=== PATIENT | female | born 1940 | race Caucasian/White ===

== ENCOUNTER 2016-05-26 19:45 | Observation (INO) ==
--- NOTE | 2016-05-26 20:05 | Emergency Department Note ---
Disposition Clinical Impression: Syncope and collapse Urinary tract infection Qualifiers: Urinary tract infection type: acute cystitis Hematuria presence: with hematuria Qualified Code(s): N30.01 - Acute cystitis with hematuria Disposition: Admitted As Inpatient Forms: ED Satisfaction Letter Syncope HPI - General Chief Complaint: ED Syncope Stated Complaint: Syncope Time Seen by Provider: 05/26/16 19:50 Source: EMS Limitations: no limitations Nursing Notes Reviewed: Yes Vital Signs Reviewed: Yes - History of Present Illness HPI Narrative: patient is a 76 year old female who had a syncopal episode sitting and watching a basketball game. she felt dizzy and weak before she fainted, shes complaining of post neck pain but she was between 2 family members and sustained no trauma. Pt Subjective Complaint: loss of consciousness, felt faint, collapsed Onset (ago): minute(s) (30) Number of episodes: 1 Duration: minutes(s) (5) Witnessed: yes - by bystander Context: at rest (sitting at a basketball game.) Injuries Sustained Associated with Event: none Current Symptoms: lightheaded, headache History: none Treatments prior to arrival: none - Related Data Allergies Allergy/AdvReac Type Severity Reaction Status Date / Time No Known Allergies Allergy Verified 05/26/16 21:22 All systems ED: reviewed and negative except as stated. Constitutional: Denies: fever, chills, weakness Cardiovascular: Denies: chest pain, palpitations, dyspnea on exertion Past Medical History - Past Medical History Source: patient, old records reviewed, obtained from family, nursing notes reviewed Medical history: Reports: diabetes, GERD, hypertension Psychiatric history: Reports: no psych history - Social History Smoking Status: Never smoker Smokeless Tobacco Status: No Alcohol use: Reports: none Drug use: Reports: none Physical Exam - General Limitations: no limitations General appearance: lethargic - Head Head exam: atraumatic, normocephalic, normal inspection - Eye Eye exam: Present: normal appearance, PERRL, EOMI - Expanded Eye Exam Pupils: Left: reactive - ENT ENT exam: normal exam, normal oropharynx, mucous membranes moist - Expanded ENT Exam External ear exam: Present: normal external inspection Mouth exam: Present: normal external inspection Teeth exam: Present: normal inspection Throat exam: Present: normal inspection - Neck Neck exam: Present: normal inspection, full ROM, trachea midline - Chest Chest inspection: Present: normal inspection, symmetric chest wall rise - Respiratory Respiratory exam: Present: normal lung sounds bilaterally - Cardiovascular Cardiovascular exam: Present: regular rate, normal rhythm, normal heart sounds - Abdominal Exam Abdominal exam: Present: soft, Non-Tender. Absent: tenderness, distention, guarding, rebound, rigidity - Extremities Exam Extremities exam: Present: normal inspection, full ROM. Absent: tenderness, pedal edema - Expanded Upper Extremity Exam Shoulder exam: Present: normal inspection, full ROM Arm exam: Present: normal inspection, full ROM Elbow exam: Present: normal inspection, full ROM Forearm/Wrist exam: Present: normal inspection, full ROM Hand exam: Present: normal inspection, full ROM Vascular exam: Normal: capillary refill, radial pulse - Expanded Lower Extremity Exam Hip/Pelvis exam: Present: normal inspection, full ROM Upper leg exam: Present: normal inspection, full ROM Knee exam: Present: normal inspection, full ROM Lower leg exam: Present: normal inspection, full ROM Ankle exam: Present: normal inspection, full ROM Foot/toe exam: Present: normal inspection, full ROM Neurovascular/Tendon exam: Absent: motor deficit, sensory deficit, tendon deficit - Back Exam Back exam: Present: normal inspection, full ROM. Absent: tenderness - Neurological Exam Neurological exam: Present: alert, oriented X3 - Expanded Neurological Exam Patient oriented to: Present: person, place, time Coma Scale Eye Opening: Spontaneous Coma Scale Motor Response: Obeys Commands Coma Scale Verbal Response: Oriented Coma Scale Total: 15 - Psychiatric Psychiatric exam: Present: normal affect, normal mood - Skin Skin exam: Present: warm, dry, intact, normal color Course Vital Signs O2 Sat by Pulse Oximetry 96 05/26/16 19:45 Temperature 97.2 F L 05/26/16 19:46 Pulse Rate 80 05/26/16 22:22 Respiratory Rate 16 05/26/16 22:22 Blood Pressure 149/84 05/26/16 22:22 O2 Sat by Pulse Oximetry 95 05/26/16 22:22 Oxygen Delivery Oxygen Delivery Nasal Cannula Syncope - Differential Diagnosis Likely: vasovagal syncope, complete atrioventricular block, intracerebral hemorrhage, pulmonary embolism, dehydration/metabolic disorder, trauma secondary to event - Medical Records Medical records reviewed: Yes I reviewed the patient's medical records. - Lab Data Lab results reviewed: Yes I reviewed the patient's lab results. Result diagrams: 05/26/16 19:55 05/26/16 19:55 Lab Results 05/26/16 05/26/16 05/26/16 Range/Units 19:48 19:55 19:55 WBC 8.8 (4.3-11.1) K/mcL RBC 4.44 (3.82-4.97) M/mcL Hgb 13.5 (11.5-15.4) g/dL Hct 39.5 (35.3-44.9) % MCV 89.0 (83.0-100.0) fL MCH 30.4 (28.0-33.3) pg MCHC 34.2 (31.6-35.5) g/dL RDW 12.3 (11.5-14.5) % Plt Count 195 (140-400) K/mcL MPV 10.2 (9.4-12.4) fL Immature Gran % 0.5 (0-4) % Seg Neutrophils % 68.5 % Lymphocytes % 21.4 % Monocytes % 8.6 % Eosinophils % 0.7 % Basophils % 0.3 % Neutrophils # 6.0 (1.6-8.9) K/mcL Lymphocytes # 1.9 (0.6-4.6) K/mcL Monocytes # 0.8 (0.0-1.3) K/mcL Eosinophils # 0.1 (0.0-0.6) K/mcL Basophils # 0.0 (0.0-0.2) K/mcL PT 11.8 (9.4-12.1) Seconds INR 1.1 APTT 29.7 (26.0-36.0) Seconds Sodium (136-145) mEq/L Potassium (3.5-4.5) mEq/L Chloride (98-109) mEq/L Carbon Dioxide (19-29) mEq/L BUN (7-20) mg/dL Creatinine (0.57-1.11) mg/dL Est GFR ( Amer) (> 60) Est GFR (Non-Af Amer) (> 60) BUN/Creatinine Ratio (6-26) Glucose (70-99) mg/dL POC Glucose 308 H (58-89) Calculated Osmolality (280-300) Calcium (8.6-10.8) mg/dL Troponin I (0-0.03) ng/mL Urine Color (Yellow) Urine Clarity (Clear) Urine pH (5.0-8.0) pH Units Ur Specific [place] (1.010-1.025) Urine Protein (Neg-Trace) mg/dL Urine Glucose (UA) (Normal) mg/dL Urine Ketones (Negative) mg/dL Urine Blood (Negative) Urine Nitrite (Negative) Urine Bilirubin (Negative) Urine Urobilinogen (Normal) mg/dL Ur Leukocyte Esterase (Negative) Urine Microscopic RBC (0-3) per hpf Urine Microscopic WBC (0-3) per hpf Ur Squamous Epith Cells (None-Few) per lpf Urine Bacteria (None-Few) per hpf Hyaline Casts (None-Few) per lpf Ur Culture Indicated? (NO) Urine Opiates Screen (Reqltm=890) ng/mL Ur Barbiturates Screen (Qoljca=627) ng/mL Ur Phencyclidine Scrn (Cutoff=25) ng/mL Ur Amphetamines Screen (Wmcdvx=7038) ng/mL U Benzodiazepines Scrn (Qwxkxp=154) ng/mL Urine Cocaine Screen (Cutoff= 300) ng/mL U Marijuana (THC) Screen (Cutoff = 50) ng/mL 05/26/16 05/26/16 05/26/16 Range/Units 19:55 19:55 20:20 WBC (4.3-11.1) K/mcL RBC (3.82-4.97) M/mcL Hgb (11.5-15.4) g/dL Hct (35.3-44.9) % MCV (83.0-100.0) fL MCH (28.0-33.3) pg MCHC (31.6-35.5) g/dL RDW (11.5-14.5) % Plt Count (140-400) K/mcL MPV (9.4-12.4) fL Immature Gran % (0-4) % Seg Neutrophils % % Lymphocytes % % Monocytes % % Eosinophils % % Basophils % % Neutrophils # (1.6-8.9) K/mcL Lymphocytes # (0.6-4.6) K/mcL Monocytes # (0.0-1.3) K/mcL Eosinophils # (0.0-0.6) K/mcL Basophils # (0.0-0.2) K/mcL PT (9.4-12.1) Seconds INR APTT (26.0-36.0) Seconds Sodium 133 L (136-145) mEq/L Potassium 4.8 H (3.5-4.5) mEq/L Chloride 98 (98-109) mEq/L Carbon Dioxide 20 (19-29) mEq/L BUN 24 H (7-20) mg/dL Creatinine 1.23 H (0.57-1.11) mg/dL Est GFR ( Amer) 52 L (> 60) Est GFR (Non-Af Amer) 43 L (> 60) BUN/Creatinine Ratio 20 (6-26) Glucose 348 H (70-99) mg/dL POC Glucose (58-89) Calculated Osmolality 294 (280-300) Calcium 10.1 (8.6-10.8) mg/dL Troponin I 0.00 (0-0.03) ng/mL Urine Color Yellow (Yellow) Urine Clarity Cloudy A (Clear) Urine pH 6.0 (5.0-8.0) pH Units Ur Specific [place] 1.028 H (1.010-1.025) Urine Protein 30 H (Neg-Trace) mg/dL Urine Glucose (UA) >=1000 H (Normal) mg/dL Urine Ketones Trace H (Negative) mg/dL Urine Blood Negative (Negative) Urine Nitrite Negative (Negative) Urine Bilirubin Negative (Negative) Urine Urobilinogen Normal (Normal) mg/dL Ur Leukocyte Esterase Large H (Negative) Urine Microscopic RBC 0-3 (0-3) per hpf Urine Microscopic WBC TNTC H (0-3) per hpf Ur Squamous Epith Cells Many H (None-Few) per lpf Urine Bacteria Moderate H (None-Few) per hpf Hyaline Casts Few (None-Few) per lpf Ur Culture Indicated? YES A (NO) Urine Opiates Screen (Bufshe=972) ng/mL Ur Barbiturates Screen (Ehnjmr=052) ng/mL Ur Phencyclidine Scrn (Cutoff=25) ng/mL Ur Amphetamines Screen (Ycwytl=5175) ng/mL U Benzodiazepines Scrn (Saintt=210) ng/mL Urine Cocaine Screen (Cutoff= 300) ng/mL U Marijuana (THC) Screen (Cutoff = 50) ng/mL 05/26/16 Range/Units 20:20 WBC (4.3-11.1) K/mcL RBC (3.82-4.97) M/mcL Hgb (11.5-15.4) g/dL Hct (35.3-44.9) % MCV (83.0-100.0) fL MCH (28.0-33.3) pg MCHC (31.6-35.5) g/dL RDW (11.5-14.5) % Plt Count (140-400) K/mcL MPV (9.4-12.4) fL Immature Gran % (0-4) % Seg Neutrophils % % Lymphocytes % % Monocytes % % Eosinophils % % Basophils % % Neutrophils # (1.6-8.9) K/mcL Lymphocytes # (0.6-4.6) K/mcL Monocytes # (0.0-1.3) K/mcL Eosinophils # (0.0-0.6) K/mcL Basophils # (0.0-0.2) K/mcL PT (9.4-12.1) Seconds INR APTT (26.0-36.0) Seconds Sodium (136-145) mEq/L Potassium (3.5-4.5) mEq/L Chloride (98-109) mEq/L Carbon Dioxide (19-29) mEq/L BUN (7-20) mg/dL Creatinine (0.57-1.11) mg/dL Est GFR ( Amer) (> 60) Est GFR (Non-Af Amer) (> 60) BUN/Creatinine Ratio (6-26) Glucose (70-99) mg/dL POC Glucose (58-89) Calculated Osmolality (280-300) Calcium (8.6-10.8) mg/dL Troponin I (0-0.03) ng/mL Urine Color (Yellow) Urine Clarity (Clear) Urine pH (5.0-8.0) pH Units Ur Specific [place] (1.010-1.025) Urine Protein (Neg-Trace) mg/dL Urine Glucose (UA) (Normal) mg/dL Urine Ketones (Negative) mg/dL Urine Blood (Negative) Urine Nitrite (Negative) Urine Bilirubin (Negative) Urine Urobilinogen (Normal) mg/dL Ur Leukocyte Esterase (Negative) Urine Microscopic RBC (0-3) per hpf Urine Microscopic WBC (0-3) per hpf Ur Squamous Epith Cells (None-Few) per lpf Urine Bacteria (None-Few) per hpf Hyaline Casts (None-Few) per lpf Ur Culture Indicated? (NO) Urine Opiates Screen Negative (Cezdjp=556) ng/mL Ur Barbiturates Screen Negative (Bmkeaz=297) ng/mL Ur Phencyclidine Scrn Negative (Cutoff=25) ng/mL Ur Amphetamines Screen Negative (Wcmcwr=9394) ng/mL U Benzodiazepines Scrn Negative (Akslph=365) ng/mL Urine Cocaine Screen Negative (Cutoff= 300) ng/mL U Marijuana (THC) Screen Negative (Cutoff = 50) ng/mL - Radiology Data Radiology results reviewed: Yes I reviewed the patient's radiology results. - EKG Data EKG attestation: Yes I reviewed and interpreted this EKG. EKG shows normal: sinus rhythm Rate: normal (85) Rhythm: NSR [place]/QRS: normal Interpretation: nonspecific ST-T wave changes
[2016-05-26 20:06] LABS: Basophils % 0.3 %; Eosinophils # 0.1 K/mcL (0.0-0.6); Eosinophils % 0.7 %; Hematocrit 39.5 % (35.3-44.9); Hemoglobin 13.5 g/dL (11.5-15.4); Immature Granulocytes % 0.5 % (0-4); Lymphocytes # 1.9 K/mcL (0.6-4.6); Lymphocytes % 21.4 %; Mean Corpuscular HGB Conc 34.2 g/dL (31.6-35.5); Mean Corpuscular Hemoglobin 30.4 pg (28.0-33.3); Mean Platelet Volume 10.2 fL (9.4-12.4); Monocytes # 0.8 K/mcL (0.0-1.3); Monocytes % 8.6 %; Platelet Count 195 K/mcL (140-400); Red Blood Count 4.44 M/mcL (3.82-4.97); Red Cell Distribution Width 12.3 % (11.5-14.5); Segmented Neutrophils % 68.5 %
[2016-05-26 20:11] LABS: INR 1.1; Prothrombin Time 11.8 Seconds (9.4-12.1)
[2016-05-26 20:14] LABS: Activated Partial Thrombo Time 29.7 Seconds (26.0-36.0)
[2016-05-26 20:22] LABS: Calcium 10.1 mg/dL (8.6-10.8); Potassium 4.8 mEq/L (3.5-4.5)
[2016-05-26 20:42] LABS: Bilirubin,Urine Negative (Negative); Blood,Urine Negative (Negative); Clarity,Urine Cloudy (Clear); Color,Urine Yellow (Yellow); Glucose,Urine (UA) >=1000 mg/dL (Normal); Ketones,Urine Trace mg/dL (Negative); Leukocyte Esterase,Urine Large (Negative); Nitrite,Urine Negative (Negative); Protein,Urine 30 mg/dL (Neg-Trace); Specific Gravity,Urine 1.028 (1.010-1.025); Urobilinogen,Urine Normal (Normal)
[2016-05-26 20:45] LABS: Amphetamine Screen,Urine Negative ng/mL (Cutoff=1000); Bacteria,Urine Moderate per hpf (None-Few); Barbiturate Screen,Urine Negative ng/mL (Cutoff=200); Benzodiazepines Screen,Urine Negative ng/mL (Cutoff=200); Cannabinoid Screen,Urine Negative ng/mL (Cutoff = 50); Cocaine Screen,Urine Negative ng/mL (Cutoff= 300); Hyaline Casts,Urine Few per lpf (None-Few); Opiate Screen,Urine Negative ng/mL (Cutoff=300); Phencyclidine Screen,Urine Negative ng/mL (Cutoff=25); RBC,Urine 0-3 per hpf (0-3); Squamous Epithelial Cell,Urine Many per lpf (None-Few); WBC,Urine TNTC per hpf (0-3)
[2016-05-26] MEDS ORDERED: *HR* Morphine 2 MG/ML SYRINGE IV ONE (21:45)
[2016-05-26] MEDS ORDERED: Ondansetron 4 MG/2 ML VIAL IV ONE (21:45)
[2016-05-26] MEDS ORDERED: Levofloxacin 750 MG/150 ML 750 MG/150 ML BAG IVPB ONE (21:54)
[2016-05-26] MEDS ORDERED: Acetaminophen 325 MG TABLET PO PRN (23:27)
[2016-05-26] MEDS ORDERED: Naloxone 0.4 MG/ML INJ IVP PRN (23:27)
[2016-05-26] MEDS ORDERED: Dextrose Gel 15 GM PO PRN ×2 (23:30)
[2016-05-26] MEDS ORDERED: D5% in Water 1,000 ML IV PRN (23:30)
[2016-05-26] MEDS ORDERED: *HR* Dextrose 50 % in Water (Syg) 50 ML SYRINGE IVP PRN (23:30)
[2016-05-26] MEDS ORDERED: 0.9 % Sodium Chloride 1,000 ML IVC SCH (23:30)
--- NOTE | 2016-05-26 23:32 | Internal Med History&Physical ---
Date of Encounter: 05/27/16 Time of Encounter: 23:32 Assessment and Plan (1) Syncope and collapse Current visit: Yes Status: Acute Patient with witnessed syncopal episode this evening, was unresponsive for several minutes and confused when she came to. CT head: negative for acute abnormality. Troponin negative at 0.0. EKG with NSR and non-specific ST changes. 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 Continuous instrument calibrator Echocardiogram in the morning orthostatic vital signs. (2) Urinary tract infection Current visit: Yes Status: Acute Patient denies dysuria. UA shows concern for UTI. She was given IV Levaquin in the ED. Await culture results. Qualifiers: Urinary tract infection type: acute cystitis Hematuria presence: with hematuria Qualified Code(s): N30.01 - Acute cystitis with hematuria (3) DVT prophylaxis Current visit: Yes Status: Acute Ambulate with assistance anti-embolic stockings heparin 5,000u SQ BID Internal Medicine - H&P: HPI Chief complaint: syncope Admitted From: Emergency Dept Plans for Post Hospital Care: Home History of present illness: Ms. Simpson is a 76 year old female with history of hypertension, type 2 diabetes , GERD was brought to the ER by the squad after a witnessed syncopal event. She was at a high school basketball game and reports she developed dizzy and nauseous and told her daughter she did not feel well. Her daughter reports she fell and turned very and had her eyes rolled back in her head and slumped over. He did in the bleachers and fell on the person sitting next to her did not hit her head. Daughter reports that several people came over to help and they could not arouse her for several minutes. Someone checked her blood sugar and it was in the 300s. When she did awake, her speech was slurred and she was confused, stating it was 1969. After the incident she reported she had a headache at the back of her head, her neck hurt, and her head felt "heavy". She denies any episodes of dizziness, lightheadedness, prior to the episode this evening. She denies any chest pain, palpitations, recent fever, chills, sweats, body aches. Eyes any dysuria. Evaluation in the emergency department showed negative troponin 0.0, GGT was normal sinus rhythm with nonspecific ST changes. Her 348. Mild acute kidney injury with creatinine of 1.23. UA concerning for infection. CT of the head showed no acute abnormality. CTA of the head and neck showed moderate to severe irregular stenosis of the cavernous and supraclinoid right internal carotid artery secondary to calcified atherosclerotic plaque, moderate calcified atherosclerotic plaque at the carotid bifurcations causing 30% stenosis at the origin of the right and 50% stenosis in the region of the left internal carotid arteries, moderate focal stenosis at the origin of the left vertebral artery. On exam, she is alert and oriented 3, in no acute distress. Heart has regular rate and rhythm, lungs are clear to auscultation bilaterally. No neurological deficits. Past Med Surg Social Fam HX - Past Medical History Medical history: diabetes, GERD, hypertension Psychiatric history: no psych history - Past Surgical History Surgical History: hysterectomy - Social History Smoking Status: Never smoker Smokeless Tobacco Status: No Alcohol use: none Drug use: none - Family History Father Living Status: Age at : 53 Cause of : ME Mother Living Status: Cause of : Cancer Internal Medicine - H&P: Meds Allergies No Known Allergies Allergy (Verified 05/26/16 21:22) All Systems PM: A 10-system review of systems was performed and is negative for pertinent findings except as documented above in the HPI. - Constitutional Constitutional: no chills, no fever(s), no night sweats - EENT Eyes: no change in vision, no discharge, no pain, no photophobia Nose, mouth and throat: no dysphagia, no nasal discharge, no neck pain, no sore throat - Cardiovascular Cardiovascular ROS IM: syncope, no chest pain, no diaphoresis, no dyspnea, no lightheadedness, no palpitations - Respiratory Respiratory: no cough, no dyspnea, no wheezing, no excessive phlegm production - Gastrointestinal Gastrointestinal: no abdominal pain, no diarrhea, no hematemesis, no hematochezia, no melena, no nausea, no vomiting - Genitourinary Genitourinary: no change in urinary stream, no dysuria, no flank pain, no hematuria - Musculoskeletal Musculoskeletal ROS IM: no numbness, no tingling - Integumentary Integumentary IM: no rash, no unusual bruising - Neurological Neurological ROS: headache(s), no confusion, no convulsions, no focal weakness, no numbness, no tingling, no tremor(s) - Hematologic/Lymphatic Hematologic/Lymphatic: no easy bruising - Constitutional Vitals: Temp Pulse Resp BP Pulse Ox 97.2 F L 82 18 127/93 95 05/26/16 19:46 05/26/16 23:21 05/26/16 23:21 05/26/16 23:21 05/26/16 23:21 General appearance: Present: A&O X 3, no acute distress - Head Head exam: Present: atraumatic, normocephalic - Eye Eye exam: Present: PERRL, conjuntiva pink, sclera anicteric Pupils: Present: PERRL - Neck Neck exam general surgery: Present: supple, trachea midline. Absent: lymphadenopathy - Respiratory Respiratory exam: Present: CTAB. Absent: accessory muscle use, rales, rhonchi, wheezes - Cardiovascular Cardiovascular exam: Present: RRR, +S1, +S2. Absent: diastolic murmur, gallop, rubs, systolic murmur - GI/Abdominal GI/Abdominal exam: Present: normal bowel sounds, soft, no peritoneal signs. Absent: distended, tenderness - Extremities Exam Extremities exam: Present: warm, radial pulses palpable and symetrical. Absent : calf tenderness, cyanotic, pedal edema - Neurological Exam Neurological exam: Present: CN II-XII intact, oriented X3, no focal deficits. Absent: pronater drift, facial droop, speech deficit - Skin Skin exam: Present: dry, intact Internal Med - H&P Results - Labs CBC & Chem 7: 05/26/16 19:55 05/26/16 19:55 Labs: All Lab Results (24 Hours) 05/26/16 05/26/16 05/26/16 Range/Units 19:48 19:55 19:55 WBC 8.8 (4.3-11.1) K/mcL RBC 4.44 (3.82-4.97) M/mcL Hgb 13.5 (11.5-15.4) g/dL Hct 39.5 (35.3-44.9) % MCV 89.0 (83.0-100.0) fL MCH 30.4 (28.0-33.3) pg MCHC 34.2 (31.6-35.5) g/dL RDW 12.3 (11.5-14.5) % Plt Count 195 (140-400) K/mcL MPV 10.2 (9.4-12.4) fL Immature Gran % 0.5 (0-4) % Seg Neutrophils % 68.5 % Lymphocytes % 21.4 % Monocytes % 8.6 % Eosinophils % 0.7 % Basophils % 0.3 % Neutrophils # 6.0 (1.6-8.9) K/mcL Lymphocytes # 1.9 (0.6-4.6) K/mcL Monocytes # 0.8 (0.0-1.3) K/mcL Eosinophils # 0.1 (0.0-0.6) K/mcL Basophils # 0.0 (0.0-0.2) K/mcL PT 11.8 (9.4-12.1) Seconds INR 1.1 APTT 29.7 (26.0-36.0) Seconds Sodium (136-145) mEq/L Potassium (3.5-4.5) mEq/L Chloride (98-109) mEq/L Carbon Dioxide (19-29) mEq/L BUN (7-20) mg/dL Creatinine (0.57-1.11) mg/dL Est GFR ( Amer) (> 60) Est GFR (Non-Af Amer) (> 60) BUN/Creatinine Ratio (6-26) Glucose (70-99) mg/dL POC Glucose 308 H (58-89) Calculated Osmolality (280-300) Calcium (8.6-10.8) mg/dL Troponin I (0-0.03) ng/mL Urine Color (Yellow) Urine Clarity (Clear) Urine pH (5.0-8.0) pH Units Ur Specific [place] (1.010-1.025) Urine Protein (Neg-Trace) mg/dL Urine Glucose (UA) (Normal) mg/dL Urine Ketones (Negative) mg/dL Urine Blood (Negative) Urine Nitrite (Negative) Urine Bilirubin (Negative) Urine Urobilinogen (Normal) mg/dL Ur Leukocyte Esterase (Negative) Urine Microscopic RBC (0-3) per hpf Urine Microscopic WBC (0-3) per hpf Ur Squamous Epith Cells (None-Few) per lpf Urine Bacteria (None-Few) per hpf Hyaline Casts (None-Few) per lpf Ur Culture Indicated? (NO) Urine Opiates Screen (Ftoouh=330) ng/mL Ur Barbiturates Screen (Gysdtt=104) ng/mL Ur Phencyclidine Scrn (Cutoff=25) ng/mL Ur Amphetamines Screen (Zcxpsb=5494) ng/mL U Benzodiazepines Scrn (Cphcjg=615) ng/mL Urine Cocaine Screen (Cutoff= 300) ng/mL U Marijuana (THC) Screen (Cutoff = 50) ng/mL 05/26/16 05/26/16 05/26/16 Range/Units 19:55 19:55 20:20 WBC (4.3-11.1) K/mcL RBC (3.82-4.97) M/mcL Hgb (11.5-15.4) g/dL Hct (35.3-44.9) % MCV (83.0-100.0) fL MCH (28.0-33.3) pg MCHC (31.6-35.5) g/dL RDW (11.5-14.5) % Plt Count (140-400) K/mcL MPV (9.4-12.4) fL Immature Gran % (0-4) % Seg Neutrophils % % Lymphocytes % % Monocytes % % Eosinophils % % Basophils % % Neutrophils # (1.6-8.9) K/mcL Lymphocytes # (0.6-4.6) K/mcL Monocytes # (0.0-1.3) K/mcL Eosinophils # (0.0-0.6) K/mcL Basophils # (0.0-0.2) K/mcL PT (9.4-12.1) Seconds INR APTT (26.0-36.0) Seconds Sodium 133 L (136-145) mEq/L Potassium 4.8 H (3.5-4.5) mEq/L Chloride 98 (98-109) mEq/L Carbon Dioxide 20 (19-29) mEq/L BUN 24 H (7-20) mg/dL Creatinine 1.23 H (0.57-1.11) mg/dL Est GFR ( Amer) 52 L (> 60) Est GFR (Non-Af Amer) 43 L (> 60) BUN/Creatinine Ratio 20 (6-26) Glucose 348 H (70-99) mg/dL POC Glucose (58-89) Calculated Osmolality 294 (280-300) Calcium 10.1 (8.6-10.8) mg/dL Troponin I 0.00 (0-0.03) ng/mL Urine Color Yellow (Yellow) Urine Clarity Cloudy A (Clear) Urine pH 6.0 (5.0-8.0) pH Units Ur Specific [place] 1.028 H (1.010-1.025) Urine Protein 30 H (Neg-Trace) mg/dL Urine Glucose (UA) >=1000 H (Normal) mg/dL Urine Ketones Trace H (Negative) mg/dL Urine Blood Negative (Negative) Urine Nitrite Negative (Negative) Urine Bilirubin Negative (Negative) Urine Urobilinogen Normal (Normal) mg/dL Ur Leukocyte Esterase Large H (Negative) Urine Microscopic RBC 0-3 (0-3) per hpf Urine Microscopic WBC TNTC H (0-3) per hpf Ur Squamous Epith Cells Many H (None-Few) per lpf Urine Bacteria Moderate H (None-Few) per hpf Hyaline Casts Few (None-Few) per lpf Ur Culture Indicated? YES A (NO) Urine Opiates Screen (Wuhtqy=697) ng/mL Ur Barbiturates Screen (Wjqhsz=888) ng/mL Ur Phencyclidine Scrn (Cutoff=25) ng/mL Ur Amphetamines Screen (Mxpghu=4809) ng/mL U Benzodiazepines Scrn (Sirhdf=974) ng/mL Urine Cocaine Screen (Cutoff= 300) ng/mL U Marijuana (THC) Screen (Cutoff = 50) ng/mL 05/26/16 Range/Units 20:20 WBC (4.3-11.1) K/mcL RBC (3.82-4.97) M/mcL Hgb (11.5-15.4) g/dL Hct (35.3-44.9) % MCV (83.0-100.0) fL MCH (28.0-33.3) pg MCHC (31.6-35.5) g/dL RDW (11.5-14.5) % Plt Count (140-400) K/mcL MPV (9.4-12.4) fL Immature Gran % (0-4) % Seg Neutrophils % % Lymphocytes % % Monocytes % % Eosinophils % % Basophils % % Neutrophils # (1.6-8.9) K/mcL Lymphocytes # (0.6-4.6) K/mcL Monocytes # (0.0-1.3) K/mcL Eosinophils # (0.0-0.6) K/mcL Basophils # (0.0-0.2) K/mcL PT (9.4-12.1) Seconds INR APTT (26.0-36.0) Seconds Sodium (136-145) mEq/L Potassium (3.5-4.5) mEq/L Chloride (98-109) mEq/L Carbon Dioxide (19-29) mEq/L BUN (7-20) mg/dL Creatinine (0.57-1.11) mg/dL Est GFR ( Amer) (> 60) Est GFR (Non-Af Amer) (> 60) BUN/Creatinine Ratio (6-26) Glucose (70-99) mg/dL POC Glucose (58-89) Calculated Osmolality (280-300) Calcium (8.6-10.8) mg/dL Troponin I (0-0.03) ng/mL Urine Color (Yellow) Urine Clarity (Clear) Urine pH (5.0-8.0) pH Units Ur Specific [place] (1.010-1.025) Urine Protein (Neg-Trace) mg/dL Urine Glucose (UA) (Normal) mg/dL Urine Ketones (Negative) mg/dL Urine Blood (Negative) Urine Nitrite (Negative) Urine Bilirubin (Negative) Urine Urobilinogen (Normal) mg/dL Ur Leukocyte Esterase (Negative) Urine Microscopic RBC (0-3) per hpf Urine Microscopic WBC (0-3) per hpf Ur Squamous Epith Cells (None-Few) per lpf Urine Bacteria (None-Few) per hpf Hyaline Casts (None-Few) per lpf Ur Culture Indicated? (NO) Urine Opiates Screen Negative (Isdzet=446) ng/mL Ur Barbiturates Screen Negative (Tjntak=163) ng/mL Ur Phencyclidine Scrn Negative (Cutoff=25) ng/mL Ur Amphetamines Screen Negative (Njycax=0894) ng/mL U Benzodiazepines Scrn Negative (Rmkpka=350) ng/mL Urine Cocaine Screen Negative (Cutoff= 300) ng/mL U Marijuana (THC) Screen Negative (Cutoff = 50) ng/mL
[2016-05-27 00:17] LABS: Hemoglobin A1C 10.4 %
[2016-05-27] MEDS: *HR* Heparin 5,000 UNIT/ML VIAL SQ SCH ×3 (01:23→21:46)
[2016-05-27] MEDS: Insulin LISPRO 300 UNITS/3 ML VIAL SQ SCH ×5 (01:24→21:46)
[2016-05-27 05:07] LABS: Basophils % 0.3 %; Eosinophils # 0.1 K/mcL (0.0-0.6); Eosinophils % 0.8 %; Hematocrit 37.1 % (35.3-44.9); Hemoglobin 12.7 g/dL (11.5-15.4); Immature Granulocytes % 0.3 % (0-4); Lymphocytes % 27.6 %; Mean Corpuscular HGB Conc 34.2 g/dL (31.6-35.5); Mean Corpuscular Hemoglobin 30.1 pg (28.0-33.3); Mean Corpuscular Volume 87.9 fL (83.0-100.0); Mean Platelet Volume 10.3 fL (9.4-12.4); Monocytes # 0.8 K/mcL (0.0-1.3); Monocytes % 10.7 %; Neutrophils # 4.3 K/mcL (1.6-8.9); Platelet Count 195 K/mcL (140-400); Red Blood Count 4.22 M/mcL (3.82-4.97); Red Cell Distribution Width 12.3 % (11.5-14.5); Segmented Neutrophils % 60.3 %
[2016-05-27 05:19] LABS: BUN/Creatinine Ratio 22 (6-26); Blood Urea Nitrogen 21 mg/dL (7-20); Calcium 9.3 mg/dL (8.6-10.8); Carbon Dioxide 19 mEq/L (19-29); Chloride 99 mEq/L (98-109); Glucose 183 mg/dL (70-99); Osmolality,Calculated 286 (280-300); Sodium 134 mEq/L (136-145); eGFR For African Americans > 60 (> 60); eGFR For Non-African Americans 57 (> 60)
[2016-05-27 05:21] LABS: Potassium 3.6 mEq/L (3.5-4.5)
[2016-05-27] MEDS: levoFLOXacin 500 MG TABLET PO SCH (08:08)
--- NOTE | 2016-05-27 10:20 | Internal Med Progress Note ---
<Ganesh Lanza - Last Filed: 05/27/16 15:08> Date of Encounter: 05/27/16 Time of Encounter: 10:17 - Assessment and plan (1) Syncope and collapse Current Visit: Yes Status: Acute Assessment and plan: Patient presented to the hospital after an acute syncopal episode that was followed by a few minutes of confusion when she came to. Upon arrival she received a CT of the head which was negative for any acute abnormalities, her original troponins were 0.0 she has no chest pain, EKG was normal sinus rhythm with no ST changes. She is currently normal sinus rhythm and on telemetry. CT of the head and neck were performed showed moderate to severe irregular stenosis of the cavernous and supraclinoid right internal carotid artery secondary to calcified atherosclerotic plaque, and moderate calcified atherosclerotic plaque at the carotid bifurcations causing 30% stenosis at origin of the right and 50% stenosis at the origin of the left internal carotid arteries. There was also diffuse cerebral stenosis the anterior middle and posterior vessels. Patient states that she takes an aspirin a day 81 mg. Plan: - Neurology consult and for further recommendations - Considering adding Plavix. - Echocardiogram complete results pending. - Patient continue on telemetry. (2) Cerebral vascular disease Current Visit: Yes Status: Acute Assessment and plan: CT of the head and neck demonstrate diffuse cerebrovascular disease which may be contributing to her syncopal events. Medications have been reviewed and simvastatin was discontinued and she was started on atorvastatin 40 mg. Patient takes an aspirin a day, will discuss further anticoagulation with neurology. (3) Type 2 diabetes mellitus Current Visit: Yes Status: Acute Assessment and plan: Known type II diabetic with current glucose at 183. Yesterday's glucose was elevated at 348, last A1c performed yesterday was 10.4 demonstrating uncontrolled diabetes. Urinalysis was significant for goes greater than 1000 and protein of 30. Patient demonstrates diffuse vascular disease. Uncontrolled diabetes likely contributing to her diffuse vascular and microvascular disease. Plan: -Continue current inpatient sliding scale insulin and before meals at bedtime glucose checks. Qualifiers: Qualified Code(s): E11.9 - Type 2 diabetes mellitus without complications (4) Urinary tract infection Current Visit: Yes Status: Acute Assessment and plan: Urinalysis collected on 05/26/2016 demonstrated dirty urine that may demonstrate urinary tract infection but is also demonstrating many squamous cells. 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 Plan: - Continue Levaquin 500 by mouth daily. Qualifiers: Urinary tract infection type: acute cystitis Hematuria presence: with hematuria Qualified Code(s): N30.01 - Acute cystitis with hematuria (5) DVT prophylaxis Current Visit: Yes Status: Acute Assessment and plan: Heparin 5000 units subcutaneous every 12 hours. - Subjective Interval history: 76-year-old female has been seen and evaluated patient bedside this morning. She is alert awake and interactive she says that she did not sleep well overnight if she slept at all and feels very tired today. She overall feels pretty good and denies any syncopal episodes, headaches, lightheadedness, change in vision or blurry vision, palpitations, chest pain or chest pressure, abdominal pain, nausea, vomiting diarrhea or constipation or swelling in her extremities today. Her family is at bedside and they are very concerned about her condition. They are requesting what may be the cause of her syncopal event. I discussed the findings on her CT of the neck and head. After our discussion I answered all questions that were asked. - Constitutional Vitals: Temp Pulse Resp BP Pulse Ox 98.2 F 77 18 145/82 96 05/27/16 07:00 05/27/16 07:00 05/27/16 07:00 05/27/16 07:00 05/27/16 07:00 General appearance: Present: A&O X 3, pleasant, no acute distress - Head Head exam: Present: atraumatic, normocephalic - Eye Eye exam: Present: PERRL, conjuntiva pink, sclera anicteric Pupils: Present: PERRL - Neck Neck exam general surgery: Present: supple, trachea midline. Absent: lymphadenopathy - Respiratory Respiratory exam: Present: CTAB. Absent: accessory muscle use, rales, rhonchi, wheezes - Cardiovascular Cardiovascular exam: Present: RRR, +S1, +S2. Absent: diastolic murmur, gallop, rubs, systolic murmur - GI/Abdominal GI/Abdominal exam: Present: normal bowel sounds, soft, no peritoneal signs. Absent: distended, tenderness - Extremities Exam Extremities exam: Present: warm, radial pulses palpable and symetrical. Absent : calf tenderness, cyanotic, pedal edema - Neurological Exam Neurological exam: Present: alert, CN II-XII intact, oriented X3, no focal deficits. Absent: pronater drift, facial droop, speech deficit - Psychiatric Psychiatric exam: Present: normal affect, normal mood - Skin Skin exam: Present: dry, intact Internal Medicine: Result - Labs CBC & Chem 7: 05/27/16 03:38 05/27/16 03:38 Labs: Short CBC 05/27/16 Range/Units 03:38 WBC 7.2 (4.3-11.1) K/mcL Hgb 12.7 (11.5-15.4) g/dL Hct 37.1 (35.3-44.9) % Plt Count 195 (140-400) K/mcL Neutrophils # 4.3 (1.6-8.9) K/mcL BMP 05/27/16 03:38 Sodium 134 L Potassium 3.6 D Chloride 99 Carbon Dioxide 19 BUN 21 H Creatinine 0.96 Glucose 183 H Calcium 9.3 Cardiac Enzymes 05/27/16 Range/Units 03:38 Troponin I 0.00 (0-0.03) ng/mL - ABG Interpretation ABG results: PT/INR, D-dimer PT 11.8 Seconds (9.4-12.1) 05/26/16 19:55 Consult Discharge Plan - Plan Referrals: Alisha Bustillo MD [Primary Care Provider] - <Wilder Acharya - Last Filed: 05/27/16 18:19> Date of Encounter: 05/27/16 - Assessment and plan (1) Syncope and collapse Current Visit: Yes Status: Acute (2) Urinary tract infection Current Visit: Yes Status: Acute Qualifiers: Urinary tract infection type: acute cystitis Hematuria presence: with hematuria Qualified Code(s): N30.01 - Acute cystitis with hematuria (3) Cerebral vascular disease Current Visit: Yes Status: Acute (4) Type 2 diabetes mellitus Current Visit: Yes Status: Acute Qualifiers: Diabetes mellitus complication status: with circulatory complication Diabetes mellitus complication detail: with other circulatory complications Diabetes mellitus termite exterminator helper insulin use: without jail use Qualified Code( s): E11.59 - Type 2 diabetes mellitus with other circulatory complications - Constitutional Vitals: Temp Pulse Resp BP Pulse Ox 98.2 F 88 16 156/91 97 05/27/16 11:00 05/27/16 15:00 05/27/16 15:00 05/27/16 15:00 05/27/16 15:00 Internal Medicine: Result - Labs CBC & Chem 7: 05/27/16 03:38 05/27/16 03:38 Labs: Short CBC 05/27/16 Range/Units 03:38 WBC 7.2 (4.3-11.1) K/mcL Hgb 12.7 (11.5-15.4) g/dL Hct 37.1 (35.3-44.9) % Plt Count 195 (140-400) K/mcL Neutrophils # 4.3 (1.6-8.9) K/mcL BMP 05/27/16 03:38 Sodium 134 L Potassium 3.6 D Chloride 99 Carbon Dioxide 19 BUN 21 H Creatinine 0.96 Glucose 183 H Calcium 9.3 Cardiac Enzymes 05/27/16 Range/Units 03:38 Troponin I 0.00 (0-0.03) ng/mL - ABG Interpretation ABG results: PT/INR, D-dimer PT 11.8 Seconds (9.4-12.1) 05/26/16 19:55 - Attending Attestation I examined this patient and my medical decision-making was reviewed with the Resident Physician on 05/27/16. I agree with the documented findings, disposition and treatment plan as described except to the extent set forth below. Ms. Simpson is currently admitted for sycopal episode and UTI. She is moderate to high risk due to the potential of worsening neurologic symptoms and infection. Ms. Simpson is very tired today but she did not sleep well last night due to being admitted. She has no CP or SOB. No GI symptoms Exam Alert. Heart reg Lungs no wheeze I/P 1. Syncope 2. UTI 3. Cerebral vascular disease - neurology evaluation 4. Diabetes Further diagnoses and plan as above.
[2016-05-27] MEDS: Aspirin 81 MG TAB.CHEW PO SCH (16:07)
[2016-05-27 16:41] LABS: Thyroid Stimulating Hormone 1.073 mcIU/mL (0.350-4.840)
--- NOTE | 2016-05-27 16:49 | ECHO - Doppler Report ---
Echo with Saline Contrast Name: Tania Simpson Date of Study: 05/27/2016 Date: 1940 Ht: 61.0 in Medical Record#: [id number] Age: 76 Wt: 161.0 lb Gender: Female BSA: 1.72 Order #: [id number] Location: [facility] Room #: [id number] Reading Physician: Tyree Franklin MD, [facility] Pier Master Assistant: Carolee Mai Ordering Physician: Anastacia De Souza CNP Primary Physician: Alisha Bustillo MD Indications: Syncope Impressions: Normal left ventricular size and systolic function, LVEF 65%. Mild concentric left ventricular hypertrophy. Mild left ventricular diastolic dysfunction. Normal right ventricular size and function. No evidence of intracardiac shunting with agitated saline contrast. No significant valvular dysfunction. No evidence of pulmonary hypertension. Left Ventricular Wall Motion: Rest Echo Findings All wall segments showed normal motion. Findings: Study Quality * Suboptimal echo windows. ECG Findings * Normal sinus rhythm. Left Ventricle * Normal left ventricular size and systolic function, LVEF 65%. * Mild concentric left ventricular hypertrophy. * Mild left ventricular diastolic dysfunction. Right Ventricle * Normal right ventricular size and function. Left Atrium * Normal left atrial size. Right Atrium * Normal right atrial size. Interatrial Septum * Lipomatous interatrial septum. * No evidence of intracardiac shunting with agitated saline contrast. Aorta * Normally sized aortic root. Pericardium * There is no pericardial effusion present. IVC * The IVC is not dilated. Aortic Valve * Aortic valve not well visualized. * No aortic stenosis. * No aortic regurgitation. Mitral Valve * Mild mitral annular calcification * No mitral stenosis. * Trace mitral regurgitation. Tricuspid Valve * Tricuspid valve not well visualized. * No tricuspid stenosis. * Trace tricuspid regurgitation. * No evidence of pulmonary hypertension. Pulmonic Valve * Pulmonic valve not well visualized. * No pulmonic stenosis. * Trace pulmonic regurgitation. History Hypertension Diabetes Family History of CAD Contrast: Agitated saline 20 ml. Measurements: BP: 141/ 74 2D Normal Values RVIDd: 2.80 cm IVSd: 1.20 cm 0.6 - 1.0 cm LVIDd: 3.70 cm 3.7 - 5.6 cm LVPWd: 1.20 cm 0.6 - 1.1 cm LVIDs: 2.30 cm 1.5 - 3.6 cm AO: 3.00 cm < 4.0 cm LA volume: 49 Mitral Valve Peak E:.55 m/sec Peak A:.95 m/sec E/A Ratio:0.6 Tricuspid Valve TV Regurg Peak Grad: 29.00mmHg TV Regurg Peak [place]: 2.70m/sec Updated by Tyree Franklin MD, [facility] on 05/27/2016 4:42:10 PM electronically signed on 05/27/2016 4:43:18 PM with status of Final Wall Motion [place]: 1=Normal, 2=Hypokinesis, 3=Akinesis, 4=Dyskinesis, 5=Aneurysmal, 6=Hyperkinetic, X=Not Visualized (Blank)=Missing
--- NOTE | 2016-05-27 18:29 | Neurology - Consult Note ---
Date of Encounter: 05/27/16 Time of Encounter: 15:25 Assessment and Plan (1) Syncope and collapse Current Visit: Yes Status: Acute Patient's symptoms of passing out were likely related to hypoperfusion perhaps combination of slight dehydration along with people intracranial atherosclerotic is that she had she has a multiple vessels involvement at the moment do not think that she does candidate for any surgical intervention perhaps best is 2 the medical management with antiplatelet therapy suggested Plavix 75 mg daily along with the statin. Also encouraged to increase her fluid intake have to be careful with prolonged standing sitting or any quick changes in the head movement. The description does not sound like a typical seizure at this time and do not think that she will require an EEG as likely not going to helpful in the management process. At the same time there is no evidence of any stroke on her clinical neurological examination. As she did not have any focal residue of neurological deficit Do need to exclude any cardiovascular causes of syncope particularly to make sure that she does not have any underlying arrhythmias that may be causing or contributing in her symptoms. At the same time do need to check any underlying metabolic abnormalities particularly to check for any underlying infection like a UTI that sometime could present in an very unusual sensation in this elderly age group, On the other hand he should check for any other metabolic dysfunction like vitamin B12 folate and TSH abnormality as well as any other acute metabolic disturbance that may be a contributing factor. She will be following up with her primary care physician. As far as her intracranial and intracarotid stenosis is concerned she could get a repeat to studies in the 6 month what year is a follow-up Discussed in detail with patient's family as well as with the primary team (2) Intracranial atherosclerosis Current Visit: Yes Status: Acute DT angiogram shows evidence of multiple intracranial stenosis with moderate to severe irregular stenosis of the cavernous and supraclinoid right internal carotid artery secondary to calcified atherosclerotic plaque, moderate calcified atherosclerotic plaque at the carotid bifurcations causing 30% stenosis at the origin of the right and 50% stenosis in the region of the left internal carotid arteries, moderate focal stenosis at the origin of the left vertebral artery. At this time I do not think that she be a candidate for any surgical intervention or perhaps for any stent placement though she could be evaluated later on as an outpatient by vascular neurology at a tertiary care center if her symptoms persist or she continued to have more episode of dizziness and lightheadedness are any syncopal episodes (3) Carotid stenosis, bilateral Current Visit: Yes Status: Acute 30% on the right and 50% of the left radicular stenosis reported History of Present Illness HPI: Ms. Simpson is a 76 year old female with history of hypertension, type 2 diabetes , GERD was brought to the ER by the squad after a witnessed syncopal event. She was at a high school basketball game and reports she developed dizzy and nauseous and told her daughter she did not feel well. Her daughter reports she fell with her eyes rolled back in her head and slumped over. No jerking or shaking was reported blood sugar and it was in the 300s. When she did awake, her speech was slurred and she was confused, she denies any history of seizure or dizziness, lighteadedness, prior to the episode.. She denies any chest pain, palpitations , recent fever, chills, sweats, body aches. Evaluation in the emergency department showed negative troponin 0.0, GGT was normal sinus rhythm with nonspecific ST changes. CT of the head showed no acute abnormality. she denies any focal motor weakness auto that any sensory symptomsl, Past Med Surg Social Fam HX - Past Medical History Medical history: diabetes, GERD, hypertension Psychiatric history: no psych history - Past Surgical History Surgical History: hysterectomy - Social History Smoking Status: Never smoker Smokeless Tobacco Status: No Alcohol use: none Drug use: none - Family History Father Name: Aureliano Sumner Living Status: Age at : 53 Cause of : CT Mother Name: Yojana Sumner Living Status: Age at : 60 Cause of : Cancer Medications and Allergies Calcium Carbonate/Vitamin D3 [Calcium 500 + Vit D Caplet] 1 each PO DAILY [History] Gabapentin [Neurontin] 400 mg PO TID 05/27/16 [History] Lisinopril/Hydrochlorothiazide [Lisinopril-Hctz 20-25 mg Tab] 1 tab PO DAILY [History] Loratadine [Claritin] 10 mg PO DAILY 05/27/16 [History] Lovastatin 40 mg PO DAILY 05/27/16 [History] Metformin [Glucophage] 1,000 mg PO BIDWM 05/27/16 [History] Ranitidine HCl [Zantac] 150 mg PO BID 05/27/16 [History] Sitagliptin Phosphate [Januvia] 50 mg PO DAILY 05/27/16 [History] Allergies No Known Allergies Allergy (Verified 05/26/16 21:22) All Systems: A 10-system review of systems was performed and is negative for pertinent findings except as documented above in the HPI.baseline patient is quite active and quite ambulatory Physical Examination - Vital Signs Vital Signs: Initial Vital Signs Pulse Ox 96 05/26/16 19:45 - Constitutional General appearance: comfortable - Neurologic Detailed motor examination: full strength in all major muscle groups Motor examination - right side: 5/5: deltoids, biceps, triceps, wrist flexion, wrist extension, air conditioning installer, hip flexors, tibialis Anterior, quadriceps, toe extension (EHL), plantarflexion Motor examination - left side: 5/5: deltoids, biceps, triceps, wrist flexion, wrist extension, hip flexors, air conditioning installer, quadriceps, tibialis Anterior, toe extension (EHL), plantarflexion Mental Status Examination: awake, alert, oriented to person, oriented to place, oriented to time, follows commands appropriately, answers questions appropriately, no agnosia, no aphasia, no aproxia Cranial nerve examination: PERRL, EOMI, visual crenshaw intact, corneal reflexes brisk symmetrically, sensory to face intact, mastication intact, no facial asymmetry is present, no dysarthria, hearing is intact symmetrically, soft palate elevates bilaterally upon phonation, gag reflex intact, flexes SCM and trapezius muscles symmetrically with full power, tongue protrudes midline, no atrophy or facial fasiculations present Cerebellar examination: no dysmetria, performs finger to nose and heel to ratliff symmetrically without ataxia, no gait ataxia, no truncal ataxia, no difficulty with rapid alternating movements Results - Laboratory Findings CBC and BMP: 05/27/16 03:38 05/27/16 03:38 Abnormal lab findings: Abnormal lab results Sodium 134 mEq/L (136-145) L 05/27/16 03:38 BUN 21 mg/dL (7-20) H 05/27/16 03:38 Est GFR (Non-Af Amer) 57 (> 60) L 05/27/16 03:38 Glucose 183 mg/dL (70-99) H 05/27/16 03:38 POC Glucose 308 (58-89) H 05/26/16 19:48 Hemoglobin A1c 10.4 % (-5.6) H 05/26/16 19:58 Urine Clarity Cloudy (Clear) A 05/26/16 20:20 Ur Specific [place] 1.028 (1.010-1.025) H 05/26/16 20:20 Urine Protein 30 mg/dL (Neg-Trace) H 05/26/16 20:20 Urine Glucose (UA) >=1000 mg/dL (Normal) H 05/26/16 20:20 Urine Ketones Trace mg/dL (Negative) H 05/26/16 20:20 Ur Leukocyte Esterase Large (Negative) H 05/26/16 20:20 Urine Microscopic WBC TNTC per hpf (0-3) H 05/26/16 20:20 Ur Squamous Epith Cells Many per lpf (None-Few) H 05/26/16 20:20 Urine Bacteria Moderate per hpf (None-Few) H 05/26/16 20:20 Ur Culture Indicated? YES (NO) A 05/26/16 20:20 - Diagnostic Findings Additional findings: CTA of the head and neck showed moderate to severe irregular stenosis of the cavernous and supraclinoid right internal carotid artery secondary to calcified atherosclerotic plaque, moderate calcified atherosclerotic plaque at the carotid bifurcations causing 30% stenosis at the origin of the right and 50% stenosis in the region of the left internal carotid arteries, moderate focal stenosis at the origin of the left vertebral artery. Consult Discharge Plan - Plan Referrals: Alisha Bustillo MD [Primary Care Provider] -
[2016-05-28] MEDS: *HR* Heparin 5,000 UNIT/ML VIAL SQ SCH ×2 (06:24→17:37)
[2016-05-28] MEDS: levoFLOXacin 500 MG TABLET PO SCH (08:50)
[2016-05-28] MEDS: Aspirin 81 MG TAB.CHEW PO SCH (08:50)
[2016-05-28] MEDS: Insulin LISPRO 300 UNITS/3 ML VIAL SQ SCH ×4 (08:52→22:18)
--- NOTE | 2016-05-28 13:14 | Cardiology Consult Note ---
Date of Encounter: 05/28/16 Time of Encounter: 13:09 Assessment and Plan (1) Syncope and collapse Current Visit: Yes Status: Acute Witnessed syncopal episode. Cardiology consulted to r/o cardiogenic cause. Echocardiogram shows normal LV function with EF 65%. There was mild left ventricle hypertrophy. Mild diastolic dysfunction. No significant valvular disease. And no intracardiac shunting. Telemetry review shows no concerning arrythmias to account for syncope. NSR-ST. Avg HR 88 bpm. Troponins negative. EKG shows SR with no acute ST changes. CT head: negative for acute abnormality. CTA of the head and neck showed moderate to severe stenosis of the cavernous and supraclinoid right internal carotid artery secondary to calcified atherosclerotic plaque, and moderate calcified atherosclerotic plaque at the carotid bifurcations causing 30% stenosis at origin of the right and 50% stenosis at the origin of the left internal carotid arteries. And moderate stenosis of the left vetebral artery. Seen by neurology and medical management recommended. Blood sugar 300 at time of event. Agree, possible syncopal event from mild hypovolemia, mild PERRY on presentation. Cardiac testing negative so far. I discussed stress test to rule out ischemia. She agrees to proceed. Continue to monitor telemetry. Discussion w patient/family: The assessment and plan as outlined above was discussed with the patient and/or family members who expressed understanding and agreement. All questions were answered. Thank you for involving us in the care of your patient. Please call with any questions. History of Present Illness Consult date: 05/28/16 Requesting physician: Ganesh Lanza Consult reason: Syncope Chief complaint: syncopal event History of present illness: Ms. Simpson is a 76 year old female with a history of hypertension, diabetes type II, and hyperlipidemia who experienced a syncopal event while walking out of a high school basketball game. She told her daughter she was feeling ill prior to the event. She fell over and became unconscious for several minutes. She was caught by bystanders before she hit the floor. After becoming more alert she continued to have confusion for several minutes. Her blood sugar was checked and found to be 300. She denies chest pain or shortness of breath prior to the event. She denies dizziness or palpitations. She did complain of nausea. She was evaluated by neurology. She is thought to possibly have syncope secondary to hypovolemia in the setting of intracranial athrosclerosis. She is also found to have mild to moderate cerebral vascular disease and was placed on medical management. She denies a previous history of CAD. Past Med Surg Social Fam HX - Past Medical History Medical history: diabetes, GERD, hyperlipidemia, hypertension Psychiatric history: no psych history - Past Surgical History Surgical History: hysterectomy - Social History Smoking Status: Never smoker Smokeless Tobacco Status: No Alcohol use: none Drug use: none - Family History Father Name: Aureliano Sumner Living Status: Age at : 53 Cause of : MD Mother Name: Yojana Sumner Living Status: Age at : 60 Cause of : Cancer Medications and Allergies Calcium Carbonate/Vitamin D3 [Calcium 500 + Vit D Caplet] 1 each PO DAILY [History] Gabapentin [Neurontin] 400 mg PO TID 05/27/16 [History] Lisinopril/Hydrochlorothiazide [Lisinopril-Hctz 20-25 mg Tab] 1 tab PO DAILY [History] Loratadine [Claritin] 10 mg PO DAILY 05/27/16 [History] Lovastatin 40 mg PO DAILY 05/27/16 [History] Metformin [Glucophage] 1,000 mg PO BIDWM 05/27/16 [History] Ranitidine HCl [Zantac] 150 mg PO BID 05/27/16 [History] Sitagliptin Phosphate [Januvia] 50 mg PO DAILY 05/27/16 [History] Allergies No Known Allergies Allergy (Verified 05/26/16 21:22) All Systems Review: A 10-system review of systems was performed and is negative for pertinent findings except as documented above in the HPI. Physical Examination Vital Signs Temp Pulse Resp BP Pulse Ox 05/28/16 09:00 94 L 05/28/16 07:00 98.4 F 83 15 157/86 93 L 05/28/16 04:46 98.2 F 85 16 153/95 98 05/27/16 23:36 98.5 F 81 16 118/80 96 05/27/16 20:29 98.9 F 93 18 146/81 94 L 05/27/16 20:05 98.9 F 93 18 146/81 05/27/16 15:00 88 16 156/91 97 Intake and Output 05/27/16 05/28/16 05/28/16 23:59 07:59 15:59 Intake Total 120 / 120 Balance 120 / 120 Intake: Oral 120 / 120 Other: Meal Breakfast Percent of Meal Consumed 20% Stool Size Moderate Stool Consistency formed Stool Characteristics Normal for Patient Stool Color Brown # Voids 1 # Bowel Movements 1 Blood Glucose* 270 221 220 General: Conversant, No Apparent Distress HEENT: Atraumatic, Normocephaly, Mucus Membranes Moist Neck: No JVD, Normal carotid pulses Cardiac: Reg Rate and Rhythm, Normal S1 and S2, No Murmur Lungs: Normal Breath Sounds, No Wheeze, Rales, Rhonchi Neuro: Alert and responsive, No focal deficits noted Abdomen: Soft, Non-Tender Skin: No rashes noted on visualized skin Musculoskeletal: No Chest Wall Tenderness Extremities: No Clubbing, No Cyanosis, No Edema, Normal Pulses Results 05/27/16 03:38 05/27/16 03:38 Lab Results 05/27/16 03:38 Sodium 134 L Potassium 3.6 D Chloride 99 Carbon Dioxide 19 BUN 21 H Creatinine 0.96 Glucose 183 H Calcium 9.3 TSH 1.073 - Imaging and Cardiology Echo: report reviewed - EKG Interpretation EKG results cardiology: other (Telemetry review shows NSR-ST. AVg HR was 88 bpm. Maximum HR was 130 bpm at 0530 am lasting for a few minutes. No VT. No bradycardia seen.) Consult Discharge Plan - Plan Referrals: Alisha Bustillo MD [Primary Care Provider] -
--- NOTE | 2016-05-28 14:26 | Internal Med Progress Note ---
<Ganesh Lanza - Last Filed: 05/28/16 14:34> Date of Encounter: 05/28/16 Time of Encounter: 10:00 - Assessment and plan (1) Syncope and collapse Current Visit: Yes Status: Acute Assessment and plan: Patient presented to the hospital after an acute syncopal episode that was followed by a few minutes of confusion when she came to. Upon arrival she received a CT of the head which was negative for any acute abnormalities, her original troponins were 0.0 she has no chest pain, EKG was normal sinus rhythm with no ST changes. She is currently normal sinus rhythm and on telemetry. CT of the head and neck were performed showed moderate to severe irregular stenosis of the cavernous and supraclinoid right internal carotid artery secondary to calcified atherosclerotic plaque, and moderate calcified atherosclerotic plaque at the carotid bifurcations causing 30% stenosis at origin of the right and 50% stenosis at the origin of the left internal carotid arteries. There was also diffuse cerebral stenosis the anterior middle and posterior vessels. Patient states that she takes an aspirin a day 81 mg. 05/28/2016: No new events. Neurology evaluation the patient last evening and recommendations were implemented. Cardiology consulted Echocardiogram shows normal LV function with EF 65%. There was mild left ventricle hypertrophy. Mild diastolic dysfunction. No significant valvular disease. And no intracardiac shunting. Plan: - Start Plavix after 2 days to discontinue aspirin - Patient continue on telemetry. - Cardiology evaluated the patient today recommended stress test tomorrow. (2) Cerebral vascular disease Current Visit: Yes Status: Acute Assessment and plan: CT of the head and neck demonstrate diffuse cerebrovascular disease which may be contributing to her syncopal events. Medications have been reviewed and simvastatin was discontinued and she was started on atorvastatin 40 mg. started Plavix. We will hold aspirin starting May 29. (3) Type 2 diabetes mellitus Current Visit: Yes Status: Acute Assessment and plan: Known type II diabetic, last A1c performed yesterday was 10.4 demonstrating uncontrolled diabetes. Urinalysis was significant for glucose greater than 1000 and protein of 30. Patient demonstrates diffuse vascular disease. Uncontrolled diabetes likely contributing to her diffuse vascular and microvascular disease. Plan: -Continue current inpatient sliding scale insulin and before meals at bedtime glucose checks. Qualifiers: Diabetes mellitus complication status: with circulatory complication Diabetes mellitus complication detail: with other circulatory complications Diabetes mellitus fpc insulin use: without fpc use Qualified Code( s): E11.59 - Type 2 diabetes mellitus with other circulatory complications (4) Urinary tract infection Current Visit: Yes Status: Acute Assessment and plan: Urinalysis collected on 05/26/2016 demonstrated dirty urine that may demonstrate urinary tract infection but is also demonstrating many squamous cells. 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 Plan: - Continue Levaquin 500 by mouth daily. Qualifiers: Urinary tract infection type: acute cystitis Hematuria presence: with hematuria Qualified Code(s): N30.01 - Acute cystitis with hematuria (5) DVT prophylaxis Current Visit: Yes Status: Acute Assessment and plan: Heparin 5000 units subcutaneous every 12 hours. - Subjective Interval history: 76-year-old female has been seen and evaluated patient bedside this morning. She is alert awake and interactive, she is feeling well today, denies any headaches, change in vision, blurry vision, double vision, sore throat, chest pain, palpitations, shortness of breath,, abdominal pain, nausea, vomiting , diarrhea constipation, swelling or alert summaries. She has no complaints at this time. I discussed findings on echo, aging studies of neck and had and neurology's recommendations. Family wishes to discuss findings with cardiology. - Constitutional Vitals: Temp Pulse Resp BP Pulse Ox 98.4 F 83 15 157/86 94 L 05/28/16 07:00 05/28/16 07:00 05/28/16 07:00 05/28/16 07:00 05/28/16 09:00 General appearance: Present: A&O X 3, pleasant, no acute distress - Head Head exam: Present: atraumatic, normocephalic - Eye Eye exam: Present: PERRL, conjuntiva pink, sclera anicteric Pupils: Present: PERRL - Neck Neck exam general surgery: Present: supple, trachea midline. Absent: lymphadenopathy - Respiratory Respiratory exam: Present: CTAB. Absent: accessory muscle use, rales, rhonchi, wheezes - Cardiovascular Cardiovascular exam: Present: RRR, +S1, +S2. Absent: diastolic murmur, gallop, rubs, systolic murmur - Extremities Exam Extremities exam: Present: warm, radial pulses palpable and symetrical. Absent : calf tenderness, cyanotic, pedal edema - Neurological Exam Neurological exam: Present: alert, oriented X3, no focal deficits. Absent: pronater drift, facial droop, speech deficit - Skin Skin exam: Present: dry, intact Internal Medicine: Result - Labs CBC & Chem 7: 05/27/16 03:38 05/27/16 03:38 Labs: BMP 05/27/16 03:38 Sodium 134 L Potassium 3.6 D Chloride 99 Carbon Dioxide 19 BUN 21 H Creatinine 0.96 Glucose 183 H Calcium 9.3 - ABG Interpretation ABG results: PT/INR, D-dimer PT 11.8 Seconds (9.4-12.1) 05/26/16 19:55 - VTE Documentation of Mechanical Device: Graduated compression elastic hosiery Consult Discharge Plan - Plan Referrals: Alisha Bustillo MD [Primary Care Provider] - <Wilder Acharya - Last Filed: 05/28/16 18:19> Date of Encounter: 05/28/16 - Assessment and plan (1) Syncope and collapse Current Visit: Yes Status: Acute (2) Urinary tract infection Current Visit: Yes Status: Acute Qualifiers: Urinary tract infection type: acute cystitis Hematuria presence: with hematuria Qualified Code(s): N30.01 - Acute cystitis with hematuria (3) Intracranial atherosclerosis Current Visit: Yes Status: Acute (4) Type 2 diabetes mellitus Current Visit: Yes Status: Acute Qualifiers: Diabetes mellitus complication status: with circulatory complication Diabetes mellitus complication detail: with other circulatory complications Diabetes mellitus tank terminal gauger insulin use: without tank terminal gauger use Qualified Code( s): E11.59 - Type 2 diabetes mellitus with other circulatory complications - Constitutional Vitals: Temp Pulse Resp BP Pulse Ox 97.8 F 98 15 126/73 96 05/28/16 15:00 05/28/16 15:00 05/28/16 15:00 05/28/16 15:00 05/28/16 15:00 Internal Medicine: Result - Labs CBC & Chem 7: 05/27/16 03:38 05/27/16 03:38 - ABG Interpretation ABG results: PT/INR, D-dimer PT 11.8 Seconds (9.4-12.1) 05/26/16 19:55 - Attending Attestation I examined this patient and my medical decision-making was reviewed with the Resident Physician on 05/28/16. I agree with the documented findings, disposition and treatment plan as described except to the extent set forth below. Ms. Simpson is currently in observation due to syncope. She has significant small vessel cerebrovascular disease. Ms. Simpson feels well. She is wanting to go home soon. No further symptoms when up and about in room. Exam Alert. Comfortable Heart reg Lungs clear I/P 1. Syncope - on Plavix now 2. Card eval - stress test tomorrow. 3. UTI on abx. 4. Diabetes Further diagnoses and plan as above.
--- NOTE | 2016-05-28 22:50 | Electrocardiograph Report ---
[facility] Test Date: 2016-05-26 Pat Name: IVONNE WINN Department: 105 Room: 2NE32 Gender: F [employer] Workers: ALAN : 1940 Requested By: Wilder Acharya Order Number: [id number] Reading MD: Tyree Franklin MD Measurements Intervals [place] Rate: 85 P: 56 AR: 157 QRS: 14 QRSD: 84 T: 71 QT: 373 QTc: 416 Interpretive Statements SINUS RHYTHM NONSPECIFIC T-WAVE ABNORMALITY Electronically Signed On 05-28-16 22:49:23 EST by Tyree Franklin MD
[2016-05-29 05:44] LABS: Basophils % 0.2 %; Eosinophils % 0.4 %; Hematocrit 39.2 % (35.3-44.9); Immature Granulocytes % 0.2 % (0-4); Lymphocytes # 2.8 K/mcL (0.6-4.6); Lymphocytes % 30.7 %; Mean Corpuscular HGB Conc 35.7 g/dL (31.6-35.5); Mean Corpuscular Hemoglobin 30.9 pg (28.0-33.3); Mean Corpuscular Volume 86.5 fL (83.0-100.0); Mean Platelet Volume 10.3 fL (9.4-12.4); Monocytes # 0.7 K/mcL (0.0-1.3); Monocytes % 7.5 %; Neutrophils # 5.5 K/mcL (1.6-8.9); Platelet Count 213 K/mcL (140-400); Red Blood Count 4.53 M/mcL (3.82-4.97); Red Cell Distribution Width 12.4 % (11.5-14.5)
[2016-05-29 05:58] LABS: Alanine Aminotransferase 16 Units/L (0-55); Albumin 3.4 g/dL (3.5-5.0); Albumin/Globulin Ratio 0.9 (1.1-2.2); Alkaline Phosphatase 83 Units/L (38-126); BUN/Creatinine Ratio 27 (6-26); Bilirubin,Total 0.7 mg/dL (0.2-1.2); Blood Urea Nitrogen 26 mg/dL (7-20); Calcium 9.5 mg/dL (8.6-10.8); Carbon Dioxide 18 mEq/L (19-29); Chloride 102 mEq/L (98-109); Glucose 205 mg/dL (70-99); Osmolality,Calculated 291 (280-300); Potassium 3.9 mEq/L (3.5-4.5); Sodium 135 mEq/L (136-145); Total Protein 7.4 g/dL (6.0-8.3); eGFR For African Americans > 60 (> 60); eGFR For Non-African Americans 56 (> 60)
[2016-05-29 06:00] LABS: Aspartate Amino Transferase 22 Units/L (5-34)
[2016-05-29] MEDS ORDERED: Regadenoson 0.4 MG/5 ML SYRINGE IVP ONE (07:50)
--- NOTE | 2016-05-29 08:33 | Cardiology Progress Note ---
Date of Encounter: 05/29/16 Time of Encounter: 08:30 Assessment and Plan (1) Syncope and collapse Current Visit: Yes Status: Acute Witnessed syncopal episode. Cardiology consulted to r/o cardiogenic cause. Echocardiogram shows normal LV function with EF 65%. There was mild left ventricle hypertrophy. Mild diastolic dysfunction. No significant valvular disease. And no intracardiac shunting. Telemetry review shows no concerning arrythmias to account for syncope. NSR-ST. Avg HR 88 bpm. Troponins negative. EKG shows SR with no acute ST changes. CT head: negative for acute abnormality. CTA of the head and neck showed moderate to severe stenosis of the cavernous and supraclinoid right internal carotid artery secondary to calcified atherosclerotic plaque, and moderate calcified atherosclerotic plaque at the carotid bifurcations causing 30% stenosis at origin of the right and 50% stenosis at the origin of the left internal carotid arteries, and moderate stenosis of the left vetebral artery. Seen by neurology and medical management recommended. Blood sugar 300 at time of event. Agree, possible syncopal event from mild hypovolemia, mild PERRY on presentation. Cardiac testing negative so far. Pt developed hypotension during stress test. Recommend continued IV fluid and orthostatic b/p. Recieved 750 cc during stress test. D/c HCTZ. Stress test results pending. Discussion w patient/family: The assessment and plan as outlined above was discussed with the patient and/or family members who expressed understanding and agreement. All questions were answered. Thank you for involving us in the care of your patient. Please call with any questions. Subjective Principal diagnosis: syncope Interval history: Pt seen and examined in stress lab. B/p dropped 4 min after lexiscan to 70/ doppler. Pt denied symptoms but appeared ill looking. She was given aminophylline to reverse lexiscan and IV fluid. Pt denies dizziness or light headedness. Objective Vital Signs, Last 4 Hours Temp Pulse Resp BP Pulse Ox 05/29/16 07:09 98.2 F 87 16 138/74 97 General: Conversant, No Apparent Distress, Other (ill appearing, pale) HEENT: Atraumatic, Normocephaly, Mucus Membranes Moist Neck: No JVD, Normal carotid pulses Cardiac: Reg Rate and Rhythm, Normal S1 and S2, No Murmur Lungs: Normal Breath Sounds, No Wheeze, Rales, Rhonchi Neuro: Alert and responsive, No focal deficits noted Abdomen: Soft, Non-Tender Skin: No rashes noted on visualized skin Musculoskeletal: No Chest Wall Tenderness Extremities: No Clubbing, No Cyanosis, No Edema, Normal Pulses Results 05/29/16 05:22 05/29/16 05:22 Lab Results 05/29/16 05/29/16 05:22 05:22 WBC 9.1 Hgb 14.0 Hct 39.2 Plt Count 213 Sodium 135 L Potassium 3.9 Chloride 102 Carbon Dioxide 18 L BUN 26 H Creatinine 0.97 Glucose 205 H Calcium 9.5 Total Bilirubin 0.7 AST 22 ALT 16 Alkaline Phosphatase 83 - Imaging and Cardiology Echo: report reviewed - EKG Interpretation EKG results cardiology: personally reviewed (NSR with no ST changes.) - VTE Documentation of Mechanical Device: Graduated compression elastic hosiery Consult Discharge Plan - Plan Referrals: Alisha Bustillo MD [Primary Care Provider] -
[2016-05-29] MEDS: *HR* Heparin 5,000 UNIT/ML VIAL SQ SCH (09:48)
[2016-05-29] MEDS: Insulin LISPRO 300 UNITS/3 ML VIAL SQ SCH ×3 (09:49→17:22)
[2016-05-29] MEDS: levoFLOXacin 500 MG TABLET PO SCH (09:51)
[2016-05-29] MEDS: Aspirin 81 MG TAB.CHEW PO SCH (09:52)
--- NOTE | 2016-05-29 10:48 | Nuclear Medicine Stress Report ---
Regadenoson Nuclear Stress Name: Tania Simpson Date of Study: 05/29/2016 Date: 1940 Ht: 61.0 in Medical Record#: [id number] Age: 76 Wt: 148.0 lb Gender: Female Order #: [id number] Location: [facility] Room: [facility] Supervising Provider: Tracy Espino CNP Reading Physician: Miriam Perez DO Ordering Physician: Wilder Acharya DO Primary Care Physician: Alisha Bustillo MD Stress Technologist: Ginny Torers FIREARMS SPECIALIST, CCT Putty Mixer And Applier: Gilberto Mir Indications: Syncope Impression: Perfusion imaging was negative for ischemia or infarct. Pharmacologic ECG was negative for ischemia at the level of heart rate achieved. Hypotensive response to pharmacologic infusion. Beginning BP 144/80 decreased to 60/palp requiring IVF and reversal agent. Gated EF = >70%. Recommend clinical correlation. History: Hypertension Diabetes Hypercholesteremia Stress Test Summary: Stress Test Type: Pharmacologic Regadenoson 0.4mg/5ml given IV Baseline Information: Initial Heart Rate: 100 Blood Pressure: 144/80 Stress Information: Test Terminated Due to (primary): As per protocol Maximum Blood Pressure: 120/62 Maximum Heart Rate: 122 Percent Maximum Heart Rate Achieved: 84 Double Product: [id number] METS Reached: 1 Symptoms: No chest symptoms, HYPOTENSIVE Nuclear Summary: SPECT myocardial perfusion imaging using Tc99m Sestamibi given intravenously was performed at rest and following cardiac stress testing. The resting images were obtained following initial dose of 11.6 mCi. Following stress an additional dose of 32.3 mCi was given at peak exercise or 30 seconds post regadenoson infusion. Medication Given: Time Medication Dose Units Route Findings: Stress Note * Resting ECG demonstrated normal sinus rhythm with nonspecific ST abnormalities. * Pharmacologic stress ECG is negative for ischemia at level of heart rate achieved. * No arrhythmias were noted during stress. * Patient had no chest pain during stress. Hemodynamic responses * The patient demonstrated a hypotensive blood pressure response. Study Quality * Study quality was fair. Gated EF > 70% * Gated EF > 70%. Left Ventricle * The left ventricle is not dilated. TID * No evidence of transient ischemic dilatation. Lung Uptake * There is no evidence of increase lung uptake. NORMALS * Normal wall motion. * Normal segmental perfusion in stress. * Normal Segmental Perfusion in rest. Updated by Miriam Perez on 05/29/2016 10:42:20 AM electronically signed on 05/29/2016 10:44:12 AM with status of Final
--- NOTE | 2016-05-29 13:04 | Discharge Summary ---
<Eliezer Jiménez - Last Filed: 05/29/16 14:13> Date of Encounter: 05/29/16 Time of Encounter: 12:00 - Discharge Diagnosis (1) Intracranial atherosclerosis Status: Acute Comments: -CTA head showed intracranial atherosclerosis due to calcification of the small arteries -Neurology consulted and she does not need surgery at this time. -Follow-up scan recommended in 6-12months -Plavix 75mg daily and a statin. (2) Syncope and collapse Status: Acute Comments: -Most likely caused by hypoperfusion and perhaps a combination of slight dehydration along with interracial atherosclerosis. -Does not resemble a seizure. -ECHO and stress test normal. (3) Urinary tract infection Status: Acute Comments: -Currently treated with 3 days of Levaquin. -Will discharge home with Nitrofuritonin for 7days. Qualifiers: Urinary tract infection type: acute cystitis Hematuria presence: without hematuria Qualified Code(s): N30.00 - Acute cystitis without hematuria - Discharge Medications Prescriptions: Clopidogrel [Plavix] 75 mg PO DAILY #30 tablet Home Medications: Calcium Carbonate/Vitamin D3 [Calcium 500 + Vit D Caplet] 1 each PO DAILY [History] Gabapentin [Neurontin] 400 mg PO TID 05/27/16 [History] Lisinopril/Hydrochlorothiazide [Lisinopril-Hctz 20-25 mg Tab] 1 tab PO DAILY [History] Loratadine [Claritin] 10 mg PO DAILY 05/27/16 [History] Lovastatin 40 mg PO DAILY 05/27/16 [History] Metformin [Glucophage] 1,000 mg PO BIDWM 05/27/16 [History] Ranitidine HCl [Zantac] 150 mg PO BID 05/27/16 [History] Sitagliptin Phosphate [Januvia] 50 mg PO DAILY 05/27/16 [History] Aspirin 81 mg PO DAILY tab.chew 05/29/16 [Rx] Clopidogrel [Plavix] 75 mg PO DAILY #30 tablet 05/29/16 [Rx] Allergies/Adverse Reactions: Allergies No Known Allergies Allergy (Verified 05/26/16 21:22) Procedures/tests Complete & Pending: Procedures Performed prior 72 hours Category Date Time Status NM izabela perf SPECT multi [NM] Routine Exams 05/29/16 05:45 Taken ECG 12 lead ECG [ECG] Routine Y 05/26/16 19:48 Completed EV echocardiogram Routine Y 05/27/16 23:55 Completed SP pharm nuclear stress Routine Y 05/29/16 07:50 Completed Date of admission: 05/26/16 23:13 Primary care physician: Alisha Bustillo Consults: 05/27/16 14:21 Consult to Neurology [CONS] Routine Consulting Provider: [facility] Reason for Consult: Diffuse cerebral vascular stenosis Call Completed: Yes 05/28/16 09:01 Consult to Physical Therapy [CONS] Stat Comment: For DISCHARGE today. 05/28/16 13:06 Consult to Cardiac Rehabilitation-Phase1 [CONS] Routine Comment: Reason for Consult: NSTEMI Call Completed: No 05/28/16 14:21 Consult to Cardiology [CONS] Routine Comment: Consulting Provider: Cardiology Alison Reason for Consult: syncope. Already called Call Completed: Yes Discharging clinician: Eliezer Jiménez Anticipated date of discharge: 05/29/16 - Patient Status Disposition: Home, Self-Care Condition: Good Functional capacity at discharge: uses cane/walker Overall status at discharge: patient is progressing back to baseline - Discharge Instructions Instructions: Clopidogrel (By mouth), Syncope (DC), Epilepsy (DC), Non- epileptic Seizures (DC) Follow Up With: Alisha Bustillo MD [Primary Care Provider] - (Recent syncope event. CTA revealed calcifications within the small arteries of the brain. Patient started on Plavix per neurology. No surgical intervention. No EEG done. Cardiology workup negative. ) Bennett Jerez MD [Partnered Physician] - (Follow-up in 6-12 months for imaging, CTA. ) Additional Instructions: Please call Dr. Montero's office about setting up a followup visit in 6m-12 months for repeat imaging. If you have a similar episoide, go to the ED immediately and call the neurolgy office to set up an earlier appointment. -Per neurology, start Plavix at 75 mg once a day. Have a close follow-up with your primary care doctor in the next 3-4 days. - Diet and Activity Activity: increase activity as tolerated Diet: advance to your usual diet Interval History: Patient states that she is feeling okay today. Tired and drowsy following her stress test. She is ambulatory. Denies any chest pain, shortness of breath, headache, blurry vision, urinary complaints. She has no questions or concerns at this time. Desires to go home. Hospital course: Ms. Simpson is a 76 year old female with history of hypertension, type 2 diabetes , GERD was brought to the ER by squad after a witnessed syncopal event. Daughter reports a several people came over to help and they could not arouse her for several minutes. Blood sugars in the 300s. She woke up confused and was speech slurred. In the emergency department she had a negative troponin, EKG showed normal sinus rhythm with nonspecific ST changes. CT showed no acute abnormality. CT of the head and neck showed moderate to severe irregular stenosis of the cavernous and supraclinoid right internal carotid artery secondary to calcified atherosclerotic plaque, moderate calcified atherosclerotic plaque at the carotid bifurcations causing 30 percent stenosis at the origin and right and 50% stenosis in the region of the left internal carotid arteries. Neurology evaluation feels like patient would be best managed conservatively with plavix and a followup imaging in 6-12months. No need for EEG at this time. Cardiology consult also feels a patient with breast managed conservatively, echo within normal limits, stress test negative. At this time there is no clear reason for the patient's syncopal episode. Likely due to hypovolemia. Patient feels comfortable going home. Many family members present in the room - Time Spent with Patient Total time spent providing and/or coordinating discharge services: Greater than 30 minutes - Constitutional Vitals: Temp Pulse Resp BP Pulse Ox 97.7 F 95 16 138/78 96 05/29/16 11:36 05/29/16 11:36 05/29/16 11:36 05/29/16 11:36 05/29/16 11:36 General appearance: Present: A&O X 3, pleasant, no acute distress - Head Head exam: Present: atraumatic, normocephalic - Eye Eye exam: Present: EOMI, PERRL, conjuntiva pink, sclera anicteric. Absent: nystagmus, periorbital swelling Pupils: Present: PERRL - Respiratory Respiratory exam: Present: CTAB. Absent: accessory muscle use, rales, rhonchi, wheezes - Cardiovascular Cardiovascular exam: Present: RRR, +S1, +S2. Absent: diastolic murmur, gallop, rubs, systolic murmur - GI/Abdominal GI/Abdominal exam: Present: soft, no peritoneal signs. Absent: distended, tenderness - Neurological Exam Neurological exam: Present: alert, altered - Psychiatric Psychiatric exam: Present: normal affect, normal mood - VTE Documentation of Mechanical Device: Intermittent pneumatic compression device <Wilder Acharya - Last Filed: 05/29/16 18:08> Date of Encounter: 05/29/16 - Discharge Diagnosis (1) Syncope and collapse Priority: Primary Status: Acute (2) Intracranial atherosclerosis Priority: Primary Status: Acute (3) Urinary tract infection Priority: Secondary Status: Acute Qualifiers: Urinary tract infection type: acute cystitis Hematuria presence: without hematuria Qualified Code(s): N30.00 - Acute cystitis without hematuria (4) Type 2 diabetes mellitus Priority: Secondary Status: Acute Qualifiers: Diabetes mellitus complication status: with circulatory complication Diabetes mellitus complication detail: with other circulatory complications Diabetes mellitus penitentiary insulin use: without penitentiary use Qualified Code( s): E11.59 - Type 2 diabetes mellitus with other circulatory complications Procedures/tests Complete & Pending: Procedures Performed prior 72 hours Category Date Time Status NM izabela perf SPECT multi [NM] Routine Exams 05/29/16 05:45 Taken ECG 12 lead ECG [ECG] Routine Y 05/26/16 19:48 Completed EV echocardiogram Routine Y 05/27/16 23:55 Completed SP pharm nuclear stress Routine Y 05/29/16 07:50 Completed Date of admission: 05/26/16 23:13 Primary care physician: Alisha Bustillo Consults: 05/27/16 14:21 Consult to Neurology [CONS] Routine Consulting Provider: [facility] Reason for Consult: Diffuse cerebral vascular stenosis Call Completed: Yes 05/28/16 09:01 Consult to Physical Therapy [CONS] Stat Comment: For DISCHARGE today. 05/28/16 13:06 Consult to Cardiac Rehabilitation-Phase1 [CONS] Routine Comment: Reason for Consult: NSTEMI Call Completed: No 05/28/16 14:21 Consult to Cardiology [CONS] Routine Comment: Consulting Provider: Tiara Rosas Reason for Consult: syncope. Already called Call Completed: Yes Hospital course: Ms. Simpson is a 76 year old female - Time Spent with Patient Total time spent providing and/or coordinating discharge services: - Constitutional Vitals: Temp Pulse Resp BP Pulse Ox 98.1 F 95 16 134/74 98 05/29/16 15:41 05/29/16 15:41 05/29/16 15:41 05/29/16 15:41 05/29/16 15:41 - Attending Attestation I examined this patient and my medical decision-making was reviewed with the Resident Physician on 05/29/16. I agree with the documented findings, disposition and treatment plan as described except to the extent set forth below. Ms. Simpson had stress test this AM and had hypotension. Received fluids with improvement. Had fatigue after but was able to walk in hallways. No CP or SOB now. Orthostatic negative. Exam Alert. Comfortable Heart reg No wheeze Plan D/C home with outpatient follow up.
[2016-05-29 15:46] VITALS: BP 134/74
== END 2016-05-29 18:40 | disposition home or self-care (01) ==
LOC: EMEROO 19:45 → 2NENU 19:45
PROVIDERS: ADMIT Family Medicine; ATTEND Internal Medicine

== ENCOUNTER 2017-05-19 13:43 | Observation (INO) ==
[2017-05-19] MEDS ORDERED: 0.9 % Sodium Chloride 1,000 ML ONE (15:39)
[2017-05-19] MEDS ORDERED: Ondansetron 4 MG/2 ML VIAL IVP ONE (16:15)
[2017-05-19] MEDS ORDERED: Ibuprofen 600 MG TABLET PO ONE (16:15)
[2017-05-19] MEDS ORDERED: 0.9 % Sodium Chloride 1,000 ML IVC ONE ×2 (16:15→19:04)
[2017-05-19 16:42] LABS: Basophils % 0.3 %; Hematocrit 29.8 % (35.3-44.9); Hemoglobin 10.4 g/dL (11.5-15.4); Immature Granulocytes % 2.5 % (0-4); Lymphocytes # 1.3 K/mcL (0.6-4.6); Lymphocytes % 9.3 %; Mean Corpuscular HGB Conc 34.9 g/dL (31.6-35.5); Mean Corpuscular Hemoglobin 30.3 pg (28.0-33.3); Mean Corpuscular Volume 86.9 fL (83.0-100.0); Mean Platelet Volume 8.6 fL (9.4-12.4); Monocytes # 0.7 K/mcL (0.0-1.3); Monocytes % 5.3 %; Neutrophils # 11.3 K/mcL (1.6-8.9); Platelet Count 397 K/mcL (140-400); Red Blood Count 3.43 M/mcL (3.82-4.97); Red Cell Distribution Width 12.3 % (11.5-14.5); Segmented Neutrophils % 82.6 %
[2017-05-19 16:56] LABS: Albumin 3.4 g/dL (3.5-5.7); Albumin/Globulin Ratio 1.2 (1.1-2.2); Bilirubin,Total 0.4 mg/dL (0.3-1.0); Calcium 8.5 mg/dL (8.6-10.3); Globulin 2.8 g/dL (2.4-3.5); Potassium 4.1 mEq/L (3.5-5.1); Total Protein 6.2 g/dL (6.4-8.9)
[2017-05-19 17:12] LABS: Thyroid Stimulating Hormone 1.141 mcIU/mL (0.340-5.600)
[2017-05-19 18:22] LABS: Bilirubin,Urine Negative (Negative); Blood,Urine Negative (Negative); Clarity,Urine Cloudy (Clear); Color,Urine Yellow (Yellow); Glucose,Urine (UA) Normal (Normal); Ketones,Urine Trace mg/dL (Negative); Leukocyte Esterase,Urine Moderate (Negative); Nitrite,Urine Negative (Negative); PH,Urine 5.5 pH Units (5.0-8.0); Protein,Urine Negative (Neg-Trace); Specific Gravity,Urine 1.019 (1.010-1.025); Urobilinogen,Urine Normal (Normal)
[2017-05-19 18:24] LABS: Bacteria,Urine None Seen per hpf (None-Few); Hyaline Casts,Urine None Seen per lpf (None-Few); Squamous Epithelial Cell,Urine Many per lpf (None-Few)
--- NOTE | 2017-05-19 18:30 | Emergency Department Note ---
Disposition Clinical Impression: Hyponatremia, Anemia, Weakness, Acute renal insufficiency Disposition: Admitted As Inpatient Condition: Good Referrals: Ganesh Pina MD [Primary Care Provider] - Time of Disposition: 18:30 General Adult HPI - General Chief complaint: ED Upper Respiratory Infection Stated complaint: WEAKNESS/DEHYDRATION Time Seen by Provider: 05/19/17 15:28 Source: patient Limitations: no limitations Nursing Notes Reviewed: Yes Vital Signs Reviewed: Yes - History of Present Illness HPI Narrative: 77-year-old female presents to the emergency department with concerns of increasing weakness, fatigue, nausea, vomiting, diarrhea. Patient was seen by her PCP about one week ago, diagnosed with "likely influenza" and was counseled to return home and continue symptomatic care. Family states the patient has become increasingly weak and fatigued that she has been unable to tolerate by mouth intake at home. They also state that she has had multiple episodes of liquid brown stool. No history of GI bleeding in the past. Patient denies hematochezia, melena, hematemesis. Denies chest pain, shortness of breath, abdominal pain. Denies dysuria or hematuria. No rashes noted by palpation or on exam. Pain Scale: 4 - Related Data Home Medications Medication Instructions Recorded Confirmed Calcium Carbonate/Vitamin D3 1 each PO DAILY 05/27/16 01/23/17 [Calcium 500 + Vit D Caplet] Gabapentin [Neurontin] 400 mg PO TID 05/27/16 01/23/17 Lisinopril/Hydrochlorothiazide 1 tab PO DAILY 05/27/16 01/23/17 [Lisinopril-Hctz 20-25 mg Tab] Loratadine [Claritin] 10 mg PO DAILY 05/27/16 01/23/17 Lovastatin 40 mg PO DAILY 05/27/16 01/23/17 Ranitidine HCl [Zantac] 150 mg PO BID 05/27/16 01/23/17 Sitagliptin Phosphate [Januvia] 50 mg PO DAILY 05/27/16 01/23/17 metFORMIN [Glucophage] 1,000 mg PO BIDWM 05/27/16 01/23/17 Previous Rx's Medication Instructions Recorded Aspirin 81 mg PO DAILY tab.chew 05/29/16 Clopidogrel [Plavix] 75 mg PO DAILY #30 tablet 05/29/16 HYDROcodone/Acet 5/325 mg [Marshall 1 tab PO Q6H PRN #16 tab 01/23/17 5-325 mg] Meloxicam 7.5 mg PO DAILY #10 tablet 01/23/17 Allergies Allergy/AdvReac Type Severity Reaction Status Date / Time No Known Allergies Allergy Verified 05/19/17 14:00 All systems ED: reviewed and negative except as stated. Review of Systems: As Per HPI Constitutional: Reports: fever, chills, weakness Cardiovascular: Reports: dyspnea on exertion. Denies: chest pain, palpitations , syncope, paroxysmal nocturnal dyspnea Respiratory: Denies: cough, dyspnea, wheezes, hemoptysis Gastrointestinal: Reports: nausea, vomiting, diarrhea. Denies: abdominal pain Past Medical History - Past Medical History Attestation: Yes The following information was validated with the patient. Source: patient Medical history: Reports: coronary artery disease, diabetes, GERD, hyperlipidemia, hypertension, peripheral artery disease Surgical history: Reports: hysterectomy Psychiatric history: Reports: no psych history - Social History Smoking Status: Never smoker Smokeless Tobacco Status: No Alcohol use: Reports: none Drug use: Reports: none Physical Exam General: Alert and in no acute distress Skin: Warm, dry, intact Head: Normocephalic and atraumatic Neck: Supple, trachea midline and no tenderness Cardiovascular: Tachycardia, normal perfusion Respiratory: CTAB, no wheezing, cough, or respiratory distress Musculoskeletal: Normal strength, no tenderness, swelling or deformity GI: Soft, nontender, nondistended. Bowel sounds present Neuro: A&O to person, place, time and situation. No focal deficits noted on exam - General Limitations: no limitations General appearance: alert, in no apparent distress Course Vital Signs Temperature 97.5 F L 05/19/17 13:55 Pulse Rate 102 05/19/17 13:55 Respiratory Rate 20 05/19/17 13:55 Blood Pressure 102/60 05/19/17 13:55 O2 Sat by Pulse Oximetry 95 05/19/17 13:55 Temperature 97.5 F L 05/19/17 13:55 Pulse Rate 76 05/19/17 15:28 Respiratory Rate 18 05/19/17 15:28 Blood Pressure 132/75 05/19/17 15:28 O2 Sat by Pulse Oximetry 96 05/19/17 15:28 Oxygen Delivery Oxygen Delivery Room Air Medical Decision Making - MDM Narrative Medical decision making narrative: Patient has mildly elevated leukocytosis. She is not also mildly anemic however testing of stool did not reveal called blood. Patient is hyponatremic on laboratory evaluation she is also mildly in acute renal insufficiency. Patient will be admitted to the hospital for further care and evaluation. She was given a liter of fluid in the emergency department with improvement of overall symptoms. Patient feels comfortable with this plan. - Medical Records Medical records reviewed: Yes I reviewed the patient's medical records. - Lab Data Lab results reviewed: Yes I reviewed the patient's lab results. Result diagrams: 05/19/17 16:29 05/19/17 16:29 Lab Results 05/19/17 05/19/17 05/19/17 Range/Units 16:29 16:29 16:29 WBC 13.7 H (4.3-11.1) K/mcL RBC 3.43 L (3.82-4.97) M/mcL Hgb 10.4 L (11.5-15.4) g/dL Hct 29.8 L (35.3-44.9) % MCV 86.9 (83.0-100.0) fL MCH 30.3 (28.0-33.3) pg MCHC 34.9 (31.6-35.5) g/dL RDW 12.3 (11.5-14.5) % Plt Count 397 (140-400) K/mcL MPV 8.6 L (9.4-12.4) fL Immature Gran % 2.5 (0-4) % Seg Neutrophils % 82.6 % Lymphocytes % 9.3 % Monocytes % 5.3 % Eosinophils % 0.0 % Basophils % 0.3 % Neutrophils # 11.3 H (1.6-8.9) K/mcL Lymphocytes # 1.3 (0.6-4.6) K/mcL Monocytes # 0.7 (0.0-1.3) K/mcL Eosinophils # 0.0 (0.0-0.6) K/mcL Basophils # 0.0 (0.0-0.2) K/mcL Sodium 124 L (136-145) mEq/L Potassium 4.1 (3.5-5.1) mEq/L Chloride 90 L (98-107) mEq/L Carbon Dioxide 22 L (23-29) mEq/L BUN 25 H (8-23) mg/dL Creatinine 1.60 H (0.60-1.20) mg/dL Est GFR ( Amer) 38 L (> 60) Est GFR (Non-Af Amer) 31 L (> 60) BUN/Creatinine Ratio 16 (6-26) Glucose 125 H (70-105) mg/dL Calculated Osmolality 264 L (280-300) Lactic Acid 1.3 (0.5-2.2) mmol/L Calcium 8.5 L (8.6-10.3) mg/dL Total Bilirubin 0.4 (0.3-1.0) mg/dL AST 11 L (13-39) Units/L ALT 8 (7-52) Units/L Alkaline Phosphatase 49 (34-104) Units/L Creatine Kinase 48 (30-223) Units/L Troponin I (< 0.04) ng/mL Serum Total Protein 6.2 L (6.4-8.9) g/dL Albumin 3.4 L (3.5-5.7) g/dL Globulin 2.8 (2.4-3.5) g/dL Albumin/Globulin Ratio 1.2 (1.1-2.2) TSH 1.141 (0.340-5.600) mcIU/mL Stool Occult Blood (Negative) 05/19/17 05/19/17 Range/Units 16:29 17:45 WBC (4.3-11.1) K/mcL RBC (3.82-4.97) M/mcL Hgb (11.5-15.4) g/dL Hct (35.3-44.9) % MCV (83.0-100.0) fL MCH (28.0-33.3) pg MCHC (31.6-35.5) g/dL RDW (11.5-14.5) % Plt Count (140-400) K/mcL MPV (9.4-12.4) fL Immature Gran % (0-4) % Seg Neutrophils % % Lymphocytes % % Monocytes % % Eosinophils % % Basophils % % Neutrophils # (1.6-8.9) K/mcL Lymphocytes # (0.6-4.6) K/mcL Monocytes # (0.0-1.3) K/mcL Eosinophils # (0.0-0.6) K/mcL Basophils # (0.0-0.2) K/mcL Sodium (136-145) mEq/L Potassium (3.5-5.1) mEq/L Chloride (98-107) mEq/L Carbon Dioxide (23-29) mEq/L BUN (8-23) mg/dL Creatinine (0.60-1.20) mg/dL Est GFR ( Amer) (> 60) Est GFR (Non-Af Amer) (> 60) BUN/Creatinine Ratio (6-26) Glucose (70-105) mg/dL Calculated Osmolality (280-300) Lactic Acid (0.5-2.2) mmol/L Calcium (8.6-10.3) mg/dL Total Bilirubin (0.3-1.0) mg/dL AST (13-39) Units/L ALT (7-52) Units/L Alkaline Phosphatase (34-104) Units/L Creatine Kinase (30-223) Units/L Troponin I < 0.03 (< 0.04) ng/mL Serum Total Protein (6.4-8.9) g/dL Albumin (3.5-5.7) g/dL Globulin (2.4-3.5) g/dL Albumin/Globulin Ratio (1.1-2.2) TSH (0.340-5.600) mcIU/mL Stool Occult Blood Negative (Negative) - Radiology Data Radiology results reviewed: Yes I reviewed the patient's radiology results.
[2017-05-19] MEDS ORDERED: Acetaminophen 325 MG TABLET PO PRN (23:35)
[2017-05-19] MEDS ORDERED: Naloxone 0.4 MG/ML INJ IVP PRN (23:35)
[2017-05-19] MEDS ORDERED: Ondansetron 4 MG/2 ML VIAL IVP PRN (23:35)
[2017-05-19] MEDS ORDERED: Albuterol 2.5 MG/3 ML NEBULIZER IH PRN (23:35)
[2017-05-19] MEDS ORDERED: *HR* Dextrose 50 % in Water (Syg) 50 ML SYRINGE IVP PRN (23:43)
[2017-05-19] MEDS ORDERED: D5% in Water 1,000 ML IVC PRN (23:43)
[2017-05-19] MEDS ORDERED: Dextrose Gel 15 GM/37.5 ML TUBE PO PRN ×2 (23:43)
--- NOTE | 2017-05-20 00:05 | Internal Med History&Physical ---
Date of Encounter: 05/19/17 Time of Encounter: 23:20 Assessment and Plan (1) Pneumonia Current visit: Yes Status: Acute 1. Despite negative CXR, history and exam suspicious for pneumonia. 2. Will order blood cultures, sputum cultures, Influenza PCR. 3. Will treat with Rocephin and Zithromax IV. 4. Oxygen and aerosols PRN. Qualifiers: Pneumonia type: due to unspecified organism Laterality: right Lung location: lower lobe of lung Qualified Code(s): J18.1 - Lobar pneumonia, unspecified organism (2) Acute kidney failure Current visit: Yes Status: Acute 1. Will hold BP meds/diuretics. 2. Hydrate with IVF and oral fluids. 3. Monitor renal function and consult nephrology as needed. Qualifiers: Acute renal failure type: unspecified Qualified Code(s): N17.9 - Acute kidney failure, unspecified (3) Type 2 diabetes mellitus Current visit: No Status: Chronic 1. Will hold oral home meds. 2. Will order low dose SSI and adjust dosing as needed. Qualifiers: Diabetes mellitus complication status: with circulatory complication Diabetes mellitus complication detail: with other circulatory complications Diabetes mellitus jail insulin use: without ferry terminal supervisor use Qualified Code( s): E11.59 - Type 2 diabetes mellitus with other circulatory complications (4) Hyponatremia Current visit: Yes Status: Acute 1. Hold diuretics and monitor sodium closely. 2. Patient looks dehydrated and will hydrate with normal saline. (5) DVT prophylaxis Current visit: Yes Status: Acute 1. Heparin SQ. Internal Medicine - H&P: HPI Chief complaint: cough, fever, weakness Admitted From: Emergency Dept Plans for Post Hospital Care: Home History of present illness: Ms. Simpson is a 77 year old female who presents to the ER tonight with complaints of subjective fevers, chills, productive cough, shortness of breath, and weakness. Symptoms started about 5-6 days ago. Initially, she had some vomiting, diarrhea, myalgias, body aches, and headaches. She was diagnosed clinically by her PCP as having a flulike illness. She was placed on oral antibiotics the other day for suspected pneumonia secondary to flulike illness. However, despite that, her symptoms progressed and she came to the ER for evaluation. She was found to have evidence of hyponatremia, dehydration, and acute kidney injury likely secondary to her diuretic therapy and poor fluid intake. She was subsequently admitted to the hospitalist service. Upon my assessment of the patient, she appears acutely ill but nontoxic. She appears dehydrated and weak. She looks as though she just had "the flu". She states that her chest is congested and she's coughing up productive sputum the last couple days. Appetite is diminished and fluid intake has been poor. Her fevers have decreased in frequency and severity. She has no further vomiting or diarrhea. She has not been formally tested for influenza, but her symptoms suggest influenza. Her chest x-ray in the ER was negative. Past Med Surg Social Fam HX - Past Medical History Attestation: Yes The following information was validated with the patient. Source: patient, old records reviewed, obtained from family Medical history: coronary artery disease, diabetes, GERD, hyperlipidemia, hypertension, peripheral artery disease Psychiatric history: no psych history - Past Surgical History Surgical History: hysterectomy - Social History Smoking Status: Never smoker Smokeless Tobacco Status: No Alcohol use: none Drug use: none Current living situation: Home, With Family Activity Level: Independent ambulation Recent Out of Country Travel Within the Last 8 Weeks: No - Family History Father Living Status: Mother Living Status: Internal Medicine - H&P: Meds Calcium Carbonate/Vitamin D3 [Calcium 500 + Vit D Caplet] 1 each PO DAILY [History] Gabapentin [Neurontin] 400 mg PO TID 05/27/16 [History] Lisinopril/Hydrochlorothiazide [Lisinopril-Hctz 20-25 mg Tab] 1 tab PO DAILY [History] Loratadine [Claritin] 10 mg PO DAILY 05/27/16 [History] Lovastatin 40 mg PO DAILY 05/27/16 [History] Ranitidine HCl [Zantac] 150 mg PO BID 05/27/16 [History] Sitagliptin Phosphate [Januvia] 50 mg PO DAILY 05/27/16 [History] metFORMIN [Glucophage] 1,000 mg PO BIDWM 05/27/16 [History] Aspirin 81 mg PO DAILY tab.chew 05/29/16 [Rx] Clopidogrel [Plavix] 75 mg PO DAILY #30 tablet 05/29/16 [Rx] HYDROcodone/Acet 5/325 mg [[place] 5-325 mg] 1 tab PO Q6H PRN #16 tab 01/23/17 [Rx ] Meloxicam 7.5 mg PO DAILY #10 tablet 01/23/17 [Rx] 3 Allergy/AdvReac Type Severity Reaction Status Date / Time No Known Allergies Allergy Verified 05/19/17 14:00 - Constitutional Constitutional: fever(s), no chills, no night sweats - EENT Eyes: no blurry vision, no change in vision Ears: no ear pain, no tinnitus Nose, mouth and throat: no nasal congestion, no sinus pressure, no sore throat - Cardiovascular Cardiovascular ROS IM: dyspnea, no chest pain, no lightheadedness, no palpitations, no syncope - Respiratory Respiratory: cough, dyspnea, chest congestion, excessive phlegm production, change in phlegm color, no hemoptysis - Gastrointestinal Gastrointestinal: no abdominal pain, no diarrhea, no nausea, no vomiting Additional comments: decreased oral intake - Genitourinary Genitourinary: no dysuria, no flank pain, no hematuria - Musculoskeletal Musculoskeletal ROS IM: muscle weakness, no arthralgias, no muscle cramps, no myalgias - Integumentary Integumentary IM: no rash, no jaundice - Neurological Neurological ROS: weakness, no disequilibrium, no dizziness, no focal weakness, no frequent falls - Psychiatric Psychiatric: no anxiety, no depression - Endocrine Endocrine IM: no polydipsia, no polyuria - Hematologic/Lymphatic Hematologic/Lymphatic: no easy bruising, no lymphadenopathy - Allergic/Immunologic Allergic/Immunologic: wheezing, no GI upset with certain foods - Constitutional Vitals: Temp Pulse Resp BP Pulse Ox 97.7 F 94 18 120/76 95 05/19/17 21:17 05/19/17 21:17 05/19/17 21:17 05/19/17 21:17 05/19/17 21:17 General appearance: Present: cooperative, A&O X 3, pleasant, answers questions appropriately Exam: looks ill but non-toxic, clinically dehydrated - Head Head exam: Present: atraumatic, normal inspection - Eye Eye exam: Present: EOMI, PERRL. Absent: scleral icterus Pupils: Present: normal accommodation - ENT ENT exam: Present: mucous membranes dry, normal exam Additional comments: small viral type ulcer on her palate - Neck Neck exam general surgery: Present: full ROM, supple. Absent: lymphadenopathy, tenderness, nuchal rigidity - Respiratory Respiratory exam: Present: rales (right base with egophony), rhonchi. Absent: accessory muscle use, chest wall tenderness, CTAB, respiratory distress, wheezes - Cardiovascular Cardiovascular exam: Present: distant heart sounds, RRR, +S1, +S2. Absent: diastolic murmur, JVD, systolic murmur - GI/Abdominal GI/Abdominal exam: Present: normal bowel sounds, soft. Absent: guarding, hepatomegaly, mass, rebound, splenomegaly, tenderness - Extremities Exam Extremities exam: Present: full ROM, normal capillary refill, warm, radial pulses palpable and symmetrical. Absent: calf tenderness, pedal edema - Back Exam Back exam: Absent: CVA tenderness (L), CVA tenderness (R) - Neurological Exam Neurological exam: Present: alert, CN II-XII intact, oriented X3, no focal deficits Additional comments: generalized weakness throughout but no focal weakness - Psychiatric Psychiatric exam: Present: normal affect, normal mood - Skin Skin exam: Present: dry, warm. Absent: rash Internal Med - H&P Results - Labs CBC & Chem 7: 05/19/17 16:29 05/19/17 16:29 - Diagnostic Studies Chest x-ray Status: image reviewed by me (negative)
[2017-05-20] MEDS: cefTRIAXone 1,000 MG in Water for inj. (sterile) 10 ML IVP SCH ×2 (00:31→10:07)
[2017-05-20] MEDS: Azithromycin 500 MG in D5% in Water 250 ML IVPB SCH (00:35)
[2017-05-20 00:40] LABS: Calcium 8.4 mg/dL (8.6-10.3); Potassium 3.7 mEq/L (3.5-5.1)
[2017-05-20] MEDS: 0.9 % Sodium Chloride 1,000 ML IVC SCH ×2 (00:44→10:08)
[2017-05-20 03:11] LABS: Adenovirus Not Detected (Not Detect); Bordetella Pertussis Not Detected (Not Detect); Chlamydophila pneumoniae Not Detected (Not Detect); Coronavirus 229E Not Detected (Not Detect); Coronavirus HKU1 Not Detected (Not Detect); Coronavirus NL63 Not Detected (Not Detect); Coronavirus OC43 ***DETECTED*** (Not Detect); Human Metapneumovirus Not Detected (Not Detect); Human Rhinovirus/Enterovirus Not Detected (Not Detect); Influenza A Subtype 2009 H1 Not Detected (Not Detect); Influenza A Untypeable Not Detected (Not Detect); Influenza B Not Detected (Not Detect); Mycoplasma pneumoniae Not Detected (Not Detect); Parainfluenza Virus 1 Not Detected (Not Detect); Parainfluenza Virus 2 Not Detected (Not Detect); Parainfluenza Virus 3 Not Detected (Not Detect); Parainfluenza Virus 4 Not Detected (Not Detect); Respiratory Syncytial Virus Not Detected (Not Detect)
[2017-05-20] MEDS: Ipratropium/Albuterol Neb 3 ML IH SCH ×4 (04:35→21:43)
[2017-05-20 05:49] LABS: Basophils # 0.1 K/mcL (0.0-0.2); Basophils % 0.6 %; Eosinophils # 0.1 K/mcL (0.0-0.6); Eosinophils % 0.3 %; Hematocrit 30.8 % (35.3-44.9); Hemoglobin 11.2 g/dL (11.5-15.4); Immature Granulocytes % 4.8 % (0-4); Lymphocytes # 3.4 K/mcL (0.6-4.6); Lymphocytes % 20.9 %; Mean Corpuscular HGB Conc 36.4 g/dL (31.6-35.5); Mean Corpuscular Hemoglobin 31.5 pg (28.0-33.3); Mean Corpuscular Volume 86.5 fL (83.0-100.0); Mean Platelet Volume 9.3 fL (9.4-12.4); Monocytes # 1.4 K/mcL (0.0-1.3); Monocytes % 8.8 %; Neutrophils # 10.4 K/mcL (1.6-8.9); Nucleated Red Blood Cells 0.4 /100 WBC (0); Platelet Count 391 K/mcL (140-400); Red Blood Count 3.56 M/mcL (3.82-4.97); Red Cell Distribution Width 12.6 % (11.5-14.5); Segmented Neutrophils % 64.6 %
[2017-05-20] MEDS: *HR* Heparin 5,000 UNIT/ML VIAL SQ SCH ×2 (06:12→17:34)
[2017-05-20 06:13] LABS: Platelet Estimate Normal (Normal)
[2017-05-20 07:54] LABS: Albumin 3.2 g/dL (3.5-5.7); Albumin/Globulin Ratio 1.2 (1.1-2.2); Bilirubin,Total 0.3 mg/dL (0.3-1.0); Calcium 8.1 mg/dL (8.6-10.3); Globulin 2.7 g/dL (2.4-3.5); Magnesium 1.1 mg/dL (1.6-2.6); Potassium 3.6 mEq/L (3.5-5.1); Total Protein 5.9 g/dL (6.4-8.9)
[2017-05-20] MEDS: Insulin LISPRO 300 UNITS/3 ML VIAL SQ SCH ×3 (08:17→17:34)
[2017-05-20] MEDS: Aspirin 81 MG TAB.CHEW PO SCH (10:07)
--- NOTE | 2017-05-20 15:25 | Internal Med Progress Note ---
<Maira Maguire - Last Filed: 05/20/17 17:44> Date of Encounter: 05/20/17 Time of Encounter: 15:21 - Assessment and plan (3) Hyponatremia Current Visit: Yes Status: Acute Assessment and plan: Hyponatremia was likely secondary to dehydration and decreased oral intake sodium 127 improving continue IVF encourage oral intake and diet recheck BMP (4) Acute kidney failure Current Visit: Yes Status: Acute Assessment and plan: PERRY most likely secondary to dehydration and decreased oral intake creatinine 1.19 improved continue IVF avoid nephrotoxic agents monitor renal function Qualifiers: Acute renal failure type: unspecified Qualified Code(s): N17.9 - Acute kidney failure, unspecified (5) Type 2 diabetes mellitus Current Visit: No Status: Chronic Assessment and plan: History of diabetes. According home meds glucose 113 monitor glucose may add low-dose sliding scale insulin Qualifiers: Diabetes mellitus complication status: with circulatory complication Diabetes mellitus complication detail: with other circulatory complications Diabetes mellitus mcfp insulin use: without long term care social worker use Qualified Code( s): E11.59 - Type 2 diabetes mellitus with other circulatory complications (7) DVT prophylaxis Current Visit: Yes Status: Acute Assessment and plan: Heparin sq (8) Pneumonia Current Visit: Yes Status: Acute Assessment and plan: Coronavirus positive. 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 She is alongside multiple family members. She admits to fever, chills, nausea, diarrhea. - Constitutional Vitals: Temp Pulse Resp BP Pulse Ox 97.6 F 118 19 127/77 94 05/20/17 11:28 05/20/17 11:28 05/20/17 11:28 05/20/17 11:28 05/20/17 11:28 General appearance: Present: cooperative, A&O X 3, pleasant, answers questions appropriately Exam: Gen.: Vitals noted. No acute distress. AAOx3 HEENT: ruptured blister on roof of mouth, Normocephalic, atraumatic Neck: Supple. No adenopathy. Cardiac: RRR, no murmur, +S1/S2 Pulmonary: CTA bilaterally, no wheezes, rales or rhonchi, equal chest expansion Abdomen: soft, nontender, Bowel sounds noted, no guarding Back: Nontender throughout. Extremities: no BLE edema, nontender calf, no cyanosis or clubbing Neuro: A&Ox3, moves all extremities, no focal deficits Psych: Appropriate mood and behavior Internal Medicine: Result - Labs CBC & Chem 7: 05/20/17 05:39 05/20/17 06:52 Labs: Short CBC 05/20/17 Range/Units 05:39 WBC 16.1 H (4.3-11.1) K/mcL Hgb 11.2 L (11.5-15.4) g/dL Hct 30.8 L (35.3-44.9) % Plt Count 391 (140-400) K/mcL Neutrophils # 10.4 H (1.6-8.9) K/mcL BMP 05/20/17 05/20/17 00:03 06:52 Sodium 126 L 127 L Potassium 3.7 3.6 Chloride 94 L 96 L Carbon Dioxide 21 L 19 L BUN 22 17 Creatinine 1.40 H 1.19 Glucose 95 113 H Calcium 8.4 L 8.1 L Liver Function 05/20/17 Range/Units 06:52 Total Bilirubin 0.3 (0.3-1.0) mg/dL AST 16 (13-39) Units/L ALT 8 (7-52) Units/L Alkaline Phosphatase 43 (34-104) Units/L Albumin 3.2 L (3.5-5.7) g/dL Consult Discharge Plan - Plan Referrals: Ganesh Pina MD [Primary Care Provider] - <Dayton Meadows - Last Filed: 05/21/17 23:15> Date of Encounter: 05/20/17 - Constitutional Vitals: Temp Pulse Resp BP Pulse Ox 98.1 F 98 18 132/79 97 05/21/17 20:19 05/21/17 20:19 05/21/17 20:19 05/21/17 20:19 05/21/17 20:19 Internal Medicine: Result - Labs CBC & Chem 7: 05/21/17 05:55 05/21/17 05:55 Labs: Short CBC 05/21/17 Range/Units 05:55 WBC 10.2 (4.3-11.1) K/mcL Hgb 9.7 L D (11.5-15.4) g/dL Hct 28.2 L (35.3-44.9) % Plt Count 364 (140-400) K/mcL Neutrophils # 7.5 (1.6-8.9) K/mcL BMP 05/21/17 05:55 Sodium 130 L Potassium 3.2 L Chloride 98 Carbon Dioxide 22 L BUN 11 Creatinine 0.90 Glucose 213 H Calcium 8.0 L - Attending Attestation I conducted a face to face diagnostic evaluation of this patient and my medical decision-making was reviewed with the Resident Physician. I agree with the documented findings, disposition and treatment plan as described except to the extent set forth below: Lungs sounds are diminished bilaterally, no audible wheezes, fine crackles. Plan continue with IV antibiotics and supportive care for coronavirus URI. Dayton Meadows MD
[2017-05-20] MEDS ORDERED: Chloraseptic Spray 177 ML BOTTLE MM PRN (19:26)
[2017-05-20] MEDS: Gabapentin 400 MG CAPSULE PO SCH (20:35)
[2017-05-20] MEDS: Famotidine 20 MG TABLET PO SCH (20:35)
[2017-05-20] MEDS ORDERED: Famotidine 20 MG TABLET PO SCH (21:00)
[2017-05-21] MEDS: Ipratropium/Albuterol Neb 3 ML IH SCH ×4 (03:20→22:38)
[2017-05-21] MEDS: Azithromycin 500 MG in D5% in Water 250 ML IVPB SCH (04:24)
[2017-05-21] MEDS: *HR* Heparin 5,000 UNIT/ML VIAL SQ SCH ×2 (04:25→17:07)
[2017-05-21 06:24] LABS: Basophils % 0.4 %; Eosinophils % 0.2 %; Hematocrit 28.2 % (35.3-44.9); Hemoglobin 9.7 g/dL (11.5-15.4); Immature Granulocytes % 1.3 % (0-4); Lymphocytes # 1.7 K/mcL (0.6-4.6); Lymphocytes % 16.3 %; Mean Corpuscular HGB Conc 34.4 g/dL (31.6-35.5); Mean Corpuscular Hemoglobin 29.8 pg (28.0-33.3); Mean Corpuscular Volume 86.8 fL (83.0-100.0); Mean Platelet Volume 8.8 fL (9.4-12.4); Monocytes # 0.9 K/mcL (0.0-1.3); Monocytes % 8.9 %; Neutrophils # 7.5 K/mcL (1.6-8.9); Platelet Count 364 K/mcL (140-400); Red Blood Count 3.25 M/mcL (3.82-4.97); Red Cell Distribution Width 12.8 % (11.5-14.5); Segmented Neutrophils % 72.9 %
[2017-05-21 06:50] LABS: BUN/Creatinine Ratio 12 (6-26); Blood Urea Nitrogen 11 mg/dL (8-23); Carbon Dioxide 22 mEq/L (23-29); Chloride 98 mEq/L (98-107); Glucose 213 mg/dL (70-105); Magnesium 1.4 mg/dL (1.6-2.6); Osmolality,Calculated 276 (280-300); Potassium 3.2 mEq/L (3.5-5.1); Sodium 130 mEq/L (136-145); eGFR For African Americans > 60 (> 60); eGFR For Non-African Americans > 60 (> 60)
[2017-05-21] MEDS: Aspirin 81 MG TAB.CHEW PO SCH (08:32)
[2017-05-21] MEDS: Gabapentin 400 MG CAPSULE PO SCH ×3 (08:32→21:33)
[2017-05-21] MEDS: Insulin LISPRO 300 UNITS/3 ML VIAL SQ SCH ×4 (08:33→21:33)
[2017-05-21] MEDS: cefTRIAXone 1,000 MG in Water for inj. (sterile) 10 ML IVP SCH (08:33)
[2017-05-21] MEDS: Famotidine 20 MG TABLET PO SCH ×2 (08:33→21:32)
--- NOTE | 2017-05-21 10:27 | Internal Med Progress Note ---
<Maira Maguire - Last Filed: 05/21/17 13:44> Date of Encounter: 05/21/17 Time of Encounter: 10:26 - Assessment and plan (1) Coronavirus infection Current Visit: Yes Status: Acute Assessment and plan: Patient tested positive for Coronavirus She demonstrated gastroenteritis like symptoms with nausea, vomiting, diarrhea, fever, chills, weakness. She reported that with the flu like symptoms she had decreased oral intake with food in drinks which then made her progressively weaker and subsequently her admission. She appeared dry and dehydrated on admission with electrolyte imbalances. She had an elevated WBC with most likely source CT head showing acute and chronic bilateral paranasal sinus disease. She reports today she feels much better than yesterday, and the weakness has improved but still present, she had her family would like her to stay one more day. She is now tolerating eating food and drinking fluids. CXR no acute cardiopulmonary process urinalysis normal Electrolytes improving NA 130, K 3.2, Mg 1.4 Discharge most likely tomorrow Replace electrolytes as needed Encourage eating and/or hydration PT/OT ordered due to weakness (2) Acute sinus infection Current Visit: Yes Status: Acute Assessment and plan: Acute on chronic sinus infection demonstrated by head CT head CT acute and chronic bilateral paranasal sinus disease Coronavirus positive blood culture demonstrate no growth afebrile WBC WNL improved IV azithromycin day 2 Stop Rocephin day 2 Qualifiers: Recurrence: not specified as recurrent Qualified Code(s): J01.90 - Acute sinusitis, unspecified (3) Hyponatremia Current Visit: Yes Status: Acute Assessment and plan: Hyponatremia was likely secondary to dehydration and decreased oral intake sodium 130 improving encourage oral intake and diet recheck BMP (4) Acute kidney failure Current Visit: Yes Status: Acute Assessment and plan: PERRY most likely secondary to dehydration and decreased oral intake creatinine 0.9 improved Encourage oral hydration avoid nephrotoxic agents monitor renal function Qualifiers: Acute renal failure type: unspecified Qualified Code(s): N17.9 - Acute kidney failure, unspecified (5) Type 2 diabetes mellitus Current Visit: No Status: Chronic Assessment and plan: History of diabetes. glucose 213 monitor glucose medium-dose sliding scale insulin AM and low dose in PM Qualifiers: Diabetes mellitus complication status: with circulatory complication Diabetes mellitus complication detail: with other circulatory complications Diabetes mellitus mcfp insulin use: without mcfp use Qualified Code( s): E11.59 - Type 2 diabetes mellitus with other circulatory complications (6) Hypomagnesemia Current Visit: Yes Status: Acute Assessment and plan: Magnesium improving 1.4 at admission magnesium was 1.1 check magnesium in morning replace as needed (7) DVT prophylaxis Current Visit: Yes Status: Acute Assessment and plan: Heparin sq - Subjective Interval history: She is alert and oriented x3. She is alongside multiple family members. She admits to loose bowel movement. She denied fever, chills, nausea, vomiting. She reports improved meant and her weakness but she is still weak family would prefer for her to stay one more day day. - Constitutional Vitals: Temp Pulse Resp BP Pulse Ox 98.4 F 90 15 115/71 94 05/21/17 07:50 05/21/17 07:50 05/21/17 07:50 05/21/17 07:50 05/21/17 08:47 General appearance: Present: cooperative, A&O X 3, pleasant, answers questions appropriately Exam: Gen.: Vitals noted. No acute distress. AAOx3 HEENT: oropharynx clear, Normocephalic, atraumatic Neck: Supple. No adenopathy. Cardiac: RRR, no murmur, +S1/S2 Pulmonary: CTA bilaterally, no wheezes, rales or rhonchi, equal chest expansion Abdomen: soft, nontender, Bowel sounds noted, no guardingint swelling noted Extremities: no BLE edema, nontender calf, no cyanosis or clubbing Neuro: A&Ox3, moves all extremities, no focal deficits Psych: Appropriate mood and behavior Internal Medicine: Result - Labs CBC & Chem 7: 05/21/17 05:55 05/21/17 05:55 Labs: Short CBC 05/21/17 Range/Units 05:55 WBC 10.2 (4.3-11.1) K/mcL Hgb 9.7 L D (11.5-15.4) g/dL Hct 28.2 L (35.3-44.9) % Plt Count 364 (140-400) K/mcL Neutrophils # 7.5 (1.6-8.9) K/mcL BMP 05/21/17 05:55 Sodium 130 L Potassium 3.2 L Chloride 98 Carbon Dioxide 22 L BUN 11 Creatinine 0.90 Glucose 213 H Calcium 8.0 L Consult Discharge Plan - Plan Referrals: Ganesh Pina MD [Primary Care Provider] - <Dayton Meadows - Last Filed: 05/21/17 22:37> Date of Encounter: 05/21/17 - Constitutional Vitals: Temp Pulse Resp BP Pulse Ox 98.1 F 98 18 132/79 97 05/21/17 20:19 05/21/17 20:19 05/21/17 20:19 05/21/17 20:19 05/21/17 20:19 Internal Medicine: Result - Labs CBC & Chem 7: 05/21/17 05:55 05/21/17 05:55 Labs: Short CBC 05/21/17 Range/Units 05:55 WBC 10.2 (4.3-11.1) K/mcL Hgb 9.7 L D (11.5-15.4) g/dL Hct 28.2 L (35.3-44.9) % Plt Count 364 (140-400) K/mcL Neutrophils # 7.5 (1.6-8.9) K/mcL BMP 05/21/17 05:55 Sodium 130 L Potassium 3.2 L Chloride 98 Carbon Dioxide 22 L BUN 11 Creatinine 0.90 Glucose 213 H Calcium 8.0 L - Attending Attestation I conducted a face to face diagnostic evaluation of this patient and my medical decision-making was reviewed with the Resident Physician. I agree with the documented findings, disposition and treatment plan as described except to the extent set forth below: Lung sounds are clear, diminished. Heart is regular. Plan: Continue supportive care for coronavirus URI. IV antibiotics for possible bacterial pneumonia and sinusitis. Dayton Meadows MD
[2017-05-21] MEDS ORDERED: Insulin LISPRO 300 UNITS/3 ML VIAL SQ SCH (21:00)
[2017-05-22] MEDS: Azithromycin 500 MG in D5% in Water 250 ML IVPB SCH (00:29)
[2017-05-22] MEDS: Ipratropium/Albuterol Neb 3 ML IH SCH ×4 (04:49→22:49)
[2017-05-22] MEDS: *HR* Heparin 5,000 UNIT/ML VIAL SQ SCH ×2 (05:25→16:24)
[2017-05-22 08:05] LABS: Basophils % 0.4 %; Eosinophils # 0.1 K/mcL (0.0-0.6); Eosinophils % 0.6 %; Hematocrit 27.9 % (35.3-44.9); Hemoglobin 9.7 g/dL (11.5-15.4); Lymphocytes # 2.3 K/mcL (0.6-4.6); Lymphocytes % 21.1 %; Mean Corpuscular HGB Conc 34.8 g/dL (31.6-35.5); Mean Corpuscular Hemoglobin 30.7 pg (28.0-33.3); Mean Corpuscular Volume 88.3 fL (83.0-100.0); Mean Platelet Volume 9.1 fL (9.4-12.4); Monocytes # 1.1 K/mcL (0.0-1.3); Monocytes % 10.4 %; Neutrophils # 7.1 K/mcL (1.6-8.9); Platelet Count 340 K/mcL (140-400); Red Blood Count 3.16 M/mcL (3.82-4.97); Red Cell Distribution Width 12.9 % (11.5-14.5); Segmented Neutrophils % 66.5 %
[2017-05-22] MEDS: Gabapentin 400 MG CAPSULE PO SCH ×3 (08:14→19:47)
[2017-05-22] MEDS: Insulin LISPRO 300 UNITS/3 ML VIAL SQ SCH ×4 (08:15→21:30)
[2017-05-22] MEDS: Aspirin 81 MG TAB.CHEW PO SCH (08:15)
[2017-05-22] MEDS: Famotidine 20 MG TABLET PO SCH ×2 (08:15→19:47)
[2017-05-22 09:18] LABS: BUN/Creatinine Ratio 20 (6-26); Blood Urea Nitrogen 14 mg/dL (8-23); Calcium 8.1 mg/dL (8.6-10.3); Carbon Dioxide 22 mEq/L (23-29); Chloride 101 mEq/L (98-107); Glucose 154 mg/dL (70-105); Magnesium 1.4 mg/dL (1.6-2.6); Osmolality,Calculated 274 (280-300); Potassium 4.2 mEq/L (3.5-5.1); Sodium 130 mEq/L (136-145); eGFR For African Americans > 60 (> 60); eGFR For Non-African Americans > 60 (> 60)
[2017-05-22] MEDS ORDERED: Magnesium Oxide 400 MG TABLET PO ONE (11:04)
[2017-05-22] MEDS ORDERED: Artificial Tears SOLN 15 ML BOTTLE BOTH EYES PRN (13:19)
[2017-05-22] MEDS ORDERED: Loperamide 1 MG/5 ML UDC PO PRN (13:21)
--- NOTE | 2017-05-22 13:59 | Internal Med Progress Note ---
<Maira Maguire - Last Filed: 05/22/17 13:57> Date of Encounter: 05/22/17 Time of Encounter: 10:15 - Assessment and plan (1) Coronavirus infection Current Visit: Yes Status: Acute Assessment and plan: Patient tested positive for Coronavirus She demonstrated gastroenteritis like symptoms with nausea, vomiting, diarrhea, fever, chills, weakness for 2 weeks. She reported that with the flu like symptoms she had decreased oral intake with food in drinks which then made her progressively weaker and subsequently her admission. She appeared dry and dehydrated on admission with electrolyte imbalances. She had an elevated WBC with most likely source CT head showing acute and chronic bilateral paranasal sinus disease. She reports today she feels much better than yesterday, and the weakness has improved but still present, she had her family would like her to stay one more day. She is now tolerating eating food and drinking fluids. She still has watery diarrhea. CXR no acute cardiopulmonary process urinalysis normal Electrolytes improving NA 130, K 4.2, Mg 1.4 Discharge tomorrow, family was concerned today would be too soon for discharge Imodium ordered Replace electrolytes as needed Encourage eating and/or hydration PT/OT ordered due to weakness home health and PT/OT for discharge planning (2) Acute sinus infection Current Visit: Yes Status: Acute Assessment and plan: Acute on chronic sinus infection demonstrated by head CT head CT acute and chronic bilateral paranasal sinus disease Coronavirus positive blood culture demonstrate no growth afebrile WBC WNL improved IV azithromycin day 3 Qualifiers: Recurrence: not specified as recurrent Qualified Code(s): J01.90 - Acute sinusitis, unspecified (3) Hyponatremia Current Visit: Yes Status: Acute Assessment and plan: Hyponatremia was likely secondary to dehydration and decreased oral intake sodium 130 improving encourage oral intake and diet recheck BMP (4) Acute kidney failure Current Visit: Yes Status: Acute Assessment and plan: PERRY most likely secondary to dehydration and decreased oral intake creatinine 0.7 improved Encourage oral hydration avoid nephrotoxic agents monitor renal function Qualifiers: Acute renal failure type: unspecified Qualified Code(s): N17.9 - Acute kidney failure, unspecified (5) Type 2 diabetes mellitus Current Visit: No Status: Chronic Assessment and plan: History of diabetes. glucose 154 monitor glucose medium-dose sliding scale insulin AM and low dose in PM Qualifiers: Diabetes mellitus complication status: with circulatory complication Diabetes mellitus complication detail: with other circulatory complications Diabetes mellitus halfway insulin use: without halfway use Qualified Code( s): E11.59 - Type 2 diabetes mellitus with other circulatory complications (6) DVT prophylaxis Current Visit: Yes Status: Acute Assessment and plan: Heparin sq (7) Hypomagnesemia Current Visit: Yes Status: Acute Assessment and plan: Magnesium improving 1.4 at admission magnesium was 1.1 check magnesium in morning replace as needed (8) Eye irritation Current Visit: Yes Status: Acute Assessment and plan: This is most likely dry eye irritation. She reports bilateral lateral corner of eyes causing irritation and discomfort since yesterday. She denies eye pain, decreased vision, burning sensation, gritty sensation. On physical exam she has intact ocular movement, normal conjunctiva, no. Orbital erythema, no discharge. Order saline eyedrops - Subjective Interval history: She is alert and oriented x3. She is alongside multiple family members. She admits to loose bowel movements still. She denied fever, chills, nausea, vomiting. She reports improvement weakness but she is still weak family would prefer for her to stay one more day day. She is to work with PT/OT today. - Constitutional Vitals: Temp Pulse Resp BP Pulse Ox 98.1 F 94 16 119/72 93 05/22/17 11:08 05/22/17 11:08 05/22/17 11:09 05/22/17 11:08 05/22/17 11:09 General appearance: Present: cooperative, A&O X 3, pleasant, answers questions appropriately Exam: Gen.: Vitals noted. No acute distress. AAOx3 HEENT: oropharynx clear, Normocephalic, atraumatic, normal conjunctival no erythema periorbital Neck: Supple. No adenopathy. Cardiac: RRR, no murmur, +S1/S2 Pulmonary: CTA bilaterally, no wheezes, rales or rhonchi, equal chest expansion Abdomen: soft, nontender, Bowel sounds noted, no guarding MSK: ROM intact, no joint swelling noted Extremities: no BLE edema, nontender calf, no cyanosis or clubbing Neuro: A&Ox3, moves all extremities Psych: Appropriate mood and behavior Internal Medicine: Result - Labs CBC & Chem 7: 05/22/17 06:33 05/22/17 06:33 Labs: Short CBC 05/22/17 Range/Units 06:33 WBC 10.7 (4.3-11.1) K/mcL Hgb 9.7 L (11.5-15.4) g/dL Hct 27.9 L (35.3-44.9) % Plt Count 340 (140-400) K/mcL Neutrophils # 7.1 (1.6-8.9) K/mcL [facility] [place] 05/22/17 06:33 Sodium 130 L Potassium 4.2 Chloride 101 Carbon Dioxide 22 L BUN 14 Creatinine 0.70 Glucose 154 H Calcium 8.1 L Consult Discharge Plan - Plan Referrals: Ganesh Pina MD [Primary Care Provider] - <Oscar Zimmerman R - Last Filed: 05/22/17 14:22> Date of Encounter: 05/22/17 - Constitutional Vitals: Temp Pulse Resp BP Pulse Ox 98.1 F 94 16 119/72 93 05/22/17 11:08 05/22/17 11:08 05/22/17 11:09 05/22/17 11:08 05/22/17 11:09 Internal Medicine: Result - Labs CBC & Chem 7: 05/22/17 06:33 05/22/17 06:33 Labs: Short CBC 05/22/17 Range/Units 06:33 WBC 10.7 (4.3-11.1) K/mcL Hgb 9.7 L (11.5-15.4) g/dL Hct 27.9 L (35.3-44.9) % Plt Count 340 (140-400) K/mcL Neutrophils # 7.1 (1.6-8.9) K/mcL [facility] [place] 05/22/17 06:33 Sodium 130 L Potassium 4.2 Chloride 101 Carbon Dioxide 22 L BUN 14 Creatinine 0.70 Glucose 154 H Calcium 8.1 L - Attending Attestation I personally interviewed and examined this patient. I reviewed all labs and studies. I agree with the findings, assessment and plan of Dr. Maguire. Patient is to weigh self from her infection and we will start Imodium now. We will also stop azithromycin as I do not believe she has acute sinusitis. She will remain in hospital 1 more day to ensure her diarrhea resolves, Tarsha continues to improve. I discussed the case with the patient and family at the bedside.
[2017-05-22] MEDS ORDERED: Azithromycin 250 MG TABLET PO SCH (22:00)
[2017-05-23] MEDS: Ipratropium/Albuterol Neb 3 ML IH SCH ×2 (03:36→10:33)
[2017-05-23 05:23] LABS: BUN/Creatinine Ratio 29 (6-26); Blood Urea Nitrogen 20 mg/dL (8-23); Calcium 8.4 mg/dL (8.6-10.3); Carbon Dioxide 21 mEq/L (23-29); Chloride 100 mEq/L (98-107); Glucose 182 mg/dL (70-105); Magnesium 1.2 mg/dL (1.6-2.6); Osmolality,Calculated 275 (280-300); Potassium 4.9 mEq/L (3.5-5.1); Sodium 129 mEq/L (136-145); eGFR For African Americans > 60 (> 60); eGFR For Non-African Americans > 60 (> 60)
[2017-05-23] MEDS: *HR* Heparin 5,000 UNIT/ML VIAL SQ SCH (06:23)
--- NOTE | 2017-05-23 07:52 | Electrocardiograph Report ---
[address] [place] [address] Test Date: 2017-05-19 Pat Name: Tania Simpson Department: 102 Room: 2A55 Gender: F Bench Mechanic: Carolyn : 1940 Requested By: Bernard Cristina Order Number: [id number] Reading MD: Miguel Nelson MD Measurements Intervals [place] Rate: 97 P: 52 VA: 173 QRS: -7 QRSD: 83 T: 43 QT: 374 QTc: 429 Interpretive Statements SINUS RHYTHM INFERIOR MYOCARDIAL INFARCTION, PROBABLY OLD Electronically Signed On 05-23-2017 5:46:36 EST by Miguel Nelson MD
--- NOTE | 2017-05-23 07:52 | Electrocardiograph Report ---
[place] [address] Test Date: 2017-05-19 Pat Name: Tania Simpson Department: 104 Room: 2A55 Gender: Line Assembler Aircraft: AM : 1940 Requested By: Bernard Cristina Order Number: [id number] Reading MD: Miguel Nelson MD Measurements Intervals [place] Rate: 102 P: 54 ME: 161 QRS: -14 QRSD: 89 T: 27 QT: 372 QTc: 430 Interpretive Statements SINUS TACHYCARDIA INFERIOR MYOCARDIAL INFARCTION, PROBABLY OLD BASELINE ARTIFACT Electronically Signed On 05-23-2017 5:44:25 EST by Miguel Nelson MD
[2017-05-23] MEDS: Famotidine 20 MG TABLET PO SCH (08:22)
[2017-05-23] MEDS: Gabapentin 400 MG CAPSULE PO SCH (08:22)
[2017-05-23] MEDS: Aspirin 81 MG TAB.CHEW PO SCH (08:22)
[2017-05-23] MEDS: Insulin LISPRO 300 UNITS/3 ML VIAL SQ SCH ×2 (08:22→12:19)
--- NOTE | 2017-05-23 08:55 | Discharge Summary ---
<Maira Maguire - Last Filed: 05/23/17 10:46> Date of Encounter: 05/23/17 Time of Encounter: 08:35 - Discharge Diagnosis (1) Coronavirus infection Priority: Primary Status: Acute (2) Acute sinus infection Priority: Secondary Status: Acute Qualifiers: Recurrence: not specified as recurrent (3) Hyponatremia Priority: Secondary Status: Acute (4) Acute kidney failure Priority: Secondary Status: Acute Qualifiers: Acute renal failure type: unspecified Qualified Code(s): N17.9 - Acute kidney failure, unspecified (5) Type 2 diabetes mellitus Priority: Secondary Status: Chronic Qualifiers: Diabetes mellitus complication status: with circulatory complication Diabetes mellitus complication detail: with other circulatory complications Diabetes mellitus usp insulin use: without tile erector use Qualified Code( s): E11.59 - Type 2 diabetes mellitus with other circulatory complications (6) DVT prophylaxis Priority: Secondary Status: Acute (7) Hypomagnesemia Priority: Secondary Status: Acute (8) Eye irritation Priority: Secondary Status: Acute - Discharge Medications Prescriptions: GuaiFENesin/Dextromethorphan [Cough & Chest Congest Dm Liq] 5 ml PO Q4-6H PRN # 177 ml PRN Reason: Cough Loperamide [Imodium] 2 mg PO QID PRN #4 udc PRN Reason: Diarrhea Home Medications: Calcium Carbonate/Vitamin D3 [Calcium 500 + Vit D Caplet] 1 each PO DAILY [History] Gabapentin [Neurontin] 400 mg PO TID 05/27/16 [History] Lisinopril/Hydrochlorothiazide [Lisinopril-Hctz 20-25 mg Tab] 1 tab PO DAILY [History] Loratadine [Claritin] 10 mg PO DAILY 05/27/16 [History] Lovastatin 40 mg PO DAILY 05/27/16 [History] Ranitidine HCl [Zantac] 150 mg PO BID 05/27/16 [History] Sitagliptin Phosphate [Januvia] 100 mg PO DAILY 05/27/16 [History] metFORMIN [Glucophage] 1,000 mg PO BIDWM 05/27/16 [History] Aspirin 81 mg PO DAILY tab.chew 05/29/16 [Rx] Clopidogrel [Plavix] 75 mg PO DAILY #30 tablet 05/29/16 [Rx] GuaiFENesin/Dextromethorphan [Cough & Chest Congest Dm Liq] 5 ml PO Q4-6H PRN # 177 ml 05/23/17 [Rx] Loperamide [Imodium] 2 mg PO QID PRN #4 udc 05/23/17 [Rx] Allergies/Adverse Reactions: 3 Allergy/AdvReac Type Severity Reaction Status Date / Time No Known Allergies Allergy Verified 05/19/17 14:00 Date of admission: 05/19/17 19:56 Primary care physician: Ganesh Pina MD Consults: 05/21/17 10:08 Consult to Occupational Therapy [CONS] Routine Comment: Evaluate, develop and implement POC Reason for Consult: weakness Consult to Physical Therapy [CONS] Routine Comment: Evaluate, develop and implement POC Reason for Consult: weakness 05/22/17 10:23 Consult to Manufacturing Team Leader [CONS] Routine Reason for SW Consult: may need home health prior to discharge Discharging clinician: Oscar Zimmerman Anticipated date of discharge: 05/23/17 - Patient Status Disposition: Home, Self-Care Condition: Good Functional capacity at discharge: uses cane/walker Overall status at discharge: patient is progressing back to baseline - Discharge Instructions Instructions: Loperamide (By mouth), Dextromethorphan/Guaifenesin/ Phenylephrine (By mouth) Follow Up With: Ganesh Pina MD [Primary Care Provider] - 05/29/17 9:00 am (Please follow up as schedule...) Additional Instructions: Follow-up with your PCP in one week or 2 return the hospital she develop fever, chills worsening diarrhea or abdominal pain, or weakness. Have a follow-up lab check of BMP in a few days. - Diet and Activity Activity: ambulate only with your walker Diet: advance to your usual diet Hospital course: Ms. Simpson is a 77 year old female - Time Spent with Patient Total time spent providing and/or coordinating discharge services: Greater than 30 minutes - Constitutional Vitals: Temp Pulse Resp BP Pulse Ox 97.6 F 94 16 148/81 98 05/23/17 07:29 05/23/17 07:29 05/23/17 07:29 05/23/17 07:29 05/23/17 07:29 General appearance: Present: cooperative, A&O X 3, pleasant, answers questions appropriately Exam: Gen.: Vitals noted. No acute distress. AAOx3 HEENT: oropharynx clear, Normocephalic, atraumatic Neck: Supple. No adenopathy. Cardiac: RRR, no murmur, +S1/S2 Pulmonary: CTA bilaterally, no wheezes, rales or rhonchi, equal chest expansion Abdomen: soft, nontender, Bowel sounds noted, no guarding Extremities: no BLE edema, nontender calf, no cyanosis or clubbing Neuro: A&Ox3, moves all extremities, no focal deficits Psych: Appropriate mood and behavior <Oscar Zimmerman - Last Filed: 05/23/17 13:07> Date of Encounter: 05/23/17 Date of admission: 05/19/17 19:56 Primary care physician: Ganesh Pina MD Consults: 05/21/17 10:08 Consult to Occupational Therapy [CONS] Routine Comment: Evaluate, develop and implement POC Reason for Consult: weakness Consult to Physical Therapy [CONS] Routine Comment: Evaluate, develop and implement POC Reason for Consult: weakness 05/22/17 10:23 Consult to Manufacturing Team Leader [CONS] Routine Reason for SW Consult: may need home health prior to discharge Hospital course: Ms. Simpson is a 77 year old female - Time Spent with Patient Total time spent providing and/or coordinating discharge services: - Constitutional Vitals: Temp Pulse Resp BP Pulse Ox 98.0 F 101 16 104/64 95 05/23/17 11:00 05/23/17 11:00 05/23/17 11:00 05/23/17 11:00 05/23/17 11:00 - Attending Attestation I personally interviewed and examined this patient. I agree with the findings, assessment and plan of Dr. Maguire, internal medicine resident. Patient is improved. Diarrhea is resolving slowly. We will encourage good oral intake. Close follow-up. Plan as outlined per discharge summary, my input is reflected in this summary. Patient will need home physical therapy. She is quite weak and deconditioned. 33 min spent on dc/coord of care.
[2017-05-23 12:16] VITALS: BP 104/64
== END 2017-05-23 14:07 | disposition home or self-care (01) ==
LOC: EMEROO 13:43 → 2ANU 13:43 → SUATTDRO 23:36
PROVIDERS: ADMIT Hospitalist; ATTEND Internal Medicine

== ENCOUNTER 2017-05-31 02:49 | Observation (INO) ==
[2017-05-31] MEDS ORDERED: 0.9 % Sodium Chloride 1,000 ML IVC ONE (02:58)
--- NOTE | 2017-05-31 03:01 | Emergency Department Note ---
Disposition Clinical Impression: Hyponatremia Episode of syncope Qualifiers: Syncope type: unspecified Qualified Code(s): R55 - Syncope and collapse Disposition: Admitted As Inpatient Condition: Good Syncope HPI - General Chief Complaint: ED Syncope Stated Complaint: syncope Time Seen by Provider: 05/31/17 02:54 Source: patient Mode of arrival: EMS Limitations: no limitations Nursing Notes Reviewed: Yes Vital Signs Reviewed: Yes - History of Present Illness HPI Narrative: 77-year-old female history of hypertension, diabetes, prior syncopal episodes who presents to the ER via EMS due to syncopal episode. EMS reports at the time of their arrival the patient was alert and answering questions appropriately. No decompensation during her transit. Patient is unsure what happened previously reports she was in her usual state of health. She denies any chest pain or shortness of breath. She has a pain in the back of her head and neck. She currently feels back to normal with the exception of photophobia. Patient given 4 mg of Zofran prior to arrival due to nausea. No other complaints. Pt Subjective Complaint: loss of consciousness Onset (ago): unknown Prodromal Symptoms: none Witnessed: yes - by other Injuries Sustained Associated with Event: neck, head Current Symptoms: headache History: previous syncopal episode Treatments prior to arrival: medication Associated trauma secondary to event: No - Related Data Home Medications Medication Instructions Recorded Confirmed Calcium Carbonate/Vitamin D3 1 each PO DAILY 05/27/16 05/20/17 [Calcium 500 + Vit D Caplet] Gabapentin [Neurontin] 400 mg PO TID 05/27/16 05/20/17 Lisinopril/Hydrochlorothiazide 1 tab PO DAILY 05/27/16 05/20/17 [Lisinopril-Hctz 20-25 mg Tab] Loratadine [Claritin] 10 mg PO DAILY 05/27/16 05/20/17 Lovastatin 40 mg PO DAILY 05/27/16 05/20/17 Ranitidine HCl [Zantac] 150 mg PO BID 05/27/16 05/20/17 Sitagliptin Phosphate [Januvia] 100 mg PO DAILY 05/27/16 05/20/17 metFORMIN [Glucophage] 1,000 mg PO BIDWM 05/27/16 05/20/17 Previous Rx's Medication Instructions Recorded Aspirin 81 mg PO DAILY tab.chew 05/29/16 Clopidogrel [Plavix] 75 mg PO DAILY #30 tablet 05/29/16 GuaiFENesin/Dextromethorphan 5 ml PO Q4-6H PRN #177 ml 05/23/17 [Cough & Chest Congest Dm Liq] Loperamide [Imodium] 2 mg PO QID PRN #4 udc 05/23/17 Allergies Allergy/AdvReac Type Severity Reaction Status Date / Time No Known Allergies Allergy Verified 05/19/17 14:00 All systems ED: reviewed and negative except as stated. Cardiovascular: Denies: chest pain Respiratory: Denies: dyspnea Gastrointestinal: Reports: nausea. Denies: abdominal pain, vomiting Musculoskeletal: Reports: neck pain Neurological: Reports: headache. Denies: numbness, paresthesias Past Medical History - Past Medical History Attestation: Yes The following information was validated with the patient. Source: patient Medical history: Reports: coronary artery disease, diabetes, GERD, hyperlipidemia, hypertension, peripheral artery disease Surgical history: Reports: hysterectomy Psychiatric history: Reports: no psych history - Social History Smoking Status: Never smoker Smokeless Tobacco Status: No Alcohol use: Reports: none Drug use: Reports: none Physical Exam - General Limitations: no limitations General appearance: alert, in no apparent distress - Head Head exam: atraumatic, normocephalic - Eye Eye exam: Present: normal appearance, PERRL, EOMI - ENT ENT exam: normal exam - Neck Neck exam: Present: normal inspection, full ROM - Chest Chest inspection: Present: normal inspection, symmetric chest wall rise - Respiratory Respiratory exam: Present: normal lung sounds bilaterally - Cardiovascular Cardiovascular exam: Present: regular rate, normal rhythm, normal heart sounds - Abdominal Exam Abdominal exam: Present: soft, Non-Tender. Absent: tenderness - Extremities Exam Extremities exam: Present: normal inspection, full ROM - Expanded Upper Extremity Exam Shoulder exam: Present: normal inspection, full ROM Arm exam: Present: normal inspection, full ROM Elbow exam: Present: normal inspection, full ROM Forearm/Wrist exam: Present: normal inspection, full ROM Hand exam: Present: normal inspection, full ROM - Expanded Lower Extremity Exam Hip/Pelvis exam: Present: normal inspection, full ROM Upper leg exam: Present: normal inspection, full ROM Knee exam: Present: normal inspection, full ROM Lower leg exam: Present: normal inspection, full ROM Ankle exam: Present: normal inspection, full ROM Foot/toe exam: Present: normal inspection, full ROM Neurovascular/Tendon exam: Absent: motor deficit, sensory deficit - Neurological Exam Neurological exam: Present: alert, CN II-XII intact. Absent: motor sensory deficit - Expanded Neurological Exam Speech: Present: fluid speech Cranial nerves: EOM function (II, III, IV, ): Normal, facial sensation (V): Normal, spinal accessory function (XI): Normal, tongue deviation (XII): Normal Motor strength - LUE: 5/5 Motor strength - RUE: 5/5 Motor strength - LLE: 5/5 Motor strength - RLE: 5/5 Sensory exam upper extremity: light touch: Normal Sensory exam lower extremity: light touch: Normal Coma Scale Eye Opening: Spontaneous Coma Scale Motor Response: Obeys Commands Coma Scale Verbal Response: Oriented Coma Scale Total: 15 - Skin Skin exam: Present: warm, dry Course Course Narrative: Patient seen and examined. Vital signs reviewed. We will get an EKG, chest x- ray as well as imaging of the head and cervical spine. We will also get labs including troponin. I reviewed her prior admission which was roughly 1 year ago where she had cardiology and neurology consultation with a normal echo. CTA of the head and neck showed atherosclerosis but she was not deemed necessary for surgical intervention at that time. - Reevaluation(s) Reevaluation #1: Discussed results of labs with the patient and family. She is noted to be hyponatremic at 120. We will place her on seizure precautions. She is also receiving 1 L bolus here. We will start reserved symptoms do not overcorrect. I do not believe she needs 3% at this time. We will admit to the hospitalist for further management. Vital Signs Temperature 97.6 F 05/31/17 02:50 Pulse Rate 81 05/31/17 02:50 Respiratory Rate 12 05/31/17 02:50 Blood Pressure 154/78 05/31/17 02:50 O2 Sat by Pulse Oximetry 95 05/31/17 02:50 Temperature 97.6 F 05/31/17 02:50 Pulse Rate 81 05/31/17 04:59 Respiratory Rate 14 05/31/17 04:59 Blood Pressure 144/75 05/31/17 04:59 O2 Sat by Pulse Oximetry 99 05/31/17 04:59 Oxygen Delivery Oxygen Delivery Nasal Cannula Syncope - [facility] Narrative Medical decision making narrative: 77-year-old female history of hypertension and diabetes who presents to the ER due to a syncopal episode. Family reports she was unresponsive at home prior to arrival. She was just laying on the bed. No seizure-like activity noted. She has a history of syncopal episodes evaluated last year around this time with neurologic and cardiology consultations. No recurrence of syncopal episodes. She was alert here with a GCS of 15 upon arrival. No focal deficits. CT of the head and cervical spine without acute abnormality. She was then complaining of some abdominal pain with a normal abdominal CT. She is noted to be hyponatremic at 120. Previously in the hospital she was 124 at her worst. I reviewed her medications and do not see a medication-induced reason for her hyponatremia. Patient has been given 1 L of normal saline here. She will be admitted to the hospitalist service for hyponatremia, syncopal episode. - Lab Data Lab results reviewed: Yes I reviewed the patient's lab results. Result diagrams: 05/31/17 03:10 05/31/17 03:10 Lab Results 05/31/17 05/31/17 05/31/17 Range/Units 03:10 03:10 03:10 WBC 10.9 (4.3-11.1) K/mcL RBC 3.68 L (3.82-4.97) M/mcL Hgb 11.2 L (11.5-15.4) g/dL Hct 31.6 L (35.3-44.9) % MCV 85.9 (83.0-100.0) fL MCH 30.4 (28.0-33.3) pg MCHC 35.4 (31.6-35.5) g/dL RDW 12.4 (11.5-14.5) % Plt Count 303 (140-400) K/mcL MPV 8.9 L (9.4-12.4) fL Immature Gran % 0.9 (0-4) % Seg Neutrophils % 80.3 % Lymphocytes % 11.8 % Monocytes % 6.2 % Eosinophils % 0.4 % Basophils % 0.4 % Neutrophils # 8.7 (1.6-8.9) K/mcL Lymphocytes # 1.3 (0.6-4.6) K/mcL Monocytes # 0.7 (0.0-1.3) K/mcL Eosinophils # 0.0 (0.0-0.6) K/mcL Basophils # 0.0 (0.0-0.2) K/mcL PT (9.4-12.1) Seconds INR Sodium 120 L* (136-145) mEq/L Potassium 4.0 (3.5-5.1) mEq/L Chloride 85 L (98-107) mEq/L Carbon Dioxide 23 (23-29) mEq/L BUN 13 (8-23) mg/dL Creatinine 0.90 (0.60-1.20) mg/dL Est GFR ( Amer) > 60 (> 60) Est GFR (Non-Af Amer) > 60 (> 60) BUN/Creatinine Ratio 14 (6-26) Glucose 181 H (70-105) mg/dL Calculated Osmolality 255 L (280-300) Calcium 9.2 (8.6-10.3) mg/dL Total Bilirubin 0.7 (0.3-1.0) mg/dL Direct Bilirubin 0.2 (0.0-0.2) mg/dL Indirect Bilirubin 0.5 (0.0-1.2) mg/dL AST 12 L (13-39) Units/L ALT 10 (7-52) Units/L Alkaline Phosphatase 57 (34-104) Units/L Troponin I < 0.03 (< 0.04) ng/mL Serum Total Protein 7.0 (6.4-8.9) g/dL Albumin 3.9 (3.5-5.7) g/dL Globulin 3.1 (2.4-3.5) g/dL Albumin/Globulin Ratio 1.3 (1.1-2.2) Urine Color (Yellow) Urine Clarity (Clear) Urine pH (5.0-8.0) pH Units Ur Specific [place] (1.010-1.025) Urine Protein (Neg-Trace) mg/dL Urine Glucose (UA) (Normal) mg/dL Urine Ketones (Negative) mg/dL Urine Blood (Negative) Urine Nitrite (Negative) Urine Bilirubin (Negative) Urine Urobilinogen (Normal) mg/dL Ur Leukocyte Esterase (Negative) Ur Culture Indicated? (NO) Urine Sodium mEq/L 05/31/17 05/31/17 05/31/17 Range/Units 03:10 04:03 04:03 WBC (4.3-11.1) K/mcL RBC (3.82-4.97) M/mcL Hgb (11.5-15.4) g/dL Hct (35.3-44.9) % MCV (83.0-100.0) fL MCH (28.0-33.3) pg MCHC (31.6-35.5) g/dL RDW (11.5-14.5) % Plt Count (140-400) K/mcL MPV (9.4-12.4) fL Immature Gran % (0-4) % Seg Neutrophils % % Lymphocytes % % Monocytes % % Eosinophils % % Basophils % % Neutrophils # (1.6-8.9) K/mcL Lymphocytes # (0.6-4.6) K/mcL Monocytes # (0.0-1.3) K/mcL Eosinophils # (0.0-0.6) K/mcL Basophils # (0.0-0.2) K/mcL PT 12.5 H (9.4-12.1) Seconds INR 1.2 Sodium (136-145) mEq/L Potassium (3.5-5.1) mEq/L Chloride (98-107) mEq/L Carbon Dioxide (23-29) mEq/L BUN (8-23) mg/dL Creatinine (0.60-1.20) mg/dL Est GFR ( Amer) (> 60) Est GFR (Non-Af Amer) (> 60) BUN/Creatinine Ratio (6-26) Glucose (70-105) mg/dL Calculated Osmolality (280-300) Calcium (8.6-10.3) mg/dL Total Bilirubin (0.3-1.0) mg/dL Direct Bilirubin (0.0-0.2) mg/dL Indirect Bilirubin (0.0-1.2) mg/dL AST (13-39) Units/L ALT (7-52) Units/L Alkaline Phosphatase (34-104) Units/L Troponin I (< 0.04) ng/mL Serum Total Protein (6.4-8.9) g/dL Albumin (3.5-5.7) g/dL Globulin (2.4-3.5) g/dL Albumin/Globulin Ratio (1.1-2.2) Urine Color Yellow (Yellow) Urine Clarity Clear (Clear) Urine pH 6.5 (5.0-8.0) pH Units Ur Specific [place] 1.012 (1.010-1.025) Urine Protein Negative (Neg-Trace) mg/dL Urine Glucose (UA) Normal (Normal) mg/dL Urine Ketones Trace H (Negative) mg/dL Urine Blood Negative (Negative) Urine Nitrite Negative (Negative) Urine Bilirubin Negative (Negative) Urine Urobilinogen Normal (Normal) mg/dL Ur Leukocyte Esterase Negative (Negative) Ur Culture Indicated? NO (NO) Urine Sodium 97.2 mEq/L - Radiology Data Radiology results reviewed: Yes I reviewed the patient's radiology results. Cervical Spine CT 05/31/17 02:58 IMPRESSION: Multilevel degenerative changes in the cervical spine, most pronounced at C5-C6. No acute osseous abnormality. D/ / Shruti Galan MD / Shruti Galan MD Interpreting Provider: Shruti Galan MD Chest X-Ray 05/31/17 02:58 IMPRESSION: Minimal blunting of the left lateral costophrenic angle may be related to a trace amount of pleural fluid or thickening. D/ / Shruti Galan MD / Shruti Galan MD Interpreting Provider: Shruti Galan MD Head CT 05/31/17 02:58 IMPRESSION: No acute intracranial abnormality. Improving paranasal sinus disease. D/ / Shruti Galan MD / Shruti Galan MD Interpreting Provider: Shruti Galan MD Abdomen/Pelvis CT 05/31/17 03:12 IMPRESSION: 1. No acute findings identified. No evidence of obstructive uropathy. 2. Colonic diverticulosis D/ / Edison Ramesh MD / Edison Ramesh MD Interpreting Provider: Edison Ramesh MD - EKG Data EKG attestation: Yes I reviewed and interpreted this EKG. EKG results narrative: EKG demonstrates sinus rhythm with a rate of 70 bpm. Normal axis. Normal intervals. Normal R-wave progression. Nonspecific ST-T wave changes in the inferior leads. No gross ST elevations or depressions. No acute ischemic findings. No significant changes from previous EKG dated 05/19/17. Jeff - Jeff Situation: Demographics, MOA Background: Presenting Complaint, Relevant PMH, Meds, & Allergies Assessment: Course and respsone to treatment, Exam Concerns, Patient/Family Expectation, Pertinant Lab Results Recommendation: Barrier(s) to disposition, Recommendation based on pending studies, treatments, or consults S.B.Tera Report Given to: Dr. Abhijit Aguilar Repor Time: 04:48 (reports mIVF NS 75ml/hr) Attestation Statement - Attestation Attestation: I, Michael Flanagan MD, personally evaluated this patient and discussed their management with the resident physician. I reviewed the resident's note and agree with the documented findings, medical decision making, and plan of care. 77-year-old female presents to the emergency department by ambulance with a complaint of a syncopal episode at home. She has a prior history of syncope about a year ago. Family reports that she passed out tonight on her bed. No fall or injury. On arrival here the patient is alert and answers questions appropriately and follows commands. She denies any chest pain or shortness of breath. No headache. No fever. On examination patient is a well-developed well-nourished well-appearing elderly female in no acute distress. She is alert and oriented. No cyanosis or diaphoresis. Breath sounds are decreased bilaterally with no rales or wheezes noted. Heart regular. Abdomen soft and nontender with normal bowel sounds. No gross focal motor or sensory deficits. Labs reviewed. Sodium 120. CT of the head, neck, abdomen and pelvis showed no acute abnormalities. No acute infiltrate on chest x-ray. EKG shows a normal sinus rhythm with a heart rate of 78. No acute ischemic changes. The hospitalist, Dr. Lacey, was consulted and accepted admission of the patient.
[2017-05-31 03:26] LABS: Basophils % 0.4 %; Eosinophils % 0.4 %; Hematocrit 31.6 % (35.3-44.9); Hemoglobin 11.2 g/dL (11.5-15.4); Immature Granulocytes % 0.9 % (0-4); Lymphocytes # 1.3 K/mcL (0.6-4.6); Lymphocytes % 11.8 %; Mean Corpuscular HGB Conc 35.4 g/dL (31.6-35.5); Mean Corpuscular Hemoglobin 30.4 pg (28.0-33.3); Mean Corpuscular Volume 85.9 fL (83.0-100.0); Mean Platelet Volume 8.9 fL (9.4-12.4); Monocytes # 0.7 K/mcL (0.0-1.3); Monocytes % 6.2 %; Neutrophils # 8.7 K/mcL (1.6-8.9); Platelet Count 303 K/mcL (140-400); Red Blood Count 3.68 M/mcL (3.82-4.97); Red Cell Distribution Width 12.4 % (11.5-14.5); Segmented Neutrophils % 80.3 %
[2017-05-31 03:32] LABS: INR 1.2; Prothrombin Time 12.5 Seconds (9.4-12.1)
[2017-05-31 03:51] LABS: Alanine Aminotransferase 10 Units/L (7-52); Albumin 3.9 g/dL (3.5-5.7); Albumin/Globulin Ratio 1.3 (1.1-2.2); Alkaline Phosphatase 57 Units/L (34-104); Aspartate Amino Transferase 12 Units/L (13-39); BUN/Creatinine Ratio 14 (6-26); Bilirubin,Direct 0.2 mg/dL (0.0-0.2); Bilirubin,Indirect 0.5 mg/dL (0.0-1.2); Bilirubin,Total 0.7 mg/dL (0.3-1.0); Blood Urea Nitrogen 13 mg/dL (8-23); Calcium 9.2 mg/dL (8.6-10.3); Carbon Dioxide 23 mEq/L (23-29); Chloride 85 mEq/L (98-107); Globulin 3.1 g/dL (2.4-3.5); Glucose 181 mg/dL (70-105); Osmolality,Calculated 255 (280-300); Sodium 120 mEq/L (136-145); eGFR For African Americans > 60 (> 60); eGFR For Non-African Americans > 60 (> 60)
[2017-05-31 04:12] LABS: Bilirubin,Urine Negative (Negative); Blood,Urine Negative (Negative); Clarity,Urine Clear (Clear); Color,Urine Yellow (Yellow); Glucose,Urine (UA) Normal (Normal); Ketones,Urine Trace mg/dL (Negative); Leukocyte Esterase,Urine Negative (Negative); Nitrite,Urine Negative (Negative); PH,Urine 6.5 pH Units (5.0-8.0); Protein,Urine Negative (Neg-Trace); Specific Gravity,Urine 1.012 (1.010-1.025); Urobilinogen,Urine Normal (Normal)
[2017-05-31] MEDS ORDERED: 0.9 % Sodium Chloride 1,000 ML IVC SCH (05:00)
[2017-05-31] MEDS ORDERED: *HR* Dextrose 50 % in Water (Syg) 50 ML SYRINGE IVP PRN (06:03)
[2017-05-31] MEDS ORDERED: Acetaminophen 325 MG TABLET PO PRN (06:03)
[2017-05-31] MEDS ORDERED: D5% in Water 1,000 ML IVC PRN (06:03)
[2017-05-31] MEDS ORDERED: Naloxone 0.4 MG/ML INJ IVP PRN (06:03)
[2017-05-31] MEDS ORDERED: Dextrose Gel 15 GM/37.5 ML TUBE PO PRN ×2 (06:03)
[2017-05-31] MEDS: *HR* Heparin 5,000 UNIT/ML VIAL SQ SCH ×2 (06:16→18:53)
--- NOTE | 2017-05-31 06:18 | Internal Med History&Physical ---
Date of Encounter: 05/31/17 Time of Encounter: 06:12 Assessment and Plan (1) Syncope Current visit: Yes Status: Acute 1. Will cycle troponins and EKG's. 2. Will place on telemetry. 3. Will order ECHO and Carotid Dopplers. 4. Further work-up as necessary. 5. Monitor glucose for hypoglycemia. Qualifiers: Syncope type: unspecified Qualified Code(s): R55 - Syncope and collapse (2) Hyponatremia Current visit: Yes Status: Acute 1. I suspect this is due to medication (HCTZ). 2. Hold HCTZ. 3. Recheck sodium level within the hour. 4. Stop Lisiniopril/HCT. 5. Consult nephrology if necessary. (3) Type 2 diabetes mellitus Current visit: No Status: Chronic 1. Stop home oral diabetic meds. 2. Monitor glucose for hypoglycemia and use SSI as needed and adjust dosing as necessary. Qualifiers: Diabetes mellitus complication status: with circulatory complication Diabetes mellitus complication detail: with other circulatory complications Diabetes mellitus fpc insulin use: without fpc use Qualified Code( s): E11.59 - Type 2 diabetes mellitus with other circulatory complications (4) DVT prophylaxis Current visit: No Status: Acute 1. Heparin SQ. Internal Medicine - H&P: HPI Chief complaint: syncope Admitted From: Emergency Dept Plans for Post Hospital Care: Home History of present illness: Ms. 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 She was at home resting in her chair when she stood up, became quite lightheaded, and sustained a syncopal event. Her son was present and witnessed the event. She states she was unconscious for roughly 2 minutes. Her son called EMS, and they arrived at the home shortly thereafter ER. There were no reports of hypoglycemia that I could gather, but patient cannot confirm whether she was hypoglycemic or not. She denies any chest pain or pressure. She denies shortness of breath. She feels back to baseline now. There was no reported seizure activity. Workup in the ER revealed patient to have hyponatremia. Remaining workup, including imaging, was negative. She was subsequently admitted to hospitalist service. Upon my assessment of the patient, she denies any complaints or concerns at the present time. She has had recurrent hyponatremia recently. She denies any alcohol intake, excessive fluid intake, or any known malignancy. She has been on hydrochlorothiazide, however, and I suspect her hyponatremia is likely related to this medication. She denies any prior cardiac history or dysrhythmia. She denies any history of carotid stenosis. She states she has been on hydrochlorothiazide for quite some time, but she cannot recall how long exactly. She denies any prior episodes or problems with hypoglycemia. Past Med Surg Social Fam HX - Past Medical History Attestation: Yes The following information was validated with the patient. Source: patient, old records reviewed Medical history: coronary artery disease, diabetes, GERD, hyperlipidemia, hypertension, peripheral artery disease Psychiatric history: no psych history - Past Surgical History Surgical History: cataract, hysterectomy - Social History Smoking Status: Never smoker Smokeless Tobacco Status: No Alcohol use: none Drug use: none Current living situation: Home, With Family Activity Level: Independent ambulation - Family History Father Living Status: Mother Living Status: Hx Family Endocrine Disorder: Yes (Diabetes) Internal Medicine - H&P: Meds Calcium Carbonate/Vitamin D3 [Calcium 500 + Vit D Caplet] 1 each PO DAILY [History] Gabapentin [Neurontin] 400 mg PO TID 05/27/16 [History] Lisinopril/Hydrochlorothiazide [Lisinopril-Hctz 20-25 mg Tab] 1 tab PO DAILY [History] Loratadine [Claritin] 10 mg PO DAILY 05/27/16 [History] Lovastatin 40 mg PO DAILY 05/27/16 [History] Ranitidine HCl [Zantac] 150 mg PO BID 05/27/16 [History] Sitagliptin Phosphate [Januvia] 100 mg PO DAILY 05/27/16 [History] metFORMIN [Glucophage] 1,000 mg PO BIDWM 05/27/16 [History] Aspirin 81 mg PO DAILY tab.chew 05/29/16 [Rx] Clopidogrel [Plavix] 75 mg PO DAILY #30 tablet 05/29/16 [Rx] GuaiFENesin/Dextromethorphan [Cough & Chest Congest Dm Liq] 5 ml PO Q4-6H PRN # 177 ml 05/23/17 [Rx] Loperamide [Imodium] 2 mg PO QID PRN #4 udc 05/23/17 [Rx] 3 Allergy/AdvReac Type Severity Reaction Status Date / Time No Known Allergies Allergy Verified 05/19/17 14:00 - Constitutional Constitutional: no chills, no fever(s), no night sweats - EENT Eyes: no blurry vision, no change in vision Ears: no ear pain, no tinnitus Nose, mouth and throat: no nasal congestion, no sinus pressure, no sore throat - Cardiovascular Cardiovascular ROS IM: lightheadedness, syncope, no chest pain, no diaphoresis, no dyspnea, no dyspnea on exertion, no palpitations - Respiratory Respiratory: no cough, no dyspnea, no hemoptysis, no excessive phlegm production , no change in phlegm color - Gastrointestinal Gastrointestinal: no abdominal pain, no diarrhea, no hematemesis, no hematochezia, no melena, no nausea, no vomiting - Genitourinary Genitourinary: no dysuria, no flank pain, no hematuria - Musculoskeletal Musculoskeletal ROS IM: no arthralgias, no back pain - Integumentary Integumentary IM: no rash, no jaundice - Neurological Neurological ROS: dizziness, no focal weakness, no frequent falls, no headache(s ) - Psychiatric Psychiatric: no anxiety, no depression - Endocrine Endocrine IM: no polydipsia, no polyphagia, no polyuria - Allergic/Immunologic Allergic/Immunologic: no uticaria, no wheezing, no GI upset with certain foods - Constitutional Vitals: Temp Pulse Resp BP Pulse Ox 97.9 F 80 14 146/82 98 05/31/17 05:42 05/31/17 05:42 05/31/17 05:42 05/31/17 05:42 05/31/17 05:42 General appearance: Present: cooperative, A&O X 3, pleasant, no acute distress, answers questions appropriately - Head Head exam: Present: atraumatic, normal inspection - Eye Eye exam: Present: EOMI, normal appearance, PERRL. Absent: scleral icterus Pupils: Present: normal accommodation - ENT ENT exam: Present: mucous membranes moist, normal exam - Neck Neck exam general surgery: Present: full ROM, supple. Absent: tenderness, nuchal rigidity - Expanded Neck Exam Neck exam: Absent: carotid bruit - Respiratory Respiratory exam: Present: CTAB. Absent: rales, respiratory distress, rhonchi, wheezes - Cardiovascular Cardiovascular exam: Present: RRR, +S1, +S2. Absent: diastolic murmur, systolic murmur - GI/Abdominal GI/Abdominal exam: Present: normal bowel sounds, soft. Absent: hepatomegaly, mass, splenomegaly - Extremities Exam Extremities exam: Present: full ROM, normal capillary refill, warm, radial pulses palpable and symmetrical. Absent: calf tenderness, joint swelling, pedal edema - Back Exam Back exam: Absent: CVA tenderness (L), CVA tenderness (R) - Neurological Exam Neurological exam: Present: alert, CN II-XII intact, oriented X3, no focal deficits, strengths equal and symetr throughout - Psychiatric Psychiatric exam: Present: normal affect, normal mood - Skin Skin exam: Present: dry, warm Internal Med - H&P Results - Labs CBC & Chem 7: 05/31/17 03:10 05/31/17 03:10 - EKG Data -: EKG Interpreted by Myself - EKG Data Prior EKG available for review: yes When compared to previous EKG: there is no significant change EKG comments: 05/31/17 06:24 NSR; no acute changes - Diagnostic Studies Chest x-ray Status: image reviewed by me (negative)
[2017-05-31 08:19] LABS: Alanine Aminotransferase 8 Units/L (7-52); Albumin 3.4 g/dL (3.5-5.7); Albumin/Globulin Ratio 1.3 (1.1-2.2); Alkaline Phosphatase 50 Units/L (34-104); Aspartate Amino Transferase 11 Units/L (13-39); BUN/Creatinine Ratio 16 (6-26); Bilirubin,Total 0.5 mg/dL (0.3-1.0); Blood Urea Nitrogen 12 mg/dL (8-23); Calcium 8.3 mg/dL (8.6-10.3); Carbon Dioxide 20 mEq/L (23-29); Chloride 93 mEq/L (98-107); Globulin 2.7 g/dL (2.4-3.5); Glucose 159 mg/dL (70-105); Magnesium 1.1 mg/dL (1.6-2.6); Osmolality,Calculated 261 (280-300); Potassium 4.2 mEq/L (3.5-5.1); Sodium 124 mEq/L (136-145); Total Protein 6.1 g/dL (6.4-8.9); eGFR For African Americans > 60 (> 60); eGFR For Non-African Americans > 60 (> 60)
[2017-05-31] MEDS: Aspirin 81 MG TAB.CHEW PO SCH (08:33)
[2017-05-31] MEDS: Insulin LISPRO 300 UNITS/3 ML VIAL SQ SCH ×3 (08:34→18:50)
--- NOTE | 2017-05-31 11:00 | Internal Med Progress Note ---
Date of Encounter: 05/31/17 Time of Encounter: 10:20 - Assessment and plan (1) Hyponatremia Current Visit: Yes Status: Acute Assessment and plan: Pt was at home with son last night when she had a witnessed syncopal episode. Loss consciousness for approximately 2 minutes. Most likely secondary to hyponatremia from poor by mouth intake reported by daughter, as well as hydrochlorothiazide. Hydrochlorothiazide has been stopped. Sodium has increased to 124 today, continue to monitor. The fluid has been increased to 85 mL per hour. Continue IV fluid hydration Continue to monitor labs. Seizure precautions in place (2) Syncope Current Visit: Yes Status: Acute Assessment and plan: Witnessed syncopal episode at home last night. Loss of consciousness approximately [address] is negative for acute, there is improving paranasal sinus disease. Chest x-ray shows minimal blunting of left lateral costophrenic angle, potentially related to pleural fluid or thickening. Echo and carotid Dopplers are ordered and pending. Last echocardiogram April, showed preserved EF and mild LV DD and no significant valvular dysfunction. Patient also hyponatremic, could be contributory to syncope. Echo and carotids pending Continue telemetry Continue to monitor labs. Orthostatic vital signs ordered and pending Qualifiers: Syncope type: unspecified Qualified Code(s): R55 - Syncope and collapse (3) Type 2 diabetes mellitus Current Visit: Yes Status: Chronic Assessment and plan: Sliding scale insulin, Accu-Cheks before meals and at bedtime, diabetic diet. A1c 7.4% in December,. We will reorder for morning. Qualifiers: Diabetes mellitus complication status: with circulatory complication Diabetes mellitus complication detail: with other circulatory complications Diabetes mellitus long term acute care registered nurse insulin use: without long term acute care registered nurse use Qualified Code( s): E11.59 - Type 2 diabetes mellitus with other circulatory complications (4) DVT prophylaxis Current Visit: Yes Status: Acute Assessment and plan: Heparin SQ BID. - Time Spent With Patient less than 15 minutes - Subjective Interval history: Pt was seen and assessed at bedside at 1020a.m. Daughter is at bedside and all questions were answered. Pt is intermittently confused and has difficulty finding words. She states that she lives with her son who is her primary caregiver. She denies headache, n/v, abdominal pain, dizziness, chest pain or shortness of breath. Daughter states that pt had diarrhea in the last few days, but is unclear on the amount, duration, or frequency. - Constitutional Vitals: Temp Pulse Resp BP Pulse Ox 97.9 F 80 14 146/82 98 05/31/17 05:42 05/31/17 05:42 05/31/17 05:42 05/31/17 05:42 05/31/17 05:42 General appearance: Present: cooperative, A&O X 3, pleasant, no acute distress, answers questions appropriately - Head Head exam: Present: atraumatic, normal inspection, normocephalic - Eye Eye exam: Present: normal appearance, conjuntiva pink, sclera anicteric - Neck Neck exam general surgery: Present: supple, trachea midline. Absent: lymphadenopathy, tenderness - Respiratory Respiratory exam: Present: CTAB. Absent: accessory muscle use, decreased breath sounds, rales, respiratory distress, rhonchi, wheezes - Cardiovascular Cardiovascular exam: Present: RRR, +S1, +S2. Absent: diastolic murmur, gallop, rubs, systolic murmur - GI/Abdominal GI/Abdominal exam: Present: normal bowel sounds, soft, no peritoneal signs. Absent: distended, hepatomegaly, tenderness - Extremities Exam Extremities exam: Present: normal capillary refill, normal inspection, warm, radial pulses palpable and symmetrical. Absent: calf tenderness, cyanotic, pedal edema - Neurological Exam Neurological exam: Present: alert, oriented X3, no focal deficits. Absent: facial droop, speech deficit - Skin Skin exam: Present: dry, intact, normal color, warm. Absent: rash Internal Medicine: Result - Labs CBC & Chem 7: 05/31/17 03:10 05/31/17 06:43 Labs: BMP 05/31/17 06:43 Sodium 124 L Potassium 4.2 Chloride 93 L Carbon Dioxide 20 L BUN 12 Creatinine 0.77 Glucose 159 H Calcium 8.3 L Cardiac Enzymes 05/31/17 Range/Units 06:43 Troponin I < 0.03 (< 0.04) ng/mL Liver Function 05/31/17 Range/Units 06:43 Total Bilirubin 0.5 (0.3-1.0) mg/dL AST 11 L (13-39) Units/L ALT 8 (7-52) Units/L Alkaline Phosphatase 50 (34-104) Units/L Albumin 3.4 L (3.5-5.7) g/dL - ABG Interpretation ABG results: PT/INR, D-dimer PT 12.5 Seconds (9.4-12.1) H 05/31/17 03:10 Consult Discharge Plan - Plan Referrals: Ganesh Pina MD [Primary Care Provider] -
[2017-05-31] MEDS: Famotidine 20 MG TABLET PO SCH (14:36)
[2017-05-31] MEDS: 0.9 % Sodium Chloride 1,000 ML IVC SCH (14:36)
[2017-06-01] MEDS: Famotidine 20 MG TABLET PO SCH (06:36)
[2017-06-01] MEDS: *HR* Heparin 5,000 UNIT/ML VIAL SQ SCH ×2 (06:36→18:23)
[2017-06-01 07:35] LABS: BUN/Creatinine Ratio 13 (6-26); Blood Urea Nitrogen 11 mg/dL (8-23); Calcium 8.4 mg/dL (8.6-10.3); Carbon Dioxide 26 mEq/L (23-29); Chloride 96 mEq/L (98-107); Glucose 223 mg/dL (70-105); Osmolality,Calculated 274 (280-300); Sodium 129 mEq/L (136-145); eGFR For African Americans > 60 (> 60); eGFR For Non-African Americans > 60 (> 60)
[2017-06-01 07:58] LABS: Basophils % 0.3 %; Eosinophils # 0.1 K/mcL (0.0-0.6); Eosinophils % 0.9 %; Hematocrit 30.6 % (35.3-44.9); Hemoglobin 10.4 g/dL (11.5-15.4); Immature Granulocytes % 0.5 % (0-4); Lymphocytes # 1.5 K/mcL (0.6-4.6); Mean Corpuscular Volume 88.2 fL (83.0-100.0); Mean Platelet Volume 9.3 fL (9.4-12.4); Monocytes # 0.5 K/mcL (0.0-1.3); Monocytes % 6.7 %; Neutrophils # 5.3 K/mcL (1.6-8.9); Platelet Count 311 K/mcL (140-400); Red Blood Count 3.47 M/mcL (3.82-4.97); Red Cell Distribution Width 12.9 % (11.5-14.5); Segmented Neutrophils % 71.6 %
[2017-06-01] MEDS: 0.9 % Sodium Chloride 1,000 ML IVC SCH ×2 (08:33→08:34)
[2017-06-01] MEDS: Aspirin 81 MG TAB.CHEW PO SCH (08:34)
[2017-06-01] MEDS: Insulin LISPRO 300 UNITS/3 ML VIAL SQ SCH ×3 (08:35→18:23)
[2017-06-01] MEDS: Loratadine 10 MG TABLET PO SCH (08:35)
--- NOTE | 2017-06-01 13:25 | Electrocardiograph Report ---
[place] [id number] Test Date: 2017-05-31 Pat Name: Tania Simpson Department: 104 Room: 3A Gender: F Supply Chain Logistics Manager: EVELYN : 1940 Requested By: Jim Tom Order Number: [id number] Reading MD: Bernard Hart Measurements Intervals [place] Rate: 78 P: 59 MI: 173 QRS: 1 QRSD: 90 T: 45 QT: 394 QTc: 427 Interpretive Statements SINUS RHYTHM NONSPECIFIC T-WAVE ABNORMALITY Electronically Signed On 06-01-2017 13:23:46 EST by Bernard Hart
[2017-06-01] MEDS: MOM Conc 10 ML UD.LIQ PO SCH (15:06)
--- NOTE | 2017-06-01 16:04 | Internal Med Progress Note ---
Date of Encounter: 06/01/17 Time of Encounter: 14:50 - Assessment and plan (1) Hyponatremia Current Visit: Yes Status: Acute Assessment and plan: Pt was at home with son last night when she had a witnessed syncopal episode. Loss consciousness for approximately 2 minutes. Most likely secondary to hyponatremia from poor by mouth intake reported by daughter, as well as hydrochlorothiazide. Hydrochlorothiazide has been stopped. Sodium has increased to 129 today, continue to monitor. IV fluid has been stopped and 1.2 L per day fluid restriction has been started. 1.2 L fluid restriction daily Continue to monitor labs. Seizure precautions in place (2) Syncope Current Visit: Yes Status: Acute Assessment and plan: Witnessed syncopal episode at home last night. Loss of consciousness approximately [address] is negative for acute, there is improving paranasal sinus disease. Chest x-ray shows minimal blunting of left lateral costophrenic angle, potentially related to pleural fluid or thickening. Echo completed and reveals LVEF 60-65% with mild LV DD and no significant valvular dysfunction. Bilateral carotids are within normal limits. Patient also hyponatremic, could be contributory to syncope. Continue telemetry Continue to monitor labs. Orthostatic vital signs ordered and still pending Qualifiers: Syncope type: unspecified Qualified Code(s): R55 - Syncope and collapse (3) Type 2 diabetes mellitus Current Visit: Yes Status: Chronic Assessment and plan: Sliding scale insulin, Accu-Cheks before meals and at bedtime, diabetic diet. A1c 7.4% in December,. Qualifiers: Diabetes mellitus complication status: with circulatory complication Diabetes mellitus complication detail: with other circulatory complications Diabetes mellitus keno terminal operator insulin use: without keno terminal operator use Qualified Code( s): E11.59 - Type 2 diabetes mellitus with other circulatory complications (4) DVT prophylaxis Current Visit: Yes Status: Acute Assessment and plan: Heparin SQ BID. - Time Spent With Patient less than 15 minutes - Subjective Interval history: Pt was seen and assessed at bedside at 1450a.m. Daughter is at bedside and all questions were answered. Pt is significantly better than yesterday. She answers questions appropriately, looks better, and states that she feels better. She denies headache, n/v, abdominal pain, dizziness, chest pain or shortness of breath. NO diarrhea or fluid losses. - Constitutional Vitals: Temp Pulse Resp BP Pulse Ox 98.2 F 90 15 127/76 98 06/01/17 12:01 06/01/17 12:01 06/01/17 12:01 06/01/17 12:01 06/01/17 12:01 General appearance: Present: cooperative, A&O X 3, pleasant, no acute distress, answers questions appropriately - Head Head exam: Present: atraumatic, normal inspection, normocephalic - Eye Eye exam: Present: normal appearance, conjuntiva pink, sclera anicteric - Neck Neck exam general surgery: Present: supple, trachea midline. Absent: lymphadenopathy - Respiratory Respiratory exam: Present: CTAB. Absent: accessory muscle use, rales, rhonchi, wheezes - Cardiovascular Cardiovascular exam: Present: RRR, +S1, +S2. Absent: diastolic murmur, gallop, rubs, systolic murmur - GI/Abdominal GI/Abdominal exam: Present: normal bowel sounds, soft, no peritoneal signs. Absent: distended, hepatomegaly, tenderness - Extremities Exam Extremities exam: Present: normal capillary refill, normal inspection, warm, radial pulses palpable and symmetrical. Absent: calf tenderness, cyanotic, pedal edema - Neurological Exam Neurological exam: Present: alert, oriented X3, no focal deficits. Absent: facial droop, speech deficit - Skin Skin exam: Present: dry, intact, normal color, warm. Absent: rash Internal Medicine: Result - Labs CBC & Chem 7: 06/01/17 06:57 06/01/17 06:57 Labs: Short CBC 06/01/17 Range/Units 06:57 WBC 7.5 (4.3-11.1) K/mcL Hgb 10.4 L (11.5-15.4) g/dL Hct 30.6 L (35.3-44.9) % Plt Count 311 (140-400) K/mcL Neutrophils # 5.3 (1.6-8.9) K/mcL BMP 06/01/17 06:57 Sodium 129 L Potassium 4.0 Chloride 96 L Carbon Dioxide 26 BUN 11 Creatinine 0.83 Glucose 223 H Calcium 8.4 L Cardiac Enzymes 05/31/17 Range/Units 18:01 Troponin I < 0.03 (< 0.04) ng/mL - ABG Interpretation ABG results: PT/INR, D-dimer PT 12.5 Seconds (9.4-12.1) H 05/31/17 03:10 - Impressions Impressions Echocardiogram 05/31/17 06:03 Impressions: LVEF 60-65%. Normal LV chamber size, wall thickness and function. Mild left ventricular diastolic dysfunction. Normal right ventricular structure and function. No evidence of pulmonary hypertension. No significant valvular dysfunction. Left Ventricular Wall Motion: Rest Echo Findings All wall segments showed normal motion. Findings: Study Quality * Technically adequate exam. ECG Findings * Normal sinus rhythm. Left Ventricle * LVEF 60-65%. * Normal LV chamber size, wall thickness and function. * Mild left ventricular diastolic dysfunction. Right Ventricle * Normal right ventricular structure and function. Left Atrium * Normal left atrial size. Right Atrium * Normal right atrial size. Interatrial Septum * No evidence of PFO by color Doppler. Aortic Valve * Aortic valve not well visualized. * No aortic regurgitation. * No aortic stenosis. Mitral Valve * Normal mitral valve structure and function. * No mitral stenosis. * Trace mitral regurgitation. Tricuspid Valve * Normal tricuspid valve structure and function. * Trace tricuspid regurgitation. * No evidence of pulmonary hypertension. Pulmonic Valve * Pulmonic valve is not well visualized. * No pulmonic regurgitation. Aorta * Normally sized aortic root. Pericardium * The pericardium appears normal. IVC * Normal IVC dimensions and inspiratory collapse. Pulmonary Artery * Normal visualized portions of the main pulmonary artery. Consult Discharge Plan - Plan Referrals: Ganesh Pina MD [Primary Care Provider] -
[2017-06-02] MEDS: *HR* Heparin 5,000 UNIT/ML VIAL SQ SCH ×2 (05:54→18:10)
[2017-06-02] MEDS: Famotidine 20 MG TABLET PO SCH (05:54)
[2017-06-02 05:59] LABS: Basophils % 0.4 %; Eosinophils # 0.1 K/mcL (0.0-0.6); Eosinophils % 0.6 %; Hematocrit 28.9 % (35.3-44.9); Hemoglobin 10.2 g/dL (11.5-15.4); Immature Granulocytes % 0.5 % (0-4); Lymphocytes # 1.8 K/mcL (0.6-4.6); Lymphocytes % 19.1 %; Mean Corpuscular HGB Conc 35.3 g/dL (31.6-35.5); Mean Corpuscular Hemoglobin 30.5 pg (28.0-33.3); Mean Corpuscular Volume 86.5 fL (83.0-100.0); Monocytes # 0.8 K/mcL (0.0-1.3); Monocytes % 8.2 %; Neutrophils # 6.7 K/mcL (1.6-8.9); Platelet Count 297 K/mcL (140-400); Red Blood Count 3.34 M/mcL (3.82-4.97); Red Cell Distribution Width 12.9 % (11.5-14.5); Segmented Neutrophils % 71.2 %
[2017-06-02 06:07] LABS: Hemoglobin A1C 6.7 %
[2017-06-02 07:50] LABS: BUN/Creatinine Ratio 17 (6-26); Blood Urea Nitrogen 12 mg/dL (8-23); Calcium 9.3 mg/dL (8.6-10.3); Carbon Dioxide 23 mEq/L (23-29); Chloride 99 mEq/L (98-107); Glucose 205 mg/dL (70-105); Osmolality,Calculated 276 (280-300); Potassium 4.3 mEq/L (3.5-5.1); Sodium 130 mEq/L (136-145); eGFR For African Americans > 60 (> 60); eGFR For Non-African Americans > 60 (> 60)
[2017-06-02] MEDS: Aspirin 81 MG TAB.CHEW PO SCH (08:14)
[2017-06-02] MEDS: Loratadine 10 MG TABLET PO SCH (08:14)
[2017-06-02] MEDS: MOM Conc 10 ML UD.LIQ PO SCH (08:15)
[2017-06-02] MEDS: Insulin LISPRO 300 UNITS/3 ML VIAL SQ SCH ×3 (08:15→15:40)
[2017-06-02] MEDS ORDERED: 0.9 % Sodium Chloride 1,000 ML IVC SCH ×2 (15:00)
--- NOTE | 2017-06-02 15:12 | Internal Med Progress Note ---
Date of Encounter: 06/02/17 Time of Encounter: 15:00 - Assessment and plan (1) Hyponatremia Current Visit: Yes Status: Acute Assessment and plan: Most likely secondary to hyponatremia from poor po intake, as well as hydrochlorothiazide. Hydrochlorothiazide has been stopped. Sodium has increased to 130 today, continue to monitor. IV fluid at 80ml/hour and 1 L per day fluid restriction has been started. Will send pt home if sodium increases overnight to 132-133 range 1 L fluid restriction daily Continue to monitor labs. Seizure precautions in place (2) Syncope Current Visit: Yes Status: Acute Assessment and plan: Witnessed syncopal episode at home last night. Loss of consciousness approximately [address] is negative for acute, there is improving paranasal sinus disease. Chest x-ray shows minimal blunting of left lateral costophrenic angle, potentially related to pleural fluid or thickening. Echo completed and reveals LVEF 60-65% with mild LV DD and no significant valvular dysfunction. Bilateral carotids are within normal limits. Patient also hyponatremic, could be contributory to syncope. Continue telemetry Continue to monitor labs. Orthostatic vital signs ordered and still pending again today. Spoke with nurse , will be done today. Qualifiers: Syncope type: unspecified Qualified Code(s): R55 - Syncope and collapse (3) Type 2 diabetes mellitus Current Visit: Yes Status: Chronic Assessment and plan: Sliding scale insulin, Accu-Cheks before meals and at bedtime, diabetic diet. Qualifiers: Diabetes mellitus complication status: with circulatory complication Diabetes mellitus complication detail: with other circulatory complications Diabetes mellitus group home insulin use: without group home use Qualified Code( s): E11.59 - Type 2 diabetes mellitus with other circulatory complications (4) DVT prophylaxis Current Visit: Yes Status: Acute Assessment and plan: Heparin SQ BID. - Time Spent With Patient less than 15 minutes - Subjective Interval history: Pt was seen and assessed at bedside at 1500 . Multiple family members at bedside and all questions were answered. Pt is significantly better than yesterday. She answers questions appropriately, looks better, and states that she feels better. She denies headache, n/v, abdominal pain, dizziness, chest pain or shortness of breath. NO diarrhea or fluid losses. Pt will stay another night to continue to monitor sodium and attempt to increase. - Constitutional Vitals: Temp Pulse Resp BP Pulse Ox 98.2 F 89 16 154/85 99 02/03/18 07:41 06/02/17 07:41 06/02/17 07:41 06/02/17 07:41 06/02/17 07:41 General appearance: Present: cooperative, A&O X 3, pleasant, no acute distress, answers questions appropriately - Head Head exam: Present: atraumatic, normal inspection, normocephalic - Eye Eye exam: Present: conjuntiva pink, sclera anicteric - Neck Neck exam general surgery: Present: supple, trachea midline. Absent: lymphadenopathy, tenderness - Respiratory Respiratory exam: Present: CTAB. Absent: accessory muscle use, chest wall tenderness, rales, rhonchi, wheezes - Cardiovascular Cardiovascular exam: Present: RRR, +S1, +S2. Absent: diastolic murmur, gallop, rubs, systolic murmur - GI/Abdominal GI/Abdominal exam: Present: soft, no peritoneal signs. Absent: distended, hepatomegaly, tenderness - Extremities Exam Extremities exam: Present: normal capillary refill, normal inspection, warm, radial pulses palpable and symmetrical. Absent: calf tenderness, cyanotic, pedal edema, tenderness - Neurological Exam Neurological exam: Present: alert, oriented X3, no focal deficits. Absent: facial droop, speech deficit - Skin Skin exam: Present: dry, intact, normal color, warm. Absent: rash Internal Medicine: Result - Labs CBC & Chem 7: 06/02/17 05:41 06/02/17 07:08 Labs: Short CBC 06/02/17 Range/Units 05:41 WBC 9.4 (4.3-11.1) K/mcL Hgb 10.2 L (11.5-15.4) g/dL Hct 28.9 L (35.3-44.9) % Plt Count 297 (140-400) K/mcL Neutrophils # 6.7 (1.6-8.9) K/mcL BMP 06/01/17 06/02/17 15:04 07:08 Sodium 129 L 130 L Potassium 4.3 Chloride 99 Carbon Dioxide 23 BUN 12 Creatinine 0.71 Glucose 205 H Calcium 9.3 - ABG Interpretation ABG results: PT/INR, D-dimer PT 12.5 Seconds (9.4-12.1) H 05/31/17 03:10 Consult Discharge Plan - Plan Referrals: Ganesh Pina MD [Primary Care Provider] -
[2017-06-02] MEDS ORDERED: Ondansetron 4 MG/2 ML VIAL IVP PRN (20:47)
[2017-06-03] MEDS: Famotidine 20 MG TABLET PO SCH (05:27)
[2017-06-03] MEDS: *HR* Heparin 5,000 UNIT/ML VIAL SQ SCH (05:28)
[2017-06-03 06:28] VITALS: BP 154/87
[2017-06-03 06:32] LABS: BUN/Creatinine Ratio 16 (6-26); Blood Urea Nitrogen 11 mg/dL (8-23); Calcium 9.2 mg/dL (8.6-10.3); Carbon Dioxide 24 mEq/L (23-29); Chloride 101 mEq/L (98-107); Glucose 168 mg/dL (70-105); Osmolality,Calculated 279 (280-300); Potassium 4.3 mEq/L (3.5-5.1); Sodium 133 mEq/L (136-145); eGFR For African Americans > 60 (> 60); eGFR For Non-African Americans > 60 (> 60)
[2017-06-03] MEDS: Insulin LISPRO 300 UNITS/3 ML VIAL SQ SCH (08:12)
[2017-06-03] MEDS: MOM Conc 10 ML UD.LIQ PO SCH (08:13)
[2017-06-03] MEDS: Aspirin 81 MG TAB.CHEW PO SCH (08:14)
[2017-06-03] MEDS: Loratadine 10 MG TABLET PO SCH (08:14)
--- NOTE | 2017-06-03 09:21 | Discharge Summary ---
Date of Encounter: 06/03/17 Time of Encounter: 09:10 - Discharge Diagnosis (1) Hyponatremia Priority: Primary Status: Acute Comments: Most likely secondary to hyponatremia from poor po intake, as well as hydrochlorothiazide. Hydrochlorothiazide has been stopped. I have restarted Lipitor 10mg po as she was on combination Lisinopril/HCTZ Sodium has increased to 133 today Discussed with patient and close follow-up with primary care after discharge to monitor sodium, as well as blood pressure. (2) Syncope Priority: Secondary Status: Resolved Comments: Witnessed syncopal episode at night prior to admission. Loss of consciousness approximately [address] is negative for acute, there is improving paranasal sinus disease. Chest x-ray shows minimal blunting of left lateral costophrenic angle, potentially related to pleural fluid or thickening. Echo completed and reveals LVEF 60-65% with mild LV DD and no significant valvular dysfunction. Bilateral carotids are within normal limits. Orthostatic vital signs were negative Patient also hyponatremic, could be contributory to syncope. Hyponatremia resolved. 133 today. Patient eating and drinking well, and encouraged continued adequate fluid intake daily. Blood pressure medications changed as above. Qualifiers: Syncope type: unspecified Qualified Code(s): R55 - Syncope and collapse (3) Type 2 diabetes mellitus Priority: Secondary Status: Chronic Comments: Continue home medications and Accu-Cheks per usual home schedule. A1c is 6.7 this visit. Qualifiers: Diabetes mellitus complication status: with circulatory complication Diabetes mellitus complication detail: with other circulatory complications Diabetes mellitus exterminator helper termite insulin use: without fpc use Qualified Code( s): E11.59 - Type 2 diabetes mellitus with other circulatory complications (4) DVT prophylaxis Priority: Secondary Status: Acute Comments: Heparin subcutaneous every 12 hours. - Discharge Medications Prescriptions: Lisinopril [Zestril] 10 mg PO DAILY #30 tablet Home Medications: Calcium Carbonate/Vitamin D3 [Calcium 500 + Vit D Caplet] 1 each PO DAILY [History] Gabapentin [Neurontin] 400 mg PO TID 05/27/16 [History] Loratadine [Claritin] 10 mg PO DAILY 05/27/16 [History] Lovastatin 40 mg PO DAILY 05/27/16 [History] Ranitidine HCl [Zantac] 150 mg PO BID 05/27/16 [History] Sitagliptin Phosphate [Januvia] 100 mg PO DAILY 05/27/16 [History] metFORMIN [Glucophage] 1,000 mg PO BIDWM 05/27/16 [History] Aspirin 81 mg PO DAILY tab.chew 05/29/16 [Rx] Clopidogrel [Plavix] 75 mg PO DAILY #30 tablet 05/29/16 [Rx] GuaiFENesin/Dextromethorphan [Cough & Chest Congest Dm Liq] 5 ml PO Q4-6H PRN # 177 ml 05/23/17 [Rx] Loperamide [Imodium] 2 mg PO QID PRN #4 udc 05/23/17 [Rx] Lisinopril [Zestril] 10 mg PO DAILY #30 tablet 06/03/17 [Rx] Allergies/Adverse Reactions: 3 Allergy/AdvReac Type Severity Reaction Status Date / Time No Known Allergies Allergy Verified 05/19/17 14:00 Procedures/tests Complete & Pending: Procedures Performed prior 72 hours Category Date Time Status ECG 12 lead ECG [ECG] AM 0600 Y 06/01/17 06:00 Ordered Date of admission: 05/31/17 04:57 Primary care physician: Ganesh Pina MD Consults: 06/01/17 14:07 Consult to Occupational Therapy [CONS] Routine Comment: Evaluate, develop and implement POC Reason for Consult: Weakness Consult to Physical Therapy [CONS] Routine Comment: Evaluate, develop and implement POC Reason for Consult: Weakness Discharging clinician: Delmi Staton Anticipated date of discharge: 06/03/17 - Patient Status Disposition: Home, Self-Care Condition: Good Functional capacity at discharge: independent ambulation Overall status at discharge: patient is progressing back to baseline - Discharge Instructions Instructions: Hyponatremia (DC) Follow Up With: Ganesh Pina MD [Primary Care Provider] - Additional Instructions: Follow-up with primary care provider within the next week for follow-up visit. Closely monitor blood pressure, record values, take to primary care visit for evaluation and adjustment of medications as needed. Return to your normal diet and activities as tolerated. Start lisinopril prescription tomorrow, set aside your old lisinopril/HCTZ prescription, do not take but save in case she need for later. Return to the emergency department if your symptoms return or worsen. - Diet and Activity Activity: increase activity as tolerated Diet: advance to your usual diet, diabetic diet Hospital course: Ms. Calvin is a 77 year old female with past medical history of peripheral vascular disease, carotid stenosis bilaterally, type 2 diabetes. Patient presented to the emergency department after witnessed syncopal episode at home. Patient was found to have urinary tract infection as well as hyponatremia. Patient reported poor oral intake recently, this, coupled with urinary tract infection and dehydration from poor intake and continued use of diuretic was most likely cause of the syncopal episode. Sodium corrected to 133 today, patient will need close monitoring. I have stopped her hydrochlorothiazide temporarily and have restarted her on lisinopril 10 mg by mouth daily. She will need to follow-up with primary care for continued evaluation of electrolytes and need for medication adjustments as needed. Patient's echocardiogram was unremarkable with an LVEF of 6065%, mild LV DD, no significant valvular dysfunction. Despite diagnosis of carotid stenosis and patient's list and history, this visit bilateral carotid system was essentially normal by Doppler. Patient will not be going to her home after discharge, she will be staying with her daughter. 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 I declined and requested they receive refills from primary care. They verbalized understanding. Patient's vital signs as well as other labs are stable and within normal limits. Patient is appropriate for discharge. - Time Spent with Patient Total time spent providing and/or coordinating discharge services: Less than 30 minutes - Constitutional Vitals: Temp Pulse Resp BP Pulse Ox 98.4 F 77 16 154/87 98 06/03/17 06:28 06/03/17 06:28 06/03/17 06:28 06/03/17 06:28 06/03/17 06:28 General appearance: Present: cooperative, A&O X 3, pleasant, no acute distress, answers questions appropriately - Head Head exam: Present: atraumatic, normal inspection, normocephalic - Eye Eye exam: Present: normal appearance, conjuntiva pink, sclera anicteric - Neck Neck exam general surgery: Present: supple, trachea midline. Absent: lymphadenopathy, tenderness - Respiratory Respiratory exam: Present: CTAB. Absent: accessory muscle use, rales, respiratory distress, rhonchi, wheezes - Cardiovascular Cardiovascular exam: Present: RRR, +S1, +S2. Absent: diastolic murmur, gallop, rubs, systolic murmur - GI/Abdominal GI/Abdominal exam: Present: normal bowel sounds, soft, no peritoneal signs. Absent: distended, hepatomegaly, tenderness - Extremities Exam Extremities exam: Present: normal capillary refill, normal inspection, warm, radial pulses palpable and symmetrical. Absent: calf tenderness, cyanotic, pedal edema, tenderness - Neurological Exam Neurological exam: Present: alert, oriented X3, no focal deficits. Absent: pronater drift, facial droop, speech deficit - Skin Skin exam: Present: dry, intact, normal color, warm. Absent: rash
== END 2017-06-03 11:25 | disposition home or self-care (01) ==
LOC: EMEROO 02:49 → 3ANU 02:49 → SUATTDRO 04:57 → 3ANU 05:16
PROVIDERS: ADMIT Pediatrics; ATTEND Pediatrics

== ENCOUNTER 2017-06-20 18:02 | Observation (INO) ==
[2017-06-20 19:13] LABS: Bilirubin,Urine Negative (Negative); Blood,Urine Negative (Negative); Clarity,Urine Clear (Clear); Color,Urine Yellow (Yellow); Glucose,Urine (UA) Normal (Normal); Ketones,Urine 15 mg/dL (Negative); Leukocyte Esterase,Urine Negative (Negative); Nitrite,Urine Negative (Negative); Protein,Urine Trace mg/dL (Neg-Trace); Specific Gravity,Urine 1.017 (1.010-1.025); Urobilinogen,Urine Normal (Normal)
[2017-06-20 19:14] LABS: Bacteria,Urine None Seen per hpf (None-Few); Hyaline Casts,Urine None Seen per lpf (None-Few); RBC,Urine 0-3 per hpf (0-3); Squamous Epithelial Cell,Urine Moderate per lpf (None-Few); WBC,Urine 0-3 per hpf (0-3)
--- NOTE | 2017-06-20 19:34 | Emergency Department Note ---
Disposition Clinical Impression: TIA (transient ischemic attack) Qualifiers: Transient cerebral ischemia type: unspecified Qualified Code(s): G45.9 - Transient cerebral ischemic attack, unspecified Disposition: Admitted As Inpatient Condition: Good Altered Mental Status HPI - General Chief Complaint: ED General Medical Stated Complaint: High BP/confusion/low sodium Time Seen by Provider: 06/20/17 19:18 Source: patient, family Mode of arrival: private vehicle Limitations: no limitations Nursing Notes Reviewed: Yes Vital Signs Reviewed: Yes - History of Present Illness HPI Narrative: 77-year-old female history of hypertension, prior syncopal episodes, recent hyponatremia of unknown etiology who presents to the ER with family due to concerns for altered mental status and hypertension. Patient states she has felt weak for the last 2 days. She has been nauseated without any vomiting diarrhea or abdominal pain. Family states today at home for roughly 2 hours she was confused and was unable to say anyone's names or where she was. They deny any slurring speech or difficulty with ambulation. States she was dizzy during that time. Symptoms improved prior to arrival. She was noted to be hypertensive of roughly 210/100. They report a recent admission roughly 3 weeks ago where the patient was noted to have hyponatremia. States they stopped her hydrochlorothiazide. No head injury. No recent injuries. No other complaints. MD complaint: altered mental status Onset (ago): hour(s) Timing confirmed by: family member Pain Severity: none Associated symptoms: Reports: cough (Chronic), nausea/vomiting, shortness of breath. Denies: chest pain, fever, headaches - Related Data Home Medications Medication Instructions Recorded Confirmed Calcium Carbonate/Vitamin D3 1 each PO DAILY 05/27/16 06/20/17 [Calcium 500 + Vit D Caplet] Gabapentin [Neurontin] 400 mg PO TID 05/27/16 06/20/17 Loratadine [Claritin] 10 mg PO DAILY 05/27/16 06/20/17 Lovastatin 40 mg PO HS 05/27/16 06/20/17 Ranitidine HCl [Zantac] 150 mg PO BID 05/27/16 06/20/17 Sitagliptin Phosphate [Januvia] 100 mg PO DAILY 05/27/16 06/20/17 metFORMIN [Glucophage] 1,000 mg PO BIDWM 05/27/16 06/20/17 Previous Rx's Medication Instructions Recorded Aspirin 81 mg PO DAILY tab.chew 05/29/16 Clopidogrel [Plavix] 75 mg PO DAILY #30 tablet 05/29/16 Lisinopril [Zestril] 10 mg PO DAILY #30 tablet 06/03/17 Allergies Allergy/AdvReac Type Severity Reaction Status Date / Time No Known Allergies Allergy Verified 05/19/17 14:00 All systems ED: reviewed and negative except as stated. Constitutional: Denies: fever Cardiovascular: Denies: chest pain Respiratory: Reports: dyspnea Gastrointestinal: Reports: nausea. Denies: abdominal pain, vomiting, diarrhea Neurological: Denies: headache, numbness, paresthesias Past Medical History - Past Medical History Attestation: Yes The following information was validated with the patient. Source: patient Medical history: Reports: coronary artery disease, diabetes, GERD, hyperlipidemia, hypertension, peripheral artery disease Surgical history: Reports: cataract, hysterectomy Psychiatric history: Reports: no psych history - Social History Smoking Status: Never smoker Smokeless Tobacco Status: No Alcohol use: Reports: none Drug use: Reports: none Physical Exam - General Limitations: no limitations General appearance: alert, in no apparent distress - Head Head exam: atraumatic, normocephalic, normal inspection - Eye Eye exam: Present: normal appearance, PERRL, EOMI - ENT ENT exam: normal exam - Neck Neck exam: Present: normal inspection, full ROM - Chest Chest inspection: Present: normal inspection, symmetric chest wall rise - Respiratory Respiratory exam: Present: normal lung sounds bilaterally - Cardiovascular Cardiovascular exam: Present: regular rate, normal rhythm, normal heart sounds - Abdominal Exam Abdominal exam: Present: soft, Non-Tender. Absent: tenderness, distention, rigidity - Extremities Exam Extremities exam: Present: normal inspection, full ROM - Expanded Upper Extremity Exam Shoulder exam: Present: normal inspection, full ROM Arm exam: Present: normal inspection, full ROM Elbow exam: Present: normal inspection, full ROM Forearm/Wrist exam: Present: normal inspection, full ROM Hand exam: Present: normal inspection, full ROM - Expanded Lower Extremity Exam Hip/Pelvis exam: Present: normal inspection, full ROM Upper leg exam: Present: normal inspection, full ROM Knee exam: Present: normal inspection, full ROM Lower leg exam: Present: normal inspection, full ROM Ankle exam: Present: normal inspection, full ROM Foot/toe exam: Present: normal inspection, full ROM Neurovascular/Tendon exam: Absent: motor deficit, sensory deficit - Neurological Exam Neurological exam: Present: alert, oriented X3, CN II-XII intact. Absent: motor sensory deficit - Expanded Neurological Exam Patient oriented to: Present: person, place, time Speech: Present: fluid speech Cranial nerves: EOM function (II, III, IV, ): Normal, facial sensation (V): Normal, spinal accessory function (XI): Normal, tongue deviation (XII): Normal Cerebellar function: finger to nose: Normal Motor strength - LUE: 5/5 Motor strength - RUE: 5/5 Motor strength - LLE: 5/5 Motor strength - RLE: 5/5 Sensory exam upper extremity: light touch: Normal Sensory exam lower extremity: light touch: Normal Coma Scale Eye Opening: Spontaneous Coma Scale Motor Response: Obeys Commands Coma Scale Verbal Response: Oriented Coma Scale Total: 15 - Skin Skin exam: Present: warm, dry Course Course Narrative: Patient seen and examined. She is alert and oriented 3 here. Nonfocal neurologic exam. Hypertension is improved. We will get a CT scan of the head as well as EKG labs urinalysis. Review of recent admission with normal carotid Doppler and echo. She will require admission for neuro checks as well as TIA/ CVA evaluation. - Reevaluation(s) Reevaluation #1: Labs imaging were reviewed. Discussed with patient and family. Agreeable with admission. Vital Signs Temperature 98.8 F 06/20/17 18:37 Pulse Rate 107 06/20/17 18:37 Respiratory Rate 18 06/20/17 18:37 Blood Pressure 175/94 06/20/17 18:37 O2 Sat by Pulse Oximetry 97 06/20/17 18:37 Temperature 98.8 F 06/20/17 18:42 Pulse Rate 107 06/20/17 18:42 Respiratory Rate 18 06/20/17 18:42 Blood Pressure 175/94 06/20/17 18:42 O2 Sat by Pulse Oximetry 97 06/20/17 18:42 Oxygen Delivery Oxygen Delivery Room Air Altered Mental Status - MDM Narrative Medical decision making narrative: 77-year-old female presents to the ER due to transient altered mental status earlier today. Had not been feeling well for couple of days. Here patient is alert and oriented 3. Appears back to baseline. No focal deficits. CT scan of the head unremarkable. EKG labs urinalysis reviewed. Her hypertension improved prior to arrival. Suspect TIA versus accelerated hypertension. Patient admitted to the hospitalist service. - Medical Records Medical records reviewed: Yes I reviewed the patient's medical records. - Lab Data Lab results reviewed: Yes I reviewed the patient's lab results. Result diagrams: 06/20/17 19:40 06/20/17 19:40 Lab Results 06/20/17 06/20/17 06/20/17 Range/Units 18:59 19:40 19:40 WBC 14.1 H (4.3-11.1) K/mcL RBC 3.89 (3.82-4.97) M/mcL Hgb 12.0 (11.5-15.4) g/dL Hct 34.9 L (35.3-44.9) % MCV 89.7 (83.0-100.0) fL MCH 30.8 (28.0-33.3) pg MCHC 34.4 (31.6-35.5) g/dL RDW 13.5 (11.5-14.5) % Plt Count 278 (140-400) K/mcL MPV 9.0 L (9.4-12.4) fL Immature Gran % 0.8 (0-4) % Seg Neutrophils % 77.0 % Lymphocytes % 16.3 % Monocytes % 5.2 % Eosinophils % 0.3 % Basophils % 0.4 % Neutrophils # 10.9 H (1.6-8.9) K/mcL Lymphocytes # 2.3 (0.6-4.6) K/mcL Monocytes # 0.7 (0.0-1.3) K/mcL Eosinophils # 0.0 (0.0-0.6) K/mcL Basophils # 0.1 (0.0-0.2) K/mcL Sodium 132 L (136-145) mEq/L Potassium 4.2 (3.5-5.1) mEq/L Chloride 99 (98-107) mEq/L Carbon Dioxide 21 L (23-29) mEq/L BUN 18 (8-23) mg/dL Creatinine 0.83 (0.60-1.20) mg/dL Est GFR ( Amer) > 60 (> 60) Est GFR (Non-Af Amer) > 60 (> 60) BUN/Creatinine Ratio 22 (6-26) Glucose 160 H (70-105) mg/dL Calculated Osmolality 279 L (280-300) Calcium 9.6 (8.6-10.3) mg/dL Troponin I (< 0.04) ng/mL Urine Color Yellow (Yellow) Urine Clarity Clear (Clear) Urine pH 6.0 (5.0-8.0) pH Units Ur Specific [place] 1.017 (1.010-1.025) Urine Protein Trace (Neg-Trace) mg/dL Urine Glucose (UA) Normal (Normal) mg/dL Urine Ketones 15 H (Negative) mg/dL Urine Blood Negative (Negative) Urine Nitrite Negative (Negative) Urine Bilirubin Negative (Negative) Urine Urobilinogen Normal (Normal) mg/dL Ur Leukocyte Esterase Negative (Negative) Urine Microscopic RBC 0-3 (0-3) per hpf Urine Microscopic WBC 0-3 (0-3) per hpf Ur Squamous Epith Cells Moderate H (None-Few) per lpf Urine Bacteria None Seen (None-Few) per hpf Hyaline Casts None Seen (None-Few) per lpf Ur Culture Indicated? NO (NO) 06/20/17 Range/Units 19:40 WBC (4.3-11.1) K/mcL RBC (3.82-4.97) M/mcL Hgb (11.5-15.4) g/dL Hct (35.3-44.9) % MCV (83.0-100.0) fL MCH (28.0-33.3) pg MCHC (31.6-35.5) g/dL RDW (11.5-14.5) % Plt Count (140-400) K/mcL MPV (9.4-12.4) fL Immature Gran % (0-4) % Seg Neutrophils % % Lymphocytes % % Monocytes % % Eosinophils % % Basophils % % Neutrophils # (1.6-8.9) K/mcL Lymphocytes # (0.6-4.6) K/mcL Monocytes # (0.0-1.3) K/mcL Eosinophils # (0.0-0.6) K/mcL Basophils # (0.0-0.2) K/mcL Sodium (136-145) mEq/L Potassium (3.5-5.1) mEq/L Chloride (98-107) mEq/L Carbon Dioxide (23-29) mEq/L BUN (8-23) mg/dL Creatinine (0.60-1.20) mg/dL Est GFR ( Amer) (> 60) Est GFR (Non-Af Amer) (> 60) BUN/Creatinine Ratio (6-26) Glucose (70-105) mg/dL Calculated Osmolality (280-300) Calcium (8.6-10.3) mg/dL Troponin I < 0.03 (< 0.04) ng/mL Urine Color (Yellow) Urine Clarity (Clear) Urine pH (5.0-8.0) pH Units Ur Specific [place] (1.010-1.025) Urine Protein (Neg-Trace) mg/dL Urine Glucose (UA) (Normal) mg/dL Urine Ketones (Negative) mg/dL Urine Blood (Negative) Urine Nitrite (Negative) Urine Bilirubin (Negative) Urine Urobilinogen (Normal) mg/dL Ur Leukocyte Esterase (Negative) Urine Microscopic RBC (0-3) per hpf Urine Microscopic WBC (0-3) per hpf Ur Squamous Epith Cells (None-Few) per lpf Urine Bacteria (None-Few) per hpf Hyaline Casts (None-Few) per lpf Ur Culture Indicated? (NO) - Radiology Data Radiology results reviewed: Yes I reviewed the patient's radiology results. Chest X-Ray 06/20/17 18:43 IMPRESSION: No acute process. D/ / Emiliano Morrow MD / Emiliano Morrow MD Interpreting Provider: Emiliano Morrow MD Head CT 06/20/17 19:28 IMPRESSION: No acute intracranial abnormality. D/ / Marck Hurley MD / Marck Hurley MD Interpreting Provider: Marck Hurley MD - EKG Data EKG attestation: Yes I reviewed and interpreted this EKG. EKG results narrative: EKG demonstrates sinus tachycardia with rate 103. Normal axis. Normal intervals. Normal R-wave progression. No gross ST elevations or depressions. No acute ischemic findings. S.B.A.R. - S.B.A.R. Situation: Demographics, MOA Background: Presenting Complaint, Relevant PMH, Meds, & Allergies Assessment: Course and respsone to treatment, Exam Concerns, Patient/Family Expectation, Pertinant Lab Results Recommendation: Barrier(s) to disposition, Recommendation based on pending studies, treatments, or consults Jeff Report Given to: Dr. Shaw Aguilar Repor Time: 22:12 Attestation Statement - Attestation Attestation: I examined this patient and my medical decision-making was reviewed with the Resident Physician, Dr. Tom. I agree with the documented findings, disposition and treatment plan as described except to the extent set forth below. Patient is a 77-year-old elderly white female who is brought to us by EMS today for reported altered mental status. Patient concerned about elevated blood pressure and confusion. Daughter is at bedside she reports a two-hour period of transient confusion and difficulty speaking and thinking of what day prior to arrival to the ED today. Symptoms had resolved on arrival to the ER in patient with a normal neuro exam with no focal neurologic deficits clear speech in no other complaints at this time. Patient had mild elevation in blood pressure and reported significantly higher blood pressure readings at home prior to arrival. Patient was hospitalized recently for hyponatremia and had some changes in her medications prior to discharge home. Patient denies any chest pain pressure or heaviness, no shortness of breath, no diaphoresis, no lightheadedness or syncope. No dizziness or room spinning sensation. I agree with the patient's physical exam findings as documented. Patient's in no acute distress on arrival. His EKG shows a sinus tachycardia without acute changes. Patient's chest x-ray and CT head without contrast was within normal limits. Patient's lab evaluation overall is unremarkable with no significant hyponatremia today on lab evaluation. Patient does have some mild ketones in the urine. Patient's symptoms prior to arrival to the ED are concerning for possible TIA, patient will be admitted for further evaluation and management. Case was discussed with the hospitalist who accepted the patient for admission.
[2017-06-20 19:52] LABS: Basophils # 0.1 K/mcL (0.0-0.2); Basophils % 0.4 %; Eosinophils % 0.3 %; Hematocrit 34.9 % (35.3-44.9); Immature Granulocytes % 0.8 % (0-4); Lymphocytes # 2.3 K/mcL (0.6-4.6); Lymphocytes % 16.3 %; Mean Corpuscular HGB Conc 34.4 g/dL (31.6-35.5); Mean Corpuscular Hemoglobin 30.8 pg (28.0-33.3); Mean Corpuscular Volume 89.7 fL (83.0-100.0); Monocytes # 0.7 K/mcL (0.0-1.3); Monocytes % 5.2 %; Neutrophils # 10.9 K/mcL (1.6-8.9); Platelet Count 278 K/mcL (140-400); Red Blood Count 3.89 M/mcL (3.82-4.97); Red Cell Distribution Width 13.5 % (11.5-14.5)
[2017-06-20] MEDS ORDERED: 0.9 % Sodium Chloride 1,000 ML IVC ONE (19:55)
[2017-06-20 20:04] LABS: BUN/Creatinine Ratio 22 (6-26); Blood Urea Nitrogen 18 mg/dL (8-23); Calcium 9.6 mg/dL (8.6-10.3); Carbon Dioxide 21 mEq/L (23-29); Chloride 99 mEq/L (98-107); Glucose 160 mg/dL (70-105); Osmolality,Calculated 279 (280-300); Potassium 4.2 mEq/L (3.5-5.1); Sodium 132 mEq/L (136-145); eGFR For African Americans > 60 (> 60); eGFR For Non-African Americans > 60 (> 60)
[2017-06-20] MEDS ORDERED: *HR* Dextrose 50 % in Water (Syg) 50 ML SYRINGE IVP PRN (22:29)
[2017-06-20] MEDS ORDERED: D5% in Water 1,000 ML IVC PRN (22:29)
[2017-06-20] MEDS ORDERED: Dextrose Gel 15 GM/37.5 ML TUBE PO PRN ×2 (22:29)
--- NOTE | 2017-06-20 22:35 | Internal Med History&Physical ---
Date of Encounter: 06/20/17 Time of Encounter: 22:33 Assessment and Plan (1) Encephalopathy acute Current visit: Yes Status: Acute possible hypertensive encephalopathy vs TIA vs CVA. Also on Gabapentin. Hold that for now. Has mild hyponatremia at 132 but unlikely to be cause of encephalopathy. Sodium was 124 on 05/19/2017. Admit to hospitalist. Check MRI brain in am. check TSH and B12. Neuro checks. work on BP. continue to monitor (2) Hypertensive urgency Current visit: Yes Status: Acute BP is improving. Recently taken off HCTZ due to hyponatremia. Will resume Lisinopril. May need up titrating or adding another agent depending on BP reads while hospitalized. Added hydralazine IV PRN for now. (3) Leukocytosis Current visit: Yes Status: Acute No clear source of an infection. She is also tachycardic around 105. Only thing I can go by is a cough for a few weeks. Will treat for bronchitis with 5 days of azithromycin. Qualifiers: Leukocytosis type: unspecified Qualified Code(s): D72.829 - Elevated white blood cell count, unspecified (4) History of TIA (transient ischemic attack) Current visit: Yes Status: Acute Resume ASA/Plavix/statin. (5) Type 2 diabetes mellitus Current visit: No Status: Chronic SSI. AccuCheks. diabetic diet. Qualifiers: Diabetes mellitus complication status: without complication Diabetes mellitus group home insulin use: without predatory animal exterminator use Qualified Code(s): E11.9 - Type 2 diabetes mellitus without complications (6) DVT prophylaxis Current visit: No Status: Acute heparin SQ Internal Medicine - H&P: HPI Chief complaint: confusion Admitted From: Home Plans for Post Hospital Care: Home History of present illness: Ms. Simpson is a 77 year old female with PMH of HTN, DM, PVD, TIA's in the past who presented through the ED with family due to altered mental status and elevated BP. Reportedly her BP was 210/10 on arrival but came down 170s/90s. Not sure if any intervention was done for that. Family brought her in as she was noted confused and unable to say names of people she knew or tell where she was. No sensory complaints but they reported weakness for the last 2 days. No facial drooping or aphasia reported. Also feels nauseated with a cough that is productive of whitish sputum. Cough has been there for a few weeks. Denies fever, chills, blurred vision, headache, vomiting, chest pain, shortness breath , abdominal pain, or urinary symptoms. The patient was recently in the hospital for syncopal episode and workup was mostly unremarkable including a TTE , carotid ultrasounds, stress test. In the emergency department she had a CT head which was unremarkable. Laboratory workup showed a white count of 14.1. There has been no reported fever. Chest x-ray and urinalysis were unremarkable. Rest of laboratory workup showed a sodium of 132 with normal kidney function. Glucose was 160. The patient has been admitted for altered mental status. Past Med Surg Social Fam HX - Past Medical History Medical history: coronary artery disease, diabetes, GERD, hyperlipidemia, hypertension, peripheral artery disease Psychiatric history: no psych history - Past Surgical History Surgical History: cataract, hysterectomy - Social History Smoking Status: Never smoker Smokeless Tobacco Status: No Alcohol use: none Drug use: none - Family History Father Living Status: Mother Living Status: Hx Family Endocrine Disorder: Yes (Diabetes) Internal Medicine - H&P: Meds Calcium Carbonate/Vitamin D3 [Calcium 500 + Vit D Caplet] 1 each PO DAILY [History] Gabapentin [Neurontin] 400 mg PO TID 05/27/16 [History] Loratadine [Claritin] 10 mg PO DAILY 05/27/16 [History] Lovastatin 40 mg PO HS 05/27/16 [History] Ranitidine HCl [Zantac] 150 mg PO BID 05/27/16 [History] Sitagliptin Phosphate [Januvia] 100 mg PO DAILY 05/27/16 [History] metFORMIN [Glucophage] 1,000 mg PO BIDWM 05/27/16 [History] Aspirin 81 mg PO DAILY tab.chew 05/29/16 [Rx] Clopidogrel [Plavix] 75 mg PO DAILY #30 tablet 05/29/16 [Rx] Lisinopril [Zestril] 10 mg PO DAILY #30 tablet 06/03/17 [Rx] 3 Allergy/AdvReac Type Severity Reaction Status Date / Time No Known Allergies Allergy Verified 05/19/17 14:00 All Systems PM: A 10-system review of systems was performed and is negative for pertinent findings except as documented above in the HPI. Review of systems: All systems reviewed are negative except for as mentioned above - Constitutional Vitals: Temp Pulse Resp BP Pulse Ox 98.8 F 107 18 175/94 97 06/20/17 18:42 06/20/17 18:42 06/20/17 18:42 06/20/17 18:42 06/20/17 18:42 Exam: GEN: NAD. A/O x2. Unable to tell me year or date but tells me name and location HEENT: AT, NC, No cyanosis, oral mucosa is moist, No JVD Lymphatics: No lymphadenoapthy Eyes: Extrocular muscles intact, anicteric CVS:RRR. S1, S2, No m/r/g RESP: CTAB ABD: Soft, NT, ND, +BS EXT: No edema, No rashes, 2+ DP NEURO: Nonfocal, CN II-XII intact, No focal motor or sensory deficits Psych: Cooperative, Not anxious or depressed Internal Med - H&P Results - Labs CBC & Chem 7: 06/20/17 19:40 06/20/17 19:40
[2017-06-21] MEDS: Azithromycin 250 MG TABLET PO SCH ×2 (00:24→23:08)
[2017-06-21 05:21] LABS: Basophils % 0.4 %; Eosinophils # 0.1 K/mcL (0.0-0.6); Eosinophils % 0.8 %; Hematocrit 33.4 % (35.3-44.9); Hemoglobin 11.3 g/dL (11.5-15.4); Immature Granulocytes % 0.4 % (0-4); Lymphocytes # 2.4 K/mcL (0.6-4.6); Lymphocytes % 20.9 %; Mean Corpuscular HGB Conc 33.8 g/dL (31.6-35.5); Mean Corpuscular Hemoglobin 30.1 pg (28.0-33.3); Mean Corpuscular Volume 88.8 fL (83.0-100.0); Monocytes % 9.1 %; Neutrophils # 7.7 K/mcL (1.6-8.9); Platelet Count 272 K/mcL (140-400); Red Blood Count 3.76 M/mcL (3.82-4.97); Red Cell Distribution Width 13.6 % (11.5-14.5); Segmented Neutrophils % 68.4 %
[2017-06-21 05:46] LABS: BUN/Creatinine Ratio 24 (6-26); Blood Urea Nitrogen 16 mg/dL (8-23); Calcium 9.3 mg/dL (8.6-10.3); Carbon Dioxide 23 mEq/L (23-29); Chloride 101 mEq/L (98-107); Glucose 171 mg/dL (70-105); Magnesium 1.4 mg/dL (1.6-2.6); Osmolality,Calculated 283 (280-300); Potassium 4.1 mEq/L (3.5-5.1); Sodium 134 mEq/L (136-145); eGFR For African Americans > 60 (> 60); eGFR For Non-African Americans > 60 (> 60)
[2017-06-21] MEDS: *HR* Heparin 5,000 UNIT/ML VIAL SQ SCH ×3 (05:49→21:04)
[2017-06-21 05:51] LABS: Thyroid Stimulating Hormone 2.113 mcIU/mL (0.340-5.600)
[2017-06-21] MEDS: Famotidine 20 MG TABLET PO SCH ×2 (09:04→18:07)
[2017-06-21] MEDS: Aspirin 81 MG TAB.CHEW PO SCH (09:04)
[2017-06-21] MEDS: Loratadine 10 MG TABLET PO SCH (09:04)
[2017-06-21] MEDS: Insulin LISPRO 300 UNITS/3 ML VIAL SQ SCH ×3 (09:05→18:06)
[2017-06-21] MEDS: Patient Taking Own Medication 1 EACH PO SCH (09:27)
[2017-06-21] MEDS: amLODIPine 5 MG TABLET PO SCH (09:31)
--- NOTE | 2017-06-21 10:09 | Internal Med Progress Note ---
Date of Encounter: 06/21/17 Time of Encounter: 09:10 - Assessment and plan (1) Encephalopathy acute Current Visit: Yes Status: Resolved Assessment and plan: resolved Secondary to HTN Urgency Brain MRI and Head CT unremarkable NO neuro deficits on exam (2) Hypertensive urgency Current Visit: Yes Status: Acute Assessment and plan: continue home dose of lisinopril 10 Added NOrvasc 10, increase prn (3) Leukocytosis Current Visit: Yes Status: Acute Assessment and plan: Possibly due to stress reaction CXR is unremarkable Chest is CTAB Continue Azithromycin for Bronchitis Qualifiers: Leukocytosis type: unspecified Qualified Code(s): D72.829 - Elevated white blood cell count, unspecified (4) Type 2 diabetes mellitus Current Visit: Yes Status: Chronic Assessment and plan: continue sliding scale insulin Qualifiers: Diabetes mellitus complication status: without complication Diabetes mellitus terminal press operator insulin use: without terminal press operator use Qualified Code(s): E11.9 - Type 2 diabetes mellitus without complications - Subjective Interval history: seen and examined at the bedside with family complained of abdominal bloating after having drank 5 cartons of milk last night She has no new complains Blood pressure is being controlled - Constitutional Vitals: Temp Pulse Resp BP Pulse Ox 97.6 F 98 18 176/92 98 06/21/17 06:52 06/21/17 06:52 06/21/17 06:52 06/21/17 06:52 06/21/17 09:33 General appearance: Present: A&O X 3, no acute distress - Head Head exam: Present: atraumatic, normocephalic - Eye Eye exam: Present: PERRL, conjuntiva pink, sclera anicteric Pupils: Present: PERRL - Neck Neck exam general surgery: Present: supple, trachea midline. Absent: lymphadenopathy - Respiratory Respiratory exam: Present: CTAB. Absent: accessory muscle use, rales, rhonchi, wheezes - Cardiovascular Cardiovascular exam: Present: RRR, +S1, +S2. Absent: diastolic murmur, gallop, rubs, systolic murmur - GI/Abdominal GI/Abdominal exam: Present: normal bowel sounds, soft, no peritoneal signs. Absent: distended, tenderness - Extremities Exam Extremities exam: Present: warm, radial pulses palpable and symmetrical. Absent : calf tenderness, cyanotic, pedal edema - Neurological Exam Neurological exam: Present: alert, CN II-XII intact, oriented X3, no focal deficits. Absent: pronater drift, facial droop, speech deficit - Skin Skin exam: Present: dry, intact Internal Medicine: Result - Labs CBC & Chem 7: 06/21/17 05:06 06/21/17 05:06 Labs: Short CBC 06/21/17 Range/Units 05:06 WBC 11.2 H (4.3-11.1) K/mcL Hgb 11.3 L (11.5-15.4) g/dL Hct 33.4 L (35.3-44.9) % Plt Count 272 (140-400) K/mcL Neutrophils # 7.7 (1.6-8.9) K/mcL BMP 06/21/17 05:06 Sodium 134 L Potassium 4.1 Chloride 101 Carbon Dioxide 23 BUN 16 Creatinine 0.68 Glucose 171 H Calcium 9.3 Consult Discharge Plan - Plan Referrals: Ganesh Pina MD [Primary Care Provider] - 06/29/17 1:30 pm
--- NOTE | 2017-06-21 15:23 | Electrocardiograph Report ---
[address] [place] [address] Test Date: 2017-06-20 Pat Name: Tania Simpson Department: 104 Room: 3B Gender: F [employer]: : 1940 Requested By: Suyapa See Order Number: [id number] Reading MD: Miriam Perez Measurements Intervals [place] Rate: 103 P: 60 CO: 155 QRS: 14 QRSD: 75 T: 68 QT: 343 QTc: 403 Interpretive Statements SINUS TACHYCARDIA ABNORMAL RHYTHM ECG Electronically Signed On 06-21-2017 15:21:32 EST by Miriam Perez
[2017-06-21] MEDS ORDERED: Insulin LISPRO 300 UNITS/3 ML VIAL SQ SCH (21:00)
[2017-06-22] MEDS: *HR* Heparin 5,000 UNIT/ML VIAL SQ SCH (05:28)
[2017-06-22 07:46] VITALS: BP 114/67
[2017-06-22] MEDS: amLODIPine 5 MG TABLET PO SCH (09:53)
[2017-06-22] MEDS: Loratadine 10 MG TABLET PO SCH (09:53)
[2017-06-22] MEDS: Aspirin 81 MG TAB.CHEW PO SCH (09:53)
[2017-06-22] MEDS: Insulin LISPRO 300 UNITS/3 ML VIAL SQ SCH (09:53)
[2017-06-22] MEDS: Famotidine 20 MG TABLET PO SCH (09:53)
[2017-06-22] MEDS: Patient Taking Own Medication 1 EACH PO SCH (09:54)
--- NOTE | 2017-06-22 11:05 | Discharge Summary ---
- NOTES TO OUTPATIENT PROVIDER Notes to Outpatient Provider: Added Norvasc to her home regimen of anti- hypertensives Date of Encounter: 06/22/17 Time of Encounter: 09:00 - Discharge Diagnosis (1) Encephalopathy acute Priority: Primary Status: Resolved (2) Hypertensive urgency Priority: Primary Status: Resolved (3) Leukocytosis Priority: Primary Status: Resolved Qualifiers: Leukocytosis type: unspecified Qualified Code(s): D72.829 - Elevated white blood cell count, unspecified (4) Type 2 diabetes mellitus Priority: Secondary Status: Chronic Qualifiers: Diabetes mellitus complication status: without complication Diabetes mellitus custodial insulin use: without intermodal owner operator truck driver use Qualified Code(s): E11.9 - Type 2 diabetes mellitus without complications Hospital course: Ms. Simpson is a 77 year old female Admitted to observation for acute encephalopathy, HTN Urgency, Bronchitis She has returned to her baseline mental status at time of review 06/21. Head CT and Brain MRi shows chronic changes, leukocytosis resolved, no pneumonia or infiltrates on CXR Patient's blood pressure was controlled by adding Norvasc She has since been clinically stable and is seen at bedside with daughter this morning, no new complains Stable to be discharged home on Norvasc and Azithromycin for 3 more days Educated on plan, verbalized understanding Discharge discussed with: patient, family, nurse - Time Spent with Patient Total time spent providing and/or coordinating discharge services: Less than 30 minutes - Discharge Medications Prescriptions: Amlodipine Besylate 10 mg PO DAILY #30 tablet Azithromycin [Zithromax] 500 mg PO Q24H #3 tablet Home Medications: Calcium Carbonate/Vitamin D3 [Calcium 500 + Vit D Caplet] 1 each PO DAILY [History] Gabapentin [Neurontin] 400 mg PO TID 05/27/16 [History] Loratadine [Claritin] 10 mg PO DAILY 05/27/16 [History] Lovastatin 40 mg PO HS 05/27/16 [History] Ranitidine HCl [Zantac] 150 mg PO BID 05/27/16 [History] Sitagliptin Phosphate [Januvia] 100 mg PO DAILY 05/27/16 [History] metFORMIN [Glucophage] 1,000 mg PO BIDWM 05/27/16 [History] Aspirin 81 mg PO DAILY tab.chew 05/29/16 [Rx] Clopidogrel [Plavix] 75 mg PO DAILY #30 tablet 05/29/16 [Rx] Lisinopril [Zestril] 10 mg PO DAILY #30 tablet 06/03/17 [Rx] Amlodipine Besylate 10 mg PO DAILY #30 tablet 06/22/17 [Rx] Azithromycin [Zithromax] 500 mg PO Q24H #3 tablet 06/22/17 [Rx] Allergies/Adverse Reactions: 3 Allergy/AdvReac Type Severity Reaction Status Date / Time barium sulfate Allergy See Verified 06/21/17 01:44 Comments Date of admission: 06/20/17 22:19 Primary care physician: Ganesh Pina MD Discharging clinician: Francisco Alfaro Anticipated date of discharge: 06/22/17 - Constitutional Vitals: Temp Pulse Resp BP Pulse Ox 98.1 F 116 17 114/67 97 06/22/17 07:44 06/22/17 07:44 06/22/17 07:44 06/22/17 07:44 06/22/17 07:44 General appearance: Present: A&O X 3, no acute distress, answers questions appropriately - Head Head exam: Present: atraumatic, normocephalic - Eye Eye exam: Present: PERRL, conjuntiva pink, sclera anicteric Pupils: Present: PERRL - Neck Neck exam general surgery: Present: supple, trachea midline. Absent: lymphadenopathy - Respiratory Respiratory exam: Present: CTAB. Absent: accessory muscle use, rales, rhonchi, wheezes - Cardiovascular Cardiovascular exam: Present: RRR, +S1, +S2. Absent: diastolic murmur, gallop, rubs, systolic murmur - GI/Abdominal GI/Abdominal exam: Present: normal bowel sounds, soft, no peritoneal signs. Absent: distended, tenderness - Extremities Exam Extremities exam: Present: warm, radial pulses palpable and symmetrical. Absent : calf tenderness, cyanotic, pedal edema - Neurological Exam Neurological exam: Present: CN II-XII intact, oriented X3, no focal deficits. Absent: pronater drift, facial droop, speech deficit - Patient Status Disposition: Home, Self-Care Condition: Good Functional capacity at discharge: independent ambulation Overall status at discharge: patient is back to baseline - Discharge Instructions Instructions: Azithromycin (By mouth), Amlodipine (By mouth), Hypertensive Crisis (DC) Follow Up With: Ganesh Pina MD [Primary Care Provider] - 06/29/17 1:30 pm - Diet and Activity Activity: resume usual activities as tolerated Diet: low fat, low cholesterol, low salt diet
== END 2017-06-22 13:45 | disposition home or self-care (01) ==
LOC: EMEROO 18:02 → 3BNU 18:02 → SUATTDRO 22:19 → 3BNU 22:40
PROVIDERS: ADMIT Pediatrics; ATTEND Internal Medicine

== ENCOUNTER 2018-06-18 17:16 | Observation (INO) ==
--- NOTE | 2018-06-18 17:20 | Emergency Department Note ---
Disposition Clinical Impression: Weakness, HTN (hypertension), Type 2 diabetes mellitus, Cerebral vascular disease, Atrial fibrillation, On anticoagulant therapy, Atrial fibrillation with RVR, Recent urinary tract infection, Morbid obesity, Abdominal pain Disposition: Admitted As Inpatient Referrals: Ganesh Pina MD [Primary Care Provider] - General Adult HPI - General Stated complaint: general weakness Time Seen by Provider: 06/18/18 17:20 - History of Present Illness HPI Narrative: 78-year-old female comes in with family members regarding concerns for weakness. The patient has been diagnosed with influenza and stay in the hospital, they state she was found to be in atrial fibrillation and was placed on blood thinning medications. She had an outpatient escort car driver placed per the cable way operator. The patient sees Dr. Hart. The family was concerned because the patient seemed to be weaker than usual today so they called their primary care physician who reported they should come to the emergency department and have the patient admitted. They are concerned for potential sepsis or UTI. There is no history of fall or injury no fever. The patient denies chest pain or shortness of breath no history of coughing coughing up blood or syncope. He is no history of skin rash or acute back pain. The patient describes diffuse abdominal pain. She had had some anticoagulant injections in the abdomen area which resulted bruising. There is no history of vomiting. She has had some nonbloody diarrhea. No recent antibiotic therapy. No urinary symptoms described. The patient has been chronically confused. She went to rehabilitation today and was only able to exercise for 3 minutes before becoming too tired. The family cites progressive weakness, concerns for infection, and brought the patient to the emergency Department for further evaluation. On questioning there is no history of facial drooping unilateral arm or leg weaknes s or numbness or strokelike symptoms. - Related Data Home Medications Medication Instructions Recorded Confirmed Calcium Carbonate/Vitamin D3 1 tab PO DAILY 05/27/16 06/06/18 [Calcium 500 + Vit D Caplet] Gabapentin [Neurontin] 400 mg PO TID 05/27/16 06/06/18 Loratadine [Claritin] 10 mg PO DAILY 05/27/16 06/06/18 Lovastatin 40 mg PO HS 05/27/16 06/06/18 metFORMIN [Glucophage] 1,000 mg PO BIDWM 05/27/16 06/06/18 Amlodipine Besylate 10 mg PO DAILY 06/06/18 06/06/18 Cyanocobalamin (Vitamin B-12) 1,000 mcg PO DAILY 06/06/18 06/06/18 [Vitamin B12] Glimepiride [Amaryl] 1 mg PO DAILY 06/06/18 06/06/18 Metoprolol XL (24 HR) Succ [Toprol 25 mg PO DAILY 06/06/18 06/06/18 Xl] raNITIdine HCl [Zantac] 150 mg PO BID 06/06/18 06/06/18 Previous Rx's Medication Instructions Recorded Aspirin 81 mg PO DAILY tab.chew 05/29/16 Clopidogrel [Plavix] 75 mg PO DAILY #30 tablet 05/29/16 Lisinopril [Zestril] 10 mg PO DAILY #30 tablet 06/03/17 Albuterol Neb [AccuNeb] 1.25 mg IH Q4H 30 Days #3 inhsol 06/08/18 Ipratropium/Albuterol Neb [Duoneb] 3 ml IH [id number] 30 Days #3 inhsol 06/08/18 Allergies Allergy/AdvReac Type Severity Reaction Status Date / Time barium sulfate Allergy See Verified 06/21/17 01:44 Comments All systems ED: reviewed and negative except as stated. Past Medical History - Past Medical History Medical history: Reports: coronary artery disease, diabetes, GERD, hyperlipidemia, hypertension, peripheral artery disease Surgical history: Reports: cataract, hysterectomy Psychiatric history: Reports: no psych history - Social History Smoking Status: Never smoker Smokeless Tobacco Status: No Alcohol use: Reports: none Drug use: Reports: none Physical Exam - General General appearance: alert, in no apparent distress - Head Head exam: atraumatic - Eye Eye exam: Present: normal appearance, PERRL, EOMI - ENT ENT exam: normal exam, normal oropharynx, mucous membranes moist, TM's normal bilaterally, normal external ear exam - Neck Neck exam: Present: normal inspection, full ROM, trachea midline - Chest Chest inspection: Present: symmetric chest wall rise. Absent: tenderness - Respiratory Respiratory exam: Present: normal lung sounds bilaterally. Absent: respiratory distress, prolonged expiratory phase - Cardiovascular Cardiovascular exam: Present: normal rhythm, tachycardia - Abdominal Exam Abdominal exam: Present: soft, tenderness, normal bowel sounds, other (The patient has some bruising on the abdomen reportedly from prior heparin injections.). Absent: distention, guarding, rebound, rigidity, Johnson's sign, tenderness at McBurney's Point Abdominal tenderness: Present: diffuse, mild - Extremities Exam Extremities exam: Present: normal inspection, normal capillary refill. Absent: pedal edema, joint swelling, calf tenderness - Expanded Lower Extremity Exam Neurovascular/Tendon exam: Present: normal capillary refill. Absent: sensory deficit, extremity cold to touch, pallor - Back Exam Back exam: Present: normal inspection, full ROM. Absent: tenderness, CVA tenderness (R), CVA tenderness (L), vertebral tenderness - Neurological Exam Neurological exam: Present: alert, oriented X3, CN II-XII intact. Absent: motor sensory deficit - Psychiatric Psychiatric exam: Present: normal affect, normal mood - Skin Skin exam: Present: warm, dry, intact, normal color Course Vital Signs Temperature 97.4 F L 06/18/18 17:27 Pulse Rate 109 06/18/18 17:27 Respiratory Rate 18 06/18/18 17:27 Blood Pressure 123/62 06/18/18 17:27 O2 Sat by Pulse Oximetry 95 06/18/18 17:27 Temperature 97.4 F L 06/18/18 17:27 Pulse Rate 127 06/18/18 18:28 Respiratory Rate 14 06/18/18 18:28 Blood Pressure 98/62 06/18/18 18:28 O2 Sat by Pulse Oximetry 95 06/18/18 18:28 Oxygen Delivery Oxygen Delivery Nasal Cannula Medical Decision Making - MDM Narrative Medical decision making narrative: The patient was brought in by family members for concern regarding weakness. They cite that the patient has atrial fibrillation and is recently been placed on anticoagulant medication and has a escort car driver. The patient usually is more active and alert, they report the patient was only able to do rehabilitation for about 3 minutes today and it became too tired to continue with exercise. There is no history of fall or seizure slurred speech or facial drooping unilateral arm or leg weakness or numbness or strokelike symptoms. There is no history of acute headache neck stiffness rash or fever. They note that the patient had a recent urinary tract infection or concern that she may be getting septic again. They called their primary care physician who they state sent into the ED and recommended admission to the hospital. The patient has had no vomiting but did have a few episodes of nonbloody diarrhea prior but her stools now become soft and more normalized. There is no history of bleeding of any sort. The patient's urinalysis today shows no major abnormalities apart from some ketones. Her heart rate did go up to 127 in the ED, her blood pressure did drop to an extent to the 98 range systolic. She was given an IV fluid bolus. Initial EKG showed sinus tachycardia, monitor shows what appears to be atrial fibrillation, her rate is been varying between the 80s to 110s s tatus post fluid. CT head negative. Chest x-ray no acute disease. I reviewed the patient's prior sputum cultures which showed Haemophilus. She has also had recent influenza. Her CBC shows leukocytosis with significant elevation in white count compared to prior when the patient was in the hospital with UTI and or sepsis. Based on the patient's tachycardia, leukocytosis, and SIRS with potential sepsis, she was given a dose of Levaquin IV. The patient describes diffuse abdominal pain on clinical exam she has some bruising from where she had had Lovenox injections. She does not have evidence of new trauma, I do not detect peritonitis. I discussed the case with the family they are highly recalcitrant to potential outpatient management, they report they do not feel the patient is capable of going home. Based on the patient's elderly status, recurrent tachycardia, leukocytosis with recent UTI and sepsis and what appears to be intermittently rate uncontrolled atrial fibrillation, with an element of weakness and confusion, I thought it would be appropriate to admit the patient to the hospital. I discussed the case with Dr. Denny, hospitalist on-call who has acccepted the patient to his care. As a precaution a CT scan of the head and pelvis has been ordered and will be reviewed by the hospitalist when data is available. The patient is currently stable pending admission. - Lab Data Lab results reviewed: Yes I reviewed the patient's lab results. Result diagrams: 06/18/18 18:06 06/18/18 18:06 Lab Results 06/18/18 06/18/18 06/18/18 Range/Units 18:06 18:06 18:06 WBC 19.2 H (4.3-11.1) K/mcL RBC 4.11 (3.82-4.97) M/mcL Hgb 12.6 (11.5-15.4) g/dL Hct 36.6 (35.3-44.9) % MCV 89.1 (83.0-100.0) fL MCH 30.7 (28.0-33.3) pg MCHC 34.4 (31.6-35.5) g/dL RDW 12.9 (11.5-14.5) % Plt Count 248 (140-400) K/mcL MPV 9.8 (9.4-12.4) fL Immature Gran % 0.6 (0-4) % Seg Neutrophils % 78.3 % Lymphocytes % 13.3 % Monocytes % 7.4 % Eosinophils % 0.3 % Basophils % 0.1 % Neutrophils # 15.0 H (1.6-8.9) K/mcL Lymphocytes # 2.6 (0.6-4.6) K/mcL Monocytes # 1.4 H (0.0-1.3) K/mcL Eosinophils # 0.1 (0.0-0.6) K/mcL Basophils # 0.0 (0.0-0.2) K/mcL Sodium 133 L (136-145) mEq/L Potassium 4.5 (3.5-5.1) mEq/L Chloride 100 (98-107) mEq/L Carbon Dioxide 23 (23-29) mEq/L BUN 31 H (8-23) mg/dL Creatinine 0.99 (0.60-1.20) mg/dL Est GFR ( Amer) > 60 (> 60) Est GFR (Non-Af Amer) 55 L (> 60) BUN/Creatinine Ratio 31 H (6-26) Glucose 176 H (70-105) mg/dL Calculated Osmolality 287 (280-300) Lactic Acid 1.5 (0.5-2.2) mmol/L Calcium 10.2 (8.6-10.3) mg/dL Total Bilirubin 0.8 (0.3-1.0) mg/dL AST 11 L (13-39) Units/L ALT 19 (7-52) Units/L Alkaline Phosphatase 44 (34-104) Units/L Troponin I < 0.03 (< 0.04) ng/mL Serum Total Protein 6.3 L (6.4-8.9) g/dL Albumin 3.4 L (3.5-5.7) g/dL Globulin 2.9 (2.4-3.5) g/dL Albumin/Globulin Ratio 1.2 (1.1-2.2) Lipase 16 (11-82) Units/L Urine Color (Yellow) Urine Clarity (Clear) Urine pH (5.0-8.0) pH Units Ur Specific [place] (1.010-1.025) Urine Protein (Neg-Trace) mg/dL Urine Glucose (UA) (Normal) mg/dL Urine Ketones (Negative) mg/dL Urine Blood (Negative) Urine Nitrite (Negative) Urine Bilirubin (Negative) Urine Urobilinogen (Normal) mg/dL Ur Leukocyte Esterase (Negative) Ur Culture Indicated? (NO) 06/18/18 Range/Units 18:39 WBC (4.3-11.1) K/mcL RBC (3.82-4.97) M/mcL Hgb (11.5-15.4) g/dL Hct (35.3-44.9) % MCV (83.0-100.0) fL MCH (28.0-33.3) pg MCHC (31.6-35.5) g/dL RDW (11.5-14.5) % Plt Count (140-400) K/mcL MPV (9.4-12.4) fL Immature Gran % (0-4) % Seg Neutrophils % % Lymphocytes % % Monocytes % % Eosinophils % % Basophils % % Neutrophils # (1.6-8.9) K/mcL Lymphocytes # (0.6-4.6) K/mcL Monocytes # (0.0-1.3) K/mcL Eosinophils # (0.0-0.6) K/mcL Basophils # (0.0-0.2) K/mcL Sodium (136-145) mEq/L Potassium (3.5-5.1) mEq/L Chloride (98-107) mEq/L Carbon Dioxide (23-29) mEq/L BUN (8-23) mg/dL Creatinine (0.60-1.20) mg/dL Est GFR ( Amer) (> 60) Est GFR (Non-Af Amer) (> 60) BUN/Creatinine Ratio (6-26) Glucose (70-105) mg/dL Calculated Osmolality (280-300) Lactic Acid (0.5-2.2) mmol/L Calcium (8.6-10.3) mg/dL Total Bilirubin (0.3-1.0) mg/dL AST (13-39) Units/L ALT (7-52) Units/L Alkaline Phosphatase (34-104) Units/L Troponin I (< 0.04) ng/mL Serum Total Protein (6.4-8.9) g/dL Albumin (3.5-5.7) g/dL Globulin (2.4-3.5) g/dL Albumin/Globulin Ratio (1.1-2.2) Lipase (11-82) Units/L Urine Color Yellow (Yellow) Urine Clarity Clear (Clear) Urine pH 5.5 (5.0-8.0) pH Units Ur Specific [place] 1.024 (1.010-1.025) Urine Protein Negative (Neg-Trace) mg/dL Urine Glucose (UA) 250 H (Normal) mg/dL Urine Ketones Trace H (Negative) mg/dL Urine Blood Negative (Negative) Urine Nitrite Negative (Negative) Urine Bilirubin Negative (Negative) Urine Urobilinogen Normal (Normal) mg/dL Ur Leukocyte Esterase Negative (Negative) Ur Culture Indicated? NO (NO) - Radiology Data Radiology results reviewed: Yes I reviewed the patient's radiology results.
[2018-06-18] MEDS ORDERED: 0.9 % Sodium Chloride 1,000 ML IVC ONE (17:51)
[2018-06-18 18:27] LABS: Basophils % 0.1 %; Eosinophils # 0.1 K/mcL (0.0-0.6); Eosinophils % 0.3 %; Hematocrit 36.6 % (35.3-44.9); Hemoglobin 12.6 g/dL (11.5-15.4); Immature Granulocytes % 0.6 % (0-4); Lymphocytes # 2.6 K/mcL (0.6-4.6); Lymphocytes % 13.3 %; Mean Corpuscular HGB Conc 34.4 g/dL (31.6-35.5); Mean Corpuscular Hemoglobin 30.7 pg (28.0-33.3); Mean Corpuscular Volume 89.1 fL (83.0-100.0); Mean Platelet Volume 9.8 fL (9.4-12.4); Monocytes # 1.4 K/mcL (0.0-1.3); Monocytes % 7.4 %; Platelet Count 248 K/mcL (140-400); Red Blood Count 4.11 M/mcL (3.82-4.97); Red Cell Distribution Width 12.9 % (11.5-14.5); Segmented Neutrophils % 78.3 %
[2018-06-18 18:42] LABS: Alanine Aminotransferase 19 Units/L (7-52); Albumin 3.4 g/dL (3.5-5.7); Albumin/Globulin Ratio 1.2 (1.1-2.2); Alkaline Phosphatase 44 Units/L (34-104); Aspartate Amino Transferase 11 Units/L (13-39); BUN/Creatinine Ratio 31 (6-26); Bilirubin,Total 0.8 mg/dL (0.3-1.0); Blood Urea Nitrogen 31 mg/dL (8-23); Calcium 10.2 mg/dL (8.6-10.3); Carbon Dioxide 23 mEq/L (23-29); Chloride 100 mEq/L (98-107); Globulin 2.9 g/dL (2.4-3.5); Glucose 176 mg/dL (70-105); Lipase 16 Units/L (11-82); Osmolality,Calculated 287 (280-300); Potassium 4.5 mEq/L (3.5-5.1); Sodium 133 mEq/L (136-145); Total Protein 6.3 g/dL (6.4-8.9); eGFR For Non-African Americans 55 (> 60)
[2018-06-18 18:43] LABS: Troponin I < 0.03 ng/mL (< 0.04)
[2018-06-18 18:56] LABS: Bilirubin,Urine Negative (Negative); Blood,Urine Negative (Negative); Clarity,Urine Clear (Clear); Color,Urine Yellow (Yellow); Glucose,Urine (UA) 250 mg/dL (Normal); Ketones,Urine Trace mg/dL (Negative); Leukocyte Esterase,Urine Negative (Negative); Nitrite,Urine Negative (Negative); PH,Urine 5.5 pH Units (5.0-8.0); Protein,Urine Negative (Neg-Trace); Specific Gravity,Urine 1.024 (1.010-1.025); Urobilinogen,Urine Normal (Normal)
[2018-06-18] MEDS ORDERED: Levofloxacin 750 MG/150 ML 750 MG/150 ML BAG IVPB ONE (19:51)
[2018-06-18] MEDS ORDERED: Isovue-370 500 ML BOTTLE IVP ONE (20:29)
[2018-06-19] MEDS: Acetaminophen 325 MG TABLET PO PRN ×3 (01:58→15:20)
--- NOTE | 2018-06-19 03:18 | Internal Med History&Physical ---
<Mulugeta Sparks W - Last Filed: 06/19/18 05:00> Date of Encounter: 06/19/18 Time of Encounter: 03:12 Internal Medicine - H&P: HPI Chief complaint: weakness, abd pain History of present illness: Ms. Simpson is a 78 year old female medical history of hypertension, Mey's minus, CVA, atrial fibrillation presents to the ED due to concern of having a UTI. Patient recently had a UTI became very confused. Family stated they had an at-home urine dipstick was positive for urinary tract infection. They called their PCP. The PCP recommended patient be brought by squad to the emergency department. Patient was confused. She is alert and oriented 1 she knew her name could not remember her birthday and not no location and did not know year. History was taken from her son. Patient's son states that over the past several days patient has seemed very weak. She has been getting very tired during physical therapy. She has been napping longer and more than usual. The past she had a similar presentation was found to have a UTI. He had an at-home dipstick which was concerning for UTI. With patient's recent diagnosis of A. fib PCP bilateral was best for patient to come to the ED. Urinalysis here did not show any UTI. no urinary symptoms such as dysuria or increased frequency. Patient was recently hospitalized at of influenza on 06/07/18. Patient's son also states that patient was really more short of breath. She has episodes where she is gasping for air. especially noticed after physical activity. Since states that patient is confused at times. Especially not knowing the year. However she is worse than her baseline. Patient son denies any head trauma. Nela did have one time yesterday when she was trying to sit on her walker and slipped down and fell on her butt. She has had some neck pain and headaches since then. Patient had diarrhea several days ago but has resolved in the past couple days ago. Patient complains of abdominal pain. States it is diffuse. Denies fever, chills, vision changes, vomiting, nausea, numbness, tingling, rash Past Med Surg Social Fam HX - Past Medical History Medical history: coronary artery disease, diabetes, GERD, hyperlipidemia, hypertension, peripheral artery disease Additional medical history: Shingles Psychiatric history: no psych history - Past Surgical History Surgical History: cataract, hysterectomy - Social History Smoking Status: Never smoker Smokeless Tobacco Status: No Alcohol use: none Drug use: none - Family History Father Living Status: Mother Living Status: Hx Family Endocrine Disorder: Yes (Diabetes) Daughter Hx Family Cardiac Disorders: Yes (Brain Aneuysm) Internal Medicine - H&P: Meds Calcium Carbonate/Vitamin D3 [Calcium 500 + Vit D Caplet] 1 tab PO DAILY 05/27/16 [History] Gabapentin [Neurontin] 400 mg PO TID 05/27/16 [History] Loratadine [Claritin] 10 mg PO DAILY 05/27/16 [History] Lovastatin 40 mg PO DAILY 05/27/16 [History] Clopidogrel [Plavix] 75 mg PO DAILY #30 tablet 05/29/16 [Rx] Lisinopril [Zestril] 10 mg PO DAILY #30 tablet 06/03/17 [Rx] Amlodipine Besylate 10 mg PO DAILY 06/06/18 [History] Cyanocobalamin (Vitamin B-12) [Vitamin B12] 1,000 mcg PO DAILY 06/06/18 [History] Glimepiride [Amaryl] 1 mg PO DAILY 06/06/18 [History] Metoprolol XL (24 HR) Succ [Toprol Xl] 25 mg PO DAILY 06/06/18 [History] raNITIdine HCl [Zantac] 150 mg PO BID 06/06/18 [History] Albuterol Neb [AccuNeb] 1.25 mg IH Q4H 30 Days #3 inhsol 06/08/18 [Rx] Apixaban [Eliquis] 5 mg PO BID 06/18/18 [History] Metformin HCl [Glucophage] 1,000 mg PO BID 06/18/18 [History] Allergy/AdvReac Type Severity Reaction Status Date / Time barium sulfate Allergy See Verified 06/18/18 22:58 Comments ROS unobtainable: other (Obtained from son) All Systems PM: A 10-system review of systems was performed and is negative for pertinent findings except as documented above in the HPI. - Constitutional Constitutional: as per HPI - EENT Eyes: as per HPI - Cardiovascular Cardiovascular ROS IM: as per HPI - Respiratory Respiratory: as per HPI - Gastrointestinal Gastrointestinal: as per HPI - Genitourinary Genitourinary: as per HPI - Musculoskeletal Musculoskeletal ROS IM: as per HPI - Integumentary Integumentary IM: as per HPI - Neurological Neurological ROS: as per HPI - Psychiatric Psychiatric: as per HPI - Constitutional Vitals: Temp Pulse Resp BP Pulse Ox 97.3 F L 100 14 113/73 98 06/19/18 00:19 06/19/18 00:19 06/19/18 00:19 06/19/18 00:19 06/19/18 00:19 General appearance: Present: A&O X 1, pleasant Exam: asleep when entering the room, easily arousable - Head Head exam: Present: atraumatic, normocephalic - Eye Eye exam: Present: PERRL, conjuntiva pink, sclera anicteric Pupils: Present: PERRL - Respiratory Respiratory exam: Present: CTAB. Absent: accessory muscle use, rales, rhonchi, wheezes - Cardiovascular Cardiovascular exam: Present: RRR, +S1, +S2. Absent: diastolic murmur, gallop, rubs, systolic murmur - GI/Abdominal GI/Abdominal exam: Present: normal bowel sounds, soft, tenderness (LLQ moderate), no peritoneal signs. Absent: distended - Neurological Exam Neurological exam: Absent: motor sensory deficit, pronater drift, facial droop, speech deficit - Psychiatric Psychiatric exam: Present: normal affect, normal mood - Skin Skin exam: Present: dry, intact Internal Med - H&P Results - Labs CBC & Chem 7: 06/18/18 18:06 06/18/18 18:06 Labs: Short CBC 06/18/18 Range/Units 18:06 WBC 19.2 H (4.3-11.1) K/mcL Hgb 12.6 (11.5-15.4) g/dL Hct 36.6 (35.3-44.9) % Plt Count 248 (140-400) K/mcL Neutrophils # 15.0 H (1.6-8.9) K/mcL BMP 06/18/18 18:06 Sodium 133 L Potassium 4.5 Chloride 100 Carbon Dioxide 23 BUN 31 H Creatinine 0.99 Glucose 176 H Calcium 10.2 Cardiac Enzymes 06/18/18 Range/Units 18:06 Troponin I < 0.03 (< 0.04) ng/mL Liver Function 06/18/18 Range/Units 18:06 Total Bilirubin 0.8 (0.3-1.0) mg/dL AST 11 L (13-39) Units/L ALT 19 (7-52) Units/L Alkaline Phosphatase 44 (34-104) Units/L Albumin 3.4 L (3.5-5.7) g/dL Urine 06/18/18 Range/Units 18:39 Urine Color Yellow (Yellow) Urine Clarity Clear (Clear) Urine pH 5.5 (5.0-8.0) pH Units Ur Specific [place] 1.024 (1.010-1.025) Urine Protein Negative (Neg-Trace) mg/dL Urine Glucose (UA) 250 H (Normal) mg/dL - Impressions ITS Impressions Chest X-Ray 06/18/18 17:51 IMPRESSION: Bibasilar atelectasis. D/ / Trever Faulkner MD / Trever Faulkner MD Interpreting Provider: Trever Faulkner MD Head CT 06/18/18 17:52 IMPRESSION: No acute intracranial abnormality. Mild chronic small vessel ischemic disease. D/ / Conor Atkinson / Conor Atkinson Interpreting Provider: Conor Atkinson - Assessment and plan (1) Diverticulitis large intestine w/o perforation or abscess w/o bleeding Current Visit: Yes Status: Acute Assessment and plan: CT found Focal area of mucosal thickening and inflammatory change is noted involving the distal descending colon, consistent with acute diverticulitis. There is no evidence of abscess or rupture. Short-term follow-up imaging is recommended to exclude underlying colon neoplasm. LLQ abdominal pain Afebrile and stable vital signs, lactic acid wnl, does not meet sepsis criteria at this time elevated white count at 19.1 Plan: IV hydration Bowel rest zosyn and flagyl blood cultures pending (2) Weakness Current Visit: Yes Status: Acute Assessment and plan: Plan as #1 above PT consult for worsening weakness (3) Atrial fibrillation Current Visit: Yes Status: Acute Assessment and plan: Recently diagnosed found to be in a fib in ED current HR 100 on Metoprolol and Clopidogrel and eliquis Plan: continue home medications cardiac tech Qualifiers: Atrial fibrillation type: chronic Qualified Code(s): I48.2 - Chronic atrial fibrillation (4) Type 2 diabetes mellitus Current Visit: Yes Status: Chronic Assessment and plan: Non insulin dependent Consider SSI if unable to control BG Qualifiers: Diabetes mellitus penitentiary insulin use: without penitentiary use Diabetes mellitus complication status: without complication Qualified Code(s): E11.9 - Type 2 diabetes mellitus without complications (5) DVT prophylaxis Current Visit: No Status: Acute Assessment and plan: on eliquis and clopidogrel - Time Spent With Patient Total time spent is greater than 50% in coordination of care (as documented) at patient's floor/unit and/or counseling patient: <Trever Escobar - Last Filed: 06/19/18 07:08> Date of Encounter: 06/19/18 Internal Medicine - H&P: HPI History of present illness: Ms. Simpson is a 78 year old female All Systems PM: A 10-system review of systems was performed and is negative for pertinent findings except as documented above in the HPI. - Constitutional Vitals: Temp Pulse Resp BP Pulse Ox 97.3 F L 93 16 115/73 96 06/19/18 04:35 06/19/18 04:35 06/19/18 04:35 06/19/18 04:35 06/19/18 04:35 Internal Med - H&P Results - Labs CBC & Chem 7: 06/19/18 04:11 06/19/18 04:11 Labs: Short CBC 06/18/18 06/19/18 Range/Units 18:06 04:11 WBC 19.2 H 10.1 (4.3-11.1) K/mcL Hgb 12.6 11.7 (11.5-15.4) g/dL Hct 36.6 34.5 L (35.3-44.9) % Plt Count 248 222 (140-400) K/mcL Neutrophils # 15.0 H 6.7 (1.6-8.9) K/mcL BMP 06/18/18 06/19/18 18:06 04:11 Sodium 133 L 133 L Potassium 4.5 3.9 Chloride 100 102 Carbon Dioxide 23 21 L BUN 31 H 22 Creatinine 0.99 0.86 Glucose 176 H 174 H Calcium 10.2 8.9 Cardiac Enzymes 06/18/18 Range/Units 18:06 Troponin I < 0.03 (< 0.04) ng/mL Liver Function 06/18/18 06/19/18 Range/Units 18:06 04:11 Total Bilirubin 0.8 0.7 (0.3-1.0) mg/dL AST 11 L 9 L (13-39) Units/L ALT 19 15 (7-52) Units/L Alkaline Phosphatase 44 39 (34-104) Units/L Albumin 3.4 L 3.1 L (3.5-5.7) g/dL Urine 06/18/18 Range/Units 18:39 Urine Color Yellow (Yellow) Urine Clarity Clear (Clear) Urine pH 5.5 (5.0-8.0) pH Units Ur Specific [place] 1.024 (1.010-1.025) Urine Protein Negative (Neg-Trace) mg/dL Urine Glucose (UA) 250 H (Normal) mg/dL - Impressions ITS Impressions Chest X-Ray 06/18/18 17:51 IMPRESSION: Bibasilar atelectasis. D/ / Trever Faulkner MD / Trever Faulkner MD Interpreting Provider: Trever Faulkner MD Head CT 06/18/18 17:52 IMPRESSION: No acute intracranial abnormality. Mild chronic small vessel ischemic disease. D/ / Conor Atkinson / Conor Atkinson Interpreting Provider: Conor Atkinson Abdomen/Pelvis CT 06/19/18 20:29 IMPRESSION: Focal area of mucosal thickening and inflammatory change is noted involving the distal descending colon, consistent with acute diverticulitis. There is no evidence of abscess or rupture. Short-term follow-up imaging is recommended to exclude underlying colon neoplasm. D/ / Alem Hillman MD / Alem Hillman MD Interpreting Provider: Alem Hillman MD - Time Spent With Patient Total time spent is greater than 50% in coordination of care (as documented) at patient's floor/unit and/or counseling patient: - Attending Attestation I saw and evaluated the patient. I reviewed the residents note, performed my own physical examination and agree with findings and plan as documented in the residents note. Patient seen and examined on 06/19/18. Patient presented to the emergency room with weakness, found to have diverticulitis. Patient has no previous history of this in the past, but does have family history of diverticulitis. Will start Flagyl and Zosyn. Monitor for worsening signs of infection. We will also consult PT the morning
[2018-06-19] MEDS ORDERED: Naloxone 0.4 MG/ML INJ IVP PRN (03:24)
[2018-06-19] MEDS ORDERED: Albuterol Neb 1.25 MG/3 ML VIAL IH PRN (04:15)
[2018-06-19] MEDS: 0.9 % Sodium Chloride 1,000 ML IVC SCH ×2 (04:44→16:43)
[2018-06-19 05:28] LABS: Basophils % 0.2 %; Eosinophils # 0.1 K/mcL (0.0-0.6); Eosinophils % 0.9 %; Hematocrit 34.5 % (35.3-44.9); Hemoglobin 11.7 g/dL (11.5-15.4); Immature Granulocytes % 0.5 % (0-4); Lymphocytes # 2.2 K/mcL (0.6-4.6); Lymphocytes % 21.7 %; Mean Corpuscular HGB Conc 33.9 g/dL (31.6-35.5); Mean Corpuscular Hemoglobin 30.7 pg (28.0-33.3); Mean Corpuscular Volume 90.6 fL (83.0-100.0); Mean Platelet Volume 10.2 fL (9.4-12.4); Monocytes # 1.1 K/mcL (0.0-1.3); Monocytes % 10.8 %; Neutrophils # 6.7 K/mcL (1.6-8.9); Platelet Count 222 K/mcL (140-400); Red Blood Count 3.81 M/mcL (3.82-4.97); Red Cell Distribution Width 13.2 % (11.5-14.5); Segmented Neutrophils % 65.9 %
[2018-06-19 05:46] LABS: Alanine Aminotransferase 15 Units/L (7-52); Albumin 3.1 g/dL (3.5-5.7); Albumin/Globulin Ratio 1.3 (1.1-2.2); Alkaline Phosphatase 39 Units/L (34-104); Aspartate Amino Transferase 9 Units/L (13-39); BUN/Creatinine Ratio 26 (6-26); Bilirubin,Total 0.7 mg/dL (0.3-1.0); Blood Urea Nitrogen 22 mg/dL (8-23); Calcium 8.9 mg/dL (8.6-10.3); Carbon Dioxide 21 mEq/L (23-29); Chloride 102 mEq/L (98-107); Globulin 2.4 g/dL (2.4-3.5); Glucose 174 mg/dL (70-105); Osmolality,Calculated 284 (280-300); Potassium 3.9 mEq/L (3.5-5.1); Sodium 133 mEq/L (136-145); Total Protein 5.5 g/dL (6.4-8.9); eGFR For Non-African Americans > 60 (> 60)
[2018-06-19] MEDS ORDERED: Piperacillin/Tazobactam 3.375 GM in 0.9 % Sodium Chloride Mini Bag 100 ML IVPB SCH (08:00)
[2018-06-19] MEDS ORDERED: MetroNIDAZOLE 500 MG/100 ML 500 MG/100 ML BAG IVPB SCH (08:00)
[2018-06-19] MEDS ORDERED: amLODIPine 5 MG TABLET PO SCH (09:00)
[2018-06-19] MEDS: MetroNIDAZOLE 500 MG/100 ML 500 MG/100 ML BAG IVPB SCH ×2 (09:11→15:20)
[2018-06-19] MEDS: Famotidine 20 MG TABLET PO SCH ×2 (09:11→20:34)
[2018-06-19] MEDS: Levofloxacin 750 MG/150 ML 750 MG/150 ML BAG IVPB SCH (09:11)
[2018-06-19] MEDS: Metoprolol XL (24 HR) Succ 25 MG TAB.ER.24H PO SCH (09:12)
[2018-06-19] MEDS: Gabapentin 400 MG CAPSULE PO SCH ×3 (09:12→20:34)
[2018-06-19] MEDS: Apixaban 5 MG TABLET PO SCH ×2 (09:12→20:34)
[2018-06-19] MEDS ORDERED: Dextrose Gel 15 GM/37.5 ML TUBE PO PRN ×2 (09:36)
[2018-06-19] MEDS ORDERED: D5% in Water 1,000 ML IVC PRN (09:36)
[2018-06-19] MEDS ORDERED: Dextrose 4 GM Chewable Tablets PO PRN ×2 (09:36)
[2018-06-19] MEDS ORDERED: *HR* Dextrose 50 % in Water (Syg) 50 ML SYRINGE IVP PRN (09:36)
[2018-06-19] MEDS ORDERED: Ondansetron ODT 4 MG TAB.RAPDIS SL PRN (09:40)
[2018-06-19] MEDS: Insulin LISPRO 300 UNITS/3 ML VIAL SQ SCH ×3 (11:09→20:55)
--- NOTE | 2018-06-19 11:17 | Internal Med Progress Note ---
Hospitalist Progress Note - Encounter Date of Encounter: 06/19/18 Time of Encounter: 08:20 - Subjective Interval History: Patient was seen and examined at bedside. Patient's sons are at bedside and state that her confusion is improved. Patient is more awake and alert. She complains of mild left-sided abdominal pain worse with palpation. No nausea or vomiting. She has not had a bowel movement in a couple of days and denies blood loss from her rectum. Denies chills. Denies chest pain or shortness of breath. No acute events overnight. - Exam Vitals: Temp Pulse Resp BP Pulse Ox 97.7 F 91 17 120/74 96 06/19/18 07:21 06/19/18 07:21 06/19/18 07:21 06/19/18 07:21 06/19/18 07:21 Exam: General: awake, no acute distress Head: atraumatic, normocephalic Eyes: normal conjunctiva, EOMI ENT: oral mucosa moist Neck: trachea midline Chest: symmetrical chest expansion Cardiac: Irregular rhythm, normal rate, no murmur Respiratory: Lungs CTA bilaterally, no wheezing Abdomen: soft, mild tenderness left abdomen, no rebound, guarding, or rigidity Extremities: no calf tenderness, no pedal edema, normal capillary refill Neuro: Alert and oriented to person and place. CN II-XII intact Skin: warm, dry, intact - Assessment and Plan (1) Diverticulitis large intestine w/o perforation or abscess w/o bleeding Current Visit: Yes Status: Acute Assessment and Plan: CT abdomen and pelvis with IV contrast shows focal area of mucosal thickening and inflammatory change in the distal descending colon consistent with acute diverticulitis with no abscess or rupture. Radiology recommending short-term follow-up to exclude underlying colon neoplasm. Patient will need colonoscopy in 6 weeks. Leukocytosis resolved. Patient was initially on Levaquin and Flagyl. We will continue with this Continue nothing by mouth and IV fluid hydration. Blood cultures pending. (2) Encephalopathy acute Current Visit: No Status: Resolved Assessment and Plan: Likely secondary to infection. Confusion improved. Patient is alert and oriented to person place and time. CT head without acute intracranial process. (3) Weakness Current Visit: Yes Status: Acute Assessment and Plan: Likely secondary to diverticulitis and recent influenza PT/OT (4) Type 2 diabetes mellitus Current Visit: Yes Status: Chronic Assessment and Plan: Non insulin dependent SSI and hypoglycemia protocol NPO (5) Atrial fibrillation Current Visit: Yes Status: Acute Assessment and Plan: Recently diagnosed AFib, HR 90-100's Continue with Metoprolol and Clopidogrel and eliquis DVT Prophylaxis: On eliquis and plavix - Time Spent with Patient Total time spent is greater than 50% in coordination of care (as documented) at patient's floor/unit and/or counseling patient: Internal Medicine: Result - Labs CBC & Chem 7: 06/19/18 04:11 06/19/18 04:11 Labs: Short CBC 06/18/18 06/19/18 Range/Units 18:06 04:11 WBC 19.2 H 10.1 (4.3-11.1) K/mcL Hgb 12.6 11.7 (11.5-15.4) g/dL Hct 36.6 34.5 L (35.3-44.9) % Plt Count 248 222 (140-400) K/mcL Neutrophils # 15.0 H 6.7 (1.6-8.9) K/mcL BMP 06/18/18 06/19/18 18:06 04:11 Sodium 133 L 133 L Potassium 4.5 3.9 Chloride 100 102 Carbon Dioxide 23 21 L BUN 31 H 22 Creatinine 0.99 0.86 Glucose 176 H 174 H Calcium 10.2 8.9 Cardiac Enzymes 06/18/18 Range/Units 18:06 Troponin I < 0.03 (< 0.04) ng/mL Liver Function 06/18/18 06/19/18 Range/Units 18:06 04:11 Total Bilirubin 0.8 0.7 (0.3-1.0) mg/dL AST 11 L 9 L (13-39) Units/L ALT 19 15 (7-52) Units/L Alkaline Phosphatase 44 39 (34-104) Units/L Albumin 3.4 L 3.1 L (3.5-5.7) g/dL Urine 06/18/18 Range/Units 18:39 Urine Color Yellow (Yellow) Urine Clarity Clear (Clear) Urine pH 5.5 (5.0-8.0) pH Units Ur Specific [place] 1.024 (1.010-1.025) Urine Protein Negative (Neg-Trace) mg/dL Urine Glucose (UA) 250 H (Normal) mg/dL - Impressions Impressions Chest X-Ray 06/18/18 17:51 IMPRESSION: Bibasilar atelectasis. D/ / Trever Faulkner MD / Trever Faulkner MD Interpreting Provider: Trever Faulkner MD Head CT 06/18/18 17:52 IMPRESSION: No acute intracranial abnormality. Mild chronic small vessel ischemic disease. D/ / Conor Atkinson / Conor Atkinson Interpreting Provider: Conor Atkinson Abdomen/Pelvis CT 06/19/18 20:29 IMPRESSION: Focal area of mucosal thickening and inflammatory change is noted involving the distal descending colon, consistent with acute diverticulitis. There is no evidence of abscess or rupture. Short-term follow-up imaging is recommended to exclude underlying colon neoplasm. D/ / 06/19/2018 08:22:54 Alem Hillman MD / bcarter Interpreting Provider: Alem Hillman MD Consult Discharge Plan - Plan Referrals: Ganesh Pina MD [Primary Care Provider] - _ (4) Type 2 diabetes mellitus Qualifiers: Diabetes mellitus fci insulin use: without fci use Diabetes mellitus complication status: without complication Qualified Code(s): E11.9 - Type 2 diabetes mellitus without complications (5) Atrial fibrillation Qualifiers: Atrial fibrillation type: chronic Qualified Code(s): I48.2 - Chronic atrial fibrillation
[2018-06-19] MEDS ORDERED: 0.9 % Sodium Chloride 500 ML IVC ONE (16:30)
[2018-06-20] MEDS: MetroNIDAZOLE 500 MG/100 ML 500 MG/100 ML BAG IVPB SCH ×4 (00:28→23:07)
[2018-06-20 05:49] LABS: Basophils % 0.3 %; Eosinophils # 0.2 K/mcL (0.0-0.6); Eosinophils % 1.7 %; Hematocrit 33.7 % (35.3-44.9); Hemoglobin 11.5 g/dL (11.5-15.4); Immature Granulocytes % 0.5 % (0-4); Lymphocytes # 1.8 K/mcL (0.6-4.6); Lymphocytes % 19.3 %; Mean Corpuscular HGB Conc 34.1 g/dL (31.6-35.5); Mean Corpuscular Hemoglobin 30.7 pg (28.0-33.3); Mean Corpuscular Volume 89.9 fL (83.0-100.0); Monocytes # 1.2 K/mcL (0.0-1.3); Monocytes % 12.9 %; Neutrophils # 6.1 K/mcL (1.6-8.9); Platelet Count 215 K/mcL (140-400); Red Blood Count 3.75 M/mcL (3.82-4.97); Red Cell Distribution Width 13.1 % (11.5-14.5); Segmented Neutrophils % 65.3 %
[2018-06-20 06:05] LABS: BUN/Creatinine Ratio 14 (6-26); Blood Urea Nitrogen 11 mg/dL (8-23); Calcium 8.1 mg/dL (8.6-10.3); Carbon Dioxide 19 mEq/L (23-29); Chloride 107 mEq/L (98-107); Glucose 173 mg/dL (70-105); Osmolality,Calculated 286 (280-300); Potassium 4.3 mEq/L (3.5-5.1); Sodium 136 mEq/L (136-145); eGFR For Non-African Americans > 60 (> 60)
--- NOTE | 2018-06-20 07:26 | Internal Med Progress Note ---
Hospitalist Progress Note - Encounter Date of Encounter: 06/20/18 Time of Encounter: 07:45 - Subjective Interval History: Patient states she is feeling better today than yesterday. Abdominal pain improved. No nausea this morning. No vomiting overnight. She still has not had a bowel movement. No blood per rectum. Denies fevers or chills. She denie s lightheadedness, chest pain, shortness of breath. Yesterday, the patient's blood pressures were 90 systolic. She received 500 mL bolus IV fluids and continued with maintenance fluids. Her lisinopril and Norvasc on hold for now. Blood pressures are improved this morning. We will transition the patient to clear liquid diet. She is also complaining of productive cough and states she has not been receiving her inhalers here. We will give him DuoNeb since needed. - Exam Vitals: Temp Pulse Resp BP Pulse Ox 97.5 F L 84 18 105/64 95 06/20/18 06:49 06/20/18 06:49 06/20/18 06:49 06/20/18 06:49 06/20/18 06:49 Exam: General: awake, no acute distress, laying in bed comfortably Head: atraumatic, normocephalic Eyes: normal conjunctiva, EOMI ENT: oral mucosa moist Neck: trachea midline, supple Chest: symmetrical chest expansion Cardiac: RRR, no murmur Respiratory: Lungs CTA bilaterally, mild L expiratory wheezing and rales that clear with cough Abdomen: soft, nontender, nondistended Extremities: no calf tenderness, no pedal edema, normal capillary refill Neuro: AAOx3. CN II-XII intact Skin: warm, dry, intact - Assessment and Plan (1) Diverticulitis large intestine w/o perforation or abscess w/o bleeding Current Visit: Yes Status: Acute Assessment and Plan: CT abdomen and pelvis with IV contrast shows focal area of mucosal thickening and inflammatory change in the distal descending colon consistent with acute diverticulitis with no abscess or rupture. Radiology recommending short-term follow-up to exclude underlying colon neoplasm. Patient will need followup colonoscopy in 6 weeks. Blood cultures x2 no growth to date Continue levaquin and flagyl IV, day 2 Transition from NPO to clear liquid diet Metamucil added (2) Encephalopathy acute Current Visit: No Status: Resolved Assessment and Plan: Likely secondary to infection. Resolved. CT head without acute intracranial process. (3) Weakness Current Visit: Yes Status: Acute Assessment and Plan: Likely secondary to diverticulitis and recent influenza PT/OT (4) Hypotension Current Visit: Yes Status: Resolved Assessment and Plan: With history of hypertension Likely due to NPO and hypovolemia. Resolved s/p 500cc bolus IVFs. Continue maintenance fluids Norvasc and lisinopril on hold for now (5) Type 2 diabetes mellitus Current Visit: Yes Status: Chronic Assessment and Plan: Non insulin dependent SSI and hypoglycemia protocol Clear liquid diet (6) Atrial fibrillation Current Visit: Yes Status: Acute Assessment and Plan: Recently diagnosed RRR. Continue metoprolol, Plavix and eliquis DVT Prophylaxis: On eliquis and plavix - Time Spent with Patient Total time spent is greater than 50% in coordination of care (as documented) at patient's floor/unit and/or counseling patient: Internal Medicine: Result - Labs CBC & Chem 7: 06/20/18 05:24 06/20/18 05:24 Labs: Short CBC 06/20/18 Range/Units 05:24 WBC 9.4 (4.3-11.1) K/mcL Hgb 11.5 (11.5-15.4) g/dL Hct 33.7 L (35.3-44.9) % Plt Count 215 (140-400) K/mcL Neutrophils # 6.1 (1.6-8.9) K/mcL BMP 06/20/18 05:24 Sodium 136 Potassium 4.3 Chloride 107 Carbon Dioxide 19 L BUN 11 Creatinine 0.77 Glucose 173 H Calcium 8.1 L - Impressions Impressions Abdomen/Pelvis CT 06/19/18 20:29 IMPRESSION: Focal area of mucosal thickening and inflammatory change is noted involving the distal descending colon, consistent with acute diverticulitis. There is no evidence of abscess or rupture. Short-term follow-up imaging is recommended to exclude underlying colon neoplasm. D/ / 06/19/2018 08:22:54 Alem Hillman MD / devi Interpreting Provider: Alem Hillman MD Consult Discharge Plan - Plan Referrals: Ganesh Pina MD [Primary Care Provider] - (5) Type 2 diabetes mellitus Qualifiers: Diabetes mellitus parts counterman insulin use: without parts counterman use Diabetes mellitus complication status: without complication Qualified Code(s): E11.9 - Type 2 diabetes mellitus without complications (6) Atrial fibrillation Qualifiers: Atrial fibrillation type: chronic Qualified Code(s): I48.2 - Chronic atrial fibrillation
[2018-06-20] MEDS ORDERED: Ipratropium/Albuterol Neb 3 ML IH PRN (07:57)
[2018-06-20] MEDS: Insulin LISPRO 300 UNITS/3 ML VIAL SQ SCH ×4 (08:49→23:07)
--- NOTE | 2018-06-20 08:50 | Event Note ---
Date of Encounter: 06/20/18 Time of Encounter: 08:48 Patient was seen and examined. I agree with the progress note as written by the resident physician. The patient abdominal pain is much improved. She remains NPO. She was admitted for altered mental status and was found to have acute diverticulitis without complications. She has been treated conservatively since admission. Pain is well-controlled. Afebrile GEN: NAD CVS: RRR. S1, S2, No m/r/g RESP: CTAB ABD: Soft, minimal tenderness in the left side of the abdomen, ND, +BS EXT: No edema. 2+ DP. No rashes NEURO: Nonfocal Continue IV fluid. Start clear liquid diet. Antiemetics Cipro and Flagyl Pain control Continue breast her home medications Colonoscopy in about 6-8 weeks is recommended Glycemic control On Eliquis for history of A. fib
[2018-06-20] MEDS: Apixaban 5 MG TABLET PO SCH ×2 (10:45→20:14)
[2018-06-20] MEDS: Metoprolol XL (24 HR) Succ 25 MG TAB.ER.24H PO SCH (10:46)
[2018-06-20] MEDS: Levofloxacin 750 MG/150 ML 750 MG/150 ML BAG IVPB SCH (10:46)
[2018-06-20] MEDS: Gabapentin 400 MG CAPSULE PO SCH ×3 (10:46→20:14)
[2018-06-20] MEDS: Famotidine 20 MG TABLET PO SCH ×2 (10:46→20:29)
[2018-06-20] MEDS: 0.9 % Sodium Chloride 1,000 ML IVC SCH (10:49)
[2018-06-20] MEDS: Psyllium 1 PACKET POWD.PACK PO SCH ×2 (15:52→20:14)
[2018-06-20] MEDS: Acetaminophen 325 MG TABLET PO PRN (20:14)
[2018-06-21] MEDS: 0.9 % Sodium Chloride 1,000 ML IVC SCH ×2 (02:26→17:07)
[2018-06-21 07:11] LABS: Basophils % 0.4 %; Eosinophils # 0.1 K/mcL (0.0-0.6); Eosinophils % 1.8 %; Hematocrit 33.1 % (35.3-44.9); Immature Granulocytes % 0.3 % (0-4); Lymphocytes # 1.8 K/mcL (0.6-4.6); Lymphocytes % 23.4 %; Mean Corpuscular HGB Conc 33.2 g/dL (31.6-35.5); Mean Corpuscular Hemoglobin 30.2 pg (28.0-33.3); Mean Corpuscular Volume 90.9 fL (83.0-100.0); Mean Platelet Volume 9.9 fL (9.4-12.4); Monocytes # 1.3 K/mcL (0.0-1.3); Monocytes % 16.5 %; Neutrophils # 4.5 K/mcL (1.6-8.9); Platelet Count 200 K/mcL (140-400); Red Blood Count 3.64 M/mcL (3.82-4.97); Red Cell Distribution Width 13.1 % (11.5-14.5); Segmented Neutrophils % 57.6 %
[2018-06-21 07:30] LABS: BUN/Creatinine Ratio 11 (6-26); Blood Urea Nitrogen 7 mg/dL (8-23); Calcium 7.4 mg/dL (8.6-10.3); Carbon Dioxide 21 mEq/L (23-29); Chloride 109 mEq/L (98-107); Glucose 136 mg/dL (70-105); Osmolality,Calculated 288 (280-300); Potassium 3.5 mEq/L (3.5-5.1); Sodium 139 mEq/L (136-145); eGFR For Non-African Americans > 60 (> 60)
[2018-06-21] MEDS: Famotidine 20 MG TABLET PO SCH ×2 (08:28→20:53)
[2018-06-21] MEDS: Gabapentin 400 MG CAPSULE PO SCH ×3 (08:28→20:53)
[2018-06-21] MEDS: Cyanocobalamin (B-12) 1,000 MCG TABLET PO SCH (08:28)
[2018-06-21] MEDS: Apixaban 5 MG TABLET PO SCH ×2 (08:29→20:54)
[2018-06-21] MEDS: Cholecalciferol (D-3) 1,000 UNIT TABLET PO SCH (08:29)
[2018-06-21] MEDS: Loratadine 10 MG TABLET PO SCH (08:29)
[2018-06-21] MEDS: Metoprolol XL (24 HR) Succ 25 MG TAB.ER.24H PO SCH (08:29)
[2018-06-21] MEDS: MetroNIDAZOLE 500 MG/100 ML 500 MG/100 ML BAG IVPB SCH (08:29)
[2018-06-21] MEDS: Psyllium 1 PACKET POWD.PACK PO SCH ×3 (08:29→20:53)
[2018-06-21] MEDS: Insulin LISPRO 300 UNITS/3 ML VIAL SQ SCH ×4 (08:30→20:55)
[2018-06-21] MEDS ORDERED: Fluconazole 100 MG TABLET PO ONE (09:19)
--- NOTE | 2018-06-21 09:34 | Discharge Summary ---
<Traci Black M - Last Filed: 06/21/18 10:03> - NOTES TO OUTPATIENT PROVIDER Notes to Outpatient Provider: Continue Levaquin x6 days and Flagyl x7 days to finish 10 day course of antibiotics. Follow up with gastroenterology as scheduled and will need followup for colonoscopy in 6 weeks. Will need Repeat CT A/P with IV contrast in 6 weeks to exclude possible underlying colon neoplasm. Advance diet as tolerated. Increase fiber intake and use stool softners as needed. Orders not resulted at time of discharge: Pending orders 06/18/18 21:36 Culture,Blood [BC] Stat Date of Encounter: 06/21/18 Time of Encounter: 09:10 - Discharge Diagnosis (1) Diverticulitis large intestine w/o perforation or abscess w/o bleeding Priority: Primary Status: Acute Assessment and Plan: Continue Levaquin for 6 more days and Flagyl for 7 more days. Follow-up with gastroenterology as scheduled. Needs colonoscopy in 6-8 weeks. Will need possible repeat CT abdomen and pelvis in 6-8 weeks. (2) Weakness Priority: Secondary Status: Resolved Assessment and Plan: Likely secondary to diverticulitis and recent influenza. Resolving (3) Hypotension Priority: Secondary Status: Resolved Assessment and Plan: Likely due to hypovolemia and NPO status. Improved s/p 500cc NS bolus and maintenance fluids. Now normotensive Qualifiers: Hypotension type: unspecified hypotension type Qualified Code(s): I95.9 - Hypotension, unspecified (4) Type 2 diabetes mellitus Priority: Secondary Status: Chronic Assessment and Plan: Stable. Continue home meds Qualifiers: Diabetes mellitus terminal block assembler insulin use: without [facility] use Diabetes mellitus complication status: without complication Qualified Code(s): E11.9 - Type 2 diabetes mellitus without complications (5) Atrial fibrillation Priority: Secondary Status: Chronic Qualifiers: Atrial fibrillation type: unspecified Qualified Code(s): I48.91 - Unspecified atrial fibrillation (6) Encephalopathy acute Priority: Secondary Status: Resolved Assessment and Plan: Confusion on admission. Resolved. Secondary to acute infection Hospital course: Ms. Simpson is a 78 year old female with past medical history including hypertension, CVA, atrial fibrillation on Eliquis, metoprolol. Patient was recently admitted for influenza. She presented to the emergency department with concerns of having a urinary tract infection and confusion. At-home urine dipstick was positive for urinary tract infection. The primary care physician recommended coming to the emergency department for further evaluation. When she presented, the patient was alert and oriented 1 to person however not oriented to time, place, did not know her birthday. In the emergency department, urinalysis did not show urinary tract infection. CT head was obtained which showed no acute intracranial abnormality. The patient did have CT abdomen and pelvis with IV contrast that showed focal area of mucosal thickening and inflammatory changes in the distal descending colon consistent with acute diverticulitis with no abscess or rupture. Radiology is recommending short-term follow-up to exclude underlying colon neoplasm. The patient will need a repeat CT abdomen and pelvis in 6 weeks. The patient was started on Levaquin and Flagyl IV. She has received 4 days of Levaquin and 3 days of Flagyl. She was transitioned from nothing by mouth to clear liquid diet which she has been tolerating. Abdominal pain has improved. No bowel movements with blood or melena. She has been afebrile. She did have an episode of hypotension when she was nothing by mouth likely from hypovolemia. This improved when her blood pressure medications were put on hold, Norvasc and lisinopril. She also received 500 mL IV fluid bolus on top of her maintenance fluids. She is now normotensive and tolerating food by mouth. She receives physical therapy and occupational therapy and her weakness improved. Her acute encephalopathy likely secondary to the acute infection is also resolved. Patient is alert and oriented 3. Her sons also note an improvement. The patient is medically stable for discharge home and will complete a 10 day course of Flagyl and Levaquin. She will receive a gastroenterology appointment and will need a colonoscopy in 6 weeks. She will also need repeat CT abdomen and pelvis in 6 weeks. She will also follow up with her primary care physician. She will be discharged home also with stool softeners. She also does have a diaper rash will be sent home with the desitan and nystatin topical ointments. All questions have been answered and patient and family are agreeable to plan of care. Discharge discussed with: patient, family - Time Spent with Patient Total time spent providing and/or coordinating discharge services: - Discharge Medications Prescriptions: New RX: levoFLOXacin [Levaquin] 750 mg PO DAILY 6 Days #6 tablet RX: metroNIDAZOLE [Flagyl] 500 mg PO TID 7 Days #21 tablet RX: Psyllium [Metamucil Fiber Singles Packet] 1 packet PO TID 7 Days #21 powd.pack Sennosides/Docusate Sodium [Docusate Sodium-Senna Tablet] 1 each PO DAILY #14 tablet RX: Desitin (Zinc Oxide) [Desitin] 56 appl TP BID #1 tube RX: Nystatin POWDER [Nystop] 1 appl TP BID #30 gm Continue RX: Loratadine [Claritin] 10 mg PO DAILY RX: Lovastatin 40 mg PO DAILY RX: Gabapentin [Neurontin] 400 mg PO TID RX: Calcium Carbonate/Vitamin D3 [Calcium 500 + Vit D Caplet] 1 tab PO DAILY RX: Clopidogrel [Plavix] 75 mg PO DAILY #30 tablet RX: Lisinopril [Zestril] 10 mg PO DAILY #30 tablet RX: Amlodipine Besylate 10 mg PO DAILY RX: Cyanocobalamin (Vitamin B-12) [Vitamin B12] 1,000 mcg PO DAILY RX: Glimepiride [Amaryl] 1 mg PO DAILY RX: Metoprolol XL (24 HR) Succ [Toprol Xl] 25 mg PO DAILY RX: raNITIdine HCl [Zantac] 150 mg PO BID RX: Albuterol Neb [AccuNeb] 1.25 mg IH Q4H 30 Days #3 inhsol RX: Apixaban [Eliquis] 5 mg PO BID RX: Metformin HCl [Glucophage] 1,000 mg PO BID Home Medications: RX: Calcium Carbonate/Vitamin D3 [Calcium 500 + Vit D Caplet] 1 tab PO DAILY 05/27/16 [History] RX: Gabapentin [Neurontin] 400 mg PO TID 05/27/16 [History] RX: Loratadine [Claritin] 10 mg PO DAILY 05/27/16 [History] RX: Lovastatin 40 mg PO DAILY 05/27/16 [History] RX: Clopidogrel [Plavix] 75 mg PO DAILY #30 tablet 05/29/16 [Rx] RX: Lisinopril [Zestril] 10 mg PO DAILY #30 tablet 06/03/17 [Rx] RX: Amlodipine Besylate 10 mg PO DAILY 06/06/18 [History] RX: Cyanocobalamin (Vitamin B-12) [Vitamin B12] 1,000 mcg PO DAILY 06/06/18 [History] RX: Glimepiride [Amaryl] 1 mg PO DAILY 06/06/18 [History] RX: Metoprolol XL (24 HR) Succ [Toprol Xl] 25 mg PO DAILY 06/06/18 [History] RX: raNITIdine HCl [Zantac] 150 mg PO BID 06/06/18 [History] RX: Albuterol Neb [AccuNeb] 1.25 mg IH Q4H 30 Days #3 inhsol 06/08/18 [Rx] RX: Apixaban [Eliquis] 5 mg PO BID 06/18/18 [History] RX: Metformin HCl [Glucophage] 1,000 mg PO BID 06/18/18 [History] RX: Desitin (Zinc Oxide) [Desitin] 56 appl TP BID #1 tube 06/21/18 [Rx] RX: Nystatin POWDER [Nystop] 1 appl TP BID #30 gm 06/21/18 [Rx] RX: Psyllium [Metamucil Fiber Singles Packet] 1 packet PO TID 7 Days #21 powd. pack 06/21/18 [Rx] RX: levoFLOXacin [Levaquin] 750 mg PO DAILY 6 Days #6 tablet 06/21/18 [Rx] RX: metroNIDAZOLE [Flagyl] 500 mg PO TID 7 Days #21 tablet 06/21/18 [Rx] Sennosides/Docusate Sodium [Docusate Sodium-Senna Tablet] 1 each PO DAILY #14 tablet 06/21/18 [Rx] Allergies/Adverse Reactions: Allergy/AdvReac Type Severity Reaction Status Date / Time barium sulfate Allergy See Verified 06/18/18 22:58 Comments Date of admission: 06/18/18 23:09 Primary care physician: Ganesh Pina MD Consults: 06/19/18 04:56 Consult to Physical Therapy [CONS] Routine Comment: Evaluate, develop and implement POC Reason for Consult: weakness Does patient have active BEDREST order?: No Is patient medically & hemodynamically stable?: Yes Patient assessed for mobility or mobilized this visit?: No 06/19/18 09:05 Consult to Occupational Therapy [CONS] Routine Comment: Evaluate, develop and implement POC Reason for Consult: eval for poss ecf Does patient have active BEDREST order?: No Is patient medically & hemodynamically stable?: Yes Discharging clinician: Traci M Wika Anticipated date of discharge: 06/21/18 - Constitutional Vitals: Temp Pulse Resp BP Pulse Ox 98.6 F 98 20 114/65 96 06/21/18 07:23 06/21/18 07:23 06/21/18 07:23 06/21/18 07:23 06/21/18 07:23 General appearance: Present: A&O X 3, pleasant, no acute distress Exam: General: awake, no acute distress, sitting in chair Head: atraumatic, normocephalic Eyes: normal conjunctiva, EOMI ENT: oral mucosa moist Neck: trachea midline Chest: symmetrical chest expansion Cardiac: RRR, no murmur Respiratory: Lungs CTA bilaterally, now wheezing Abdomen: soft, nontender, nondistended Extremities: no calf tenderness, no pedal edema, normal capillary refill Neuro: AAOx3. CN II-XII intact Skin: warm, dry, diaper rash - Patient Status Disposition: Home, Self-Care Condition: Good Functional capacity at discharge: uses cane/walker Overall status at discharge: patient is progressing back to baseline - Discharge Instructions Instructions: Metronidazole (By mouth), Levofloxacin (By mouth), Diverticulitis (DC), Urinary Tract Infection in Women (DC), Diverticulitis Diet (DC) Follow Up With: [facility] [Provider Group] (Web Requested ON 06/21/2018. If you do not hear from the office please inform your PCP that the hospitalist recommended an outpt EGD/Colonoscopy) Dyllan Crespo MD [Partnered Physician] - (Please call to follow up in 1 week to have kim catheter removed.) Ganesh Pina MD [Primary Care Provider] - 06/27/18 10:45 am (Please follow up as schedule...) Forms: ED Satisfaction Letter Additional Instructions: Follow up with Gastroenterology and will need colonoscopy in 6-8 weeks. Follow up with Primary care physician next week. May need repeat CT Abdomen and Pelvis for evaluation of your colon in 6 weeks. Take the antibiotics, Levaquin and Flagyl as prescribed. Increase fiber in your diet and make sure you stay hydrated. Advance your diet as tolerated, started with full liquid diet then to a soft diet, then to a regular diet. You can take Metamucil or find fiber supplements over the counter. Take stool softners prescribed to you as needed for constipation Continue your home medications as prescribed Return to the emergency department if you develop any new or worsening symptoms such as worsening abdominal pain, blood in your stool, lightheadedness, chest pain, or shortness of breath. - Diet and Activity Activity: increase activity as tolerated Diet: diabetic diet <David Ma - Last Filed: 06/22/18 14:24> Orders not resulted at time of discharge: Pending orders 06/18/18 21:36 Culture,Blood [BC] Stat 06/22/18 07:57 Urinalysis Reflex Cult & Micro [URIN] Stat 06/23/18 04:00 BMP [Basic Metabolic Panel] AM 0400 Complete Blood Count [HEME] AM 0400 Magnesium AM 0400 Date of Encounter: 06/22/18 - Discharge Diagnosis (1) Diverticulitis Priority: Primary Status: Acute (2) Urinary retention Priority: Primary Status: Acute (3) Encephalopathy acute Priority: Primary Status: Resolved (4) Atrial fibrillation Status: Chronic Qualifiers: Atrial fibrillation type: unspecified Qualified Code(s): I48.91 - Unspecified atrial fibrillation (5) HTN (hypertension) Status: Chronic Qualifiers: Hypertension type: essential hypertension Qualified Code(s): I10 - Essential (primary) hypertension (6) Type 2 diabetes mellitus Status: Chronic Qualifiers: Diabetes mellitus terminal block assembler insulin use: without terminal block assembler use Diabetes mellitus complication status: without complication Qualified Code(s): E11.9 - Type 2 diabetes mellitus without complications (7) DVT prophylaxis Status: Acute Hospital course: Ms. Simpson is a 78 year old female - Time Spent with Patient Total time spent providing and/or coordinating discharge services: Greater than 30 minutes Date of admission: 06/18/18 23:09 Primary care physician: Ganesh Pina MD Consults: 06/19/18 04:56 Consult to Physical Therapy [CONS] Routine Comment: Evaluate, develop and implement POC Reason for Consult: weakness Does patient have active BEDREST order?: No Is patient medically & hemodynamically stable?: Yes Patient assessed for mobility or mobilized this visit?: No 06/19/18 09:05 Consult to Occupational Therapy [CONS] Routine Comment: Evaluate, develop and implement POC Reason for Consult: eval for poss ecf Does patient have active BEDREST order?: No Is patient medically & hemodynamically stable?: Yes 06/22/18 07:55 Consult to Urology [CONS] Routine Consulting Provider: [facility] Reason for Consult: urinary retention Call Completed: No - Constitutional Vitals: Temp Pulse Resp BP Pulse Ox 99.2 F 67 15 104/63 97 06/22/18 07:24 06/22/18 07:24 06/22/18 07:24 06/22/18 07:24 06/22/18 07:24 - Attending Attestation I examined this patient and my medical decision-making was reviewed with the Resident Physician. I agree with the documented discharge as described except to the extent set forth below. Admitted with acute diverticulitis. Treated with IV fluids, NPO, abx. discharged on oral abx. Tolerating full liquid at d/c and told to stay on that for a 1 or 2 before advancing to soft diet. Had issues with urinary retention while inpatient. A kim catheter placed. Urology will see her in a week for voiding trials as she failed voiding trial while inpatient. GEN: NAD CVS: RRR. S1, S2, No m/r/g RESP: CTAB ABD: Soft, NT, ND, +BS EXT: No edema. 2+ DP. No rashes NEURO: Nonfocal
[2018-06-21] MEDS: Levofloxacin 750 MG/150 ML 750 MG/150 ML BAG IVPB SCH (10:25)
--- NOTE | 2018-06-21 14:36 | Event Note ---
Date of Encounter: 06/21/18 Time of Encounter: 14:30 Patient only able to urinate 50 mL with 400 mL in her bladder after bladder scan. Her Whelan catheter was discontinued this morning. We will do straight catheterization and give Flomax 0.4 mg at this time. We will wait a couple hours. If the patient is able to void on her own, she will be discharged home. If she still is unable to void, we will give her until tomorrow morning and consult urology if needed.
[2018-06-21] MEDS: metroNIDAZOLE 500 MG TABLET PO SCH ×2 (15:40→20:54)
--- NOTE | 2018-06-21 15:41 | Event Note ---
Date of Encounter: 06/21/18 Time of Encounter: 15:38 Patient was seen and examined. I agree with the progress note as written by the resident physician. Continues to improve in terms diverticulits. Plan was to d/c but we are running into urinary retention after kim removal. Tolerating clears. She was admitted for altered mental status and was found to have acute diverticulitis without complications. She has been treated conservatively since admission. Pain is well-controlled. Afebrile GEN: NAD CVS: RRR. S1, S2, No m/r/g RESP: CTAB ABD: Soft, minimal tenderness in the left side of the abdomen, ND, +BS EXT: No edema. 2+ DP. No rashes NEURO: Nonfocal Give a dose of flomax .4mg. Straight cath. Will give her a chance to void before consulting urology. D/c only if urinary retention resolves. Otherwise c/s urology if issue is not resolved by am. Start full liquid diet. Antiemetics Cipro and Flagyl Pain control Continue breast her home medications Colonoscopy in about 6-8 weeks is recommended Glycemic control On Eliquis for history of A. fib
[2018-06-22] MEDS: 0.9 % Sodium Chloride 1,000 ML IVC SCH ×2 (05:58→11:13)
[2018-06-22 07:25] VITALS: BP 104/63
--- NOTE | 2018-06-22 07:58 | Internal Med Progress Note ---
Hospitalist Progress Note - Encounter Date of Encounter: 06/22/18 Time of Encounter: 08:00 - Subjective Interval History: Patient seen and examined. Continues to improve in terms of abdominal symptoms but since yesterday has had urinary retention and multiple times had to get straight caths. Afebrile. - Exam Vitals: Temp Pulse Resp BP Pulse Ox 99.2 F 67 15 104/63 97 06/22/18 07:24 06/22/18 07:24 06/22/18 07:24 06/22/18 07:24 06/22/18 07:24 Exam: GEN: NAD CVS: RRR. S1, S2, No m/r/g RESP: CTAB ABD: Soft, minimal tenderness in the left side of the abdomen, ND, +BS EXT: No edema. 2+ DP. No rashes NEURO: Nonfocal - Assessment and Plan (1) Diverticulitis Current Visit: Yes Status: Acute Assessment and Plan: c/w cipro/flagyl. tolerating full liquid diet. c/w pain control (2) Urinary retention Current Visit: Yes Status: Acute Assessment and Plan: Given flomax. Given IV fluids. All failed. c/s urology. A kim has been ordered. Check UA (3) Encephalopathy acute Current Visit: No Status: Resolved Assessment and Plan: Resolved (4) Atrial fibrillation Current Visit: Yes Status: Chronic Assessment and Plan: Controlled. c/w eliquis. c/w Toprol XL (5) HTN (hypertension) Current Visit: Yes Status: Chronic Assessment and Plan: c/w home meds (6) Type 2 diabetes mellitus Current Visit: Yes Status: Chronic Assessment and Plan: SSI. Accucheks. (7) DVT prophylaxis Current Visit: No Status: Acute Assessment and Plan: On eliquis - Time Spent with Patient Total time spent is greater than 50% in coordination of care (as documented) at patient's floor/unit and/or counseling patient: Internal Medicine: Result - Labs CBC & Chem 7: 06/21/18 06:41 06/21/18 06:41 Consult Discharge Plan - Plan Instructions: Diverticulitis (DC), Urinary Tract Infection in Women (DC), Diverticulitis Diet (DC) Additional Instructions: Follow up with Gastroenterology and will need colonoscopy in 6-8 weeks. Follow up with Primary care physician next week. May need repeat CT Abdomen and Pelvis for evaluation of your colon in 6 weeks. Take the antibiotics, Levaquin and Flagyl as prescribed. Increase fiber in your diet and make sure you stay hydrated. Advance your diet as tolerated, started with full liquid diet then to a soft diet, then to a regular diet. You can take Metamucil or find fiber supplements over the counter. Take stool softners prescribed to you as needed for constipation Continue your home medications as prescribed Return to the emergency department if you develop any new or worsening symptoms such as worsening abdominal pain, blood in your stool, lightheadedness, chest pain, or shortness of breath. Referrals: [facility] [Provider Group] (Web Requested 06/21/2018) Ganesh Pina MD [Primary Care Provider] - 06/27/18 10:45 am (Please follow up as schedule...) Prescriptions: Desitin (Zinc Oxide) [Desitin] 56 appl TP BID #1 tube levoFLOXacin [Levaquin] 750 mg PO DAILY 6 Days #6 tablet metroNIDAZOLE [Flagyl] 500 mg PO TID 7 Days #21 tablet Nystatin POWDER [Nystop] 1 appl TP BID #30 gm Psyllium [Metamucil Fiber Singles Packet] 1 packet PO TID 7 Days #21 powd.pack Sennosides/Docusate Sodium [Docusate Sodium-Senna Tablet] 1 each PO DAILY #14 tablet (4) Atrial fibrillation Qualifiers: Atrial fibrillation type: unspecified Qualified Code(s): I48.91 - Unspecified atrial fibrillation (5) HTN (hypertension) Qualifiers: Hypertension type: essential hypertension (6) Type 2 diabetes mellitus Qualifiers: Diabetes mellitus exterminator termite insulin use: without exterminator termite use Diabetes mellitus complication status: without complication Qualified Code(s): E11.9 - Type 2 diabetes mellitus without complications
[2018-06-22] MEDS: Insulin LISPRO 300 UNITS/3 ML VIAL SQ SCH ×2 (08:38→11:14)
[2018-06-22] MEDS ORDERED: levoFLOXacin 750 MG TABLET PO SCH (09:00)
[2018-06-22] MEDS: Cholecalciferol (D-3) 1,000 UNIT TABLET PO SCH (09:26)
[2018-06-22] MEDS: Gabapentin 400 MG CAPSULE PO SCH (09:26)
[2018-06-22] MEDS: Apixaban 5 MG TABLET PO SCH (09:26)
[2018-06-22] MEDS: Famotidine 20 MG TABLET PO SCH (09:26)
[2018-06-22] MEDS: Loratadine 10 MG TABLET PO SCH (09:26)
[2018-06-22] MEDS: Metoprolol XL (24 HR) Succ 25 MG TAB.ER.24H PO SCH (09:26)
[2018-06-22] MEDS: metroNIDAZOLE 500 MG TABLET PO SCH (09:26)
[2018-06-22] MEDS: Cyanocobalamin (B-12) 1,000 MCG TABLET PO SCH (09:26)
[2018-06-22] MEDS: Psyllium 1 PACKET POWD.PACK PO SCH (09:28)
--- NOTE | 2018-06-22 10:27 | Physician Discharge Referral ---
Home Health/Hosp Referral Info Transfer to: Home Health - Diagnosis (1) Diverticulitis Priority: Primary Status: Acute (2) Urinary retention Priority: Primary Status: Acute (3) Encephalopathy acute Priority: Primary Status: Resolved (4) Atrial fibrillation Priority: Secondary Status: Chronic (5) HTN (hypertension) Priority: Secondary Status: Chronic (6) Type 2 diabetes mellitus Priority: Secondary Status: Chronic - Respiratory Orders Smoking Cessation: Smoking cessation has been advised. For more information, call the [place] Tobacco Quit Line at 8-436-BCYH-NOW. - Diet/Nutrition Diet/Nutrition Orders: Mechanical Soft - Services Needed Following services are medically necessary services: Home Health Aide - Transfer Medications Prescriptions: Desitin (Zinc Oxide) [Desitin] 56 appl TP BID #1 tube levoFLOXacin [Levaquin] 750 mg PO DAILY 6 Days #6 tablet metroNIDAZOLE [Flagyl] 500 mg PO TID 7 Days #21 tablet Nystatin POWDER [Nystop] 1 appl TP BID #30 gm Psyllium [Metamucil Fiber Singles Packet] 1 packet PO TID 7 Days #21 powd.pack Sennosides/Docusate Sodium [Docusate Sodium-Senna Tablet] 1 each PO DAILY #14 tablet Home Medications: Calcium Carbonate/Vitamin D3 [Calcium 500 + Vit D Caplet] 1 tab PO DAILY 05/27/16 [History] Gabapentin [Neurontin] 400 mg PO TID 05/27/16 [History] Loratadine [Claritin] 10 mg PO DAILY 05/27/16 [History] Lovastatin 40 mg PO DAILY 05/27/16 [History] Clopidogrel [Plavix] 75 mg PO DAILY #30 tablet 05/29/16 [Rx] Lisinopril [Zestril] 10 mg PO DAILY #30 tablet 06/03/17 [Rx] Amlodipine Besylate 10 mg PO DAILY 06/06/18 [History] Cyanocobalamin (Vitamin B-12) [Vitamin B12] 1,000 mcg PO DAILY 06/06/18 [History] Glimepiride [Amaryl] 1 mg PO DAILY 06/06/18 [History] Metoprolol XL (24 HR) Succ [Toprol Xl] 25 mg PO DAILY 06/06/18 [History] raNITIdine HCl [Zantac] 150 mg PO BID 06/06/18 [History] Albuterol Neb [AccuNeb] 1.25 mg IH Q4H 30 Days #3 inhsol 06/08/18 [Rx] Apixaban [Eliquis] 5 mg PO BID 06/18/18 [History] Metformin HCl [Glucophage] 1,000 mg PO BID 06/18/18 [History] Desitin (Zinc Oxide) [Desitin] 56 appl TP BID #1 tube 06/21/18 [Rx] Nystatin POWDER [Nystop] 1 appl TP BID #30 gm 06/21/18 [Rx] Psyllium [Metamucil Fiber Singles Packet] 1 packet PO TID 7 Days #21 powd.pack 06/21/18 [Rx] Sennosides/Docusate Sodium [Docusate Sodium-Senna Tablet] 1 each PO DAILY #14 tablet 06/21/18 [Rx] levoFLOXacin [Levaquin] 750 mg PO DAILY 6 Days #6 tablet 06/21/18 [Rx] metroNIDAZOLE [Flagyl] 500 mg PO TID 7 Days #21 tablet 06/21/18 [Rx] Allergies/Adverse Reactions: Allergy/AdvReac Type Severity Reaction Status Date / Time barium sulfate Allergy See Verified 06/18/18 22:58 Comments Certification: Further, I certify that my clinical findings support that this patient is homebound (i.e. absences from home require considerable and taxing effort and are for medical reasons or anglican services or infrequently or short duration when for other reasons) because: Homebound Reason: Patient requires assistance of a person or device to safely leave home Attestation: My signature below is to certify that this patient is under my care and that I, or nurse practitioner, or a physician's tourist information assistant working with me, has a [id number] encounter with this patient.
[2018-06-22 10:44] LABS: Bilirubin,Urine Negative (Negative); Blood,Urine Negative (Negative); Clarity,Urine Clear (Clear); Color,Urine Yellow (Yellow); Glucose,Urine (UA) 500 mg/dL (Normal); Ketones,Urine Negative (Negative); Leukocyte Esterase,Urine Negative (Negative); Nitrite,Urine Negative (Negative); Protein,Urine Negative (Neg-Trace); Specific Gravity,Urine 1.013 (1.010-1.025); Urobilinogen,Urine Normal (Normal)
--- NOTE | 2018-06-22 20:03 | Electrocardiograph Report ---
[place] [id number] Test Date: 2018-06-18 Pat Name: Tania Simpson Department: EXAM7 Room: 2A Gender: F Relationship Associate: : [id number] Requested By: Fortino Mcknight Order Number: [id number] Reading MD: Mihai Alvarenga Measurements Intervals Points Rate: 104 P: 61 AL: 146 QRS: 10 QRSD: 90 T: 40 QT: 369 QTc: 486 Interpretive Statements Sinus tachycardia Atrial premature complexes Probable left atrial enlargement Borderline prolonged QT interval Electronically Signed On 06-22-2018 20:02:11 EST by Mihai Alvarenga
== END 2018-06-22 11:50 | disposition home or self-care (01) ==
LOC: 2ANU 17:16 → EMEROOARM 17:16 → SUATTDRO 23:09 → 2ANU 23:47
PROVIDERS: ADMIT Pediatrics; ATTEND Internal Medicine

== ENCOUNTER 2020-11-29 20:54 | Inpatient (IN) ==
[2020-11-29] MEDS ORDERED: Isovue-370 500 ML BOTTLE IVP ONE (21:18)
[2020-11-29] MEDS ORDERED: 0.9 % Sodium Chloride 1,000 ML IV ONE (21:19)
[2020-11-29] MEDS ORDERED: DilTIAZem 50 MG in 0.9 % Sodium Chloride 40 ML IVC SCH (21:30)
[2020-11-29 21:33] LABS: Amphetamine Screen,Urine Negative ng/mL (Cutoff=1000); Barbiturate Screen,Urine Negative ng/mL (Cutoff=200); Benzodiazepines Screen,Urine Negative ng/mL (Cutoff=200); Cannabinoid Screen,Urine Negative ng/mL (Cutoff = 50); Cocaine Screen,Urine Negative ng/mL (Cutoff= 300); Opiate Screen,Urine Negative ng/mL (Cutoff=300); Phencyclidine Screen,Urine Negative ng/mL (Cutoff=25)
[2020-11-29] MEDS: DilTIAZem 50 MG/50 ML IV.SOLN IVC SCH (21:42)
[2020-11-29 21:54] LABS: VBG HCO3 15 mEq/L (21-27); VBG PCO2 23 mmHg (41-51); VBG PH 7.43 pH Units (7.32-7.42); VBG PO2 79 mmHg (25-50)
[2020-11-29 21:57] LABS: Basophils # 0.1 K/mcL (0.0-0.2); Basophils % 0.3 %; Eosinophils # 0.1 K/mcL (0.0-0.6); Eosinophils % 0.3 %; Hematocrit 39.5 % (35.3-44.9); Hemoglobin 13.9 g/dL (11.5-15.4); Immature Granulocytes % 0.5 % (0-4); Lymphocytes # 3.4 K/mcL (0.6-4.6); Lymphocytes % 21.2 %; Mean Corpuscular HGB Conc 35.2 g/dL (31.6-35.5); Mean Corpuscular Hemoglobin 32.4 pg (28.0-33.3); Mean Corpuscular Volume 92.1 fL (83.0-100.0); Mean Platelet Volume 9.9 fL (9.4-12.4); Monocytes # 1.3 K/mcL (0.0-1.3); Monocytes % 8.2 %; Neutrophils # 11.1 K/mcL (1.6-8.9); Platelet Count 294 K/mcL (140-400); Red Blood Count 4.29 M/mcL (3.82-4.97); Red Cell Distribution Width 12.7 % (11.5-14.5); Segmented Neutrophils % 69.5 %
[2020-11-29 22:11] LABS: INR 1.1; Prothrombin Time 13.1 Seconds (9.4-12.1)
[2020-11-29 22:14] LABS: Activated Partial Thrombo Time 26.7 Seconds (26.0-36.0); Alanine Aminotransferase 15 Units/L (7-52); Albumin 3.9 g/dL (3.5-5.7); Albumin/Globulin Ratio 1.4 (1.1-2.2); Alkaline Phosphatase 61 Units/L (34-104); Aspartate Amino Transferase 13 Units/L (13-39); BUN/Creatinine Ratio 28 (6-26); Bilirubin,Direct 0.1 mg/dL (0.0-0.2); Bilirubin,Indirect 0.4 mg/dL (0.0-1.0); Bilirubin,Total 0.5 mg/dL (0.3-1.0); Blood Urea Nitrogen 32 mg/dL (8-23); Calcium 10.2 mg/dL (8.6-10.3); Carbon Dioxide 13 mEq/L (23-29); Chloride 101 mEq/L (98-107); Globulin 2.8 g/dL (2.4-3.5); Glucose 201 mg/dL (70-105); Osmolality,Calculated 297 (280-300); Potassium 3.8 mEq/L (3.5-5.1); Sodium 137 mEq/L (136-145); Total Protein 6.7 g/dL (6.4-8.9); Troponin I < 0.03 ng/mL (< 0.04); eGFR For African Americans 56 (> 60); eGFR For Non-African Americans 46 (> 60)
[2020-11-29 22:28] LABS: Bilirubin,Urine Negative (Negative); Blood,Urine Negative (Negative); Clarity,Urine Clear (Clear); Color,Urine Yellow (Yellow); Glucose,Urine (UA) Normal (Normal); Ketones,Urine 40 mg/dL (Negative); Leukocyte Esterase,Urine Negative (Negative); Nitrite,Urine Negative (Negative); PH,Urine 5.5 pH Units (5.0-8.0); Protein,Urine 30 mg/dL (Neg-Trace); Specific Gravity,Urine >= 1.030 (1.010-1.025); Urobilinogen,Urine Normal (Normal)
[2020-11-29 23:18] LABS: Amorphous Sediment,Urine Few per hpf (None-Few); RBC,Urine 0-3 per hpf (0-3); Squamous Epithelial Cell,Urine Few per hpf (None-Few); WBC,Urine 0-3 per hpf (0-3)
[2020-11-29] MEDS ORDERED: Naloxone 0.4 MG/ML INJ IVP PRN (23:40)
[2020-11-29] MEDS ORDERED: Acetaminophen 325 MG TABLET PO PRN (23:40)
[2020-11-29] MEDS ORDERED: Ondansetron 4 MG/2 ML VIAL IVP PRN (23:40)
[2020-11-30 01:01] LABS: Adenovirus Not Detected (Not Detect); Bordetella Pertussis Not Detected (Not Detect); Chlamydophila pneumoniae Not Detected (Not Detect); Coronavirus 229E Not Detected (Not Detect); Coronavirus HKU1 Not Detected (Not Detect); Coronavirus NL63 Not Detected (Not Detect); Coronavirus OC43 Not Detected (Not Detect); Human Metapneumovirus Not Detected (Not Detect); Human Rhinovirus/Enterovirus Not Detected (Not Detect); Influenza A Subtype 2009 H1 Not Detected (Not Detect); Influenza B Not Detected (Not Detect); Mycoplasma pneumoniae Not Detected (Not Detect); Parainfluenza Virus 1 Not Detected (Not Detect); Parainfluenza Virus 2 Not Detected (Not Detect); Parainfluenza Virus 3 Not Detected (Not Detect); Parainfluenza Virus 4 Not Detected (Not Detect); Respiratory Syncytial Virus Not Detected (Not Detect); SARS-CoV-2 Not Detected (Not Detect)
[2020-11-30] MEDS: 0.9 % Sodium Chloride 1,000 ML IVC SCH ×4 (01:34→23:46)
[2020-11-30] MEDS: DilTIAZem 50 MG/50 ML IV.SOLN IVC SCH ×4 (01:35→12:40)
[2020-11-30 03:04] LABS: Basophils # 0.1 K/mcL (0.0-0.2); Basophils % 0.3 %; Eosinophils % 0.1 %; Hematocrit 38.6 % (35.3-44.9); Hemoglobin 13.4 g/dL (11.5-15.4); Immature Granulocytes % 0.4 % (0-4); Lymphocytes # 2.5 K/mcL (0.6-4.6); Lymphocytes % 15.6 %; Mean Corpuscular HGB Conc 34.7 g/dL (31.6-35.5); Mean Corpuscular Volume 92.1 fL (83.0-100.0); Monocytes # 1.1 K/mcL (0.0-1.3); Monocytes % 6.6 %; Neutrophils # 12.2 K/mcL (1.6-8.9); Platelet Count 264 K/mcL (140-400); Red Blood Count 4.19 M/mcL (3.82-4.97); Red Cell Distribution Width 12.7 % (11.5-14.5); White Blood Count 15.9 K/mcL (4.3-11.1)
[2020-11-30 03:12] LABS: Estimated Average Glucose 128 mg/dl; Hemoglobin A1C 6.1 %
[2020-11-30 03:14] LABS: INR 1.1
[2020-11-30 04:06] LABS: Alanine Aminotransferase 13 Units/L (7-52); Albumin 3.7 g/dL (3.5-5.7); Albumin/Globulin Ratio 1.4 (1.1-2.2); Alkaline Phosphatase 61 Units/L (34-104); Aspartate Amino Transferase 13 Units/L (13-39); BUN/Creatinine Ratio 31 (6-26); Bilirubin,Total 0.5 mg/dL (0.3-1.0); Blood Urea Nitrogen 28 mg/dL (8-23); Calcium 9.2 mg/dL (8.6-10.3); Carbon Dioxide 13 mEq/L (23-29); Chloride 103 mEq/L (98-107); Globulin 2.6 g/dL (2.4-3.5); Glucose 213 mg/dL (70-105); Magnesium 1.1 mg/dL (1.6-2.6); Osmolality,Calculated 294 (280-300); Potassium 3.7 mEq/L (3.5-5.1); Sodium 136 mEq/L (136-145); Thyroid Stimulating Hormone 1.162 mcIU/mL (0.340-5.600); Total Protein 6.3 g/dL (6.4-8.9); eGFR For African Americans > 60 (> 60); eGFR For Non-African Americans 60 (> 60)
[2020-11-30] MEDS ORDERED: D5% in Water 1,000 ML IVC PRN (05:52)
[2020-11-30] MEDS ORDERED: Dextrose Gel 15 GM/37.5 ML TUBE PO PRN ×2 (05:52)
[2020-11-30] MEDS ORDERED: *HR* Dextrose 50 % in Water (Vial) 50 ML VIAL IVP PRN (05:52)
[2020-11-30] MEDS ORDERED: Perflutren Lipid Microsphere 1.3 ML in 0.9 % Sodium Chloride 8.7 ML IVP PRN (06:05)
[2020-11-30] MEDS: Metoprolol XL (24 HR) Succ 25 MG TAB.ER.24H PO SCH (08:57)
[2020-11-30] MEDS: Sennosides/Docusate Sodium TABLET PO SCH (08:57)
[2020-11-30] MEDS: amLODIPine 5 MG TABLET PO SCH (08:57)
[2020-11-30] MEDS: Cyanocobalamin (B-12) 1,000 MCG TABLET PO SCH (08:58)
[2020-11-30] MEDS ORDERED: Apixaban 5 MG TABLET PO SCH (09:00)
[2020-11-30] MEDS: Insulin LISPRO 300 UNITS/3 ML VIAL SUBQ SCH ×3 (09:27→16:42)
[2020-11-30] MEDS ORDERED: *HR* Heparin 5,000 UNIT/ML VIAL IVP ONE (13:36)
[2020-11-30] MEDS ORDERED: *HR* Heparin 5,000 UNIT/ML VIAL IVP PRN (13:36)
[2020-11-30] MEDS: Heparin 25,000UNIT/250ML 1/2NS 25,000 UNIT/250 ML IV.SOLN IVC SCH (14:04)
[2020-11-30] MEDS: *HR* Metoprolol 5 MG/5 ML VIAL IVP SCH ×2 (14:04→17:24)
[2020-12-01] MEDS: *HR* Metoprolol 5 MG/5 ML VIAL IVP SCH ×5 (00:40→23:35)
[2020-12-01 00:43] LABS: Hematocrit 36.6 % (35.3-44.9); Hemoglobin 12.7 g/dL (11.5-15.4); Mean Corpuscular HGB Conc 34.7 g/dL (31.6-35.5); Mean Corpuscular Hemoglobin 32.2 pg (28.0-33.3); Mean Corpuscular Volume 92.7 fL (83.0-100.0); Mean Platelet Volume 9.7 fL (9.4-12.4); Platelet Count 255 K/mcL (140-400); Red Blood Count 3.95 M/mcL (3.82-4.97); Red Cell Distribution Width 12.8 % (11.5-14.5); White Blood Count 13.3 K/mcL (4.3-11.1)
[2020-12-01 00:50] LABS: Heparin anti-factor XA UFH 0.28 IU/mL (0.30-0.70)
[2020-12-01 00:51] LABS: INR 1.1; Prothrombin Time 12.5 Seconds (9.4-12.1)
[2020-12-01 01:09] LABS: BUN/Creatinine Ratio 27 (6-26); Blood Urea Nitrogen 20 mg/dL (8-23); Calcium 8.4 mg/dL (8.6-10.3); Carbon Dioxide 15 mEq/L (23-29); Chloride 108 mEq/L (98-107); Glucose 145 mg/dL (70-105); Osmolality,Calculated 295 (280-300); Potassium 3.3 mEq/L (3.5-5.1); Sodium 140 mEq/L (136-145); eGFR For African Americans > 60 (> 60); eGFR For Non-African Americans > 60 (> 60)
[2020-12-01 01:13] LABS: Troponin I 0.04 ng/mL (< 0.04)
[2020-12-01] MEDS: *HR* Heparin 5,000 UNIT/ML VIAL IVP PRN (02:09)
[2020-12-01] MEDS: amLODIPine 5 MG TABLET PO SCH (07:29)
[2020-12-01] MEDS: Metoprolol XL (24 HR) Succ 25 MG TAB.ER.24H PO SCH (07:30)
[2020-12-01] MEDS: Sennosides/Docusate Sodium TABLET PO SCH (07:30)
[2020-12-01] MEDS: Cyanocobalamin (B-12) 1,000 MCG TABLET PO SCH (07:30)
[2020-12-01] MEDS: Insulin LISPRO 300 UNITS/3 ML VIAL SUBQ SCH ×3 (13:00→23:35)
[2020-12-01] MEDS: 0.9 % Sodium Chloride 1,000 ML IVC SCH (13:08)
[2020-12-01] MEDS ORDERED: Potassium Chloride 40 MEQ, Lidocaine 1% 2 ML in 0.9 % Sodium Chloride 500 ML IVPB ONE (13:28)
[2020-12-01] MEDS: Heparin 25,000UNIT/250ML 1/2NS 25,000 UNIT/250 ML IV.SOLN IVC SCH (21:08)
[2020-12-02] MEDS: 0.9 % Sodium Chloride 1,000 ML IVC SCH ×2 (01:27→14:43)
[2020-12-02 03:31] LABS: Heparin anti-factor XA UFH 0.8 IU/mL (0.30-0.70)
[2020-12-02 04:24] LABS: Activated Partial Thrombo Time 79.4 Seconds (26.0-36.0)
[2020-12-02] MEDS: Heparin 25,000UNIT/250ML 1/2NS 25,000 UNIT/250 ML IV.SOLN IVC SCH (04:47)
[2020-12-02] MEDS: Insulin LISPRO 300 UNITS/3 ML VIAL SUBQ SCH ×3 (05:37→18:07)
[2020-12-02] MEDS: *HR* Metoprolol 5 MG/5 ML VIAL IVP SCH ×3 (05:37→18:11)
[2020-12-02] MEDS: Sennosides/Docusate Sodium TABLET PO SCH (08:25)
[2020-12-02] MEDS: Cyanocobalamin (B-12) 1,000 MCG TABLET PO SCH (08:25)
[2020-12-02 12:42] LABS: Hematocrit 33.7 % (35.3-44.9); Hemoglobin 11.5 g/dL (11.5-15.4); Mean Corpuscular HGB Conc 34.1 g/dL (31.6-35.5); Mean Corpuscular Hemoglobin 31.3 pg (28.0-33.3); Mean Corpuscular Volume 91.8 fL (83.0-100.0); Mean Platelet Volume 10.1 fL (9.4-12.4); Platelet Count 235 K/mcL (140-400); Red Blood Count 3.67 M/mcL (3.82-4.97); Red Cell Distribution Width 12.9 % (11.5-14.5); White Blood Count 12.3 K/mcL (4.3-11.1)
[2020-12-02 12:52] LABS: BUN/Creatinine Ratio 11 (6-26); Blood Urea Nitrogen 6 mg/dL (8-23); Calcium 7.6 mg/dL (8.6-10.3); Carbon Dioxide 20 mEq/L (23-29); Chloride 108 mEq/L (98-107); Glucose 130 mg/dL (70-105); Osmolality,Calculated 287 (280-300); Potassium 3.5 mEq/L (3.5-5.1); Sodium 139 mEq/L (136-145); eGFR For African Americans > 60 (> 60); eGFR For Non-African Americans > 60 (> 60)
[2020-12-03] MEDS: Insulin LISPRO 300 UNITS/3 ML VIAL SUBQ SCH ×5 (00:48→21:47)
[2020-12-03] MEDS: *HR* Metoprolol 5 MG/5 ML VIAL IVP SCH ×4 (00:53→17:22)
[2020-12-03] MEDS: 0.9 % Sodium Chloride 1,000 ML IVC SCH ×2 (05:43→21:09)
[2020-12-03] MEDS: Heparin 25,000UNIT/250ML 1/2NS 25,000 UNIT/250 ML IV.SOLN IVC SCH (06:17)
[2020-12-03 06:40] LABS: Hematocrit 32.6 % (35.3-44.9); Hemoglobin 11.7 g/dL (11.5-15.4); Mean Corpuscular HGB Conc 35.9 g/dL (31.6-35.5); Mean Corpuscular Hemoglobin 32.3 pg (28.0-33.3); Mean Corpuscular Volume 90.1 fL (83.0-100.0); Mean Platelet Volume 9.9 fL (9.4-12.4); Platelet Count 229 K/mcL (140-400); Red Blood Count 3.62 M/mcL (3.82-4.97); Red Cell Distribution Width 12.8 % (11.5-14.5); White Blood Count 12.4 K/mcL (4.3-11.1)
[2020-12-03 07:06] LABS: BUN/Creatinine Ratio 11 (6-26); Blood Urea Nitrogen 6 mg/dL (8-23); Calcium 7.3 mg/dL (8.6-10.3); Carbon Dioxide 16 mEq/L (23-29); Chloride 107 mEq/L (98-107); Glucose 135 mg/dL (70-105); Magnesium 1.4 mg/dL (1.6-2.6); Osmolality,Calculated 284 (280-300); Potassium 3.2 mEq/L (3.5-5.1); Sodium 137 mEq/L (136-145); eGFR For African Americans > 60 (> 60); eGFR For Non-African Americans > 60 (> 60)
[2020-12-03] MEDS ORDERED: Potassium Chloride 40 MEQ, Lidocaine 1% 2 ML in 0.9 % Sodium Chloride 500 ML IVPB ONE (07:38)
[2020-12-03] MEDS: Sennosides/Docusate Sodium TABLET PO SCH (08:19)
[2020-12-03 14:10] LABS: Bilirubin,Urine Negative (Negative); Blood,Urine Trace (Negative); Clarity,Urine Clear (Clear); Color,Urine Colorless (Yellow); Glucose,Urine (UA) 500 mg/dL (Normal); Ketones,Urine 80 mg/dL (Negative); Leukocyte Esterase,Urine Negative (Negative); Mucus,Urine Few per lpf (None-Few); Nitrite,Urine Negative (Negative); PH,Urine 5.5 pH Units (5.0-8.0); Protein,Urine Negative (Neg-Trace); Specific Gravity,Urine 1.011 (1.010-1.025); Squamous Epithelial Cell,Urine Few per hpf (None-Few); Urobilinogen,Urine Normal (Normal); WBC,Urine 0-3 per hpf (0-3)
[2020-12-04] MEDS: *HR* Metoprolol 5 MG/5 ML VIAL IVP SCH ×4 (00:52→17:48)
[2020-12-04] MEDS: *HR* Heparin 5,000 UNIT/ML VIAL IVP PRN (01:51)
[2020-12-04 05:53] LABS: Hematocrit 30.9 % (35.3-44.9); Hemoglobin 10.9 g/dL (11.5-15.4); Mean Corpuscular HGB Conc 35.3 g/dL (31.6-35.5); Mean Corpuscular Hemoglobin 31.9 pg (28.0-33.3); Mean Corpuscular Volume 90.4 fL (83.0-100.0); Mean Platelet Volume 10.3 fL (9.4-12.4); Platelet Count 207 K/mcL (140-400); Red Blood Count 3.42 M/mcL (3.82-4.97); White Blood Count 11.7 K/mcL (4.3-11.1)
[2020-12-04 06:23] LABS: BUN/Creatinine Ratio 13 (6-26); Blood Urea Nitrogen 7 mg/dL (8-23); Calcium 7.2 mg/dL (8.6-10.3); Carbon Dioxide 17 mEq/L (23-29); Chloride 110 mEq/L (98-107); Glucose 155 mg/dL (70-105); Magnesium 1.6 mg/dL (1.6-2.6); Osmolality,Calculated 281 (280-300); Potassium 3.1 mEq/L (3.5-5.1); Sodium 135 mEq/L (136-145); eGFR For African Americans > 60 (> 60); eGFR For Non-African Americans > 60 (> 60)
[2020-12-04] MEDS ORDERED: Potassium Chloride 40 MEQ, Lidocaine 1% 2 ML in 0.9 % Sodium Chloride 500 ML IVPB ONE (09:09)
[2020-12-04] MEDS ORDERED: Calcium Gluconate 1gm/50mL 1 GM/50 ML BAG IVPB ONE (09:10)
[2020-12-04] MEDS: Insulin LISPRO 300 UNITS/3 ML VIAL SUBQ SCH ×4 (09:46→21:15)
[2020-12-04] MEDS: Sennosides/Docusate Sodium TABLET PO SCH (09:46)
[2020-12-04] MEDS: 0.9 % Sodium Chloride 1,000 ML IVC SCH (11:12)
[2020-12-04] MEDS: Heparin 25,000UNIT/250ML 1/2NS 25,000 UNIT/250 ML IV.SOLN IVC SCH (12:59)
[2020-12-04] MEDS: *HR* Enoxaparin 60 MG/0.6 ML SYRINGE SQ SCH (17:49)
[2020-12-05] MEDS: *HR* Metoprolol 5 MG/5 ML VIAL IVP SCH ×4 (00:01→18:12)
[2020-12-05] MEDS: *HR* Enoxaparin 60 MG/0.6 ML SYRINGE SQ SCH ×2 (05:07→18:12)
[2020-12-05] MEDS ORDERED: Potassium Chloride 40 MEQ, Lidocaine 1% 2 ML in 0.9 % Sodium Chloride 500 ML IVPB ONE (08:39)
[2020-12-05] MEDS: Insulin LISPRO 300 UNITS/3 ML VIAL SUBQ SCH ×4 (09:18→20:50)
[2020-12-05] MEDS: Sennosides/Docusate Sodium TABLET PO SCH (09:18)
[2020-12-05 09:44] LABS: Basophils % 0.4 %; Eosinophils # 0.1 K/mcL (0.0-0.6); Eosinophils % 0.8 %; Hematocrit 29.8 % (35.3-44.9); Hemoglobin 10.6 g/dL (11.5-15.4); Immature Granulocytes % 0.6 % (0-4); Lymphocytes # 2.6 K/mcL (0.6-4.6); Lymphocytes % 24.9 %; Mean Corpuscular HGB Conc 35.6 g/dL (31.6-35.5); Mean Corpuscular Hemoglobin 32.3 pg (28.0-33.3); Mean Corpuscular Volume 90.9 fL (83.0-100.0); Mean Platelet Volume 10.6 fL (9.4-12.4); Monocytes # 1.1 K/mcL (0.0-1.3); Monocytes % 10.8 %; Neutrophils # 6.6 K/mcL (1.6-8.9); Platelet Count 206 K/mcL (140-400); Red Blood Count 3.28 M/mcL (3.82-4.97); Red Cell Distribution Width 13.3 % (11.5-14.5); Segmented Neutrophils % 62.5 %; White Blood Count 10.6 K/mcL (4.3-11.1)
[2020-12-05 10:04] LABS: BUN/Creatinine Ratio 13 (6-26); Blood Urea Nitrogen 7 mg/dL (8-23); Calcium 7.5 mg/dL (8.6-10.3); Carbon Dioxide 21 mEq/L (23-29); Chloride 108 mEq/L (98-107); Glucose 251 mg/dL (70-105); Osmolality,Calculated 290 (280-300); Potassium 3.4 mEq/L (3.5-5.1); Sodium 137 mEq/L (136-145); eGFR For African Americans > 60 (> 60); eGFR For Non-African Americans > 60 (> 60)
[2020-12-06] MEDS: *HR* Metoprolol 5 MG/5 ML VIAL IVP SCH ×4 (00:28→18:07)
[2020-12-06] MEDS: *HR* Enoxaparin 60 MG/0.6 ML SYRINGE SQ SCH (05:54)
[2020-12-06 07:00] LABS: Basophils % 0.4 %; Eosinophils # 0.1 K/mcL (0.0-0.6); Eosinophils % 0.8 %; Hematocrit 29.3 % (35.3-44.9); Hemoglobin 10.4 g/dL (11.5-15.4); Immature Granulocytes % 0.5 % (0-4); Lymphocytes # 2.9 K/mcL (0.6-4.6); Lymphocytes % 28.7 %; Mean Corpuscular HGB Conc 35.5 g/dL (31.6-35.5); Mean Corpuscular Hemoglobin 32.1 pg (28.0-33.3); Mean Corpuscular Volume 90.4 fL (83.0-100.0); Mean Platelet Volume 10.2 fL (9.4-12.4); Monocytes % 10.2 %; Neutrophils # 5.9 K/mcL (1.6-8.9); Platelet Count 229 K/mcL (140-400); Red Blood Count 3.24 M/mcL (3.82-4.97); Red Cell Distribution Width 13.2 % (11.5-14.5); Segmented Neutrophils % 59.4 %
[2020-12-06 08:08] LABS: BUN/Creatinine Ratio 17 (6-26); Blood Urea Nitrogen 8 mg/dL (8-23); Calcium 7.8 mg/dL (8.6-10.3); Carbon Dioxide 20 mEq/L (23-29); Chloride 110 mEq/L (98-107); Glucose 176 mg/dL (70-105); Osmolality,Calculated 285 (280-300); Potassium 3.8 mEq/L (3.5-5.1); Sodium 136 mEq/L (136-145); eGFR For African Americans > 60 (> 60); eGFR For Non-African Americans > 60 (> 60)
[2020-12-06] MEDS: Sennosides/Docusate Sodium TABLET PO SCH (09:34)
[2020-12-06] MEDS: Insulin LISPRO 300 UNITS/3 ML VIAL SUBQ SCH ×4 (09:35→20:43)
[2020-12-06] MEDS ORDERED: [UNRECOGNIZED DRUG - OTHER] PO PRN (14:01)
[2020-12-06] MEDS ORDERED: SENNOSIDES PO PRN (14:01)
[2020-12-06] MEDS ORDERED: DOCUSATE SODIUM PO PRN (14:01)
[2020-12-06] MEDS ORDERED: *HR* Metoprolol 5 MG/5 ML VIAL IVP ONE (19:24)
[2020-12-06] MEDS ORDERED: *HR* Metoprolol 5 MG/5 ML VIAL IVP PRN (19:37)
[2020-12-06] MEDS: Apixaban 5 MG TABLET PO SCH (20:42)
[2020-12-07 04:19] LABS: Hematocrit 30.3 % (35.3-44.9); Hemoglobin 10.8 g/dL (11.5-15.4); Mean Corpuscular HGB Conc 35.6 g/dL (31.6-35.5); Mean Corpuscular Hemoglobin 32.1 pg (28.0-33.3); Mean Corpuscular Volume 90.2 fL (83.0-100.0); Mean Platelet Volume 10.5 fL (9.4-12.4); Platelet Count 270 K/mcL (140-400); Red Blood Count 3.36 M/mcL (3.82-4.97); White Blood Count 9.7 K/mcL (4.3-11.1)
[2020-12-07 04:36] LABS: BUN/Creatinine Ratio 19 (6-26); Blood Urea Nitrogen 11 mg/dL (8-23); Calcium 8.2 mg/dL (8.6-10.3); Carbon Dioxide 21 mEq/L (23-29); Chloride 106 mEq/L (98-107); Glucose 165 mg/dL (70-105); Osmolality,Calculated 289 (280-300); Potassium 3.6 mEq/L (3.5-5.1); Sodium 138 mEq/L (136-145); eGFR For African Americans > 60 (> 60); eGFR For Non-African Americans > 60 (> 60)
[2020-12-07] MEDS: Sennosides/Docusate Sodium TABLET PO SCH (08:07)
[2020-12-07] MEDS: lisinopriL 10 MG TABLET PO SCH (08:08)
[2020-12-07] MEDS: Apixaban 5 MG TABLET PO SCH ×2 (08:08→20:47)
[2020-12-07] MEDS: Cholecalciferol (D-3) 1,000 UNIT (25MCG) TABLET PO SCH (08:08)
[2020-12-07] MEDS: Metoprolol XL (24 HR) Succ 50 MG TAB.ER.24H PO SCH (08:08)
[2020-12-07] MEDS: Insulin LISPRO 300 UNITS/3 ML VIAL SUBQ SCH ×4 (08:14→20:49)
[2020-12-07] MEDS ORDERED: 0.9 % Sodium Chloride 1,000 ML IVC SCH (10:15)
[2020-12-08 05:50] LABS: Hematocrit 29.8 % (35.3-44.9); Hemoglobin 10.8 g/dL (11.5-15.4); Mean Corpuscular HGB Conc 36.2 g/dL (31.6-35.5); Mean Corpuscular Hemoglobin 32.9 pg (28.0-33.3); Mean Corpuscular Volume 90.9 fL (83.0-100.0); Mean Platelet Volume 9.9 fL (9.4-12.4); Platelet Count 283 K/mcL (140-400); Red Blood Count 3.28 M/mcL (3.82-4.97); Red Cell Distribution Width 12.8 % (11.5-14.5); White Blood Count 8.9 K/mcL (4.3-11.1)
[2020-12-08 06:17] LABS: BUN/Creatinine Ratio 22 (6-26); Blood Urea Nitrogen 12 mg/dL (8-23); Calcium 8.4 mg/dL (8.6-10.3); Carbon Dioxide 22 mEq/L (23-29); Chloride 105 mEq/L (98-107); Glucose 182 mg/dL (70-105); Osmolality,Calculated 290 (280-300); Potassium 3.5 mEq/L (3.5-5.1); Sodium 138 mEq/L (136-145); eGFR For African Americans > 60 (> 60); eGFR For Non-African Americans > 60 (> 60)
[2020-12-08] MEDS: Apixaban 5 MG TABLET PO SCH ×2 (07:54→21:15)
[2020-12-08] MEDS: Sennosides/Docusate Sodium TABLET PO SCH (07:54)
[2020-12-08] MEDS: Metoprolol XL (24 HR) Succ 50 MG TAB.ER.24H PO SCH (07:54)
[2020-12-08] MEDS: Cholecalciferol (D-3) 1,000 UNIT (25MCG) TABLET PO SCH (07:54)
[2020-12-08] MEDS: Insulin LISPRO 300 UNITS/3 ML VIAL SUBQ SCH ×4 (07:55→21:15)
[2020-12-08] MEDS: lisinopriL 10 MG TABLET PO SCH (07:55)
[2020-12-08] MEDS: Artificial Tears SOLN 15 ML BOTTLE BOTH EYES SCH ×4 (12:19→21:15)
[2020-12-08] MEDS: Erythromycin OPTH Oint BOTH EYES SCH ×2 (15:41→21:16)
[2020-12-09 04:15] LABS: BUN/Creatinine Ratio 24 (6-26); Blood Urea Nitrogen 13 mg/dL (8-23); Calcium 8.4 mg/dL (8.6-10.3); Carbon Dioxide 21 mEq/L (23-29); Chloride 103 mEq/L (98-107); Glucose 188 mg/dL (70-105); Osmolality,Calculated 287 (280-300); Potassium 3.8 mEq/L (3.5-5.1); Sodium 136 mEq/L (136-145); eGFR For African Americans > 60 (> 60); eGFR For Non-African Americans > 60 (> 60)
[2020-12-09 07:20] VITALS: TEMP 98.2
[2020-12-09] MEDS: Artificial Tears SOLN 15 ML BOTTLE BOTH EYES SCH ×2 (08:01→15:16)
[2020-12-09] MEDS: Metoprolol XL (24 HR) Succ 50 MG TAB.ER.24H PO SCH (08:01)
[2020-12-09] MEDS: lisinopriL 10 MG TABLET PO SCH (08:01)
[2020-12-09] MEDS: Apixaban 5 MG TABLET PO SCH (08:01)
[2020-12-09] MEDS: Sennosides/Docusate Sodium TABLET PO SCH (08:01)
[2020-12-09] MEDS: Cholecalciferol (D-3) 1,000 UNIT (25MCG) TABLET PO SCH (08:01)
[2020-12-09] MEDS: Erythromycin OPTH Oint BOTH EYES SCH ×2 (08:02→15:15)
[2020-12-09] MEDS: Insulin LISPRO 300 UNITS/3 ML VIAL SUBQ SCH ×2 (08:10→13:04)
[2020-12-09] MEDS ORDERED: Bisacodyl 10 MG RECTAL SUPPOSITORY RC SCH (10:30)
[2020-12-09 13:28] VITALS: BP 149/82; PULSE 70; O2SAT 92
== END 2020-12-09 17:14 | disposition home health service (06) | DRG 637 ==
LOC: CDU 20:54 → EMEROOARM 20:54 → SUATTDRO 11-30 00:23 → CDU 11-30 00:37 → 3ANU 11-30 18:14 → SUATTDRO 12-02 14:19
PROVIDERS: ADMIT Student in an Organized Health Care Education/Training Program; ATTEND Internal Medicine

== ENCOUNTER 2021-11-27 17:52 | Inpatient (IN) ==
[~2021-11-27 17:52] MED LIST: cefTRIAXone 1,000 MG in 0.9 % Sodium Chloride 10 ML IVP SCH
[2021-11-27] MEDS ORDERED: Ondansetron 4 MG/2 ML VIAL IVP ONE (20:23)
[2021-11-27] MEDS ORDERED: 0.9 % Sodium Chloride 1,000 ML IVC ONE (20:23)
[2021-11-27 20:59] LABS: Basophils % 0.1 %; Hematocrit 41.4 % (35.3-44.9); Hemoglobin 14.1 g/dL (11.5-15.4); Immature Granulocytes % 0.9 % (0-4); Lymphocytes # 1.6 K/mcL (0.6-4.6); Mean Corpuscular HGB Conc 34.1 g/dL (31.6-35.5); Mean Corpuscular Hemoglobin 31.3 pg (28.0-33.3); Mean Corpuscular Volume 91.8 fL (83.0-100.0); Mean Platelet Volume 9.8 fL (9.4-12.4); Monocytes # 1.1 K/mcL (0.0-1.3); Monocytes % 4.8 %; Neutrophils # 19.7 K/mcL (1.6-8.9); Platelet Count 309 K/mcL (140-400); Red Blood Count 4.51 M/mcL (3.82-4.97); Red Cell Distribution Width 13.2 % (11.5-14.5); Segmented Neutrophils % 87.2 %; White Blood Count 22.6 K/mcL (4.3-11.1)
[2021-11-27 21:08] LABS: Albumin 4.3 g/dL (3.5-5.7); Albumin/Globulin Ratio 1.5 (1.1-2.2); Bilirubin,Total 0.3 mg/dL (0.3-1.0); Calcium 9.2 mg/dL (8.6-10.3); Globulin 2.8 g/dL (2.4-3.5); Potassium 4.7 mEq/L (3.5-5.1); Total Protein 7.1 g/dL (6.4-8.9)
[2021-11-27 21:15] LABS: Prothrombin Time 11.3 Seconds (9.4-12.1)
[2021-11-27] MEDS ORDERED: Pantoprazole 80 MG in 0.9 % Sodium Chloride 50 ML IVPB ONE (21:58)
[2021-11-27] MEDS ORDERED: cefTRIAXone 1,000 MG in Water for inj. (sterile) 10 ML IVP ONE (21:59)
[2021-11-27] MEDS ORDERED: Naloxone 0.4 MG/ML INJ IVP PRN (23:04)
[2021-11-27] MEDS ORDERED: Acetaminophen 325 MG TABLET PO PRN (23:14)
[2021-11-27] MEDS ORDERED: Ondansetron 4 MG/2 ML VIAL IVP PRN (23:14)
[2021-11-27] MEDS ORDERED: 0.9 % Sodium Chloride 1,000 ML IVC SCH (23:15)
[2021-11-27] MEDS ORDERED: D5% in Water 1,000 ML IVC PRN (23:39)
[2021-11-27] MEDS ORDERED: *HR* Dextrose 50 % in Water (Syg) 50 ML SYRINGE IVP PRN (23:39)
[2021-11-27] MEDS ORDERED: Dextrose Gel 15 GM/37.5 ML TUBE PO PRN ×2 (23:39)
[2021-11-28] MEDS ORDERED: Insulin DETEMIR 100 UNIT/ML X5UNITS SUBQ SCH
[2021-11-28] MEDS: Insulin LISPRO 300 UNITS/3 ML VIAL SUBQ SCH ×4 (01:17→16:56)
[2021-11-28] MEDS ORDERED: Milk and Molasses Enema 200 ML RC ONE (01:38)
[2021-11-28] MEDS ORDERED: 0.9 % Sodium Chloride 500 ML IVC ONE (01:39)
[2021-11-28] MEDS: Insulin DETEMIR 100 UNIT/ML X5UNITS SUBQ SCH ×2 (03:45→20:40)
[2021-11-28] MEDS: Pantoprazole 40 MG VIAL IVP SCH ×2 (06:54→17:07)
[2021-11-28] MEDS ORDERED: cefTRIAXone 1,000 MG in 0.9 % Sodium Chloride Mini Bag 100 ML IVPB SCH (09:00)
[2021-11-28] MEDS ORDERED: Metoclopramide 10 MG/2 ML VIAL IVP ONE (14:04)
[2021-11-28] MEDS ORDERED: *HR* Metoprolol 5 MG/5 ML VIAL IVP ONE (14:09)
[2021-11-28 14:56] LABS: Hematocrit 33.3 % (35.3-44.9); Mean Corpuscular HGB Conc 34.2 g/dL (31.6-35.5); Mean Corpuscular Hemoglobin 31.6 pg (28.0-33.3); Mean Corpuscular Volume 92.2 fL (83.0-100.0); Mean Platelet Volume 9.5 fL (9.4-12.4); Platelet Count 225 K/mcL (140-400); Red Blood Count 3.61 M/mcL (3.82-4.97); Red Cell Distribution Width 13.4 % (11.5-14.5); White Blood Count 15.1 K/mcL (4.3-11.1)
[2021-11-28 14:57] LABS: Hemoglobin 11.4 g/dL (11.5-15.4)
[2021-11-28] MEDS: Metoprolol XL (24 HR) Succ 50 MG TAB.ER.24H PO SCH ×3 (15:12→17:16)
[2021-11-28] MEDS: polyethylene glycoL 3350 17 GM POWD.PACK PO SCH (15:12)
[2021-11-28 15:16] LABS: BUN/Creatinine Ratio 39 (6-26); Blood Urea Nitrogen 40 mg/dL (8-23); Carbon Dioxide 23 mEq/L (23-29); Chloride 108 mEq/L (98-107); Glucose 132 mg/dL (70-105); Osmolality,Calculated 300 (280-300); Potassium 3.7 mEq/L (3.5-5.1); Sodium 139 mEq/L (136-145); eGFR For African Americans > 60 (> 60); eGFR For Non-African Americans 52 (> 60)
[2021-11-28] MEDS: 0.9 % Sodium Chloride 1,000 ML IVC SCH (15:27)
[2021-11-28] MEDS: cefTRIAXone 1,000 MG in 0.9 % Sodium Chloride 10 ML IVP SCH (20:44)
[2021-11-29] MEDS: Insulin LISPRO 300 UNITS/3 ML VIAL SUBQ SCH ×4 (01:02→17:40)
[2021-11-29] MEDS: 0.9 % Sodium Chloride 1,000 ML IVC SCH (01:37)
[2021-11-29 05:20] LABS: Hematocrit 29.7 % (35.3-44.9); Mean Corpuscular HGB Conc 33.7 g/dL (31.6-35.5); Mean Platelet Volume 9.8 fL (9.4-12.4); Platelet Count 240 K/mcL (140-400); Red Blood Count 3.23 M/mcL (3.82-4.97); Red Cell Distribution Width 13.4 % (11.5-14.5); White Blood Count 13.8 K/mcL (4.3-11.1)
[2021-11-29] MEDS: Pantoprazole 40 MG VIAL IVP SCH ×2 (05:39→17:41)
[2021-11-29 05:41] LABS: BUN/Creatinine Ratio 34 (6-26); Blood Urea Nitrogen 30 mg/dL (8-23); Calcium 7.7 mg/dL (8.6-10.3); Carbon Dioxide 24 mEq/L (23-29); Chloride 107 mEq/L (98-107); Glucose 143 mg/dL (70-105); Osmolality,Calculated 295 (280-300); Sodium 138 mEq/L (136-145); eGFR For African Americans > 60 (> 60); eGFR For Non-African Americans > 60 (> 60)
[2021-11-29] MEDS ORDERED: *HR* Metoprolol 5 MG/5 ML VIAL IVP PRN (08:06)
[2021-11-29] MEDS ORDERED: cefTRIAXone 2,000 MG in 0.9 % Sodium Chloride 20 ML IVP SCH (09:00)
[2021-11-29] MEDS: polyethylene glycoL 3350 17 GM POWD.PACK PO SCH (10:15)
[2021-11-29] MEDS: Metoprolol XL (24 HR) Succ 50 MG TAB.ER.24H PO SCH ×2 (10:16→10:25)
[2021-11-29] MEDS ORDERED: 0.9 % Sodium Chloride 1,000 ML IVC SCH (11:45)
[2021-11-29] MEDS ORDERED: Lidocaine -MPF 2% 5 ML VIAL ONE (12:36)
[2021-11-29] MEDS ORDERED: *HR* Propofol 200 MG/20 ML VIAL IVP ONE (12:36)
[2021-11-29] MEDS ORDERED: Simethicone 40 MG/0.6 ML MLS IR ONE (12:39)
[2021-11-29] MEDS ORDERED: *HR* Metoprolol 5 MG/5 ML VIAL IVP ONE (12:41)
[2021-11-29] MEDS: Insulin DETEMIR 100 UNIT/ML X5UNITS SUBQ SCH (22:38)
[2021-11-29] MEDS: cefTRIAXone 1,000 MG in 0.9 % Sodium Chloride 10 ML IVP SCH (22:38)
[2021-11-30] MEDS: Insulin LISPRO 300 UNITS/3 ML VIAL SUBQ SCH ×4 (00:19→17:15)
[2021-11-30 04:01] LABS: Hematocrit 29.3 % (35.3-44.9); Hemoglobin 10.1 g/dL (11.5-15.4); Mean Corpuscular HGB Conc 34.5 g/dL (31.6-35.5); Mean Corpuscular Hemoglobin 31.6 pg (28.0-33.3); Mean Corpuscular Volume 91.6 fL (83.0-100.0); Mean Platelet Volume 9.9 fL (9.4-12.4); Platelet Count 225 K/mcL (140-400); White Blood Count 12.7 K/mcL (4.3-11.1)
[2021-11-30] MEDS: Pantoprazole 40 MG VIAL IVP SCH ×2 (05:46→17:47)
[2021-11-30] MEDS: Metoprolol XL (24 HR) Succ 50 MG TAB.ER.24H PO SCH (08:08)
[2021-11-30] MEDS: polyethylene glycoL 3350 17 GM POWD.PACK PO SCH (08:08)
[2021-11-30] MEDS ORDERED: Albuterol 2.5 MG/3 ML NEBULIZER IH PRN (15:01)
[2021-11-30] MEDS: Insulin DETEMIR 100 UNIT/ML X5UNITS SUBQ SCH (20:52)
[2021-11-30] MEDS: Carbidopa/Levodopa 25/100 TABLET PO SCH (20:52)
[2021-11-30] MEDS: cefTRIAXone 1,000 MG in 0.9 % Sodium Chloride 10 ML IVP SCH (21:33)
[2021-12-01] MEDS: Insulin LISPRO 300 UNITS/3 ML VIAL SUBQ SCH ×2 (00:20→05:54)
[2021-12-01 06:00] LABS: Hematocrit 31.5 % (35.3-44.9); Hemoglobin 10.9 g/dL (11.5-15.4); Mean Corpuscular HGB Conc 34.6 g/dL (31.6-35.5); Mean Corpuscular Hemoglobin 31.4 pg (28.0-33.3); Mean Corpuscular Volume 90.8 fL (83.0-100.0); Mean Platelet Volume 9.8 fL (9.4-12.4); Platelet Count 222 K/mcL (140-400); Red Blood Count 3.47 M/mcL (3.82-4.97); Red Cell Distribution Width 13.2 % (11.5-14.5); White Blood Count 10.6 K/mcL (4.3-11.1)
[2021-12-01] MEDS: Pantoprazole 40 MG VIAL IVP SCH (06:16)
[2021-12-01] MEDS ORDERED: lisinopriL 10 MG TABLET PO SCH (09:00)
[2021-12-01] MEDS: Carbidopa/Levodopa 25/100 TABLET PO SCH (09:26)
[2021-12-01] MEDS: Metoprolol XL (24 HR) Succ 50 MG TAB.ER.24H PO SCH (09:27)
[2021-12-01] MEDS: polyethylene glycoL 3350 17 GM POWD.PACK PO SCH (09:27)
[2021-12-01 11:00] VITALS: BP 102/65; PULSE 77; TEMP 97.5; O2SAT 98
== END 2021-12-01 10:53 | disposition home health service (06) | DRG 871 ==
LOC: EMEROOARM 17:52 → 3ANU 17:52 → SUATTDRO 11-28 04:38 → 3ANU 11-28 05:37
PROVIDERS: ADMIT Student in an Organized Health Care Education/Training Program; ATTEND Internal Medicine
PROC: ENDOEBX (2021-11-29 13:00)

== ENCOUNTER 2022-01-03 23:10 | Inpatient (IN) ==
[2022-01-04 00:50] LABS: Influenza A PCR Negative (Negative); Influenza B PCR Negative (Negative); Resp. Syncytial Virus PCR Negative (Negative)
[2022-01-04 00:52] LABS: SARS-CoV-2 by PCR (In House) Negative (Negative)
[2022-01-04 00:59] LABS: Basophils # 0.1 K/mcL (0.0-0.2); Basophils % 0.3 %; Eosinophils % 0.2 %; Hematocrit 40.3 % (35.3-44.9); Hemoglobin 12.7 g/dL (11.5-15.4); Immature Granulocytes % 0.3 % (0-4); Lymphocytes % 12.4 %; Mean Corpuscular HGB Conc 31.5 g/dL (31.6-35.5); Mean Corpuscular Hemoglobin 30.1 pg (28.0-33.3); Mean Corpuscular Volume 95.5 fL (83.0-100.0); Mean Platelet Volume 11.4 fL (9.4-12.4); Monocytes % 6.1 %; Neutrophils # 12.9 K/mcL (1.6-8.9); Platelet Count 269 K/mcL (140-400); Red Blood Count 4.22 M/mcL (3.82-4.97); Red Cell Distribution Width 15.7 % (11.5-14.5); Segmented Neutrophils % 80.7 %
[2022-01-04 01:04] LABS: Prothrombin Time 11.4 Seconds (9.4-12.1)
[2022-01-04 01:07] LABS: Activated Partial Thrombo Time 25.6 Seconds (26.0-36.0)
[2022-01-04] MEDS ORDERED: Ringers Solution, Lactated 1,000 ML IVC ONE (01:18)
[2022-01-04 01:45] LABS: Alanine Aminotransferase 12 Units/L (7-52); Albumin 3.9 g/dL (3.5-5.7); Albumin/Globulin Ratio 1.3 (1.1-2.2); Alkaline Phosphatase 86 Units/L (34-104); Aspartate Amino Transferase 11 Units/L (13-39); BUN/Creatinine Ratio 85 (6-26); Bilirubin,Direct 0.1 mg/dL (0.0-0.2); Bilirubin,Indirect 0.1 mg/dL (0.0-1.0); Bilirubin,Total 0.2 mg/dL (0.3-1.0); Blood Urea Nitrogen 144 mg/dL (8-23); Calcium 10.1 mg/dL (8.6-10.3); Carbon Dioxide 16 mEq/L (23-29); Chloride 115 mEq/L (98-107); Ethanol < 10 mg/dL (Less than 10); Globulin 3.1 g/dL (2.4-3.5); Glucose 315 mg/dL (70-105); Osmolality,Calculated 367 (280-300); Potassium 4.9 mEq/L (3.5-5.1); Sodium 149 mEq/L (136-145); Troponin I < 0.03 ng/mL (< 0.04)
[2022-01-04 01:51] LABS: Bilirubin,Urine Negative (Negative); Blood,Urine Negative (Negative); Clarity,Urine Clear (Clear); Color,Urine Light-Yellow (Yellow); Glucose,Urine (UA) Normal (Normal); Ketones,Urine Negative (Negative); Leukocyte Esterase,Urine Moderate (Negative); Nitrite,Urine Negative (Negative); Protein,Urine 30 mg/dL (Neg-Trace); RBC,Urine 0-3 per hpf (0-3); Squamous Epithelial Cell,Urine Few per hpf (None-Few); Urobilinogen,Urine Normal (Normal)
[2022-01-04] MEDS ORDERED: Piperacillin/Tazobactam 3.375 GM in 0.9 % Sodium Chloride Mini Bag 100 ML IVPB ONE (02:38)
[2022-01-04] MEDS ORDERED: Acetaminophen 325 MG TABLET PO PRN (03:59)
[2022-01-04] MEDS ORDERED: Naloxone 0.4 MG/ML INJ IVP PRN (03:59)
[2022-01-04] MEDS ORDERED: Ondansetron 4 MG/2 ML VIAL IVP PRN (03:59)
[2022-01-04] MEDS ORDERED: 0.9 % Sodium Chloride 1,000 ML IVC SCH (04:00)
[2022-01-04] MEDS ORDERED: *HR* Dextrose 50 % in Water (Syg) 50 ML SYRINGE IVP PRN (04:26)
[2022-01-04] MEDS ORDERED: D5% in Water 1,000 ML IVC PRN (04:26)
[2022-01-04] MEDS ORDERED: Dextrose Gel 15 GM/37.5 ML TUBE PO PRN ×2 (04:26)
[2022-01-04] MEDS ORDERED: 0.9 % Sodium Chloride 500 ML IVC ONE (05:19)
[2022-01-04 10:06] LABS: Calcium 9.6 mg/dL (8.6-10.3); Phosphorous 3.6 mg/dL (2.7-4.5); Potassium 4.2 mEq/L (3.5-5.1)
[2022-01-04] MEDS: Piperacillin/Tazobactam 3.375 GM in 0.9 % Sodium Chloride Mini Bag 100 ML IVPB SCH ×2 (11:14→20:07)
[2022-01-04 20:30] LABS: Calcium 9.4 mg/dL (8.6-10.3); Potassium 4.1 mEq/L (3.5-5.1)
[2022-01-05 01:45] LABS: Basophils # 0.1 K/mcL (0.0-0.2); Basophils % 0.5 %; Eosinophils # 0.1 K/mcL (0.0-0.6); Eosinophils % 0.9 %; Hematocrit 40.9 % (35.3-44.9); Hemoglobin 13.1 g/dL (11.5-15.4); Immature Granulocytes % 0.5 % (0-4); Lymphocytes # 2.5 K/mcL (0.6-4.6); Lymphocytes % 20.4 %; Mean Corpuscular Hemoglobin 30.7 pg (28.0-33.3); Mean Corpuscular Volume 95.8 fL (83.0-100.0); Mean Platelet Volume 10.9 fL (9.4-12.4); Monocytes # 0.8 K/mcL (0.0-1.3); Monocytes % 6.3 %; Neutrophils # 8.8 K/mcL (1.6-8.9); Platelet Count 258 K/mcL (140-400); Red Blood Count 4.27 M/mcL (3.82-4.97); Red Cell Distribution Width 15.8 % (11.5-14.5); Segmented Neutrophils % 71.4 %; White Blood Count 12.3 K/mcL (4.3-11.1)
[2022-01-05 01:53] LABS: INR 1.1; Prothrombin Time 12.7 Seconds (9.4-12.1)
[2022-01-05] MEDS ORDERED: *HR* Metoprolol 5 MG/5 ML VIAL IVP ONE ×3 (01:55→02:59)
[2022-01-05] MEDS ORDERED: *HR* Metoprolol 5 MG/5 ML VIAL IVP SCH (01:56)
[2022-01-05 02:01] LABS: Calcium 9.3 mg/dL (8.6-10.3); Magnesium 1.9 mg/dL (1.6-2.6); Potassium 4.1 mEq/L (3.5-5.1)
[2022-01-05] MEDS: Piperacillin/Tazobactam 3.375 GM in 0.9 % Sodium Chloride Mini Bag 100 ML IVPB SCH ×3 (03:06→19:57)
[2022-01-05] MEDS: DilTIAZem 50 MG/50 ML IV.SOLN IVC SCH (03:41)
[2022-01-05] MEDS ORDERED: D5% in 0.45% NACL 1,000 ML IVC SCH ×2 (07:30→14:45)
[2022-01-05] MEDS ORDERED: Sennosides/Docusate Sodium TABLET PO PRN (07:35)
[2022-01-05] MEDS: Insulin LISPRO 300 UNITS/3 ML VIAL SUBQ SCH ×6 (07:35→17:44)
[2022-01-05] MEDS ORDERED: Albuterol 2.5 MG/3 ML NEBULIZER IH PRN (07:35)
[2022-01-05] MEDS: Thiamine (B-1) 100 MG TABLET PO SCH (10:37)
[2022-01-05] MEDS: Cyanocobalamin (B-12) 1,000 MCG TABLET PO SCH (10:37)
[2022-01-05] MEDS: Carbidopa/Levodopa 25/100 TABLET PO SCH ×3 (10:37→20:05)
[2022-01-05] MEDS: Metoprolol XL (24 HR) Succ 50 MG TAB.ER.24H PO SCH (10:37)
[2022-01-05] MEDS: Gabapentin 100 MG CAPSULE PO SCH ×2 (10:37→20:04)
[2022-01-05] MEDS: Aspirin Enteric Coated 81 MG Tablet PO SCH (20:04)
[2022-01-05] MEDS: Insulin DETEMIR 100 UNIT/ML X5UNITS SUBQ SCH (20:04)
[2022-01-05] MEDS: Famotidine 20 MG TABLET PO SCH (20:05)
[2022-01-05] MEDS ORDERED: Famotidine 20 MG TABLET PO SCH (21:00)
[2022-01-06] MEDS: DilTIAZem 50 MG/50 ML IV.SOLN IVC SCH ×2 (00:20→14:49)
[2022-01-06] MEDS: Insulin LISPRO 300 UNITS/3 ML VIAL SUBQ SCH ×4 (00:23→17:48)
[2022-01-06 02:51] LABS: Basophils % 0.4 %; Eosinophils # 0.2 K/mcL (0.0-0.6); Eosinophils % 1.8 %; Hematocrit 39.9 % (35.3-44.9); Hemoglobin 12.7 g/dL (11.5-15.4); Immature Granulocytes % 0.4 % (0-4); Lymphocytes # 2.9 K/mcL (0.6-4.6); Lymphocytes % 28.2 %; Mean Corpuscular HGB Conc 31.8 g/dL (31.6-35.5); Mean Corpuscular Hemoglobin 31.2 pg (28.0-33.3); Mean Platelet Volume 11.4 fL (9.4-12.4); Monocytes # 0.8 K/mcL (0.0-1.3); Monocytes % 7.4 %; Neutrophils # 6.2 K/mcL (1.6-8.9); Platelet Count 225 K/mcL (140-400); Red Blood Count 4.07 M/mcL (3.82-4.97); Red Cell Distribution Width 15.7 % (11.5-14.5); Segmented Neutrophils % 61.8 %; White Blood Count 10.1 K/mcL (4.3-11.1)
[2022-01-06] MEDS: Piperacillin/Tazobactam 3.375 GM in 0.9 % Sodium Chloride Mini Bag 100 ML IVPB SCH (03:06)
[2022-01-06 03:17] LABS: Calcium 8.3 mg/dL (8.6-10.3); Magnesium 1.7 mg/dL (1.6-2.6); Phosphorous 2.3 mg/dL (2.7-4.5); Potassium 3.3 mEq/L (3.5-5.1)
[2022-01-06] MEDS: Cyanocobalamin (B-12) 1,000 MCG TABLET PO SCH (08:38)
[2022-01-06] MEDS: Gabapentin 100 MG CAPSULE PO SCH ×2 (08:38→20:25)
[2022-01-06] MEDS: Thiamine (B-1) 100 MG TABLET PO SCH (08:38)
[2022-01-06] MEDS: Metoprolol XL (24 HR) Succ 50 MG TAB.ER.24H PO SCH (08:38)
[2022-01-06] MEDS: Carbidopa/Levodopa 25/100 TABLET PO SCH ×3 (08:38→20:26)
[2022-01-06] MEDS ORDERED: D5% in Water 1,000 ML IVC SCH (11:45)
[2022-01-06] MEDS ORDERED: Acetaminophen IV 500 MG/50 ML BAG IVPB ONE (14:30)
[2022-01-06] MEDS: D5% in Water 1,000 ML IVC SCH (14:49)
[2022-01-06] MEDS: Pantoprazole 40 MG VIAL IVP SCH (17:47)
[2022-01-06] MEDS: Aspirin Enteric Coated 81 MG Tablet PO SCH (20:25)
[2022-01-06] MEDS: Famotidine 20 MG TABLET PO SCH (20:25)
[2022-01-06] MEDS: Insulin DETEMIR 100 UNIT/ML X5UNITS SUBQ SCH (20:32)
[2022-01-07] MEDS: D5% in Water 1,000 ML IVC SCH (00:08)
[2022-01-07] MEDS: Insulin LISPRO 300 UNITS/3 ML VIAL SUBQ SCH ×4 (00:09→17:58)
[2022-01-07 03:17] LABS: Calcium 7.7 mg/dL (8.6-10.3)
[2022-01-07] MEDS: Pantoprazole 40 MG VIAL IVP SCH ×2 (05:32→18:07)
[2022-01-07] MEDS ORDERED: Potassium Chloride 40 MEQ in D5% in 0.9% NACL 1,000 ML IVC SCH (07:45)
[2022-01-07] MEDS: Thiamine (B-1) 100 MG TABLET PO SCH (12:42)
[2022-01-07] MEDS: Metoprolol XL (24 HR) Succ 50 MG TAB.ER.24H PO SCH (12:42)
[2022-01-07] MEDS: Cyanocobalamin (B-12) 1,000 MCG TABLET PO SCH (12:42)
[2022-01-07] MEDS: Carbidopa/Levodopa 25/100 TABLET PO SCH ×3 (12:42→20:53)
[2022-01-07] MEDS: Gabapentin 100 MG CAPSULE PO SCH ×2 (12:42→20:53)
[2022-01-07] MEDS: DilTIAZem 50 MG/50 ML IV.SOLN IVC SCH ×2 (13:04→15:40)
[2022-01-07] MEDS: Famotidine 20 MG TABLET PO SCH (20:53)
[2022-01-07] MEDS: Aspirin Enteric Coated 81 MG Tablet PO SCH (20:53)
[2022-01-07] MEDS ORDERED: Acetaminophen IV 1,000 MG/100 ML BAG IVPB ONE (21:15)
[2022-01-07] MEDS: Insulin DETEMIR 100 UNIT/ML X5UNITS SUBQ SCH (22:07)
[2022-01-08] MEDS: Insulin LISPRO 300 UNITS/3 ML VIAL SUBQ SCH ×5 (01:02→23:30)
[2022-01-08 02:44] LABS: Calcium 7.5 mg/dL (8.6-10.3); Potassium 3.6 mEq/L (3.5-5.1)
[2022-01-08] MEDS: Pantoprazole 40 MG VIAL IVP SCH ×2 (06:15→17:15)
[2022-01-08] MEDS: Metoprolol XL (24 HR) Succ 50 MG TAB.ER.24H PO SCH (09:50)
[2022-01-08] MEDS: Gabapentin 100 MG CAPSULE PO SCH ×2 (09:50→20:03)
[2022-01-08] MEDS: Carbidopa/Levodopa 25/100 TABLET PO SCH ×3 (09:50→20:04)
[2022-01-08] MEDS: Cyanocobalamin (B-12) 1,000 MCG TABLET PO SCH (09:51)
[2022-01-08] MEDS: Thiamine (B-1) 100 MG TABLET PO SCH (09:51)
[2022-01-08] MEDS ORDERED: Acetaminophen IV 500 MG/50 ML BAG IVPB ONE (17:44)
[2022-01-08] MEDS: *HR* Metoprolol 5 MG/5 ML VIAL IVP PRN (19:58)
[2022-01-08] MEDS: Aspirin Enteric Coated 81 MG Tablet PO SCH (20:03)
[2022-01-08] MEDS: Famotidine 20 MG TABLET PO SCH (20:04)
[2022-01-08] MEDS: Insulin DETEMIR 100 UNIT/ML X5UNITS SUBQ SCH (20:58)
[2022-01-09] MEDS: *HR* Metoprolol 5 MG/5 ML VIAL IVP PRN (04:05)
[2022-01-09] MEDS: Insulin LISPRO 300 UNITS/3 ML VIAL SUBQ SCH ×4 (05:15→23:51)
[2022-01-09] MEDS: Pantoprazole 40 MG VIAL IVP SCH (05:21)
[2022-01-09] MEDS: Cyanocobalamin (B-12) 1,000 MCG TABLET PO SCH (09:19)
[2022-01-09] MEDS: Gabapentin 100 MG CAPSULE PO SCH (09:19)
[2022-01-09] MEDS: Metoprolol XL (24 HR) Succ 50 MG TAB.ER.24H PO SCH (09:19)
[2022-01-09] MEDS: Thiamine (B-1) 100 MG TABLET PO SCH (09:19)
[2022-01-09 14:23] LABS: Basophils % 0.2 %; Eosinophils # 0.1 K/mcL (0.0-0.6); Eosinophils % 1.1 %; Hematocrit 32.6 % (35.3-44.9); Immature Granulocytes % 0.5 % (0-4); Lymphocytes # 2.3 K/mcL (0.6-4.6); Lymphocytes % 20.3 %; Mean Corpuscular HGB Conc 33.7 g/dL (31.6-35.5); Mean Corpuscular Hemoglobin 31.1 pg (28.0-33.3); Mean Corpuscular Volume 92.1 fL (83.0-100.0); Mean Platelet Volume 10.5 fL (9.4-12.4); Monocytes # 0.8 K/mcL (0.0-1.3); Monocytes % 6.8 %; Neutrophils # 7.9 K/mcL (1.6-8.9); Platelet Count 197 K/mcL (140-400); Red Blood Count 3.54 M/mcL (3.82-4.97); Red Cell Distribution Width 14.3 % (11.5-14.5); Segmented Neutrophils % 71.1 %; White Blood Count 11.1 K/mcL (4.3-11.1)
[2022-01-09 14:31] LABS: Prothrombin Time 11.1 Seconds (9.4-12.1)
[2022-01-09 14:39] LABS: Alanine Aminotransferase 13 Units/L (7-52); Albumin 3.2 g/dL (3.5-5.7); Albumin/Globulin Ratio 1.1 (1.1-2.2); Alkaline Phosphatase 76 Units/L (34-104); Aspartate Amino Transferase 12 Units/L (13-39); BUN/Creatinine Ratio 23 (6-26); Bilirubin,Direct 0.1 mg/dL (0.0-0.2); Bilirubin,Indirect 0.4 mg/dL (0.0-1.0); Bilirubin,Total 0.5 mg/dL (0.3-1.0); Blood Urea Nitrogen 13 mg/dL (8-23); Calcium 8.5 mg/dL (8.6-10.3); Carbon Dioxide 24 mEq/L (23-29); Chloride 107 mEq/L (98-107); Globulin 2.9 g/dL (2.4-3.5); Glucose 161 mg/dL (70-105); Magnesium 1.4 mg/dL (1.6-2.6); Osmolality,Calculated 292 (280-300); Phosphorous 2.4 mg/dL (2.7-4.5); Potassium 3.3 mEq/L (3.5-5.1); Sodium 139 mEq/L (136-145); Total Protein 6.1 g/dL (6.4-8.9)
[2022-01-09] MEDS: Carbidopa/Levodopa 25/100 TABLET PO SCH ×2 (15:31→20:53)
[2022-01-09] MEDS: *HR* Metoprolol 5 MG/5 ML VIAL IVP SCH ×2 (16:51→23:52)
[2022-01-09] MEDS: Aspirin Enteric Coated 81 MG Tablet PO SCH (20:52)
[2022-01-09] MEDS: Insulin DETEMIR 100 UNIT/ML X5UNITS SUBQ SCH (21:54)
[2022-01-10 07:09] LABS: Basophils % 0.2 %; Eosinophils # 0.1 K/mcL (0.0-0.6); Eosinophils % 1.4 %; Immature Granulocytes % 0.3 % (0-4); Lymphocytes # 2.3 K/mcL (0.6-4.6); Mean Corpuscular HGB Conc 33.3 g/dL (31.6-35.5); Mean Platelet Volume 10.8 fL (9.4-12.4); Monocytes # 0.7 K/mcL (0.0-1.3); Monocytes % 6.7 %; Neutrophils # 6.7 K/mcL (1.6-8.9); Platelet Count 202 K/mcL (140-400); Red Blood Count 3.55 M/mcL (3.82-4.97); Red Cell Distribution Width 14.3 % (11.5-14.5); Segmented Neutrophils % 68.4 %; White Blood Count 9.8 K/mcL (4.3-11.1)
[2022-01-10 07:30] LABS: BUN/Creatinine Ratio 24 (6-26); Blood Urea Nitrogen 14 mg/dL (8-23); Calcium 8.4 mg/dL (8.6-10.3); Carbon Dioxide 21 mEq/L (23-29); Chloride 106 mEq/L (98-107); Glucose 176 mg/dL (70-105); Osmolality,Calculated 287 (280-300); Potassium 3.7 mEq/L (3.5-5.1); Sodium 136 mEq/L (136-145)
[2022-01-10 07:33] LABS: Magnesium 1.7 mg/dL (1.6-2.6); Phosphorous 2.4 mg/dL (2.7-4.5)
[2022-01-10 07:34] LABS: Chol/HDL Ratio 6.4 (0-4.9)
[2022-01-10] MEDS: Insulin LISPRO 300 UNITS/3 ML VIAL SUBQ SCH ×4 (08:01→23:34)
[2022-01-10] MEDS: *HR* Metoprolol 5 MG/5 ML VIAL IVP SCH ×3 (08:01→17:20)
[2022-01-10] MEDS: Carbidopa/Levodopa 25/100 TABLET PO SCH ×4 (08:33→21:29)
[2022-01-10] MEDS: Cyanocobalamin (B-12) 1,000 MCG TABLET PO SCH (08:36)
[2022-01-10] MEDS ORDERED: Pantoprazole 40 MG VIAL IVP SCH (09:00)
[2022-01-10] MEDS ORDERED: Bisacodyl 10 MG RECTAL SUPPOSITORY RC PRN (10:48)
[2022-01-10] MEDS ORDERED: *HR* Heparin 5,000 UNIT/ML VIAL IVP PRN ×2 (11:05)
[2022-01-10] MEDS ORDERED: *HR* Heparin 5,000 UNIT/ML VIAL IVP ONE (11:05)
[2022-01-10 14:24] LABS: INR 1.2; Prothrombin Time 13.2 Seconds (9.4-12.1)
[2022-01-10 14:28] LABS: Heparin anti-factor XA UFH < 0.04 IU/mL (0.30-0.70)
[2022-01-10 14:50] LABS: Carcinoembryonic Antigen 2.6 ng/mL (Less than 5.0)
[2022-01-10] MEDS: Heparin 25,000UNIT/250ML 1/2NS 25,000 UNIT/250 ML IV.SOLN IVC SCH (17:15)
[2022-01-10] MEDS: Insulin DETEMIR 100 UNIT/ML X5UNITS SUBQ SCH (20:36)
[2022-01-10] MEDS: Aspirin 81 MG TAB.CHEW PO SCH (21:26)
[2022-01-10] MEDS: Famotidine 20 MG TABLET PO SCH (21:27)
[2022-01-11 04:59] LABS: Basophils % 0.3 %; Eosinophils # 0.2 K/mcL (0.0-0.6); Eosinophils % 1.9 %; Hematocrit 30.8 % (35.3-44.9); Hemoglobin 10.2 g/dL (11.5-15.4); Immature Granulocytes % 0.3 % (0-4); Lymphocytes # 2.9 K/mcL (0.6-4.6); Mean Corpuscular HGB Conc 33.1 g/dL (31.6-35.5); Mean Corpuscular Volume 93.6 fL (83.0-100.0); Mean Platelet Volume 10.6 fL (9.4-12.4); Monocytes # 0.9 K/mcL (0.0-1.3); Monocytes % 8.6 %; Neutrophils # 6.7 K/mcL (1.6-8.9); Platelet Count 210 K/mcL (140-400); Red Blood Count 3.29 M/mcL (3.82-4.97); Red Cell Distribution Width 14.5 % (11.5-14.5); Segmented Neutrophils % 61.9 %; White Blood Count 10.8 K/mcL (4.3-11.1)
[2022-01-11 05:18] LABS: BUN/Creatinine Ratio 25 (6-26); Blood Urea Nitrogen 15 mg/dL (8-23); Calcium 8.3 mg/dL (8.6-10.3); Carbon Dioxide 20 mEq/L (23-29); Chloride 105 mEq/L (98-107); Glucose 122 mg/dL (70-105); Osmolality,Calculated 286 (280-300); Potassium 3.4 mEq/L (3.5-5.1); Sodium 137 mEq/L (136-145)
[2022-01-11] MEDS: Insulin LISPRO 300 UNITS/3 ML VIAL SUBQ SCH ×3 (07:47→17:44)
[2022-01-11] MEDS: Aspirin 81 MG TAB.CHEW PO SCH (08:38)
[2022-01-11] MEDS: Carbidopa/Levodopa 25/100 TABLET PO SCH ×3 (08:38→21:48)
[2022-01-11] MEDS: Cyanocobalamin (B-12) 1,000 MCG TABLET PO SCH (08:39)
[2022-01-11 09:09] LABS: Heparin anti-factor XA UFH 0.35 IU/mL (0.30-0.70)
[2022-01-11 09:11] LABS: Activated Partial Thrombo Time 59.1 Seconds (26.0-36.0)
[2022-01-11] MEDS ORDERED: Bisacodyl 10 MG RECTAL SUPPOSITORY RC ONE (10:48)
[2022-01-11] MEDS: Metoprolol XL (24 HR) Succ 50 MG TAB.ER.24H PO SCH (11:30)
[2022-01-11] MEDS: Thiamine (B-1) 100 MG TABLET PO SCH (12:34)
[2022-01-11] MEDS ORDERED: Potassium Chloride Elixir 20 MEQ/15 ML UDC PO ONE (14:52)
[2022-01-11] MEDS ORDERED: Bisacodyl 10 MG RECTAL SUPPOSITORY RC PRN (15:28)
[2022-01-11] MEDS: Insulin DETEMIR 100 UNIT/ML X5UNITS SUBQ SCH (21:47)
[2022-01-11] MEDS: Famotidine 20 MG TABLET PO SCH (21:49)
[2022-01-12] MEDS: Insulin LISPRO 300 UNITS/3 ML VIAL SUBQ SCH ×4 (01:40→16:08)
[2022-01-12 07:04] LABS: Basophils % 0.3 %; Eosinophils # 0.1 K/mcL (0.0-0.6); Eosinophils % 1.4 %; Hematocrit 32.1 % (35.3-44.9); Hemoglobin 10.5 g/dL (11.5-15.4); Immature Granulocytes % 0.3 % (0-4); Lymphocytes # 2.3 K/mcL (0.6-4.6); Lymphocytes % 24.2 %; Mean Corpuscular HGB Conc 32.7 g/dL (31.6-35.5); Mean Corpuscular Hemoglobin 30.1 pg (28.0-33.3); Mean Platelet Volume 11.1 fL (9.4-12.4); Monocytes # 0.8 K/mcL (0.0-1.3); Monocytes % 8.3 %; Neutrophils # 6.3 K/mcL (1.6-8.9); Platelet Count 205 K/mcL (140-400); Red Blood Count 3.49 M/mcL (3.82-4.97); Red Cell Distribution Width 14.3 % (11.5-14.5); Segmented Neutrophils % 65.5 %; White Blood Count 9.6 K/mcL (4.3-11.1)
[2022-01-12] MEDS: Cyanocobalamin (B-12) 1,000 MCG TABLET PO SCH (07:38)
[2022-01-12] MEDS: Carbidopa/Levodopa 25/100 TABLET PO SCH ×3 (07:39→21:08)
[2022-01-12] MEDS: Thiamine (B-1) 100 MG TABLET PO SCH (07:39)
[2022-01-12 07:51] LABS: BUN/Creatinine Ratio 25 (6-26); Blood Urea Nitrogen 15 mg/dL (8-23); Calcium 8.6 mg/dL (8.6-10.3); Carbon Dioxide 22 mEq/L (23-29); Chloride 105 mEq/L (98-107); Glucose 96 mg/dL (70-105); Osmolality,Calculated 285 (280-300); Potassium 3.7 mEq/L (3.5-5.1); Sodium 137 mEq/L (136-145)
[2022-01-12] MEDS: Heparin 25,000UNIT/250ML 1/2NS 25,000 UNIT/250 ML IV.SOLN IVC SCH (12:25)
[2022-01-12] MEDS: Famotidine 20 MG TABLET PO SCH (21:07)
[2022-01-12] MEDS: Insulin DETEMIR 100 UNIT/ML X5UNITS SUBQ SCH (21:37)
[2022-01-13] MEDS ORDERED: Acetaminophen IV 1,000 MG/100 ML BAG IVPB ONE ×2 (00:45→18:13)
[2022-01-13] MEDS ORDERED: 0.9 % Sodium Chloride 250 ML ONE (01:28)
[2022-01-13 04:50] LABS: Basophils % 0.3 %; Eosinophils # 0.1 K/mcL (0.0-0.6); Eosinophils % 1.9 %; Hemoglobin 9.8 g/dL (11.5-15.4); Immature Granulocytes % 0.4 % (0-4); Lymphocytes # 1.9 K/mcL (0.6-4.6); Lymphocytes % 27.2 %; Mean Corpuscular HGB Conc 33.8 g/dL (31.6-35.5); Mean Corpuscular Hemoglobin 31.1 pg (28.0-33.3); Mean Corpuscular Volume 92.1 fL (83.0-100.0); Mean Platelet Volume 10.1 fL (9.4-12.4); Monocytes # 0.7 K/mcL (0.0-1.3); Monocytes % 9.6 %; Neutrophils # 4.2 K/mcL (1.6-8.9); Platelet Count 210 K/mcL (140-400); Red Blood Count 3.15 M/mcL (3.82-4.97); Red Cell Distribution Width 14.3 % (11.5-14.5); Segmented Neutrophils % 60.6 %; White Blood Count 6.9 K/mcL (4.3-11.1)
[2022-01-13 05:08] LABS: BUN/Creatinine Ratio 19 (6-26); Blood Urea Nitrogen 11 mg/dL (8-23); Carbon Dioxide 24 mEq/L (23-29); Chloride 105 mEq/L (98-107); Glucose 149 mg/dL (70-105); Osmolality,Calculated 286 (280-300); Potassium 3.3 mEq/L (3.5-5.1); Sodium 137 mEq/L (136-145)
[2022-01-13] MEDS ORDERED: *HR* FentaNYL (PF) 100 MCG/2 ML VIAL IVP ONE (08:06)
[2022-01-13] MEDS ORDERED: *HR* Midazolam HCl 2 MG/2 ML VIAL IVP ONE (08:06)
[2022-01-13] MEDS: Insulin LISPRO 300 UNITS/3 ML VIAL SUBQ SCH ×3 (08:24→17:37)
[2022-01-13] MEDS: Carbidopa/Levodopa 25/100 TABLET PO SCH ×4 (10:38→20:26)
[2022-01-13] MEDS: Cyanocobalamin (B-12) 1,000 MCG TABLET PO SCH (10:38)
[2022-01-13] MEDS: Thiamine (B-1) 100 MG TABLET PO SCH (10:38)
[2022-01-13] MEDS ORDERED: Iron Sucrose Complex 250 MG in 0.9 % Sodium Chloride 250 ML IVPB ONE (11:00)
[2022-01-13] MEDS ORDERED: Aspirin 81 MG TAB.CHEW PO SCH (11:15)
[2022-01-13] MEDS: Ringers Solution, Lactated 1,000 ML IVC SCH (14:34)
[2022-01-13] MEDS: Aspirin Enteric Coated 81 MG Tablet PO SCH (17:24)
[2022-01-13] MEDS: Insulin DETEMIR 100 UNIT/ML X5UNITS SUBQ SCH (19:43)
[2022-01-13] MEDS: Mirtazapine 15 MG TABLET PO SCH (20:26)
[2022-01-13] MEDS: Famotidine 20 MG TABLET PO SCH (20:26)
[2022-01-14] MEDS: Insulin LISPRO 300 UNITS/3 ML VIAL SUBQ SCH ×4 (00:55→18:14)
[2022-01-14 01:18] LABS: Basophils % 0.4 %; Eosinophils % 0.1 %; Hematocrit 28.5 % (35.3-44.9); Hemoglobin 9.5 g/dL (11.5-15.4); Immature Granulocytes % 0.3 % (0-4); Lymphocytes # 1.5 K/mcL (0.6-4.6); Lymphocytes % 19.5 %; Mean Corpuscular HGB Conc 33.3 g/dL (31.6-35.5); Mean Corpuscular Hemoglobin 30.4 pg (28.0-33.3); Mean Corpuscular Volume 91.1 fL (83.0-100.0); Monocytes # 0.8 K/mcL (0.0-1.3); Monocytes % 11.1 %; Neutrophils # 5.2 K/mcL (1.6-8.9); Platelet Count 235 K/mcL (140-400); Red Blood Count 3.13 M/mcL (3.82-4.97); Red Cell Distribution Width 14.3 % (11.5-14.5); Segmented Neutrophils % 68.6 %; White Blood Count 7.6 K/mcL (4.3-11.1)
[2022-01-14 01:26] LABS: Calcium 7.9 mg/dL (8.6-10.3); Magnesium 1.2 mg/dL (1.6-2.6); Phosphorous 3.2 mg/dL (2.7-4.5); Potassium 3.3 mEq/L (3.5-5.1)
[2022-01-14] MEDS ORDERED: *HR* Metoprolol 5 MG/5 ML VIAL IVP STA (08:46)
[2022-01-14] MEDS: Carbidopa/Levodopa 25/100 TABLET PO SCH ×3 (09:03→20:37)
[2022-01-14] MEDS: Aspirin Enteric Coated 81 MG Tablet PO SCH (10:26)
[2022-01-14] MEDS: Cyanocobalamin (B-12) 1,000 MCG TABLET PO SCH (10:27)
[2022-01-14] MEDS: Ringers Solution, Lactated 1,000 ML IVC SCH (10:27)
[2022-01-14] MEDS: Thiamine (B-1) 100 MG TABLET PO SCH (10:27)
[2022-01-14] MEDS: Iron Sucrose Complex 250 MG in 0.9 % Sodium Chloride 250 ML IVPB SCH (12:14)
[2022-01-14] MEDS: *HR* Enoxaparin 60 MG/0.6 ML SYRINGE SQ SCH (18:12)
[2022-01-14] MEDS: Insulin DETEMIR 100 UNIT/ML X5UNITS SUBQ SCH (20:37)
[2022-01-14] MEDS: Famotidine 20 MG TABLET PO SCH (20:38)
[2022-01-14] MEDS: Mirtazapine 15 MG TABLET PO SCH (20:53)
[2022-01-15] MEDS: Insulin LISPRO 300 UNITS/3 ML VIAL SUBQ SCH ×4 (00:26→16:52)
[2022-01-15] MEDS: *HR* Enoxaparin 60 MG/0.6 ML SYRINGE SQ SCH ×2 (05:59→17:28)
[2022-01-15 07:34] LABS: Basophils % 0.2 %; Eosinophils % 0.1 %; Hematocrit 33.9 % (35.3-44.9); Immature Granulocytes % 0.2 % (0-4); Lymphocytes # 1.6 K/mcL (0.6-4.6); Lymphocytes % 19.1 %; Mean Corpuscular HGB Conc 33.3 g/dL (31.6-35.5); Mean Corpuscular Hemoglobin 30.5 pg (28.0-33.3); Mean Corpuscular Volume 91.6 fL (83.0-100.0); Mean Platelet Volume 9.7 fL (9.4-12.4); Monocytes # 0.8 K/mcL (0.0-1.3); Monocytes % 10.1 %; Neutrophils # 5.7 K/mcL (1.6-8.9); Platelet Count 267 K/mcL (140-400); Red Cell Distribution Width 14.6 % (11.5-14.5); Segmented Neutrophils % 70.3 %; White Blood Count 8.1 K/mcL (4.3-11.1)
[2022-01-15 07:41] LABS: Hemoglobin 11.3 g/dL (11.5-15.4)
[2022-01-15 07:51] LABS: BUN/Creatinine Ratio 16 (6-26); Blood Urea Nitrogen 10 mg/dL (8-23); Calcium 8.3 mg/dL (8.6-10.3); Carbon Dioxide 24 mEq/L (23-29); Chloride 103 mEq/L (98-107); Glucose 150 mg/dL (70-105); Magnesium 1.5 mg/dL (1.6-2.6); Osmolality,Calculated 284 (280-300); Phosphorous 2.8 mg/dL (2.7-4.5); Potassium 3.1 mEq/L (3.5-5.1); Sodium 136 mEq/L (136-145)
[2022-01-15] MEDS: Thiamine (B-1) 100 MG TABLET PO SCH (10:02)
[2022-01-15] MEDS: Cyanocobalamin (B-12) 1,000 MCG TABLET PO SCH (10:02)
[2022-01-15] MEDS: Aspirin Enteric Coated 81 MG Tablet PO SCH (12:03)
[2022-01-15] MEDS: Carbidopa/Levodopa 25/100 TABLET PO SCH ×4 (12:03→22:05)
[2022-01-15] MEDS: Iron Sucrose Complex 250 MG in 0.9 % Sodium Chloride 250 ML IVPB SCH ×2 (14:24→16:33)
[2022-01-15] MEDS: Ringers Solution, Lactated 1,000 ML IVC SCH (18:40)
[2022-01-15] MEDS: Mirtazapine 15 MG TABLET PO SCH (22:05)
[2022-01-15] MEDS: Famotidine 20 MG TABLET PO SCH (22:05)
[2022-01-15] MEDS ORDERED: *HR* Metoprolol 5 MG/5 ML VIAL IVP ONE (22:21)
[2022-01-16] MEDS: Insulin LISPRO 300 UNITS/3 ML VIAL SUBQ SCH ×4 (00:49→17:34)
[2022-01-16] MEDS: *HR* Enoxaparin 60 MG/0.6 ML SYRINGE SQ SCH ×2 (05:25→10:27)
[2022-01-16 06:48] LABS: Basophils % 0.2 %; Eosinophils % 0.1 %; Hematocrit 30.6 % (35.3-44.9); Hemoglobin 10.2 g/dL (11.5-15.4); Immature Granulocytes % 0.5 % (0-4); Lymphocytes # 2.1 K/mcL (0.6-4.6); Lymphocytes % 23.2 %; Mean Corpuscular HGB Conc 33.3 g/dL (31.6-35.5); Mean Corpuscular Hemoglobin 30.8 pg (28.0-33.3); Mean Corpuscular Volume 92.4 fL (83.0-100.0); Monocytes # 0.7 K/mcL (0.0-1.3); Monocytes % 7.9 %; Platelet Count 235 K/mcL (140-400); Red Blood Count 3.31 M/mcL (3.82-4.97); Red Cell Distribution Width 14.8 % (11.5-14.5); Segmented Neutrophils % 68.1 %; White Blood Count 8.8 K/mcL (4.3-11.1)
[2022-01-16 07:12] LABS: BUN/Creatinine Ratio 19 (6-26); Blood Urea Nitrogen 11 mg/dL (8-23); Calcium 7.7 mg/dL (8.6-10.3); Carbon Dioxide 21 mEq/L (23-29); Chloride 103 mEq/L (98-107); Glucose 113 mg/dL (70-105); Magnesium 1.9 mg/dL (1.6-2.6); Osmolality,Calculated 280 (280-300); Phosphorous 2.7 mg/dL (2.7-4.5); Potassium 3.5 mEq/L (3.5-5.1); Sodium 135 mEq/L (136-145)
[2022-01-16] MEDS: Carbidopa/Levodopa 25/100 TABLET PO SCH ×3 (09:15→21:59)
[2022-01-16] MEDS: Thiamine (B-1) 100 MG TABLET PO SCH (09:19)
[2022-01-16] MEDS: Aspirin Enteric Coated 81 MG Tablet PO SCH (09:19)
[2022-01-16] MEDS: Cyanocobalamin (B-12) 1,000 MCG TABLET PO SCH (09:20)
[2022-01-16] MEDS: Ringers Solution, Lactated 1,000 ML IVC SCH (16:30)
[2022-01-16] MEDS: Mirtazapine 15 MG TABLET PO SCH (21:59)
[2022-01-17] MEDS: Insulin LISPRO 300 UNITS/3 ML VIAL SUBQ SCH ×4 (00:35→16:56)
[2022-01-17 05:21] LABS: Basophils % 0.2 %; Hematocrit 29.7 % (35.3-44.9); Hemoglobin 9.8 g/dL (11.5-15.4); Immature Granulocytes % 0.4 % (0-4); Lymphocytes % 22.1 %; Mean Corpuscular Hemoglobin 30.4 pg (28.0-33.3); Mean Corpuscular Volume 92.2 fL (83.0-100.0); Mean Platelet Volume 9.8 fL (9.4-12.4); Monocytes # 0.7 K/mcL (0.0-1.3); Neutrophils # 6.2 K/mcL (1.6-8.9); Platelet Count 248 K/mcL (140-400); Red Blood Count 3.22 M/mcL (3.82-4.97); Red Cell Distribution Width 14.4 % (11.5-14.5); Segmented Neutrophils % 69.3 %
[2022-01-17 05:39] LABS: BUN/Creatinine Ratio 15 (6-26); Blood Urea Nitrogen 8 mg/dL (8-23); Calcium 7.7 mg/dL (8.6-10.3); Carbon Dioxide 24 mEq/L (23-29); Chloride 99 mEq/L (98-107); Glucose 155 mg/dL (70-105); Magnesium 1.3 mg/dL (1.6-2.6); Osmolality,Calculated 277 (280-300); Phosphorous 2.2 mg/dL (2.7-4.5); Potassium 3.3 mEq/L (3.5-5.1); Sodium 133 mEq/L (136-145)
[2022-01-17] MEDS: Carbidopa/Levodopa 25/100 TABLET PO SCH ×3 (08:23→19:56)
[2022-01-17] MEDS ORDERED: Potassium Phosphate 44 MEQ in 0.9 % Sodium Chloride 250 ML IVPB ONE (08:33)
[2022-01-17] MEDS: Aspirin Enteric Coated 81 MG Tablet PO SCH (10:50)
[2022-01-17] MEDS: Thiamine (B-1) 100 MG TABLET PO SCH (10:50)
[2022-01-17] MEDS: Cyanocobalamin (B-12) 1,000 MCG TABLET PO SCH (10:50)
[2022-01-17] MEDS ORDERED: *HR* FentaNYL (PF) 100 MCG/2 ML VIAL IVP ONE (14:28)
[2022-01-17] MEDS ORDERED: *HR* Midazolam HCl 2 MG/2 ML VIAL IVP ONE (14:28)
[2022-01-17] MEDS ORDERED: 0.9 % Sodium Chloride 500 ML ONE (14:33)
[2022-01-17] MEDS: ceFAZolin 1,000 MG in 0.9 % Sodium Chloride Mini Bag 100 ML IVPB SCH ×2 (14:45→14:57)
[2022-01-17] MEDS ORDERED: Iopamidol - 300 50 ML VIAL IVP ONE (15:01)
[2022-01-17] MEDS: *HR* Enoxaparin 60 MG/0.6 ML SYRINGE SQ SCH (16:05)
[2022-01-17] MEDS: Mirtazapine 15 MG TABLET PO SCH (19:56)
[2022-01-17] MEDS ORDERED: Acetaminophen IV 1,000 MG/100 ML BAG IVPB ONE (19:59)
[2022-01-17] MEDS: Ringers Solution, Lactated 1,000 ML IVC SCH (20:25)
[2022-01-18] MEDS: Insulin LISPRO 300 UNITS/3 ML VIAL SUBQ SCH ×4 (01:00→18:39)
[2022-01-18] MEDS: *HR* Metoprolol 5 MG/5 ML VIAL IVP PRN ×2 (03:26→17:03)
[2022-01-18] MEDS: *HR* Enoxaparin 60 MG/0.6 ML SYRINGE SQ SCH ×2 (05:11→17:02)
[2022-01-18 06:00] LABS: Eosinophils % 0.1 %; Hematocrit 29.8 % (35.3-44.9); Hemoglobin 9.9 g/dL (11.5-15.4); Immature Granulocytes % 0.5 % (0-4); Lymphocytes # 1.7 K/mcL (0.6-4.6); Lymphocytes % 17.3 %; Mean Corpuscular HGB Conc 33.2 g/dL (31.6-35.5); Mean Corpuscular Hemoglobin 30.8 pg (28.0-33.3); Mean Corpuscular Volume 92.8 fL (83.0-100.0); Mean Platelet Volume 9.4 fL (9.4-12.4); Monocytes # 0.7 K/mcL (0.0-1.3); Monocytes % 6.9 %; Neutrophils # 7.5 K/mcL (1.6-8.9); Platelet Count 252 K/mcL (140-400); Red Blood Count 3.21 M/mcL (3.82-4.97); Red Cell Distribution Width 14.8 % (11.5-14.5); Segmented Neutrophils % 75.2 %; White Blood Count 9.9 K/mcL (4.3-11.1)
[2022-01-18 06:27] LABS: BUN/Creatinine Ratio 15 (6-26); Blood Urea Nitrogen 9 mg/dL (8-23); Calcium 7.9 mg/dL (8.6-10.3); Carbon Dioxide 24 mEq/L (23-29); Chloride 101 mEq/L (98-107); Glucose 130 mg/dL (70-105); Magnesium 1.5 mg/dL (1.6-2.6); Osmolality,Calculated 280 (280-300); Phosphorous 2.9 mg/dL (2.7-4.5); Potassium 3.8 mEq/L (3.5-5.1); Sodium 135 mEq/L (136-145)
[2022-01-18] MEDS: Aspirin Enteric Coated 81 MG Tablet PO SCH (10:09)
[2022-01-18] MEDS: Carbidopa/Levodopa 25/100 TABLET PO SCH (10:09)
[2022-01-18] MEDS: Cyanocobalamin (B-12) 1,000 MCG TABLET PO SCH (10:10)
[2022-01-18] MEDS: Thiamine (B-1) 100 MG TABLET PO SCH (10:10)
[2022-01-18] MEDS ORDERED: Artificial Tears SOLN 15 ML BOTTLE BOTH EYES ONE (13:16)
[2022-01-18] MEDS ORDERED: Sennosides/Docusate Sodium TABLET GTUBE PRN (14:00)
[2022-01-18] MEDS: Carbidopa/Levodopa 25/100 TABLET GTUBE SCH ×2 (18:29→22:15)
[2022-01-18] MEDS: Mirtazapine 15 MG TABLET GTUBE SCH (20:45)
[2022-01-18] MEDS: Gabapentin 100 MG CAPSULE GTUBE SCH (20:45)
[2022-01-18] MEDS: Ringers Solution, Lactated 1,000 ML IVC SCH (21:24)
[2022-01-19] MEDS: Insulin LISPRO 300 UNITS/3 ML VIAL SUBQ SCH ×4 (06:09→17:16)
[2022-01-19] MEDS: *HR* Enoxaparin 60 MG/0.6 ML SYRINGE SQ SCH ×2 (06:12→16:41)
[2022-01-19] MEDS: Thiamine (B-1) 100 MG TABLET GTUBE SCH (08:43)
[2022-01-19] MEDS: Aspirin 81 MG TAB.CHEW GTUBE SCH (08:43)
[2022-01-19] MEDS: Carbidopa/Levodopa 25/100 TABLET GTUBE SCH ×3 (08:43→20:36)
[2022-01-19] MEDS: Cyanocobalamin (B-12) 1,000 MCG TABLET GTUBE SCH (08:43)
[2022-01-19] MEDS: Gabapentin 100 MG CAPSULE GTUBE SCH (09:47)
[2022-01-19 11:47] LABS: Basophils % 0.4 %; Eosinophils # 0.1 K/mcL (0.0-0.6); Hematocrit 32.3 % (35.3-44.9); Hemoglobin 10.7 g/dL (11.5-15.4); Immature Granulocytes % 1.5 % (0-4); Lymphocytes # 3.4 K/mcL (0.6-4.6); Lymphocytes % 30.8 %; Mean Corpuscular HGB Conc 33.1 g/dL (31.6-35.5); Mean Corpuscular Hemoglobin 30.4 pg (28.0-33.3); Mean Corpuscular Volume 91.8 fL (83.0-100.0); Mean Platelet Volume 9.8 fL (9.4-12.4); Monocytes % 9.3 %; Neutrophils # 6.3 K/mcL (1.6-8.9); Nucleated Red Blood Cells 0.2 /100 WBC (0); Platelet Count 268 K/mcL (140-400); Red Blood Count 3.52 M/mcL (3.82-4.97); Red Cell Distribution Width 14.7 % (11.5-14.5)
[2022-01-19 12:28] LABS: BUN/Creatinine Ratio 25 (6-26); Blood Urea Nitrogen 12 mg/dL (8-23); Calcium 7.6 mg/dL (8.6-10.3); Carbon Dioxide 24 mEq/L (23-29); Chloride 101 mEq/L (98-107); Glucose 160 mg/dL (70-105); Magnesium 1.3 mg/dL (1.6-2.6); Osmolality,Calculated 277 (280-300); Phosphorous 2.2 mg/dL (2.7-4.5); Potassium 4.3 mEq/L (3.5-5.1); Sodium 132 mEq/L (136-145)
[2022-01-19 12:29] LABS: Platelet Estimate Normal (Normal)
[2022-01-19] MEDS: Ringers Solution, Lactated 1,000 ML IVC SCH ×2 (16:56→16:57)
[2022-01-19] MEDS: Mirtazapine 15 MG TABLET GTUBE SCH (20:35)
[2022-01-20] MEDS: Insulin LISPRO 300 UNITS/3 ML VIAL SUBQ SCH ×4 (00:57→17:40)
[2022-01-20] MEDS: *HR* Enoxaparin 60 MG/0.6 ML SYRINGE SQ SCH ×2 (05:09→16:59)
[2022-01-20] MEDS: Carbidopa/Levodopa 25/100 TABLET GTUBE SCH ×3 (09:42→20:39)
[2022-01-20] MEDS: lisinopriL 10 MG TABLET GTUBE SCH (09:42)
[2022-01-20] MEDS: Thiamine (B-1) 100 MG TABLET GTUBE SCH (09:42)
[2022-01-20] MEDS: Aspirin 81 MG TAB.CHEW GTUBE SCH (09:42)
[2022-01-20] MEDS: Gabapentin 100 MG CAPSULE GTUBE SCH (09:42)
[2022-01-20] MEDS: Cyanocobalamin (B-12) 1,000 MCG TABLET GTUBE SCH (09:42)
[2022-01-20 19:06] LABS: Basophils # 0.1 K/mcL (0.0-0.2); Basophils % 0.8 %; Eosinophils # 0.1 K/mcL (0.0-0.6); Eosinophils % 1.2 %; Hemoglobin 10.6 g/dL (11.5-15.4); Immature Granulocytes % 1.7 % (0-4); Lymphocytes # 2.1 K/mcL (0.6-4.6); Lymphocytes % 27.5 %; Mean Corpuscular HGB Conc 33.1 g/dL (31.6-35.5); Mean Corpuscular Hemoglobin 30.9 pg (28.0-33.3); Mean Corpuscular Volume 93.3 fL (83.0-100.0); Mean Platelet Volume 9.7 fL (9.4-12.4); Monocytes # 0.8 K/mcL (0.0-1.3); Monocytes % 9.7 %; Neutrophils # 4.6 K/mcL (1.6-8.9); Platelet Count 316 K/mcL (140-400); Red Blood Count 3.43 M/mcL (3.82-4.97); Red Cell Distribution Width 14.8 % (11.5-14.5); Segmented Neutrophils % 59.1 %; White Blood Count 7.7 K/mcL (4.3-11.1)
[2022-01-20 19:21] LABS: APTT (LE Anticoag) 40 sec (32-48); Diluted Russell Viper Venom 32 sec (33-44); PT (LE-Anticoag) 15.6 sec (12.0-15.5)
[2022-01-20 19:21] LABS: APTT (LE Anticoag) 39 sec (32-48); Diluted Russell Viper Venom 30 sec (33-44); PT (LE-Anticoag) 15.9 sec (12.0-15.5)
[2022-01-20 19:26] LABS: BUN/Creatinine Ratio 21 (6-26); Blood Urea Nitrogen 11 mg/dL (8-23); Calcium 7.6 mg/dL (8.6-10.3); Carbon Dioxide 24 mEq/L (23-29); Chloride 101 mEq/L (98-107); Glucose 189 mg/dL (70-105); Magnesium 1.5 mg/dL (1.6-2.6); Osmolality,Calculated 282 (280-300); Phosphorous 2.2 mg/dL (2.7-4.5); Potassium 3.6 mEq/L (3.5-5.1); Sodium 134 mEq/L (136-145)
[2022-01-20] MEDS: Mirtazapine 15 MG TABLET GTUBE SCH (20:39)
[2022-01-21] MEDS ORDERED: Furosemide 20 MG/2 ML VIAL IVP ONE (00:11)
[2022-01-21] MEDS: Insulin LISPRO 300 UNITS/3 ML VIAL SUBQ SCH ×5 (00:32→23:53)
[2022-01-21 01:39] LABS: Adenovirus Not Detected (Not Detect); Bordetella Pertussis Not Detected (Not Detect); Chlamydophila pneumoniae Not Detected (Not Detect); Coronavirus 229E Not Detected (Not Detect); Coronavirus HKU1 Not Detected (Not Detect); Coronavirus NL63 Not Detected (Not Detect); Coronavirus OC43 Not Detected (Not Detect); Human Metapneumovirus Not Detected (Not Detect); Human Rhinovirus/Enterovirus Not Detected (Not Detect); Influenza A Subtype 2009 H1 Not Detected (Not Detect); Influenza B Not Detected (Not Detect); Mycoplasma pneumoniae Not Detected (Not Detect); Parainfluenza Virus 1 Not Detected (Not Detect); Parainfluenza Virus 2 Not Detected (Not Detect); Parainfluenza Virus 3 Not Detected (Not Detect); Parainfluenza Virus 4 Not Detected (Not Detect); Respiratory Syncytial Virus Not Detected (Not Detect); SARS-CoV-2 DETECTED (Not Detect)
[2022-01-21] MEDS: Ipratropium 1 PUFF INHALER IH SCH ×4 (04:10→22:57)
[2022-01-21 04:22] LABS: Basophils # 0.1 K/mcL (0.0-0.2); Basophils % 0.6 %; Eosinophils # 0.1 K/mcL (0.0-0.6); Eosinophils % 1.3 %; Hematocrit 31.3 % (35.3-44.9); Hemoglobin 10.2 g/dL (11.5-15.4); Immature Granulocytes % 2.5 % (0-4); Lymphocytes # 1.9 K/mcL (0.6-4.6); Lymphocytes % 23.5 %; Mean Corpuscular HGB Conc 32.6 g/dL (31.6-35.5); Mean Corpuscular Hemoglobin 30.9 pg (28.0-33.3); Mean Corpuscular Volume 94.8 fL (83.0-100.0); Mean Platelet Volume 9.7 fL (9.4-12.4); Monocytes # 0.5 K/mcL (0.0-1.3); Monocytes % 5.9 %; Neutrophils # 5.4 K/mcL (1.6-8.9); Platelet Count 329 K/mcL (140-400); Red Cell Distribution Width 14.9 % (11.5-14.5); Segmented Neutrophils % 66.2 %; White Blood Count 8.2 K/mcL (4.3-11.1)
[2022-01-21 04:40] LABS: BUN/Creatinine Ratio 17 (6-26); Blood Urea Nitrogen 11 mg/dL (8-23); Calcium 7.4 mg/dL (8.6-10.3); Carbon Dioxide 24 mEq/L (23-29); Chloride 101 mEq/L (98-107); Glucose 281 mg/dL (70-105); Magnesium 1.5 mg/dL (1.6-2.6); Osmolality,Calculated 284 (280-300); Phosphorous 2.7 mg/dL (2.7-4.5); Potassium 3.8 mEq/L (3.5-5.1); Sodium 132 mEq/L (136-145)
[2022-01-21 06:54] LABS: Alanine Aminotransferase 3 Units/L (7-52); Albumin 2.7 g/dL (3.5-5.7); Albumin/Globulin Ratio 1.1 (1.1-2.2); Alkaline Phosphatase 87 Units/L (34-104); Aspartate Amino Transferase 18 Units/L (13-39); Bilirubin,Indirect 0.4 mg/dL (0.0-1.0); Bilirubin,Total 0.4 mg/dL (0.3-1.0); Globulin 2.5 g/dL (2.4-3.5); Total Protein 5.2 g/dL (6.4-8.9)
[2022-01-21] MEDS ORDERED: Remdesivir 200 MG in 0.9 % Sodium Chloride 100 ML IVPB ONE (08:00)
[2022-01-21] MEDS: Carbidopa/Levodopa 25/100 TABLET GTUBE SCH ×3 (09:39→20:20)
[2022-01-21] MEDS: Aspirin 81 MG TAB.CHEW GTUBE SCH (09:39)
[2022-01-21] MEDS: lisinopriL 10 MG TABLET GTUBE SCH (09:39)
[2022-01-21] MEDS: Gabapentin 100 MG CAPSULE GTUBE SCH (09:39)
[2022-01-21] MEDS: Thiamine (B-1) 100 MG TABLET GTUBE SCH (09:39)
[2022-01-21] MEDS: Cyanocobalamin (B-12) 1,000 MCG TABLET GTUBE SCH (09:40)
[2022-01-21] MEDS: *HR* Enoxaparin 60 MG/0.6 ML SYRINGE SQ SCH ×2 (10:30→16:37)
[2022-01-21 11:45] LABS: C-Reactive Protein 52 mg/L (Less than 10)
[2022-01-21] MEDS: cefTRIAXone 1,000 MG in 0.9 % Sodium Chloride Mini Bag 100 ML IVPB SCH (18:05)
[2022-01-21] MEDS: Azithromycin 500 MG in 0.9 % Sodium Chloride 250 ML IVPB SCH (18:06)
[2022-01-21] MEDS: Mirtazapine 15 MG TABLET GTUBE SCH (20:20)
[2022-01-22 02:50] LABS: Basophils % 0.3 %; Eosinophils % 0.1 %; Hematocrit 28.3 % (35.3-44.9); Hemoglobin 9.3 g/dL (11.5-15.4); Immature Granulocytes % 2.3 % (0-4); Lymphocytes # 1.8 K/mcL (0.6-4.6); Lymphocytes % 18.7 %; Mean Corpuscular HGB Conc 32.9 g/dL (31.6-35.5); Mean Corpuscular Hemoglobin 30.9 pg (28.0-33.3); Mean Platelet Volume 9.6 fL (9.4-12.4); Monocytes # 0.8 K/mcL (0.0-1.3); Monocytes % 8.4 %; Neutrophils # 6.7 K/mcL (1.6-8.9); Platelet Count 329 K/mcL (140-400); Red Blood Count 3.01 M/mcL (3.82-4.97); Red Cell Distribution Width 14.7 % (11.5-14.5); Segmented Neutrophils % 70.2 %; White Blood Count 9.5 K/mcL (4.3-11.1)
[2022-01-22 03:15] LABS: Alanine Aminotransferase 5 Units/L (7-52); Albumin 2.5 g/dL (3.5-5.7); Albumin/Globulin Ratio 0.9 (1.1-2.2); Alkaline Phosphatase 70 Units/L (34-104); Aspartate Amino Transferase 21 Units/L (13-39); BUN/Creatinine Ratio 36 (6-26); Bilirubin,Direct 0.1 mg/dL (0.0-0.2); Bilirubin,Indirect 0.2 mg/dL (0.0-1.0); Bilirubin,Total 0.3 mg/dL (0.3-1.0); Blood Urea Nitrogen 20 mg/dL (8-23); Calcium 7.6 mg/dL (8.6-10.3); Carbon Dioxide 25 mEq/L (23-29); Chloride 103 mEq/L (98-107); Globulin 2.7 g/dL (2.4-3.5); Glucose 201 mg/dL (70-105); Magnesium 1.8 mg/dL (1.6-2.6); Osmolality,Calculated 290 (280-300); Phosphorous 1.4 mg/dL (2.7-4.5); Potassium 3.5 mEq/L (3.5-5.1); Sodium 136 mEq/L (136-145); Total Protein 5.2 g/dL (6.4-8.9)
[2022-01-22] MEDS: Ipratropium 1 PUFF INHALER IH SCH ×4 (04:10→22:45)
[2022-01-22] MEDS: Insulin LISPRO 300 UNITS/3 ML VIAL SUBQ SCH ×3 (05:06→17:46)
[2022-01-22] MEDS: *HR* Enoxaparin 60 MG/0.6 ML SYRINGE SQ SCH ×2 (05:07→18:18)
[2022-01-22] MEDS ORDERED: Insulin DETEMIR 100 UNIT/ML X5UNITS SUBQ SCH (09:00)
[2022-01-22] MEDS: lisinopriL 10 MG TABLET GTUBE SCH (10:45)
[2022-01-22] MEDS: Carbidopa/Levodopa 25/100 TABLET GTUBE SCH ×3 (10:45→21:26)
[2022-01-22] MEDS: Gabapentin 100 MG CAPSULE GTUBE SCH (10:46)
[2022-01-22] MEDS: Cyanocobalamin (B-12) 1,000 MCG TABLET GTUBE SCH (10:46)
[2022-01-22] MEDS: Thiamine (B-1) 100 MG TABLET GTUBE SCH (10:46)
[2022-01-22] MEDS: Aspirin 81 MG TAB.CHEW GTUBE SCH (10:46)
[2022-01-22] MEDS: cefTRIAXone 1,000 MG in 0.9 % Sodium Chloride Mini Bag 100 ML IVPB SCH (11:00)
[2022-01-22] MEDS: Remdesivir 100 MG in 0.9 % Sodium Chloride 100 ML IVPB SCH (11:34)
[2022-01-22] MEDS: Azithromycin 500 MG in 0.9 % Sodium Chloride 250 ML IVPB SCH (18:25)
[2022-01-22] MEDS: Mirtazapine 15 MG TABLET GTUBE SCH (21:24)
[2022-01-23] MEDS: Insulin LISPRO 300 UNITS/3 ML VIAL SUBQ SCH ×3 (02:12→18:26)
[2022-01-23] MEDS: Ipratropium 1 PUFF INHALER IH SCH ×4 (04:01→21:44)
[2022-01-23] MEDS: Remdesivir 100 MG in 0.9 % Sodium Chloride 100 ML IVPB SCH (09:22)
[2022-01-23] MEDS: Cyanocobalamin (B-12) 1,000 MCG TABLET GTUBE SCH (09:23)
[2022-01-23] MEDS: Gabapentin 100 MG CAPSULE GTUBE SCH (09:23)
[2022-01-23] MEDS: lisinopriL 10 MG TABLET GTUBE SCH (09:23)
[2022-01-23] MEDS: Thiamine (B-1) 100 MG TABLET GTUBE SCH (09:23)
[2022-01-23] MEDS: Carbidopa/Levodopa 25/100 TABLET GTUBE SCH ×3 (09:24→21:12)
[2022-01-23] MEDS: Aspirin 81 MG TAB.CHEW GTUBE SCH (09:24)
[2022-01-23] MEDS: cefTRIAXone 1,000 MG in 0.9 % Sodium Chloride Mini Bag 100 ML IVPB SCH (09:24)
[2022-01-23] MEDS: Insulin DETEMIR 100 UNIT/ML X5UNITS SUBQ SCH ×2 (09:54→21:27)
[2022-01-23 11:28] LABS: Basophils # 0.1 K/mcL (0.0-0.2); Basophils % 0.6 %; Eosinophils % 0.1 %; Hematocrit 30.1 % (35.3-44.9); Immature Granulocytes % 4.4 % (0-4); Lymphocytes # 1.9 K/mcL (0.6-4.6); Lymphocytes % 15.4 %; Mean Corpuscular HGB Conc 33.2 g/dL (31.6-35.5); Mean Corpuscular Hemoglobin 31.3 pg (28.0-33.3); Mean Corpuscular Volume 94.4 fL (83.0-100.0); Monocytes # 1.1 K/mcL (0.0-1.3); Monocytes % 8.6 %; Neutrophils # 8.9 K/mcL (1.6-8.9); Nucleated Red Blood Cells 0.2 /100 WBC (0); Platelet Count 380 K/mcL (140-400); Red Blood Count 3.19 M/mcL (3.82-4.97); Red Cell Distribution Width 14.9 % (11.5-14.5); Segmented Neutrophils % 70.9 %; White Blood Count 12.5 K/mcL (4.3-11.1)
[2022-01-23 12:04] LABS: Alanine Aminotransferase < 3 Units/L (7-52); Albumin 2.6 g/dL (3.5-5.7); Alkaline Phosphatase 92 Units/L (34-104); Aspartate Amino Transferase 19 Units/L (13-39); BUN/Creatinine Ratio 40 (6-26); Bilirubin,Direct 0.1 mg/dL (0.0-0.2); Bilirubin,Indirect 0.2 mg/dL (0.0-1.0); Bilirubin,Total 0.3 mg/dL (0.3-1.0); Blood Urea Nitrogen 22 mg/dL (8-23); Calcium 7.4 mg/dL (8.6-10.3); Carbon Dioxide 26 mEq/L (23-29); Chloride 100 mEq/L (98-107); Globulin 2.7 g/dL (2.4-3.5); Glucose 330 mg/dL (70-105); Magnesium 1.5 mg/dL (1.6-2.6); Osmolality,Calculated 292 (280-300); Phosphorous 1.3 mg/dL (2.7-4.5); Sodium 133 mEq/L (136-145); Total Protein 5.3 g/dL (6.4-8.9)
[2022-01-23 12:07] LABS: Heparin anti-factor XA LMWH 0.95 IU/mL (0.50-1.10)
[2022-01-23] MEDS ORDERED: Azithromycin 250 MG TABLET PO SCH (17:00)
[2022-01-23] MEDS ORDERED: Azithromycin 200 MG/5 ML UDC GTUBE SCH (17:00)
[2022-01-23] MEDS: *HR* Enoxaparin 60 MG/0.6 ML SYRINGE SQ SCH (18:25)
[2022-01-23] MEDS: Mirtazapine 15 MG TABLET GTUBE SCH (21:12)
[2022-01-24] MEDS: Insulin LISPRO 300 UNITS/3 ML VIAL SUBQ SCH ×5 (01:58→17:35)
[2022-01-24] MEDS: Ipratropium 1 PUFF INHALER IH SCH ×4 (05:00→22:23)
[2022-01-24] MEDS: *HR* Enoxaparin 60 MG/0.6 ML SYRINGE SQ SCH ×3 (07:20→17:58)
[2022-01-24] MEDS: Insulin DETEMIR 100 UNIT/ML X5UNITS SUBQ SCH ×2 (08:36→21:20)
[2022-01-24] MEDS: Gabapentin 100 MG CAPSULE GTUBE SCH (08:37)
[2022-01-24] MEDS: Carbidopa/Levodopa 25/100 TABLET GTUBE SCH ×3 (08:37→21:20)
[2022-01-24] MEDS: Cyanocobalamin (B-12) 1,000 MCG TABLET GTUBE SCH (08:37)
[2022-01-24] MEDS: lisinopriL 10 MG TABLET GTUBE SCH (08:37)
[2022-01-24] MEDS: Aspirin 81 MG TAB.CHEW GTUBE SCH (08:37)
[2022-01-24] MEDS: Thiamine (B-1) 100 MG TABLET GTUBE SCH (08:37)
[2022-01-24] MEDS: Remdesivir 100 MG in 0.9 % Sodium Chloride 100 ML IVPB SCH (08:46)
[2022-01-24] MEDS ORDERED: dexAMETHasone 4 MG TABLET PO SCH (09:00)
[2022-01-24] MEDS ORDERED: dexAMETHasone 0.5 MG/5 ML UDC GTUBE SCH (09:00)
[2022-01-24] MEDS: cefTRIAXone 1,000 MG in 0.9 % Sodium Chloride Mini Bag 100 ML IVPB SCH (10:11)
[2022-01-24 10:56] LABS: Basophils # 0.1 K/mcL (0.0-0.2); Basophils % 0.4 %; Eosinophils % 0.1 %; Hemoglobin 9.6 g/dL (11.5-15.4); Immature Granulocytes % 4.3 % (0-4); Lymphocytes % 14.4 %; Mean Corpuscular Hemoglobin 30.1 pg (28.0-33.3); Mean Platelet Volume 10.1 fL (9.4-12.4); Monocytes % 7.5 %; Neutrophils # 10.2 K/mcL (1.6-8.9); Nucleated Red Blood Cells 0.4 /100 WBC (0); Platelet Count 383 K/mcL (140-400); Red Blood Count 3.19 M/mcL (3.82-4.97); Red Cell Distribution Width 15.1 % (11.5-14.5); Segmented Neutrophils % 73.3 %; White Blood Count 13.9 K/mcL (4.3-11.1)
[2022-01-24 11:10] LABS: Alanine Aminotransferase 3 Units/L (7-52); Albumin 2.5 g/dL (3.5-5.7); Alkaline Phosphatase 81 Units/L (34-104); Aspartate Amino Transferase 30 Units/L (13-39); BUN/Creatinine Ratio 44 (6-26); Bilirubin,Direct 0.1 mg/dL (0.0-0.2); Bilirubin,Indirect 0.2 mg/dL (0.0-1.0); Bilirubin,Total 0.3 mg/dL (0.3-1.0); Blood Urea Nitrogen 24 mg/dL (8-23); Calcium 7.2 mg/dL (8.6-10.3); Carbon Dioxide 28 mEq/L (23-29); Chloride 100 mEq/L (98-107); Globulin 2.4 g/dL (2.4-3.5); Glucose 228 mg/dL (70-105); Magnesium 2.2 mg/dL (1.6-2.6); Osmolality,Calculated 289 (280-300); Phosphorous 2.4 mg/dL (2.7-4.5); Potassium 4.2 mEq/L (3.5-5.1); Sodium 134 mEq/L (136-145); Total Protein 4.9 g/dL (6.4-8.9)
[2022-01-24] MEDS ORDERED: AZITHROMYCIN 200 MG/5 ML GTUBE SCH (17:00)
[2022-01-24] MEDS: Mirtazapine 15 MG TABLET GTUBE SCH (21:20)
[2022-01-25] MEDS: Insulin LISPRO 300 UNITS/3 ML VIAL SUBQ SCH ×4 (00:45→17:20)
[2022-01-25] MEDS: Ipratropium 1 PUFF INHALER IH SCH ×4 (03:53→22:55)
[2022-01-25] MEDS: *HR* Enoxaparin 60 MG/0.6 ML SYRINGE SQ SCH ×2 (08:20→17:20)
[2022-01-25] MEDS: Aspirin 81 MG TAB.CHEW GTUBE SCH (08:21)
[2022-01-25] MEDS: Carbidopa/Levodopa 25/100 TABLET GTUBE SCH ×3 (08:21→21:18)
[2022-01-25] MEDS: Thiamine (B-1) 100 MG TABLET GTUBE SCH (08:21)
[2022-01-25] MEDS: Cyanocobalamin (B-12) 1,000 MCG TABLET GTUBE SCH (08:21)
[2022-01-25] MEDS: Gabapentin 100 MG CAPSULE GTUBE SCH (08:21)
[2022-01-25] MEDS: cefTRIAXone 1,000 MG in 0.9 % Sodium Chloride Mini Bag 100 ML IVPB SCH (08:22)
[2022-01-25] MEDS: Insulin DETEMIR 100 UNIT/ML X5UNITS SUBQ SCH ×2 (08:27→21:17)
[2022-01-25] MEDS: Remdesivir 100 MG in 0.9 % Sodium Chloride 100 ML IVPB SCH (08:28)
[2022-01-25] MEDS: lisinopriL 10 MG TABLET GTUBE SCH (08:29)
[2022-01-25] MEDS ORDERED: Furosemide 40 MG/4 ML VIAL IVP SCH (09:00)
[2022-01-25 16:59] LABS: Basophils # 0.1 K/mcL (0.0-0.2); Basophils % 0.5 %; Hematocrit 33.2 % (35.3-44.9); Hemoglobin 10.8 g/dL (11.5-15.4); Immature Granulocytes % 2.8 % (0-4); Lymphocytes # 1.8 K/mcL (0.6-4.6); Lymphocytes % 10.6 %; Mean Corpuscular HGB Conc 32.5 g/dL (31.6-35.5); Mean Corpuscular Hemoglobin 30.9 pg (28.0-33.3); Mean Corpuscular Volume 94.9 fL (83.0-100.0); Mean Platelet Volume 10.1 fL (9.4-12.4); Monocytes # 0.4 K/mcL (0.0-1.3); Monocytes % 2.5 %; Neutrophils # 14.3 K/mcL (1.6-8.9); Nucleated Red Blood Cells 0.2 /100 WBC (0); Platelet Count 436 K/mcL (140-400); Red Cell Distribution Width 15.7 % (11.5-14.5); Segmented Neutrophils % 83.6 %; White Blood Count 17.1 K/mcL (4.3-11.1)
[2022-01-25] MEDS ORDERED: AZITHROMYCIN 200 MG/5 ML PO SCH (17:00)
[2022-01-25 17:18] LABS: Alanine Aminotransferase 12 Units/L (7-52); Albumin 2.7 g/dL (3.5-5.7); Alkaline Phosphatase 116 Units/L (34-104); Aspartate Amino Transferase 52 Units/L (13-39); BUN/Creatinine Ratio 49 (6-26); Bilirubin,Direct 0.1 mg/dL (0.0-0.2); Bilirubin,Indirect 0.2 mg/dL (0.0-1.0); Bilirubin,Total 0.3 mg/dL (0.3-1.0); Blood Urea Nitrogen 31 mg/dL (8-23); Calcium 7.7 mg/dL (8.6-10.3); Carbon Dioxide 24 mEq/L (23-29); Chloride 98 mEq/L (98-107); Globulin 2.7 g/dL (2.4-3.5); Glucose 346 mg/dL (70-105); Magnesium 1.9 mg/dL (1.6-2.6); Osmolality,Calculated 292 (280-300); Phosphorous 2.8 mg/dL (2.7-4.5); Potassium 4.7 mEq/L (3.5-5.1); Sodium 131 mEq/L (136-145); Total Protein 5.4 g/dL (6.4-8.9)
[2022-01-25] MEDS: Mirtazapine 15 MG TABLET GTUBE SCH (21:17)
[2022-01-26] MEDS: Insulin LISPRO 300 UNITS/3 ML VIAL SUBQ SCH ×4 (00:51→18:02)
[2022-01-26] MEDS: Ipratropium 1 PUFF INHALER IH SCH ×4 (04:25→22:07)
[2022-01-26] MEDS: *HR* Enoxaparin 60 MG/0.6 ML SYRINGE SQ SCH (04:49)
[2022-01-26 05:21] LABS: Basophils % 0.2 %; Hematocrit 31.8 % (35.3-44.9); Hemoglobin 10.6 g/dL (11.5-15.4); Immature Granulocytes % 2.1 % (0-4); Lymphocytes # 2.8 K/mcL (0.6-4.6); Lymphocytes % 16.4 %; Mean Corpuscular HGB Conc 33.3 g/dL (31.6-35.5); Mean Corpuscular Hemoglobin 31.2 pg (28.0-33.3); Mean Corpuscular Volume 93.5 fL (83.0-100.0); Monocytes # 0.9 K/mcL (0.0-1.3); Neutrophils # 13.1 K/mcL (1.6-8.9); Nucleated Red Blood Cells 0.1 /100 WBC (0); Platelet Count 417 K/mcL (140-400); Red Cell Distribution Width 15.9 % (11.5-14.5); Segmented Neutrophils % 76.3 %; White Blood Count 17.2 K/mcL (4.3-11.1)
[2022-01-26 05:45] LABS: Alanine Aminotransferase 15 Units/L (7-52); Albumin 2.7 g/dL (3.5-5.7); Alkaline Phosphatase 97 Units/L (34-104); Aspartate Amino Transferase 32 Units/L (13-39); BUN/Creatinine Ratio 59 (6-26); Bilirubin,Direct 0.1 mg/dL (0.0-0.2); Bilirubin,Indirect 0.1 mg/dL (0.0-1.0); Bilirubin,Total 0.2 mg/dL (0.3-1.0); Blood Urea Nitrogen 34 mg/dL (8-23); Calcium 8.1 mg/dL (8.6-10.3); Carbon Dioxide 26 mEq/L (23-29); Chloride 100 mEq/L (98-107); Globulin 2.6 g/dL (2.4-3.5); Glucose 205 mg/dL (70-105); Magnesium 1.9 mg/dL (1.6-2.6); Osmolality,Calculated 288 (280-300); Phosphorous 2.9 mg/dL (2.7-4.5); Sodium 132 mEq/L (136-145); Total Protein 5.3 g/dL (6.4-8.9)
[2022-01-26] MEDS: Gabapentin 100 MG CAPSULE GTUBE SCH (09:28)
[2022-01-26] MEDS: Aspirin 81 MG TAB.CHEW GTUBE SCH (09:28)
[2022-01-26] MEDS: Cyanocobalamin (B-12) 1,000 MCG TABLET GTUBE SCH (09:28)
[2022-01-26] MEDS: Carbidopa/Levodopa 25/100 TABLET GTUBE SCH ×3 (09:28→21:19)
[2022-01-26] MEDS: Thiamine (B-1) 100 MG TABLET GTUBE SCH (09:28)
[2022-01-26] MEDS: cefTRIAXone 1,000 MG in 0.9 % Sodium Chloride Mini Bag 100 ML IVPB SCH (09:28)
[2022-01-26] MEDS: Insulin DETEMIR 100 UNIT/ML X5UNITS SUBQ SCH ×2 (09:30→21:20)
[2022-01-26] MEDS: Apixaban 5 MG TABLET GTUBE SCH (21:19)
[2022-01-26] MEDS: Mirtazapine 15 MG TABLET GTUBE SCH (21:19)
[2022-01-27] MEDS: Ipratropium 1 PUFF INHALER IH SCH ×3 (04:42→15:37)
[2022-01-27] MEDS: Insulin LISPRO 300 UNITS/3 ML VIAL SUBQ SCH ×3 (06:44→12:15)
[2022-01-27] MEDS: Carbidopa/Levodopa 25/100 TABLET GTUBE SCH (10:10)
[2022-01-27] MEDS: Apixaban 5 MG TABLET GTUBE SCH (10:10)
[2022-01-27] MEDS: Cyanocobalamin (B-12) 1,000 MCG TABLET GTUBE SCH (10:10)
[2022-01-27] MEDS: Gabapentin 100 MG CAPSULE GTUBE SCH (10:10)
[2022-01-27] MEDS: Aspirin 81 MG TAB.CHEW GTUBE SCH (10:10)
[2022-01-27] MEDS: Thiamine (B-1) 100 MG TABLET GTUBE SCH (10:10)
[2022-01-27] MEDS: Insulin DETEMIR 100 UNIT/ML X5UNITS SUBQ SCH (10:18)
[2022-01-27 10:59] LABS: Basophils # 0.1 K/mcL (0.0-0.2); Basophils % 0.5 %; Hematocrit 37.2 % (35.3-44.9); Immature Granulocytes % 1.2 % (0-4); Lymphocytes # 2.8 K/mcL (0.6-4.6); Mean Corpuscular HGB Conc 33.1 g/dL (31.6-35.5); Mean Corpuscular Hemoglobin 31.3 pg (28.0-33.3); Mean Corpuscular Volume 94.7 fL (83.0-100.0); Mean Platelet Volume 9.9 fL (9.4-12.4); Monocytes % 6.7 %; Neutrophils # 10.8 K/mcL (1.6-8.9); Nucleated Red Blood Cells 0.2 /100 WBC (0); Platelet Count 381 K/mcL (140-400); Red Blood Count 3.93 M/mcL (3.82-4.97); Red Cell Distribution Width 16.6 % (11.5-14.5); Segmented Neutrophils % 72.6 %; White Blood Count 14.9 K/mcL (4.3-11.1)
[2022-01-27 11:03] LABS: Hemoglobin 12.3 g/dL (11.5-15.4)
[2022-01-27 11:09] VITALS: O2SAT 100
[2022-01-27 11:15] VITALS: BP 171/79; PULSE 65; TEMP 98.9
[2022-01-27 11:45] LABS: BUN/Creatinine Ratio 53 (6-26); Blood Urea Nitrogen 31 mg/dL (8-23); Calcium 8.3 mg/dL (8.6-10.3); Carbon Dioxide 17 mEq/L (23-29); Chloride 100 mEq/L (98-107); Glucose 258 mg/dL (70-105); Osmolality,Calculated 287 (280-300); Potassium 4.8 mEq/L (3.5-5.1); Sodium 131 mEq/L (136-145)
== END 2022-01-27 20:00 | disposition home health service (06) | DRG 871 ==
LOC: EMEROOARM 23:10 → 2ANU 01-04 12:25 → 2NENU 01-05 00:11 → SUATTDRO 01-05 00:11 → 2NENU 01-05 01:02
PROVIDERS: ADMIT Student in an Organized Health Care Education/Training Program; ATTEND Internal Medicine
PROC: IRDRAIN (2022-01-17 12:00)

== ENCOUNTER 2022-02-27 16:27 | Observation (INO) ==
[2022-02-27] MEDS ORDERED: 0.9 % Sodium Chloride 1,000 ML IVC ONE (17:36)
[2022-02-27] MEDS ORDERED: Piperacillin/Tazobactam 3.375 GM in 0.9 % Sodium Chloride Mini Bag 100 ML IVPB ONE (17:37)
[2022-02-27 19:07] LABS: Basophils # 0.1 K/mcL (0.0-0.2); Basophils % 0.3 %; Eosinophils # 0.1 K/mcL (0.0-0.6); Eosinophils % 0.5 %; Hematocrit 27.3 % (35.3-44.9); Hemoglobin 8.9 g/dL (11.5-15.4); Immature Granulocytes % 0.6 % (0-4); Lymphocytes # 3.5 K/mcL (0.6-4.6); Lymphocytes % 17.7 %; Mean Corpuscular HGB Conc 32.6 g/dL (31.6-35.5); Mean Corpuscular Hemoglobin 30.5 pg (28.0-33.3); Mean Corpuscular Volume 93.5 fL (83.0-100.0); Mean Platelet Volume 9.9 fL (9.4-12.4); Monocytes # 1.8 K/mcL (0.0-1.3); Monocytes % 9.1 %; Neutrophils # 14.2 K/mcL (1.6-8.9); Platelet Count 370 K/mcL (140-400); Red Blood Count 2.92 M/mcL (3.82-4.97); Red Cell Distribution Width 15.9 % (11.5-14.5); Segmented Neutrophils % 71.8 %; White Blood Count 19.7 K/mcL (4.3-11.1)
[2022-02-27 19:29] LABS: Calcium 8.5 mg/dL (8.6-10.3); Potassium 5.2 mEq/L (3.5-5.1)
[2022-02-27] MEDS ORDERED: Acetaminophen 325 MG TABLET PO PRN (20:24)
[2022-02-27] MEDS ORDERED: *HR* OxyCODONE Immed Rel 5 MG TABLET PO PRN (20:24)
[2022-02-27] MEDS ORDERED: Naloxone 0.4 MG/ML INJ IVP PRN (20:24)
[2022-02-27] MEDS ORDERED: *HR* HYDROcodone/Acet 5/325 mg TABLET PO PRN (20:24)
[2022-02-27] MEDS ORDERED: Ondansetron 4 MG/2 ML VIAL IVP PRN (20:24)
[2022-02-27] MEDS ORDERED: Melatonin 3 MG TABLET PO PRN (20:24)
[2022-02-27] MEDS ORDERED: Albuterol 2.5 MG/3 ML NEBULIZER IH PRN (20:26)
[2022-02-27] MEDS ORDERED: Carbidopa/Levodopa 25/100 TABLET GTUBE PRN (20:26)
[2022-02-27] MEDS ORDERED: Sennosides/Docusate Sodium TABLET GTUBE PRN (20:26)
[2022-02-27] MEDS ORDERED: *HR* Dextrose 50 % in Water (Syg) 50 ML SYRINGE IVP PRN (20:29)
[2022-02-27] MEDS ORDERED: Dextrose Gel 15 GM/37.5 ML TUBE PO PRN ×2 (20:29)
[2022-02-27] MEDS ORDERED: D5% in Water 1,000 ML IVC PRN (20:29)
[2022-02-27] MEDS ORDERED: 0.9 % Sodium Chloride 1,000 ML IVC SCH (20:30)
[2022-02-27] MEDS ORDERED: *HR* Dextrose 50 % in Water (Syg) 50 ML SYRINGE IVP ONE (20:49)
[2022-02-27] MEDS ORDERED: NON-FORMULARY MEDICATION 1 EACH EACH (Omeprazole 20 MG Tablet.Dr) GTUBE SCH (21:00)
[2022-02-27] MEDS ORDERED: Melatonin 3 MG TABLET GTUBE PRN (21:00)
[2022-02-27] MEDS ORDERED: Insulin DETEMIR 100 UNIT/ML X5UNITS SUBQ SCH (21:00)
[2022-02-27] MEDS ORDERED: Apixaban 5 MG TABLET GTUBE SCH (21:00)
[2022-02-27] MEDS ORDERED: NON-FORMULARY MEDICATION 1 EACH EACH (Calcium Carbonate/Vitamin D3 [Oyster Shell 500mg-Vit GTUBE SCH (21:00)
[2022-02-27] MEDS ORDERED: NON-FORMULARY MEDICATION 1 EACH EACH (Ipratropium/Albuterol Sulfate 120 PUFF Inhaler) IH SCH (21:00)
[2022-02-27] MEDS ORDERED: Carbidopa/Levodopa 25/100 TABLET GTUBE SCH (21:00)
[2022-02-27] MEDS ORDERED: Mirtazapine 15 MG TABLET GTUBE SCH (21:00)
[2022-02-27 21:43] LABS: Bacteria,Urine Few per hpf (None-Few); Bilirubin,Urine Negative (Negative); Blood,Urine Negative (Negative); Clarity,Urine Clear (Clear); Color,Urine Colorless (Yellow); Glucose,Urine (UA) 300 mg/dL (Normal); Ketones,Urine Negative (Negative); Leukocyte Esterase,Urine Small (Negative); Mucus,Urine Few per lpf (None-Few); Nitrite,Urine Negative (Negative); Protein,Urine Trace mg/dL (Neg-Trace); RBC,Urine 0-3 per hpf (0-3); Specific Gravity,Urine 1.009 (1.010-1.025); Squamous Epithelial Cell,Urine Few per hpf (None-Few); Urobilinogen,Urine Normal (Normal)
[2022-02-27 21:44] VITALS: BP 131/72; PULSE 70; TEMP 97.7; O2SAT 96
[2022-02-27 21:49] LABS: Potassium,Urine 18.1 mEq/L; Protein/Creatinine Ratio,Urine 0.67 mg/mg (0.00-0.20); Sodium, Urine 33.7 mEq/L
[2022-02-28] MEDS ORDERED: Ipratropium 1 PUFF INHALER IH SCH
[2022-02-28] MEDS ORDERED: Piperacillin/Tazobactam 3.375 GM in 0.9 % Sodium Chloride Mini Bag 100 ML IVPB SCH (01:00)
[2022-02-28] MEDS ORDERED: Insulin LISPRO 300 UNITS/3 ML VIAL SUBQ SCH (07:30)
[2022-02-28] MEDS ORDERED: Cyanocobalamin (B-12) 1,000 MCG TABLET GTUBE SCH (09:00)
[2022-02-28] MEDS ORDERED: Gabapentin 100 MG CAPSULE GTUBE SCH (09:00)
[2022-02-28] MEDS ORDERED: Famotidine 20 MG TABLET GTUBE SCH (09:00)
[2022-02-28] MEDS ORDERED: Thiamine (B-1) 100 MG TABLET GTUBE SCH (09:00)
[2022-02-28 18:40] LABS: mecA/C & MREJ (MRSA) Gene Not Detected (Not Detect)
[2022-02-28 18:41] LABS: Enterococcus faecalis by PCR Not Detected (Not Detect); Enterococcus faecium by PCR Not Detected (Not Detect)
[2022-02-28 18:58] LABS: A.calcoaceticus-baumannii cplx Not Detected (Not Detect); Bacteroides fragilis by PCR Not Detected (Not Detect); Candida albicans by PCR Not Detected (Not Detect); Candida auris by PCR Not Detected (Not Detect); Candida glabrata by PCR Not Detected (Not Detect); Candida krusei by PCR Not Detected (Not Detect); Candida parapsilosis by PCR Not Detected (Not Detect); Candida tropicalis by PCR Not Detected (Not Detect); Crypto. neoformans/gattii PCR Not Detected (Not Detect); Enterobacter cloacae Cmplx PCR Not Detected (Not Detect); Enterobacterales by PCR Not Detected (Not Detect); Escherichia coli by PCR Not Detected (Not Detect); Klebs. pneumoniae group by PCR Not Detected (Not Detect); Klebsiella aerogenes by PCR Not Detected (Not Detect); Klebsiella oxytoca by PCR Not Detected (Not Detect); Proteus by PCR Not Detected (Not Detect); Pseudomonas aeruginosa by PCR Not Detected (Not Detect); Salmonella species by PCR Not Detected (Not Detect); Serratia marcescens by PCR Not Detected (Not Detect); Staph epidermidis by PCR Not Detected (Not Detect); Staph lugdunensis by PCR Not Detected (Not Detect); Staphylococcus aureus by PCR DETECTED (Not Detect); Stenotrophomonas maltophilia Not Detected (Not Detect); Streptococcus agalactiae(B)PCR Not Detected (Not Detect); Streptococcus by PCR Not Detected (Not Detect); Streptococcus pneumoniae PCR Not Detected (Not Detect); Streptococcus pyogenes (A) PCR Not Detected (Not Detect)
== END 2022-02-27 23:59 | disposition other institution (70) ==
LOC: 3ANU 16:27 → EMEROOARM 16:27 → SUATTDRO 20:44 → 3ANU 21:25
PROVIDERS: ADMIT Internal Medicine; ATTEND Internal Medicine